=== PATIENT | female | born 1980 | race Caucasian/White ===

== ENCOUNTER 2023-05-16 | Outpatient (REF) | payer BC, SELFPAY ==
[2023-05-22 13:10] LABS: Age Gdln ACOG Testing Note (.); HPV Aptima Negative (Negative); IGP, Aptima HPV, rfx 16/18,45 Note (.)
== END 2023-05-16 00:01 | disposition home or self-care (01) ==
LOC: LAB
PROVIDERS: PCP Radiology Diagnostic Radiology; Visit Provider Physician Assistant
DX: Z01.419 Encounter for gynecological examination (general) (routine) without abnormal findings (principal)
CPT/HCPCS: 87624; G0145

== ENCOUNTER 2023-05-24 07:08 | Outpatient (OUT) | payer BC, SELFPAY ==
[2023-05-24 08:45] LABS: Free T4 0.87 ng/dL (0.76-1.46)
[2023-05-24 09:56] LABS: Free T3 2.29 pg/mL (2.18-3.98); Thyroid Stimulating Hormone 2.155 uIU/mL (0.358-3.740)
== END 2023-05-24 07:09 | disposition home or self-care (01) ==
LOC: LAB 07:09
PROVIDERS: PCP Internal Medicine; Visit Provider Internal Medicine
DX: Z78.0 Asymptomatic menopausal state (principal)
CPT/HCPCS: 36415; 84439; 84443; 84481

== ENCOUNTER 2023-05-24 14:03 | Outpatient (OUT) | payer BC, SELFPAY ==
--- NOTE | 2023-05-24 14:25 | MM_ITS ---
Patient: MARTHA FINNEY Exam Date: 05/24/2023 : 1980 Gender:F Ordering : DIOR Peña . Admission #: [id number] Family : DR Faizan Gay D.O. Order #: [id number] CLICK HERE TO VIEW EXAM RADIOLOGY REPORT PROCEDURE: MM TOMOSYNTHESIS SCREENING BI COMPARISON: MG MAMM SCREEN 3D JORDI CAD, 05/19/2022. MG MAMM SCREEN 3D JORDI CAD, 04/27/2021. MG MAMM SCREEN JORDI W CAD, 08/07/2017. INDICATIONS: Screening mammogram Z12.31 Calculator Name NCI Breast Cancer Risk Assessment Tool 5 Year Breast Cancer Risk 0.80% Lifetime Breast Cancer Risk 11.90% Personal Breast Cancer No Personal Ovarian Cancer No Treatments None Family Cancers Grandmother-maternal with uterine cancer at age ~48. LOCATION: [facility] BREAST COMPOSITION: Heterogeneously dense,which may obscure small masses. FINDINGS: DIAGNOSTIC CATEGORY 1--NEGATIVE. RIGHT BREAST: No significant suspicious finding. No significant change has occurred. LEFT BREAST: No significant suspicious finding. No significant change has occurred. RECOMMENDATIONS: ROUTINE MAMMOGRAM AND CLINICAL EVALUATION IN 12 MONTHS. PLEASE NOTE: A NORMAL MAMMOGRAM DOES NOT EXCLUDE THE POSSIBILITY OF BREAST CANCER. A CLINICALLY SUSPICIOUS PALPABLE LUMP SHOULD BE BIOPSIED. Dictated by: Rahul Quintero M.D. on 05/25/2023 at 09:22 Approved by: Rahul Quintero M.D. on 05/25/2023 at 10:19
== END 2023-05-24 14:04 | disposition home or self-care (01) ==
LOC: MAMMO 14:03
PROVIDERS: PCP Internal Medicine; Visit Provider Physician Assistant
DX: Z78.0 Asymptomatic menopausal state (principal); Z12.31 Encounter for screening mammogram for malignant neoplasm of breast; Z80.8 Family history of malignant neoplasm of other organs or systems
CPT/HCPCS: 36415; 77063; 77067; 84439; 84443; 84481

== ENCOUNTER 2023-08-20 11:38 | Outpatient (OUT) | payer BC, SELFPAY ==
--- NOTE | 2023-08-17 14:17 | NUTR.NU ---
Nahid reports her weight remains stable regardless of what she eats or drinks. She engages in physical activity 30-60 minutes/day and regularly changes the type of activity to include resistance and endurance activities. Recommended a balanced diet containing all food groups, practicing portion control and limiting salty or sweet snacks, most of which contain trans fats. Provided handouts: Building a balanced meal, Fats - the good/bad/ugly, and weight management guidelines/bookmark. Encouraged Nahid to contact dietitian with any questions or concerns.
== END 2023-08-20 11:39 | disposition home or self-care (01) ==
LOC: MN 11:38
PROVIDERS: PCP Internal Medicine
DX: Z76.89 Persons encountering health services in other specified circumstances (principal)
CPT/HCPCS: 97802

== ENCOUNTER 2023-08-22 07:37 | Outpatient (OUT) | payer BC, SELFPAY ==
[2023-08-22 07:56] LABS: Basophils Absolute Auto 0.1 10^3/uL (0.0-0.1); Basophils Percent Auto 0.6 % (0.2-2.0); Eosinophils Absolute Auto 0.1 10^3/uL (0.0-0.7); Eosinophils Percent Auto 1.5 % (0.9-7.0); Hematocrit 37.9 % (36.0-48.0); Hemoglobin 12.2 g/dL (12.0-16.0); Immature Granulocytes Abs Auto 0.01 10^3/uL (0.00-0.03); Immature Granulocytes Pct Auto 0.1 % (0.0-0.5); Lymphocytes Absolute Auto 2.1 10^3/uL (1.2-3.8); Lymphocytes Percent Auto 24.3 % (20.5-60.0); Mean Corpuscular HGB Conc 32.2 g/dL (29.9-35.2); Mean Corpuscular Hemoglobin 27.9 pg (26.7-34.0); Mean Corpuscular Volume 86.5 fL (81.0-99.0); Mean Platelet Volume 10.8 fL (9.5-13.5); Monocytes Absolute Auto 0.5 10^3/uL (0.3-0.8); Monocytes Percent Auto 5.8 % (1.7-12.0); Neutrophils Absolute Auto 5.8 10^3/uL (1.4-6.5); Neutrophils Percent Auto 67.7 % (43.0-75.0); Platelet Count 297 10^3/uL (150-450); Red Blood Count 4.38 10^6/uL (4.20-5.40); Red Cell Distribution Width 13.1 % (11.0-15.0); White Blood Count 8.6 10^3/uL (4.0-11.0)
[2023-08-22 08:07] LABS: Estimated Average Glucose 111 mg/dL; Glycohemoglobin A1C 5.5 % (4.5-6.2)
[2023-08-22 08:35] LABS: Alanine Aminotransferase 20 U/L (14-59); Albumin Globulin Ratio 0.9; Albumin Level 3.5 g/dL (3.4-5.0); Alkaline Phosphatase 72 U/L (46-116); Anion Gap 11.7; Aspartate Amino Transferase 14 U/L (15-37); BUN Creatinine Ratio 15.5; Bilirubin Total 0.7 mg/dL (0.2-1.0); Calcium 8.6 mg/dL (8.5-10.1); Carbon Dioxide 28.3 mmol/L (21.0-32.0); Chloride 100 mmol/L (98-107); Chol HDL Ratio 4.4; Cholesterol 212 mg/dL (<=200); Estimated GFR (African America >60 (>=60); Estimated GFR (Non-African Ame >60 (>=60); Free T3 2.49 pg/mL (2.18-3.98); Globulin 3.8 g/dL; Glucose 95 mg/dL (74-106); HDL Cholesterol 48 mg/dL (40-60); Sodium 136 mmol/L (136-145); Thyroid Stimulating Hormone 2.472 uIU/mL (0.358-3.740); Total Protein 7.3 g/dL (6.4-8.2); Triglycerides 76 mg/dL (<=150); VLDL CHOLESTEROL 15.2 mg/dL
[2023-08-22 09:04] LABS: Free T4 0.79 ng/dL (0.76-1.46)
[2023-08-23 10:12] LABS: Progesterone 10.4 ng/mL (.); Testosterone 30 ng/dL (4-50)
[2023-08-24 16:10] LABS: Estrone, Serum 65 pg/mL (.)
[2023-08-27 19:07] LABS: DHEA, Serum 258 ng/dL (31-701)
== END 2023-08-22 07:38 | disposition home or self-care (01) ==
LOC: LAB 07:37
PROVIDERS: PCP Internal Medicine; Visit Provider Internal Medicine
DX: Z00.00 Encounter for general adult medical examination without abnormal findings (principal); N95.1 Menopausal and female climacteric states
CPT/HCPCS: 36415; 80053; 80061; 82533; 82626; 82670; 82679; 83036; 84144; 84403; 84439; 84443; 84481; 85025

== ENCOUNTER 2023-10-30 13:04 | Outpatient (OUT) | payer BC, SELFPAY ==
--- NOTE | 2023-10-30 | XR_ITS ---
The [address] [address] Patient Name: MARTHA FINNEY MRN: [id number] date: 1980 Sex: F Assigned Patient Location: [facility] Current Patient Location: [facility] Accession/Order Number: [id number] Exam Date: 10/30/2023 13:06 Report Date: 10/30/2023 14:57 At the request of: ISAIAS BELCHER Procedure: XR foot JORDI min 3V EXAM: XR foot JORDI min 3V. HISTORY: BILATERAL FOOT PAIN. COMPARISON: Bilateral foot study dated 09/20/2021, left foot study dated 02/01/2022. TECHNIQUE: 4 views of each foot were obtained. FINDINGS: Views of the right foot demonstrate stabilizing plate and screws at the first metatarsophalangeal joint level, similar to the prior study. Small to moderate plantar calcaneal spur. Mild flatfoot deformity again suggested. Mild dorsal spurring of the talus on lateral view. Soft tissues are grossly within normal limits. No definite acute fracture or dislocation. Views of the left foot demonstrate 2 stabilizing screws in the calcaneus, similar to the prior study. Previously noted osteotomy of the first cuneiform demonstrates interval fusion, correlate clinically. Small opacity along the lateral fourth toe at the PIP joint level which may be degenerative calcification or interval opaque foreign body, correlate clinically. Similar-appearing small opacity between the third and fourth metatarsophalangeal joints on oblique view may represent degenerative calcification or interval opaque foreign body, correlate clinically. Mild degenerative change at the first metatarsotarsal joint. Mild to moderate spurring about the dorsal distal talus and the dorsal navicular. Soft tissues are grossly within normal limits. No definite acute fracture or dislocation. XR/XR foot JORDI min 3V IMPRESSION: Bilateral foot study demonstrates stable and unremarkable postoperative changes. Degenerative changes as noted similar to the prior studies. Small interval opacity overlying the lateral soft tissue of the left fourth toe and between the third and fourth metatarsophalangeal joints on oblique view of the left foot. Considerations as noted. Follow-up as needed. Electronically authenticated by: ELIZABET SIMMS Date: 10/30/2023 14:57
== END 2023-10-30 13:05 | disposition home or self-care (01) ==
LOC: RAD 13:04
PROVIDERS: PCP Internal Medicine; Visit Provider Podiatrist Foot & Ankle Surgery
DX: M79.671 Pain in right foot (principal); M79.672 Pain in left foot
CPT/HCPCS: 73630

== ENCOUNTER 2024-01-14 12:53 | Outpatient (OUT) | payer BC, SELFPAY ==
--- NOTE | 2024-01-14 12:57 | XR_ITS ---
The [address] [address] Patient Name: MARTHA FINNEY MRN: [id number] date: 1980 Sex: F Assigned Patient Location: [facility] Current Patient Location: Accession/Order Number: [id number] Exam Date: 01/14/2024 13:02 Report Date: 01/16/2024 06:54 At the request of: YVON GAMEZ Procedure: XR lumbar spine 6V w bending EXAMINATION: XR lumbar spine 6V w bending HISTORY: low back pain M54.50 , left leg pain, no known injury COMPARISON: No relevant comparison available. FINDINGS: BONES: No significant spondylosis, scoliosis, fracture, or visible bony lesion. No change in alignment during flexion and extension. Mild degenerative facet arthropathy L4-5, L5-S1. DISC SPACES: Mild narrowing L3-4. Moderate narrowing L5-S1. PARASPINOUS: Negative. No paraspinous abnormality is seen. OTHER: Negative. XR/XR lumbar spine 6V w bending IMPRESSION: 1. Degenerative changes of lower lumbar spine, most notable at L5-S1. Electronically authenticated by: ELIEZER ROME Date: 01/16/2024 06:54
--- OUTSIDE RECORDS SUMMARY | 2024-01-14 13:07 | XMS_ITS | CCD ---
Author Organization [facility] Care Team Providers Care Chainstitch Hemmer Name Role Phone PHYSICIAN, DEFAULT Admitting Unavailable PHYSICIAN, DEFAULT Attending Unavailable PHYSICIAN, DEFAULT Admitting Unavailable PHYSICIAN, DEFAULT Attending Unavailable WILD, DR RAHUL Merrill Consulting Unavailable BALL, DR SANZ Primary Care Unavailable MONIKA, NOÉ Admitting Unavailable MONIKA, NOÉ Attending Unavailable MONIKA, NOÉ Consulting Unavailable AMANDA, DR SULLIVAN Admitting Unavailable AMANDA, DR SULLIVAN Attending Unavailable BALL, DR SANZ Consulting Unavailable BALL, DR SANZ Primary Care Unavailable BALL, DR SANZ Primary Care Unavailable BALL, DR SANZ Consulting Unavailable BALL, DR SANZ Attending Unavailable BALL, DR SANZ Admitting Unavailable BALL, DR SANZ Primary Care Unavailable RAMON, JEROD Admitting Unavailable RAMON, JEROD Attending Unavailable BALL, DR SANZ Primary Care Unavailable BALL, DR SANZ Consulting Unavailable BALL, DR SANZ Attending Unavailable BALL, DR SANZ Admitting Unavailable BALL, DR SANZ Primary Care Unavailable BALL, DR SANZ Consulting Unavailable BALL, DR SANZ Attending Unavailable BALL, DR SANZ Admitting Unavailable Ball, Faizan Unavailable Allergies Allergy Classification Reported Allergen(s) Allergy Type Date of Onset Reaction(s) Facility (1 source) Carisoprodol Drug Allergy [facility] (1 source) Metoprolol Drug Allergy [facility] (2 sources) Carisoprodol Drug Allergy palpitations Jibe Other (2 sources) First - Metoprolol *BETA BLOCKERS* Propensity to adverse reactions Comment:tachyca rdia Jibe Other Medications Current Medications Medication Drug Class(es) Dates Sig (Normalized) Sig (Original) ProAir HFA 108 (90 Base) MCG/ACT (2 sources) take 2 puff(s) by inhalation every four hours as needed ProAir HFA 108 (90 Base) MCG/ACT 2 puffs as needed Inhalation every 4 hrs for 30 days Active Completed/Discontinued Medications Medication Drug Class(es) Dates Sig (Normalized) Sig (Original) methylPREDNISolone 4 mg oral tablet (2 sources) Corticosteroid Medrol (Alin) 4 M G as directed Orally for 6 days Not-Taking Problems Active Problems Problem Classification Problem Date Documented Da te Episodic/Chronic Cardiac dysrhythmias (3 sources) Palpitations; Translations: [Palpitations] Episodic Menopausal disorders (3 sources) Menopausal and female climacteric states; Translations: [Menopausal symptom] Onset: 09-30-2022 Chronic Other connective tissue disease (4 sources) Plantar fascial fibromatosis; Translations: [PLANTAR FASCIAL FIBROMATOSIS] Onset: 11-30-2022 Episodic Other connective tissue disease (2 sources) Foot pain; Translations: [Pain in unspecified foot] Episodic Other endocrine disorders (2 sources) Disorder of endocrine system; Translations: [Endocrine disorder, unspecified] Episodic Other nutritional; endocrine; and metabolic disorders (2 sources) Body mass index 40+ - severely obese; Translations: [Body mass index (BMI) 45.0-49.9, adult] Chronic Other nutritional; endocrine; and metabolic disorders (2 sources) Severe obesity; Translations: [Morbid (severe) obesity due to excess calories] Chronic Other nutritional; endocrine; and metabolic disorders (1 source) Morbid (severe) obesity due to excess calories Chronic Other nutritional; endocrine; and metabolic disorders (1 source) Body mass index (BMI) 45.0-49.9, adult Chronic Residual codes; unclassified (4 sources) Asymptomatic menopausal state; Translations: [ASYMPTOMATIC MENOPAUSAL STATE] Onset: 02-03-2023 Episodic Past or Other Problems Problem Classification Problem Date Documented Da te Episodic/Chronic Malaise and fatigue (4 sources) Other fatigue; Translations: [OTHER FATIGUE] Onset: 09-25-2022 Episodic Other endocrine disorders (1 source) Endocrine disorder, unspecified; Translations: [ENDOCRINE DISORDER UNSPECIFIED] Onset: 08-13-2022 Episodic Other screening for suspected conditions (not mental disorders or infectious disease) (4 sources) Encounter for screening mammogram for malignant neoplasm of breast; Translations: [ENC SCR MAMMO MALIG NEOPLASM BREAST] Onset: 05-19-2022 Episodic Residual codes; unclassified (1 source) Family history of malignant neoplasm of other genital organs; Translations: [FAM HX MALIG NEOPLSM OTH GENIT ORGN] Onset: 05-22-2022 Episodic Results Test Name Value Interpretation Reference Range Facility DHEA SERUMon 02-08-2023 Dehydroepiandrosterone (DHEA) 415 ng/dL Normal 31-701 [facility] Comment on above: Performed By: #### D JAMEL. #### [facility] [address] [place] [address] Dr. Katie Funez ESTRONEon 02-06-2023 Estrone, Serum 55 pg/mL Normal [facility] Comment on above: Result Comment: Rang e Adult (Premenopausal) 27 - 231 Menstrual Cycle (1-10 days) 19 - 149 Menstrual Cycle (11-20 days) 32 - 176 Menstrual Cycle (21-30 days) 37 - 200 Adult (Postmenopausal) 0 - 125 Performed By: #### P DAVINA #### [facility] [address] [place] [address] Dr. Katie Funez CORTISOLon 02-04-2023 Cortisol 22.7 ug/dL Critically high 6.2-19.4 [facility] Comment on above: Result Comment: Vibha frost Note: The reference interval and flagging for this test is for an AM collection. If this is a PM collection please use: Cortisol PM: 2.3-11.9 [facility] also offers: 104077: Cortisol- AM 819252: Cortisol- PM Performed By: #### C ORFLACO #### [facility] [address] [place] [address] Dr. Katie Funez ESTRADIOLon 02-04-2023 Estradiol 142.0 pg/mL Normal [facility] Comment on above: Result Comment: Adul t Female: Follicular phase 12.5 - 166.0 Ovulation phase 85.8 - 498.0 Luteal phase 43.8 - 211.0 Postmenopausal <6.0 - 54.7 1st trimester 215.0 - >4300.0 Jeferson ECLIA methodology Performed By: #### E WAYNE #### [facility] [address] [place] [address] Dr. Katie Funez PROGESTERONEon 02-04-2023 Progesterone 7.6 ng/mL Normal [facility] Comment on above: Result Comment: Foll icular phase 0.1 - 0.9 Luteal phase 1.8 - 23.9 Ovulation phase 0.1 - 12.0 First trimester 11.0 - 44.3 Second trimester 25.4 - 83.3 Third trimester 58.7 - 214.0 Postmenopausal 0.0 - 0.1 Performed By: #### P ROGES #### [facility] [address] [place] [address] Dr. Katie Funez TESTOSTERONE, TOTALon 2022 Testosterone [Mass/Vol] 33 ng/dL Normal 4-[address] [facility] Comment on above: Performed By: #### T ESTTOT #### [facility] [address] [place] [address] Dr. Katie Funez FREE T3on 02-03-2023 FREE T3 2.12 pg/mlL Critically low 2.18-3.98 [facility] Comment on above: Performed By: #### P ROGES #### [facility] [address] [place] [address] Dr. Katie Funez FREE T4on 02-03-2023 Free T4 [Mass/Vol] 0.90 ng/dL Normal 0.76-1.46 [facility] Comment on above: Performed By: #### P ROGES #### [facility] [address] [place] [address] Dr. Katie Funez TSHon 02-03-2023 TSH 2.763 uIU/mL Normal 0.358-3.740 [facility] Comment on above: Performed By: #### P ROGES #### [facility] [address] [place] [address] Dr. Katie Funez FREE T3on 09-25-2022 FREE T3 1.80 pg/mlL Critically low 2.18-3.98 [facility] Comment on above: Performed By: #### F T3 #### [facility] [address] [place] [address] Dr. Katie Funez FREE T4on 09-25-2022 Free T4 [Mass/Vol] 1.05 ng/dL Normal 0.76-1.46 [facility] Comment on above: Performed By: #### P ROGES #### [facility] [address] [place] [address] Dr. Katie uFnez TSHon 09-25-2022 TSH 3.688 uIU/mL Normal 0.358-3.740 [facility] Comment on above: Performed By: #### T SH #### [facility] [address] [place] [address] Dr. Katie Funez ESTRONEon 08-17-2022 Estrone, Serum 49 pg/mL Normal [facility] Comment on above: Result Comment: Rang e Adult (Premenopausal) 27 - 231 Menstrual Cycle (1-10 days) 19 - 149 Menstrual Cycle (11-20 days) 32 - 176 Menstrual Cycle (21-30 days) 37 - 200 Adult (Postmenopausal) 0 - 125 Performed By: #### E STRONE #### [facility] [address] [place] [address] Dr. Katie Funez TESTOSTERONE, FREE,DIRECT, T OTALon 08-14-2022 Free Testosterone(Direct) 0.8 pg/mL Normal 0.0-4.2 [facility] Comment on above: Result Comment: Perf ormed at: BN Performed By: #### V ITAD #### [facility] [address] [place] [address] Dr. Katie Funez Testosterone [Mass/Vol] 27 ng/dL Normal 4-[address] [facility] Comment on above: Result Comment: Perf ormed at: CB Performed By: #### V ITAD #### [facility] [address] [place] [address] Dr. Katie Funez CORTISOLon 08-11-2022 Cortisol 11.5 ug/dL Normal [facility] Comment on above: Result Comment: Doimedes isol AM 6.2 - 19.4 Cortisol PM 2.3 - 11.9 Performed By: #### V ITAD #### [facility] [address] [place] [address] Dr. Katie Funez DHEA-SULFATEon 08-11-2022 DHEA-Sulfate 120.0 ug/dL Normal 57.3-279.2 [facility] Comment on above: Performed By: #### V ITAD #### [facility] [address] [place] [address] Dr. Katie Funez ESTRADIOLon 08-11-2022 Estradiol 104.0 pg/mL Normal [facility] Comment on above: Result Comment: Adul t Female: Follicular phase 12.5 - 166.0 Ovulation phase 85.8 - 498.0 Luteal phase 43.8 - 211.0 Postmenopausal <6.0 - 54.7 1st trimester 215.0 - >4300.0 Jeferson ECLIA methodology Performed By: #### E WAYNE #### [facility] [address] [place] [address] Dr. Katie Funez PROGESTERONEon 08-11-2022 Progesterone 9.7 ng/mL Normal [facility] Comment on above: Result Comment: Foll icular phase 0.1 - 0.9 Luteal phase 1.8 - 23.9 Ovulation phase 0.1 - 12.0 First trimester 11.0 - 44.3 Second trimester 25.4 - 83.3 Third trimester 58.7 - 214.0 Postmenopausal 0.0 - 0.1 Performed By: #### V ITAD #### [facility] [address] [place] [address] Dr. Katie Funez SEX HORMONE-BINDING GLOBULIN on 08-11-2022 Sex Horm Binding Glob, Serum 73.1 nmol/L Normal 24.6-122.0 [facility] Comment on above: Performed By: #### V ITAD #### [facility] [address] [place] [address] Dr. Katie Funez CBC AUTO DIFFon 08-10-2022 BASO # 0.0 103/ul Normal 0.0-0.1 [facility] Comment on above: Performed By: #### V ITAD #### [facility] [address] [place] [address] Dr. Katie Funez Basophils/100 WBC (Bld) 0.6 % Normal 0.2-2.0 [facility] Comment on above: Performed By: #### V ITAD #### [facility] [address] [place] [address] Dr. Katie Funez EO # 0.1 103/ul Normal 0.0-0.7 [facility] Comment on above: Performed By: #### V ITAD #### [facility] [address] [place] [address] Dr. Katie Funez Eosinophils/100 WBC (Bld) 1.4 % Normal 0.9-7.0 [facility] Comment on above: Performed By: #### V ITAD #### [facility] [address] [place] [address] Dr. Katie Funez Erythrocyte distribution width (RBC) [Ratio] 13.2 % Normal 11.0-15.0 [facility] Comment on above: Performed By: #### V ITAD #### [facility] [address] [place] [address] Dr. Katie Funez Hematocrit (Bld) [Volume fraction] 41.9 % Normal 36.0-48.0 [facility] Comment on above: Performed By: #### V ITAD #### [facility] [address] [place] [address] Dr. Katie Funez Hemoglobin (Bld) [Mass/Vol] 13.5 g/dL Normal 12.0-16.0 [facility] Comment on above: Performed By: #### V ITAD #### [facility] [address] [place] [address] Dr. Katie Funez IG # 0.01 10e3/ul Normal 0.00-0.03 [facility] Comment on above: Performed By: #### V ITAD #### [facility] [address] [place] [address] Dr. Katie Funez IG % 0.1 % Normal 0.0-0.5 [facility] Comment on above: Performed By: #### V ITAD #### [facility] [address] [place] [address] Dr. Katie Funez LYMPH # 1.8 103/ul Normal 1.2-3.8 [facility] Comment on above: Performed By: #### V ITAD #### [facility] [address] [place] [address] Dr. Katie Funez Lymphocytes/100 WBC (Bld) 24.6 % Normal 20.5-60.0 [facility] Comment on above: Performed By: #### V ITAD #### [facility] [address] [place] [address] Dr. Katie Funez MANUAL DIFF REQ NO Normal [facility] Comment on above: Performed By: #### V ITAD #### [facility] [address] [place] [address] Dr. Katie Funez MCH (RBC) [Entitic mass] 28.2 pg Normal 26.7-34.0 [facility] Comment on above: Performed By: #### V ITAD #### [facility] [address] [place] [address] Dr. Katie Funez MCHC (RBC) [Mass/Vol] 32.2 g/dL Normal 29.9-35.2 [facility] Comment on above: Performed By: #### V ITAD #### [facility] [address] [place] [address] Dr. Kaite Funez MCV (RBC) [Entitic vol] 87.5 fL Normal 81.0-99.0 [facility] Comment on above: Performed By: #### V ITAD #### [facility] [address] [place] [address] Dr. Katie Funez MONO # 0.4 103/ul Normal 0.3-0.8 [facility] Comment on above: Performed By: #### V ITAD #### [facility] [address] [place] [address] Dr. Katie Funez Monocytes/100 WBC (Bld) 6.0 % Normal 1.7-12.0 [facility] Comment on above: Performed By: #### V ITAD #### [facility] [address] [place] [address] Dr. Katie Funez NEUT # 4.8 103/ul Normal 1.4-6.5 [facility] Comment on above: Performed By: #### V ITAD #### [facility] [address] [place] [address] Dr. Katie Funez Neutrophils/100 WBC (Bld) 67.3 % Normal 43.0-75.0 [facility] Comment on above: Performed By: #### V ITAD #### [facility] [address] [place], [place] [id number] Dr. Katie Funez Platelet mean volume (Bld) [Entitic vol] 11.7 fL Normal 9.5-13.5 [facility] Comment on above: Performed By: #### V ITAD #### [facility] [address] [place] [address] Dr. Katie Funez PLT 294 103/ul Normal 150-450 [facility] Comment on above: Performed By: #### V ITAD #### [facility] [address] [place] [address] Dr. Katie Funez RBC 4.79 106/ul Normal 4.20-5.40 [facility] Comment on above: Performed By: #### V ITAD #### [facility] [address] [place] [address] Dr. Katie Funez WBC 7.2 103/ul Normal 4.0-11.0 [facility] Comment on above: Performed By: #### V ITAD #### [facility] [address] [place] [address] Dr. Katie Funez GLYCOHEMOGLOBIN A1Con 2021 ADA RECOMMENDATION SEE BELOW Normal [facility] Comment on above: Result Comment: ADA RECOMMENDED LIMIT 4.0 - 6.0 ADA THERAPEUTIC TARGET < 7.0 ACTION SUGGESTED > 7.0 Performed By: #### P DAVINA #### [facility] [address] [place] [address] Dr. Katie Funez Glucose [Mass/Vol] 103 mg/dL Normal [facility] Comment on above: Performed By: #### P ROGES #### [facility] [address] [place] [address] Dr. Katie Funez HbA1c (Bld) [Mass fraction] 5.2 % Normal 4.5-6.2 [facility] Comment on above: Performed By: #### P ROGMARCUS #### [facility] [address] [place] [address] Dr. Katie Funez LIPID PROFILEon 08-10-2022 CHOL-HDL RATIO NORM SEE BELOW Normal [facility] Comment on above: Result Comment: 3.3 - 4.4 LOW RISK 4.4 - 7.1 AVERAGE RISK 7.1 - 11.0 MODERATE RISK >11.0 HIGH RISK Performed By: #### V ITAD #### [facility] [address] [place] [address] Dr. Katie Funez Cholesterol [Mass/Vol] 204 mg/dL Critically high <=200 [facility] Comment on above: Performed By: #### V ITAD #### [facility] [address] [address] [address] Katie Funez Cholesterol in HDL [Mass/Vol] 52 mg/dL Normal 40-60 [facility] Comment on above: Performed By: #### V ITAD #### [facility] [address] [place] [address] Dr. Katie Funez Cholesterol in LDL [Mass/Vol] 137.2 mg/dL Normal [facility] Comment on above: Performed By: #### V ITAD #### [facility] [address] [place] [address] Dr. Katie Funez Cholesterol.total/Choleste rol in HDL [Mass ratio] 3.9 {ratio} Normal [facility] Comment on above: Performed By: #### V ITAD #### [facility] [address] [place] [address] Dr. Katie Funez HDL NORMAL > or = 60 mg/dl - LOW CARDIOVASCULAR RISK <40 mg/dl - HIGH CARDIOVASCULAR RISK Normal [facility] Comment on above: Performed By: #### V ITAD #### [facility] [address] [place] [address] Dr. Katie Funez LDL CALC NORMAL SEE BELOW Normal [facility] Comment on above: Result Comment: <100 mg/dl OPTIMAL 100 - 129 mg/dl NEAR OR ABOVE OPTIMAL 130 - 159 mg/dl BORDERLINE HIGH 160 - 189 mg/dl HIGH >190 mg/dl VERY HIGH Performed By: #### V ITAD #### [facility] [address] [place] [address] Dr. Katie Funez Triglyceride [Mass/Vol] 74 mg/dL Normal <=150 [facility] Comment on above: Performed By: #### V ITAD #### [facility] [address] [place] [address] Dr. Katie Funez VLDL CALC 14.8 mg/dL Normal [facility] Comment on above: Performed By: #### V ITAD #### [facility] [address] [place] [address] Dr. Katie Funez PROF 14(COMP METB)on 022 Albumin [Mass/Vol] 3.8 g/dL Normal 3.4-5.0 [facility] Comment on above: Performed By: #### V ITAD #### [facility] [address] [place] [address] Dr. Katie Funez Albumin/Globulin [Mass ratio] 0.9 {ratio} Normal [facility] Comment on above: Performed By: #### V ITAD #### [facility] [address] [place] [address] Dr. Katie Funez ALP [Catalytic activity/Vol] 77 U/L Normal 46-116 [facility] Comment on above: Performed By: #### V ITAD #### [facility] [address] [place] [address] Dr. Katie Funez ALT [Catalytic activity/Vol] 20 U/L Normal 14-59 [facility] Comment on above: Performed By: #### V ITAD #### [facility] [address] [place] [address] Dr. Katie Funez Anion gap [Moles/Vol] 10.0 mmol/L Normal [facility] Comment on above: Performed By: #### V ITAD #### [facility] [address] [place] [address] Dr. Katie Funez AST [Catalytic activity/Vol] 14 U/L Critically low 15-37 [facility] Comment on above: Performed By: #### V ITAD #### [facility] [address] [place] [address] Dr. Katie Funez Bilirubin [Mass/Vol] 0.8 mg/dL Normal 0.2-1.0 [facility] Comment on above: Performed By: #### V ITAD #### [facility] [address] [place] [address] Dr. Katie Funez Calcium [Mass/Vol] 8.9 mg/dL Normal 8.5-10.1 [facility] Comment on above: Performed By: #### V ITAD #### [facility] [address] [place] [address] Dr. Katie Funez Chloride [Moles/Vol] 101 mmol/L Normal 98-107 [facility] Comment on above: Performed By: #### V ITAD #### [facility] [address] [place] [address] Dr. Katie Funez CO2 [Moles/Vol] 29.9 mmol/L Normal 21.0-32.0 [facility] Comment on above: Performed By: #### V ITAD #### [facility] [address] [place] [address] Dr. Katie Funez Creatinine [Mass/Vol] 0.83 mg/dL Normal 0.55-1.02 [facility] Comment on above: Performed By: #### V ITAD #### [facility] [address] [place] [address] Dr. Katie Funez EGFR-AF [place] >60 Normal >=60 [facility] Comment on above: Performed By: #### V ITAD #### [facility] [address] [place] [address] Dr. Katie Funez EGFR-NON AF [place] >60 Normal >=60 [facility] Comment on above: Performed By: #### V ITAD #### [facility] [address] [place] [address] Dr. Katie Funez Globulin (S) [Mass/Vol] 4.0 g/dL Normal T [facility] Comment on above: Performed By: #### V ITAD #### [facility] [address] [place] [address] Dr. Katie Funez Glucose [Mass/Vol] 91 mg/dL Normal 74-106 [facility] Comment on above: Performed By: #### V ITAD #### [facility] [address] [place] [address] Dr. Katie Funez Potassium [Moles/Vol] 3.9 mmol/L Normal 3.5-5.1 [facility] Comment on above: Performed By: #### V ITAD #### [facility] [address] [place] [address] Dr. Katie Funez Protein [Mass/Vol] 7.8 g/dL Normal 6.4-8.2 [facility] Comment on above: Performed By: #### V ITAD #### [facility] [address] [place] [address] Dr. Katie Funez Sodium [Moles/Vol] 137 mmol/L Normal 136-145 [facility] Comment on above: Performed By: #### V ITAD #### [facility] [address] [place] [address] Dr. Katie Funez Urea nitrogen [Mass/Vol] 13.0 mg/dL Normal 7.0-18.0 [facility] Comment on above: Performed By: #### V ITAD #### [facility] [address] [place] [address] Dr. Katie Funez Urea nitrogen/Creatinine [Mass ratio] 15.7 mg/mg Normal [facility] Comment on above: Performed By: #### V ITAD #### [facility] [address] [place] [address] Dr. Katie Funez TSHon 08-10-2022 TSH 2.642 uIU/mL Normal 0.358-3.740 [facility] Comment on above: Performed By: #### V ITAD #### [facility] [address] [place] [address] Dr. Katie Funez VITAMIN D 25 OHon 08-10-2022 VIT D 25-OH 23.6 ng/mL Normal [facility] Comment on above: Performed By: #### V ITAD #### [facility] [address] [place] [address] Dr. Katie Funez VIT D RANGES SEE BELOW Normal [facility] Comment on above: Result Comment: <20 ng/mL Vit D deficient 20 - <30 ng/mL Vit D insufficient 30 - 100 ng/mL Vit D sufficient >100 ng/mL Potential Toxicity Performed By: #### V ITAD #### [facility] [address] [id number] Katie Funez MG MAMM SCREEN 3D JORDI CADon 05-19-2022 MG MAMM SCREEN 3D JORDI CAD Patient: MARTHA BARBOSA Exam Date: 05/19/2022 : 1980 Gender:F Ordering : DR. NOÉ FRANK D.O. Admission #: [id number] Family : Order #: [id number] CLICK HERE TO VIEW EXAM RADIOLOGY REPORT PROCEDURE: MAMMOGRAM SCREENING 3D BILATERAL CAD COMPARISON: MG MAMM SCREEN 3D JORDI CAD, 04/27/2021. MG MAMM SCREEN JORDI W CAD, 08/07/2017. INDICATIONS: Screening mammography Calculator Name NCI Breast Cancer Risk Assessment Tool 5 Year Breast Cancer Risk 0.70% Lifetime Breast Cancer Risk 12.00% Personal Breast Cancer No Personal Ovarian Cancer No Treatments None Family Cancers Grandmother-materna l with uterine cancer at age 48. LOCATION: [facility] BREAST COMPOSITION: Heterogeneously dense,which may obscure small masses. FINDINGS: DIAGNOSTIC CATEGORY 1--NEGATIVE. RIGHT BREAST: No significant suspicious finding. No significant change has occurred. LEFT BREAST: No significant suspicious finding. No significant change has occurred. RECOMMENDATIONS: ROUTINE MAMMOGRAM AND CLINICAL EVALUATION IN 12 MONTHS. PLEASE NOTE: A NORMAL MAMMOGRAM DOES NOT EXCLUDE THE POSSIBILITY OF BREAST CANCER. A CLINICALLY SUSPICIOUS PALPABLE LUMP SHOULD BE BIOPSIED. Dictated by: Rahul Quintero M.D. on 05/19/2022 at 12:37 Approved by: Rahul Quintero M.D. on 05/19/2022 at 12:38 Normal [facility] Vital Signs Date Time Vital Sign Value Performing Clinician Facility 08-06-2023 14:00-0400 Body height 170.18 cm Faizan Gamez Other [facility] 08-06-2023 14:00-0400 Body mass index (BMI) [Ratio] 47.04 kg/m2 [facility] Other [facility] 08-06-2023 14:00-0400 Body weight 136.26 kg [facility] Other [facility] 08-06-2023 14:00-0400 Diastolic blood pressure 81 mm[Hg] Faizan Gamez Other [facility] 08-06-2023 14:00-0400 Respiratory rate 12 /min Faizan Gamez Other [facility] 08-06-2023 14:00-0400 Systolic blood pressure 118 mm[Hg] Faizan Gamez Other [facility] Other Encounters Encounter Date Encounter Type Care Provider Facility Start: 08-06-2023 End: 08-06-2023 ambulatory Faizan Gamez Other [facility] Start: 08-06-2023 Encounter for genera l adult medical examination without abnormal findings Faizan Gamez [facility] Start: 08-06-2023 Periodic preventive med est patient 40-64yrs Faizan Gamez [facility] Start: 08-06-2023 Telephone encounter Faizan Gamez [facility] Start: 02-03-2023 End: 02-04-[address] LAURIE PATEL Facility:[facility] Start: 11-30-2022 End: 02-07-[address] FAIZAN GAMEZ Facility:[facility] Start: 09-25-2022 End: 09-26-[address] FAIZAN GAMEZ Facility:[facility] Start: 09-06-[address] FAIZAN GAMEZ Facili ty:[facility] Start: 08-13-2022 Encounter for genera l adult medical examination without abnormal findings DR FAIZAN GAMEZ [facility] Start: 08-10-2022 End: 08-11-[address] FAIZAN GAMEZ Facility:[facility] Start: 08-10-2022 End: 08-11-2022 Encounter for general adult medical examination without abnormal findings DR FAIZAN GAMEZ Facility:[facility] Start: 05-19-2022 End: 05-20-[address] RAHUL QUINTERO Facility:[facility] Start: 01-20-2019 End: 01-21-2019 Patient encounter procedure DEFAULT PHYSICIAN Facility:[facility] Start: 01-01-2019 End: 01-02-2019 Patient encounter procedure DEFAULT PHYSICIAN Facility:[facility] Immunizations Immunization Date Immunization Notes Care Provider Destiny avila 07-25-2017 influenza virus vaccine, split virus (incl. purified surface antigen) Faizan Gamez Other [facility] Other Payers Date Payer Category Payer Unknown [id number] 2019 Unknown [id number] 1980 Unknown [id number] 2.16.8 [id number] 1980 Unknown [id number] 2.16.8 [id number] 1980 Unknown [id number] 2.16.84 [id number] 1980 Unknown [id number] 2.16.84 [id number] 1980 Unknown [id number] 2.16.84 [id number] 1980 Unknown [id number] 2.16.84 [id number] 1980 Unknown [id number] 2.16.84 [id number] 1980 Unknown [id number] 2.16.84 [id number] Unknown Social History Date Type Detail Facility Unknown if ever smoked [facility] Other Sex Assigned At Sex Assigned At Bir th [facility] Other Evaluation note 08-06-2023 Note Date & Type Note Facility 08-06-2023 Evaluation note Encounter Date Diagnosis Assessment Notes Jul, Wellness examination (ICD-10 - Z00.00) Healthy diet and exercise. Reviewed age-appropriat e preventive testing recommended. Labs pending Jul, Morbid (severe) obesity due to excess calories (ICD-10 - E66.01) This patient has been instructed on a low-fat, high-fiber diet. They are instructed to reduce calories, portion sizes and snacks. It is recommended that they exercise for 30 minutes, 3-5 times weekly. Discussed Adipex and GLP-1 Jul, Body mass index [BMI] 45.0-49.9, adult (ICD-10 - Z68.42) Jul, Palpitations (ICD-10 - R00.2) Avoid stimulants and hydrate. No treatment necessary, continue to exercise [facility] Other Evaluation note Note Date & Type Note Facility Evaluation note No Information [facility] Other History general Narrative - Reported Note Date & Type Note Facility History general Narrative - Reported Type Medical History Foot pain Medical History Menopausal symptom Medical History Hormonal disorder Medical History Palpitations Surgical History C section Surgical History wisdom teeth Surgical History vein ligation Hospitalization History child bith [facility] Other Summary Purpose Family History No Family History Records FoundNo Family History Records Found Advance Directives No Advanced Directives Records FoundNo Advanced Directives Records Found Additional Source Comments INFORMATION SOURCE (unrecogn ized section and content) DATE CREATED AUTHOR 01/21/2019 [facility] DATE CREATED AUTHOR AUTHOR'S ORGANIZ ATION 02/14/2023 [facility] REASON FOR VISIT (unrecogniz ed section and content) wellnessDietician FOR RECORDS PERTAINING TO PATIENTS WHO ARE OR HAVE BEEN ENROLLED IN A CHEMICAL DEPENDENCY/SUBSTANCEABUSE PROGRAM, SOME INFORMATION MAY BE OMITTED. This clinical summary was aggregated from multiple sources. Caution should be exercised in using it in the provision of clinical care. This summary normalizes information from multiple sources, and as a consequence, information in this document may materially change the coding, format and clinical context of patient data. In addition, data may be omitted in some cases. CLINICAL DECISIONS SHOULD BE BASED ON THE PRIMARY CLINICAL RECORDS. [employer] provides no warranty or guarantee of the accuracy or completeness of information in this document.
== END 2024-01-14 12:54 | disposition home or self-care (01) ==
LOC: RAD 12:54
PROVIDERS: PCP Internal Medicine; Visit Provider Internal Medicine
DX: M54.50 Low back pain, unspecified (principal); M51.37 Other intervertebral disc degeneration, lumbosacral region
CPT/HCPCS: 72114

== ENCOUNTER 2024-01-18 15:15 | Outpatient (RCR) | payer BC, SELFPAY | END 2024-02-15 16:54 | disposition home or self-care (01) | LOC: PT 15:15 | PROVIDERS: PCP Internal Medicine; Visit Provider Internal Medicine | DX: M54.50 Low back pain, unspecified (principal) | CPT/HCPCS: 20561; 97113; 97140; 97161 ==

== ENCOUNTER 2024-02-15 07:54 | Outpatient (RCR) | payer BC, SELFPAY | END 2024-06-21 15:59 | disposition home or self-care (01) | LOC: OT 07:54 | PROVIDERS: PCP Internal Medicine; Visit Provider Internal Medicine | DX: M54.50 Low back pain, unspecified (principal) | CPT/HCPCS: 97140; 97166 ==

== ENCOUNTER 2024-02-27 07:00 | Outpatient (OUT) | payer BC, SELFPAY ==
--- OUTSIDE RECORDS SUMMARY | 2024-02-27 07:02 | XMS_ITS | CCD ---
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 Role Phone PHYSICIAN, DEFAULT Admitting Unavailable [...] Facility (1 source) Carisoprodol Drug Allergy [facility] Repository (1 source) Metoprolol Drug Allergy [facility] Repository (3 sources) Carisoprodol Drug Allergy 01-14-20 palpitations [facility] (2 sources) First - Metoprolol *BETA BLOCKERS* Propensity to adverse reactions Comment:[facility] Other (1 source) First - Metoprolol *BETA BLOCK Allergy to substance 08-06-20 Comment:1010data [facility] Medications Current Medications Medication Drug Class(es) Dates Sig (Normalized) Sig (Original) docosahexaenoic acid 120 mg / eicosapentaenoic acid 180 mg oral capsule (1 source) Start: 01-14-2024 take 2 capsules by mouth once daily Docosahexaenoic Acid-Epa (Fish Oil) 120-180 mg capsule Active 2 CAP PO Daily January 14, 2024 12:00am mecobalamin 1 mg chewable tablet (1 source) Start: 01-14-2024 take 1000 ug by mouth once daily Mecobalamin (Vitamin B12) Active 1000 MCG PO Daily January 14, 2024 12:00am Multivitamin preparation (1 source) Start: 01-14-2024 take 1 tablet by mouth once daily Multivitamin Active 1 TAB PO Daily January 14, 2024 12:00am ProAir HFA 108 (90 Base) MCG/ACT (2 sources) take 2 puff(s) by inhalation every four hours as needed ProAir HFA 108 (90 Base) MCG/ACT 2 puffs as needed Inhalation every 4 hrs for 30 days Active progesterone 50 mg/ml injectable solution (1 source) Progesterone Start: 01-14-2024 Progesterone Active 50 MG IM .COMPLEX January 14, 2024 12:00am 50 mg intramuscularly daily during day 14-28 of cycle; Triiodo L-thyronine (1 source) Start: 01-14-2024 take 20 ug by mouth once daily Triiodo L-thyronine Active 20 MCG PO Daily January 14, 2024 12:00am Completed/Discontinued Medications Medication Drug Class(es) Dates Sig (Normalized) Sig (Original) [id number] 200 actuat albuterol 0.09 mg/actuat metered dose inhaler (1 source) beta2-Adrenergic Agonist Start: 01-11-2024 End: 01-14-2024 take 1 puff(s) by inhalation every four hours Albuterol Sulfate (Proair Hfa) 90 mcg/actuation HFA aerosol inhaler Discontinued 2 PUFF INHALATION Every 4 hours January 11, 2024 12:00am January 14, 2024 12:14pm methylPREDNISolone 4 mg oral tablet (2 sources) Corticosteroid Medrol (Alin) 4 MG as directed Orally for 6 days Not-Taking Problems Active Problems Problem Classification Problem Date Documented Da te Episodic/Chronic Cardiac dysrhythmias (4 sources) Palpitations; Translations: [Palpitations] Episodic Menopausal disorders (3 sources) Menopausal and female climacteric states; Translations: [Menopausal symptom] Onset: 09-30-2022 Chronic Other connective tissue disease (4 sources) Plantar fascial fibromatosis; Translations: [PLANTAR FASCIAL FIBROMATOSIS] Onset: 11-30-2022 Episodic Other connective tissue disease (3 sources) Foot pain; Translations: [Pain in unspecified foot] 01-11-2024 Episodic Other endocrine disorders (2 sources) Disorder [...] Translations: [ASYMPTOMATIC MENOPAUSAL STATE] Onset: 02-03-2023 Episodic Spondylosis; intervertebral disc disorders; other back problems (1 source) Low back pain; Translations: [Low back pain] 01-14-2024 Episodic Past or Other Problems Problem Classification [...] 02-08-2023 Dehydroepiandrosterone (DHEA) 415 ng/dL Normal 31-701 [facility] Comment on above: Performed By: #### D JAMEL. #### [facility] [address] [place] [address] Dr. Katie Funez ESTRONEon 02-06-2023 Estrone, Serum 55 pg/mL Normal [facility] Comment on above: Result Comment: Rang e Adult (Premenopausal) 27 - 231 Menstrual Cycle (1-10 days) 19 - 149 Menstrual Cycle (11-20 days) 32 - 176 Menstrual Cycle (21-30 days) 37 - 200 Adult (Postmenopausal) 0 - 125 Performed By: #### P DAVINA #### [facility] [address] [place] [address] Dr. Katie Funez CORTISOLon 02-04-2023 Cortisol 22.7 ug/dL Critically high 6.2-19.4 [facility] Comment on above: Result Comment: Vibha frost Note: The reference interval and flagging for this test is for an AM collection. If this is a PM collection please use: Cortisol PM: 2.3-11.9 [facility] also offers: [id number]: Cortisol- AM [id number]: Cortisol- PM Performed By: #### C ORTISO #### [facility] [address] [place] [address] Dr. Katie Funez ESTRADIOLon 02-04-2023 Estradiol 142.0 pg/mL Normal [facility] Comment on above: Result Comment: Adul t Female: Follicular phase 12.5 - 166.0 Ovulation phase 85.8 - 498.0 Luteal phase 43.8 - 211.0 Postmenopausal <6.0 - 54.7 1st trimester 215.0 - >4300.0 [employer] ECLIA methodology Performed By: #### E WAYNE #### [facility] [address] [place] [address] Dr. Katie Funez PROGESTERONEon 02-04-2023 Progesterone 7.6 ng/mL Normal [facility] Comment on above: Result Comment: Foll icular phase 0.1 - 0.9 Luteal phase 1.8 - 23.9 Ovulation phase 0.1 - 12.0 First trimester 11.0 - 44.3 Second trimester 25.4 - 83.3 Third trimester 58.7 - 214.0 Postmenopausal 0.0 - 0.1 Performed By: #### P DAVINA #### [facility] [address] [place] [address] Dr. Katie Funez TESTOSTERONE, TOTALon 2022 Testosterone [Mass/Vol] 33 ng/dL Normal 4-50 [facility] Comment on above: Performed By: #### T ESTTOT #### [facility] [address] [place] [address] Dr. Katie Funez FREE T3on 02-03-2023 FREE T3 2.12 pg/mlL Critically low 2.18-3.98 [facility] Comment on above: Performed By: #### P ROGES #### [facility] [address] [place] [address] Dr. Katie Funez FREE T4on 02-03-2023 Free T4 [Mass/Vol] 0.90 ng/dL Normal 0.76-1.46 [facility] Comment on above: Performed By: #### P ROGES #### [facility] [address] [place] [address] Dr. Katie Funez TSHon 02-03-2023 TSH 2.763 uIU/mL Normal 0.358-3.740 [facility] Comment on above: Performed By: #### P ROGES #### [facility] [address] [place] [address] Dr. Katie Funez FREE T3on 09-25-2022 FREE T3 1.80 pg/mlL Critically low 2.18-3.98 [facility] Comment on above: Performed By: #### F T3 #### [facility] [address] [place] [address] Dr. Katie Funez FREE T4on 09-25-2022 Free T4 [Mass/Vol] 1.05 ng/dL Normal 0.76-1.46 [facility] Comment on above: Performed By: #### P ROGES #### [facility] [address] [place] [address] Dr. Katie Funez TSHon 09-25-2022 TSH 3.688 uIU/mL Normal 0.358-3.740 [facility] Comment on above: Performed By: #### T SH #### [facility] [address] [place] [address] Dr. Katie Funez ESTRONEon 08-17-2022 Estrone, Serum 49 pg/mL Normal [facility] Comment on above: Result Comment: Rosalinda e Adult (Premenopausal) 27 - 231 Menstrual Cycle (1-10 days) 19 - 149 Menstrual Cycle (11-20 days) 32 - 176 Menstrual Cycle (21-30 days) 37 - 200 Adult (Postmenopausal) 0 - 125 Performed By: #### Renato SAUCEDA #### [facility] [address] [place] [address] Dr. Katie Funez TESTOSTERONE, FREE,DIRECT, T OTALon 08-14-2022 Free Testosterone(Direct) 0.8 pg/mL Normal 0.0-4.2 [facility] Comment on above: Result Comment: Perf ormed at: BN Performed By: #### V ITAD #### [facility] [address] [place] [address] Dr. Katie Funez Testosterone [Mass/Vol] 27 ng/dL Normal 4-50 [facility] Comment on above: Result Comment: Perf ormed at: CB Performed By: #### V ITAD #### [facility] [address] [place] [address] Dr. Katie Funez CORTISOLon 08-11-2022 Cortisol 11.5 ug/dL Normal [facility] Comment on above: Result Comment: Diomedes isol AM 6.2 - 19.4 Cortisol PM 2.3 - 11.9 Performed By: #### V ITAD #### [facility] [address] [place] [address] Dr. Katie Funez DHEA-SULFATEon 08-11-2022 DHEA-Sulfate 120.0 ug/dL Normal 57.3-279.2 [facility] Comment on above: Performed By: #### V ITAD #### [facility] [address] [place] [address] Dr. Katie Funez ESTRADIOLon 08-11-2022 Estradiol 104.0 pg/mL Normal [facility] Comment on above: Result Comment: Adul t Female: Follicular phase 12.5 - 166.0 Ovulation phase 85.8 - 498.0 Luteal phase 43.8 - 211.0 Postmenopausal <6.0 - 54.7 1st trimester 215.0 - >4300.0 [employer] ECLIA methodology Performed By: #### Renato BLACK #### [facility] [address] [place] [address] Dr. Katie Funez PROGESTERONEon 08-11-2022 Progesterone 9.7 ng/mL Normal [facility] Comment on above: Result Comment: Foll icular phase 0.1 - 0.9 Luteal phase 1.8 - 23.9 Ovulation phase 0.1 - 12.0 First trimester 11.0 - 44.3 Second trimester 25.4 - 83.3 Third trimester 58.7 - 214.0 Postmenopausal 0.0 - 0.1 Performed By: #### V ITAD #### [facility] [address] [place] [address] Dr. Katie Funez SEX HORMONE-BINDING GLOBULIN on 08-11-2022 Sex Horm Binding Glob, Serum 73.1 nmol/L Normal 24.6-122.0 [facility] Comment on above: Performed By: #### V ITAD #### [facility] [address] [place] [address] Dr. Katie Funez CBC AUTO DIFFon 08-10-2022 BASO # 0.0 103/ul Normal 0.0-0.1 [facility] Comment on above: Performed By: #### V ITAD #### [facility] [address] [place] [address] Dr. Katie Funez Basophils/100 WBC (Bld) 0.6 % Normal 0.2-2.0 [facility] Comment on above: Performed By: #### V ITAD #### [facility] [address] [place] [address] Dr. Katie Funez EO # 0.1 103/ul Normal 0.0-0.7 [facility] Comment on above: Performed By: #### V ITAD #### [facility] [address] [place] [address] Dr. Katie Funez Eosinophils/100 WBC (Bld) 1.4 % Normal 0.9-7.0 [facility] Comment on above: Performed By: #### V ITAD #### [facility] [address] [place] [address] Dr. Katie Funez Erythrocyte distribution width (RBC) [Ratio] 13.2 % Normal 11.0-15.0 [facility] Comment on above: Performed By: #### V ITAD #### [facility] [address] [place] [address] Dr. Katie Funez Hematocrit (Bld) [Volume fraction] 41.9 % Normal 36.0-48.0 [facility] Comment on above: Performed By: #### V ITAD #### [facility] [address] [place] [address] Dr. Katie Funez Hemoglobin (Bld) [Mass/Vol] 13.5 g/dL Normal 12.0-16.0 [facility] Comment on above: Performed By: #### V ITAD #### [facility] [address] [place] [address] Dr. Katie Funez IG # 0.01 10e3/ul Normal 0.00-0.03 [facility] Comment on above: Performed By: #### V ITAD #### [facility] [address] [place] [address] Dr. Katie Funez IG % 0.1 % Normal 0.0-0.5 [facility] Comment on above: Performed By: #### V ITAD #### [facility] [address] [place] [address] Dr. Katie Funez LYMPH # 1.8 103/ul Normal 1.2-3.8 [facility] Comment on above: Performed By: #### V ITAD #### [facility] [address] [place] [address] Dr. Katie Funez Lymphocytes/100 WBC (Bld) 24.6 % Normal 20.5-60.0 [facility] Comment on above: Performed By: #### V ITAD #### [facility] [address] [place] [address] Dr. Katie Funez MANUAL DIFF REQ NO Normal [facility] Comment on above: Performed By: #### V ITAD #### [facility] [address] [place] [address] Dr. Katie Funez MCH (RBC) [Entitic mass] 28.2 pg Normal 26.7-34.0 [facility] Comment on above: Performed By: #### V ITAD #### [facility] [address] [place] [address] Dr. Katie Funez MCHC (RBC) [Mass/Vol] 32.2 g/dL Normal 29.9-35.2 [facility] Comment on above: Performed By: #### V ITAD #### [facility] [address] [place] [address] Dr. Katie uFnez MCV (RBC) [Entitic vol] 87.5 fL Normal 81.0-99.0 [facility] Comment on above: Performed By: #### V ITAD #### [facility] [address] [place] [address] Dr. Katie Funez MONO # 0.4 103/ul Normal 0.3-0.8 [facility] Comment on above: Performed By: #### V ITAD #### [facility] [address] [place] [address] Dr. Katie Funez Monocytes/100 WBC (Bld) 6.0 % Normal 1.7-12.0 [facility] Comment on above: Performed By: #### V ITAD #### [facility] [address] [place] [address] Dr. Katie Funez NEUT # 4.8 103/ul Normal 1.4-6.5 [facility] Comment on above: Performed By: #### V ITAD #### [facility] [address] [place] [address] Dr. Katie Funez Neutrophils/100 WBC (Bld) 67.3 % Normal 43.0-75.0 [facility] Comment on above: Performed By: #### V ITAD #### [facility] [address] [place] [address] Dr. Katie Funez Platelet mean volume (Bld) [Entitic vol] 11.7 fL Normal 9.5-13.5 [facility] Comment on above: Performed By: #### V ITAD #### [facility] [address] [address] [address] Katie Funez PLT 294 103/ul Normal 150-450 [facility] Comment on above: Performed By: #### V ITAD #### [facility] [address] [address] [address] Katie Funez RBC 4.79 106/ul Normal 4.20-5.40 [facility] Comment on above: Performed By: #### V ITAD #### [facility] [address] [place] [address] Dr. Katie Funez WBC 7.2 103/ul Normal 4.0-11.0 [facility] Comment on above: Performed By: #### V ITAD #### [facility] [address] [place] [address] Dr. Katie Funez GLYCOHEMOGLOBIN A1Con 2021 ADA RECOMMENDATION SEE BELOW Normal [facility] Comment on above: Result Comment: ADA RECOMMENDED LIMIT 4.0 - 6.0 ADA THERAPEUTIC TARGET < 7.0 ACTION SUGGESTED > 7.0 Performed By: #### P ROGES #### [facility] [address] [place] [address] Dr. Katie Funez Glucose [Mass/Vol] 103 mg/dL Normal [facility] Comment on above: Performed By: #### P ROGES #### [facility] [address] [place] [address] Dr. Katie Funez HbA1c (Bld) [Mass fraction] 5.2 % Normal 4.5-6.2 [facility] Comment on above: Performed By: #### P ROGES #### [facility] [address] [place] [address] Dr. Katie Funez LIPID PROFILEon 08-10-2022 CHOL-HDL RATIO NORM SEE BELOW Normal [facility] Comment on above: Result Comment: 3.3 - 4.4 LOW RISK 4.4 - 7.1 AVERAGE RISK 7.1 - 11.0 MODERATE RISK >11.0 HIGH RISK Performed By: #### V ITAD #### [facility] [address] [place] [address] Dr. Katie Funez Cholesterol [Mass/Vol] 204 mg/dL Critically high <=200 [facility] Comment on above: Performed By: #### V ITAD #### [facility] [address] [address] [address] Katie uFnez Cholesterol in HDL [Mass/Vol] 52 mg/dL Normal 40-60 [facility] Comment on above: Performed By: #### V ITAD #### [facility] [address] [address] [address] Katie Funez Cholesterol in LDL [Mass/Vol] 137.2 mg/dL Normal [facility] Comment on above: Performed By: #### V ITAD #### [facility] [address] [address] [address] Katie Funez Cholesterol.total/Choleste rol in HDL [Mass ratio] 3.9 {ratio} Normal [facility] Comment on above: Performed By: #### V ITAD #### [facility] [address] [address] [address] Katie Funez HDL NORMAL > or = 60 mg/dl - LOW CARDIOVASCULAR RISK <40 mg/dl - HIGH CARDIOVASCULAR RISK Normal [facility] Comment on above: Performed By: #### V ITAD #### [facility] [address] [place] [address] Dr. Katie Funez LDL CALC NORMAL SEE BELOW Normal [facility] Comment on above: Result Comment: <100 mg/dl OPTIMAL 100 - 129 mg/dl NEAR OR ABOVE OPTIMAL 130 - 159 mg/dl BORDERLINE HIGH 160 - 189 mg/dl HIGH >190 mg/dl VERY HIGH Performed By: #### V ITAD #### [facility] [address] [address] [address] Katie Funez Triglyceride [Mass/Vol] 74 mg/dL Normal <=150 [facility] Comment on above: Performed By: #### V ITAD #### [facility] [address] [address] [address] Katie Funez VLDL CALC 14.8 mg/dL Normal [facility] Comment on above: Performed By: #### V ITAD #### [facility] [address] [place] [address] Dr. Katie Funez PROF 14(COMP METB)on 022 Albumin [Mass/Vol] 3.8 g/dL Normal 3.4-5.0 [facility] Comment on above: Performed By: #### V ITAD #### [facility] [address] [place] [address] Dr. Katie Funez Albumin/Globulin [Mass ratio] 0.9 {ratio} Normal [facility] Comment on above: Performed By: #### V ITAD #### [facility] [address] [place] [address] Dr. Katie Funez ALP [Catalytic activity/Vol] 77 U/L Normal 46-116 [facility] Comment on above: Performed By: #### V ITAD #### [facility] [address] [place] [address] Dr. Katie Funez ALT [Catalytic activity/Vol] 20 U/L Normal 14-59 [facility] Comment on above: Performed By: #### V ITAD #### [facility] [address] [place] [address] Dr. Katie Funez Anion gap [Moles/Vol] 10.0 mmol/L Normal [facility] Comment on above: Performed By: #### V ITAD #### [facility] [address] [place] [address] Dr. Katie Funez AST [Catalytic activity/Vol] 14 U/L Critically low 15-37 [facility] Comment on above: Performed By: #### V ITAD #### [facility] [address] [place] [address] Dr. Katie Funez Bilirubin [Mass/Vol] 0.8 mg/dL Normal 0.2-1.0 [facility] Comment on above: Performed By: #### V ITAD #### [facility] [address] [place] [address] Dr. Katie Funez Calcium [Mass/Vol] 8.9 mg/dL Normal 8.5-10.1 [facility] Comment on above: Performed By: #### V ITAD #### [facility] [address] [place] [address] Dr. Katie Funez Chloride [Moles/Vol] 101 mmol/L Normal 98-107 [facility] Comment on above: Performed By: #### V ITAD #### [facility] [address] [place] [address] Dr. Katie Funez CO2 [Moles/Vol] 29.9 mmol/L Normal 21.0-32.0 [facility] Comment on above: Performed By: #### V ITAD #### [facility] [address] [place] [address] Dr. Katie Funez Creatinine [Mass/Vol] 0.83 mg/dL Normal 0.55-1.02 [facility] Comment on above: Performed By: #### V ITAD #### [facility] [address] [place] [address] Dr. Katie Funez EGFR-AF GREEK >60 Normal >=60 [facility] Comment on above: Performed By: #### V ITAD #### [facility] [address] [place] [address] Dr. Katie Funez EGFR-NON AF GREEK >60 Normal >=60 [facility] Comment on above: Performed By: #### V ITAD #### [facility] [address] [place] [address] Dr. Katie Funez Globulin (S) [Mass/Vol] 4.0 g/dL Normal [facility] Comment on above: Performed By: #### V ITAD #### [facility] [address] [place] [address] Dr. Katie Funez Glucose [Mass/Vol] 91 mg/dL Normal 74-106 [facility] Comment on above: Performed By: #### V ITAD #### [facility] [address] [place] [address] Dr. Katie Funez Potassium [Moles/Vol] 3.9 mmol/L Normal 3.5-5.1 [facility] Comment on above: Performed By: #### V ITAD #### [facility] [address] [place] [address] Dr. Katie Funez Protein [Mass/Vol] 7.8 g/dL Normal 6.4-8.2 [facility] Comment on above: Performed By: #### V ITAD #### [facility] [address] [place] [address] Dr. Katie Funez Sodium [Moles/Vol] 137 mmol/L Normal 136-145 [facility] Comment on above: Performed By: #### V ITAD #### [facility] [address] [place] [address] Dr. Katie Funez Urea nitrogen [Mass/Vol] 13.0 mg/dL Normal 7.0-18.0 [facility] Comment on above: Performed By: #### V ITAD #### [facility] [address] [place] [address] Dr. Katie Funez Urea nitrogen/Creatinine [Mass ratio] 15.7 mg/mg Normal [facility] Comment on above: Performed By: #### V ITAD #### [facility] [address] [place] [address] Dr. Katie Funez TSHon 08-10-2022 TSH 2.642 uIU/mL Normal 0.358-3.740 [facility] Comment on above: Performed By: #### V ITAD #### [facility] [address] [place] [address] Dr. Katie Funez VITAMIN D 25 OHon 08-10-2022 VIT D 25-OH 23.6 ng/mL Normal [facility] Comment on above: Performed By: #### V ITAD #### [facility] [address] [place] [address] Dr. Katie Funez VIT D RANGES SEE BELOW Normal [facility] Comment on above: Result Comment: <20 ng/mL Vit D deficient 20 - <30 ng/mL Vit D insufficient 30 - 100 ng/mL Vit D sufficient >100 ng/mL Potential Toxicity Performed By: #### V ITAD #### [facility] [address] [place] [address] Dr. Katie Funez MG MAMM SCREEN 3D JORDI CADon 05-19-2022 MG MAMM SCREEN 3D JORDI CAD Patient: ROCK CKNAHID Marley Exam Date: 05/19/2022 : 1980 Gender:F Ordering : DR. NOÉ FRANK D.O. Admission #: [id number] Family : Order #: [id number] CLICK HERE TO VIEW EXAM RADIOLOGY REPORT [...] uterine cancer at age 48. LOCATION: [facility] BREAST COMPOSITION: Heterogeneously dense,which may obscure small [...] M.D. on 05/19/2022 at 12:38 Normal [facility] Vital Signs Date Time Vital Sign Value Performing Clinician Facility 01-14-2024 12:15-0400 Body height 170.18 cm [facility] 01-14-2024 12:15-0400 Body mass index (BMI) [Ratio] 47.6 kg/m2 [facility] 01-14-2024 12:15-0400 Body weight 137.89 kg [facility] 01-14-2024 12:15-0400 Diastolic blood pressure 76 mm[Hg] [facility] 01-14-2024 12:15-0400 Heart rate 67 /min [facility] 01-14-2024 12:15-0400 Respiratory rate 12 /min [facility] 01-14-2024 12:15-0400 Systolic blood pressure 117 mm[Hg] [facility] 08-06-2023 14:00-0400 Body height 170.18 cm Faizan Gamez Other [facility] 08-06-2023 14:00-0400 Body mass index (BMI) [Ratio] 47.04 kg/m2 Faizan Gamez Other [facility] 08-06-2023 14:00-0400 Body weight 136.26 kg Faizan Victor Hugo Other [facility] 08-06-2023 14:00-0400 Diastolic blood pressure 81 mm[Hg] Faizan Gamez Other [facility] 08-06-2023 14:00-0400 Respiratory rate 12 /min Faizan Gamez Other [facility] 08-06-2023 14:00-0400 Systolic blood pressure 118 mm[Hg] Faizan Gamez Other [facility] Other Encounters Encounter Date Encounter Type Care Provider Facility Start: 01-14-2024 End: 01-14-2024 ambulatory [facility] Work Phone: Start: 01-14-2024 End: 01-14-2024 Patient encounter procedure [facility] Work Phone: Start: 08-06-2023 End: 08-06-2023 ambulatory Faizan Gamez Other [facility] Start: 08-06-2023 Encounter for genera l adult medical examination without abnormal findings Faizan Gamez [facility] Start: 08-06-2023 Periodic preventive med est patient 40-64yrs Faizan Gamez [facility] Start: 08-06-2023 Telephone encounter Faizan Gamez [facility] Start: 02-03-2023 End: 02-04-[address] LAURIE PATEL Facility: Start: 11-30-2022 End: 02-07-[address] FAIZAN GAMEZ Facility:[facility] Start: 09-25-2022 End: 09-26-[address] FAIZAN GAMEZ Facility:[facility] Start: 09-06-[address] FAIZAN GAMEZ Facili ty:[facility] Start: 08-13-2022 Encounter for genera l adult medical examination without abnormal findings DR FAIZAN GAMEZ [facility] Start: 08-10-2022 End: 08-11-[address] FAIZAN GAMEZ Facility:[facility] Start: 08-10-2022 End: 08-11-2022 Encounter for general adult medical examination without abnormal findings DR FAIZAN GAMEZ Facility:[facility] Start: 05-19-2022 End: 05-20-[address] RAHUL QUINTERO Facility:[facility] Start: 01-20-2019 End: 01-21-2019 Patient encounter procedure DEFAULT PHYSICIAN Facility:[facility] Start: 01-01-2019 End: 01-02-2019 Patient encounter procedure DEFAULT PHYSICIAN Facility:[facility] Plan of Treatment Date Care Activity Detail Author XR Lumbar spine Views [facility] Immunizations Immunization Date Immunization Notes Care Provider Destiny avila 07-25-2017 influenza virus vaccine, split virus (incl. purified surface antigen) Faizan Gamez Other [facility] 07-25-2017 influenza virus vaccine, unspecified formulation [facility] Payers Date Payer Category Payer Unknown [id number] 2019 Unknown [id number] 1980 Unknown [id number] [id number] [id number] 1980 Unknown [id number] 2.16.8 [id number] 1980 Unknown [id number] 2.16.84 [id number] 1980 Unknown [id number] 2.16.84 [id number] 1980 Unknown [id number] 2.16.84 [id number] 1980 Unknown [id number] 2.16.84 [id number] 1980 Unknown [id number] 2.16.84 [id number] 1980 Unknown [id number] 2.16.84 [id number] Unknown Social History Date Type Detail Facility Unknown if ever smoked [facility] Other Sex Assigned At Sex Assigned At Bir th [facility] Start: 08-06-2023 Tobacco smoking status NHIS Never smoked tobacco (finding) [facility] Start: 1980 Sex Assigned At Female [facility] Evaluation note 08-06-2023 Note Date & Type [...] hydrate. No treatment necessary, continue to exercise [facility] Other Evaluation note Note Date & Type Note Facility Evaluation note No Information [employer] Other Evaluation note Note Date & Type Note Facility Evaluation note No assessment information availa ble [facility] Work Phone: History general Narrative - Reported Note Date & Type Note Facility History general Narrative - Reported Type Medical History Foot pain Medical History Menopausal symptom Medical History Hormonal disorder Medical History Palpitations Surgical History C section Surgical History wisdom teeth Surgical History vein ligation Hospitalization History child bit [facility] Other Summary Purpose Family History No Family History Records FoundNo Family History Records Found Advance Directives Advance Directive Response Recorded Date/ Time Advance Directives No January 13 11:21am Chief Complaint and Reason for Visit Chief Complaint pulled muscle in [place] Additional Source Comments INFORMATION SOURCE (unrecogn ized section and content) DATE CREATED AUTHOR 01/21/2019 [facility] DATE CREATED AUTHOR AUTHOR'S ORGANIZ ATION 02/14/2023 [facility] REASON FOR VISIT (unrecogniz ed section and content) [facility] Care Teams (unrecognized sec tion and content) Team Status: Active Member Role Status Dates Faizan Gamez DO Primary Care Provider Active Team Status: Inactive Member Role Status Dates Faizan Gamez DO Primary Care Provide r, Attending Provider Active Start: January 14, 2024 End: January 14, 2024 Goals (unrecognized section and content) Goals may be documented in a n alternate section FOR RECORDS PERTAINING TO PATIENTS WHO ARE [...] BE BASED ON THE PRIMARY CLINICAL RECORDS. [employer] provides no warranty or guarantee of the accuracy or completeness of information in this document.
[2024-02-27 08:33] LABS: Free T3 2.34 pg/mL (2.18-3.98); Thyroid Stimulating Hormone 2.939 uIU/mL (0.358-3.740)
[2024-02-27 12:09] LABS: Free T4 0.64 ng/dL (0.76-1.46)
[2024-02-28 04:10] LABS: Progesterone 8.9 ng/mL (.); Testosterone 35 ng/dL (4-50)
[2024-02-29 16:10] LABS: Estrone, Serum 79 pg/mL (.)
== END 2024-02-27 07:01 | disposition home or self-care (01) ==
LOC: LAB 07:00
PROVIDERS: PCP Internal Medicine; Visit Provider Internal Medicine
DX: N95.1 Menopausal and female climacteric states (principal)
CPT/HCPCS: 36415; 82533; 82670; 82679; 84144; 84403; 84439; 84443; 84481

== ENCOUNTER 2024-03-24 13:07 | Outpatient (OUT) | payer BC, SELFPAY ==
--- NOTE | 2024-03-24 14:16 | P.CN_ITS ---
Consult Note: HPI Data of Consult Patient: new to practice Consult date: 03/24/24 Requesting Physician: Josué Ryan MD Primary Care Provider: Faizan Gay, Consult Narrative Reason for consult: low back, left hip and leg pain Narrative: 43yof who presents for evaluation. longstanding left leg pain, primarily in posterior thigh, occasionally radiates down to left foot. denies acute trauma. has engaged in several different conservative therapies, including physical therapy, dry needling, craniosacral therapy. uses tylenol as needed. lumbar xr shows multilevel degenerative changes. cc:: CC: Josué Ryan MD Review of Systems ROS Status of ROS 10 or more systems reviewed and unremark able except as noted in history and below Exam Narrative Exam Narrative: Psych-alert and oriented x 3. Attentive and appropriate, constitutionally normal, displays normal mood and affect per situation. There are no obvious deficits in memory, reasoning, or intellect.? Skin-no obvious rashes, bruising, erythema noted to the patient's area of pain.? Extremities- extremities are warm with minimal edema and palpable pulses. Lumbar-tenderness to palpation noted in the lumbar spine and paraspinal musculature. Pain is elicited with flexion, extension, and lateral rotation of the lumbar spine. Range of motion is diminished with these motions. Facet loading maneuvers are positive.? Strength-noted to be unremarkable with the exception of decreased strength rated at 4 out of 5 in left quadriceps femoris. Sensory-no notable sensory deficits in the bilateral lower extremities to touch or pinprick in all dermatomal distributions with the exception to decreased sensation to the left L5, S1 dermatomal distribution Coordination remains intact.? Gait remains non-antalgic. Assessment and Plan Assessment and Plan (1) Lumbar stenosis with neurogenic claudication: (2) Sacroiliac joint pain: Plan 43yof who presents for evaluation. failed conservative measures, as noted. imaging reviewed, as noted. given symptoms and imaging, prudent to obtain advanced imaging for further information. will order lumbar mri without contrast. she is in agreement. meds reviewed, no changes. follow up after imaging.
== END 2024-03-24 13:08 | disposition home or self-care (01) ==
LOC: PM 13:08
PROVIDERS: PCP Internal Medicine; Visit Provider Anesthesiology
DX: M48.062 Spinal stenosis, lumbar region with neurogenic claudication (principal); M53.3 Sacrococcygeal disorders, not elsewhere classified
CPT/HCPCS: G0463

== ENCOUNTER 2024-04-02 06:39 | Outpatient (OUT) | payer BC, SELFPAY ==
--- OUTSIDE RECORDS SUMMARY | 2024-04-02 06:42 | XMS_ITS | CCD ---
Author Organization [facility] Care Team Providers Care Rn Operating Room Name Role Phone PHYSICIAN, DEFAULT Admitting Unavailable PHYSICIAN, DEFAULT Attending Unavailable PHYSICIAN, DEFAULT Admitting Unavailable PHYSICIAN, DEFAULT Attending Unavailable WILD, DR RAHUL Merrill Consulting Unavailable BALL, DR SANZ Primary Care Unavailable RINRUTH, NOÉ Admitting Unavailable RINRUTH, NOÉ Attending Unavailable MONIKA, NOÉ Consulting Unavailable [...] DR SANZ Admitting Unavailable Ball, Faizan Unavailable Shelby CROUCH, Josué Mcgrath Attending Unavailable Allergies Allergy Classification Reported Allergen(s) Allergy Type Date of Onset Reaction(s) Facility (1 source) Carisoprodol Drug Allergy [facility] (1 source) Metoprolol Drug Allergy [facility] (3 sources) Carisoprodol Drug Allergy 01-14-20 palpitations [facility] (2 sources) First - Metoprolol *BETA BLOCKERS* Propensity to adverse reactions Comment:[employer] Other (1 source) First - Metoprolol *BETA BLOCK Allergy to substance 08-06-20 Comment:[place] [facility] Medications Current Medications Medication Drug Class(es) Dates [...] Drug Class(es) Dates Sig (Normalized) Sig (Original) [id number] 200 actuat albuterol 0.09 mg/actuat metered dose [...] 02-08-2023 Dehydroepiandrosterone (DHEA) 415 ng/dL Normal 31-701 [facility] Comment on above: Performed By: #### D JAMEL. #### [facility] [address] [address] [address] Katie Funez ESTRONEon 02-06-2023 Estrone, Serum 55 pg/mL Normal [facility] Comment on above: Result Comment: Rang e Adult (Premenopausal) 27 - 231 Menstrual Cycle (1-10 days) 19 - 149 Menstrual Cycle (11-20 days) 32 - 176 Menstrual Cycle (21-30 days) 37 - 200 Adult (Postmenopausal) 0 - 125 Performed By: #### P DAVINA #### [facility] [address] [address] [address] Katie Funez CORTISOLon 02-04-2023 Cortisol 22.7 ug/dL Critically high 6.2-19.4 [facility] Comment on above: Result Comment: Plea se Note: The reference interval and flagging for this test is for an AM collection. If this is a PM collection please use: Cortisol PM: 2.3-11.9 [facility] also offers: [id number]: Cortisol- AM 145945: Cortisol- PM Performed By: #### C ORTISO #### [facility] [address] [address] [address] Katie Funez ESTRADIOLon 02-04-2023 Estradiol 142.0 pg/mL Normal [facility] Comment on above: Result Comment: Adul t Female: Follicular phase 12.5 - 166.0 Ovulation phase 85.8 - 498.0 Luteal phase 43.8 - 211.0 Postmenopausal <6.0 - 54.7 1st trimester 215.0 - >4300.0 [employer] ECLIA methodology Performed By: #### E STRADI #### [facility] [id number] Katie Funez PROGESTERONEon 02-04-2023 Progesterone 7.6 ng/mL Normal [facility] Comment on above: Result Comment: Foll icular phase 0.1 - 0.9 Luteal phase 1.8 - 23.9 Ovulation phase 0.1 - 12.0 First trimester 11.0 - 44.3 Second trimester 25.4 - 83.3 Third trimester 58.7 - 214.0 Postmenopausal 0.0 - 0.1 Performed By: #### P ROGES #### [facility] [address] [place] [address] Dr. Katie Funez TESTOSTERONE, TOTALon 2022 Testosterone [Mass/Vol] 33 ng/dL Normal 4-50 [facility] Comment on above: Performed By: #### T ESTTOT #### [facility] [address] [place] [address] Dr. Katie Funez FREE T3on 02-03-2023 FREE T3 2.12 pg/mlL Critically low 2.18-3.98 [facility] Comment on above: Performed By: #### P ROGES #### [facility] [address] [place] [address] Dr. Katie Funez FREE T4on 02-03-2023 Free T4 [Mass/Vol] 0.90 ng/dL Normal 0.76-1.46 [facility] Comment on above: Performed By: #### P ROGES #### [facility] [address] [place] [address] Dr. Katie Funez TSHon 02-03-2023 TSH 2.763 uIU/mL Normal 0.358-3.740 [facility] Comment on above: Performed By: #### P ROGES #### [facility] [address] [place] [address] Dr. Katie Funez FREE T3on 09-25-2022 FREE T3 1.80 pg/mlL Critically low 2.18-3.98 [facility] Comment on above: Performed By: #### F T3 #### [facility] [address] [place] [address] Dr. Katie Funez FREE T4on 09-25-2022 Free T4 [Mass/Vol] 1.05 ng/dL Normal 0.76-1.46 [facility] Comment on above: Performed By: #### P ROGES #### [facility] [address] [place] [address] Dr. Katie Funez TSHon 09-25-2022 TSH 3.688 uIU/mL Normal 0.358-3.740 [facility] Comment on above: Performed By: #### T SH #### [facility] [address] [place] [address] Dr. Katie Funez ESTRONEon 08-17-2022 Estrone, Serum 49 pg/mL Normal [facility] Comment on above: Result Comment: Rang e Adult (Premenopausal) 27 - 231 Menstrual Cycle (1-10 days) 19 - 149 Menstrual Cycle (11-20 days) 32 - 176 Menstrual Cycle (21-30 days) 37 - 200 Adult (Postmenopausal) 0 - 125 Performed By: #### E STRONE #### [facility] [address] [place] [address] Dr. Katie Funez TESTOSTERONE, FREE,DIRECT, T OTALon 08-14-2022 Free Testosterone(Direct) 0.8 pg/mL Normal 0.0-4.2 [facility] Comment on above: Result Comment: Perf ormed at: BN Performed By: #### V ITAD #### [facility] [address] [address] [address] Katie Funez Testosterone [Mass/Vol] 27 ng/dL Normal 4-50 [facility] Comment on above: Result Comment: Perf ormed at: CB Performed By: #### V ITAD #### [facility] [address] [place] [address] Dr. Katie Funez CORTISOLon 08-11-2022 Cortisol 11.5 ug/dL Normal [facility] Comment on above: Result Comment: Diomedes isol AM 6.2 - 19.4 Cortisol PM 2.3 - 11.9 Performed By: #### V ITAD #### [facility] [address] [place] [address] Dr. Katie Funez DHEA-SULFATEon 08-11-2022 DHEA-Sulfate 120.0 ug/dL Normal 57.3-279.2 [facility] Comment on above: Performed By: #### V ITAD #### [facility] [address] [place] [address] Dr. Katie Funez ESTRADIOLon 08-11-2022 Estradiol 104.0 pg/mL Normal [facility] Comment on above: Result Comment: Adul t Female: Follicular phase 12.5 - 166.0 Ovulation phase 85.8 - 498.0 Luteal phase 43.8 - 211.0 Postmenopausal <6.0 - 54.7 1st trimester 215.0 - >4300.0 [employer] ECLIA methodology Performed By: #### E WAYNE #### [facility] [address] [place] [address] Dr. Katie Funez PROGESTERONEon 08-11-2022 Progesterone 9.7 ng/mL Normal [facility] Comment on above: Result Comment: Foll icular phase 0.1 - 0.9 Luteal phase 1.8 - 23.9 Ovulation phase 0.1 - 12.0 First trimester 11.0 - 44.3 Second trimester 25.4 - 83.3 Third trimester 58.7 - 214.0 Postmenopausal 0.0 - 0.1 Performed By: #### V ITAD #### [facility] [address] [place] [address] Dr. Katie Funez SEX HORMONE-BINDING GLOBULIN on 08-11-2022 Sex Horm Binding Glob, Serum 73.1 nmol/L Normal 24.6-122.0 [facility] Comment on above: Performed By: #### V ITAD #### [facility] [address] [place] [address] Dr. Katie Funez CBC AUTO DIFFon 08-10-2022 BASO # 0.0 103/ul Normal 0.0-0.1 [facility] Comment on above: Performed By: #### V ITAD #### [facility] [address] [place] [address] Dr. Katie Funez Basophils/100 WBC (Bld) 0.6 % Normal 0.2-2.0 [facility] Comment on above: Performed By: #### V ITAD #### [facility] [address] [place] [address] Dr. Katie Funez EO # 0.1 103/ul Normal 0.0-0.7 [facility] Comment on above: Performed By: #### V ITAD #### [facility] [address] [place] [address] Dr. Katie Funez Eosinophils/100 WBC (Bld) 1.4 % Normal 0.9-7.0 [facility] Comment on above: Performed By: #### V ITAD #### [facility] [address] [place] [address] Dr. Katie Funez Erythrocyte distribution width (RBC) [Ratio] 13.2 % Normal 11.0-15.0 [facility] Comment on above: Performed By: #### V ITAD #### [facility] [address] [place] [address] Dr. Katie Funez Hematocrit (Bld) [Volume fraction] 41.9 % Normal 36.0-48.0 [facility] Comment on above: Performed By: #### V ITAD #### [facility] [address] [place] [address] Dr. Katie Funez Hemoglobin (Bld) [Mass/Vol] 13.5 g/dL Normal 12.0-16.0 [facility] Comment on above: Performed By: #### V ITAD #### [facility] [address] [place] [address] Dr. Katie Funez IG # 0.01 10e3/ul Normal 0.00-0.03 [facility] Comment on above: Performed By: #### V ITAD #### [facility] [address] [place] [address] Dr. Katie Funez IG % 0.1 % Normal 0.0-0.5 [facility] Comment on above: Performed By: #### V ITAD #### [facility] [address] [place] [address] Dr. Katie Funez LYMPH # 1.8 103/ul Normal 1.2-3.8 [facility] Comment on above: Performed By: #### V ITAD #### [facility] [address] [place] [address] Dr. Katie Funez Lymphocytes/100 WBC (Bld) 24.6 % Normal 20.5-60.0 [facility] Comment on above: Performed By: #### V ITAD #### [facility] [address] [place] [address] Dr. Katie Funez MANUAL DIFF REQ NO Normal [facility] Comment on above: Performed By: #### V ITAD #### [facility] [address] [place] [address] Dr. Katie Funez MCH (RBC) [Entitic mass] 28.2 pg Normal 26.7-34.0 [facility] Comment on above: Performed By: #### V ITAD #### [facility] [address] [place] [address] Dr. Katie Funez MCHC (RBC) [Mass/Vol] 32.2 g/dL Normal 29.9-35.2 [facility] Comment on above: Performed By: #### V ITAD #### [facility] [address] [place] [address] Dr. Katie Funez MCV (RBC) [Entitic vol] 87.5 fL Normal 81.0-99.0 [facility] Comment on above: Performed By: #### V ITAD #### [facility] [address] [place] [address] Dr. Katie Funez MONO # 0.4 103/ul Normal 0.3-0.8 [facility] Comment on above: Performed By: #### V ITAD #### [facility] [address] [place] [address] Dr. Katie Funez Monocytes/100 WBC (Bld) 6.0 % Normal 1.7-12.0 [facility] Comment on above: Performed By: #### V ITAD #### [facility] [address] [place] [address] Dr. Katie Funez NEUT # 4.8 103/ul Normal 1.4-6.5 [facility] Comment on above: Performed By: #### V ITAD #### [facility] [address] [place] [address] Dr. Katie Funez Neutrophils/100 WBC (Bld) 67.3 % Normal 43.0-75.0 [facility] Comment on above: Performed By: #### V ITAD #### [facility] [address] [place] [address] Dr. Katie Funez Platelet mean volume (Bld) [Entitic vol] 11.7 fL Normal 9.5-13.5 [facility] Comment on above: Performed By: #### V ITAD #### [facility] [address] [place] [address] Dr. Katie Funez PLT 294 103/ul Normal 150-450 [facility] Comment on above: Performed By: #### V ITAD #### [facility] [address] [place] [address] Dr. Katie Funez RBC 4.79 106/ul Normal 4.20-5.40 [facility] Comment on above: Performed By: #### V ITAD #### [facility] [address] [place] [address] Dr. Katie Funez WBC 7.2 103/ul Normal 4.0-11.0 [facility] Comment on above: Performed By: #### V ITAD #### [facility] [address] [place] [address] Dr. Katie Funez GLYCOHEMOGLOBIN A1Con 2021 ADA RECOMMENDATION SEE BELOW Normal [facility] Comment on above: Result Comment: ADA RECOMMENDED LIMIT 4.0 - 6.0 ADA THERAPEUTIC TARGET < 7.0 ACTION SUGGESTED > 7.0 Performed By: #### P DAVINA #### [facility] [address] [place] [address] Dr. Katie Funez Glucose [Mass/Vol] 103 mg/dL Normal [facility] Comment on above: Performed By: #### P DAVINA #### [facility] [address] [place] [address] Dr. Katie Funez HbA1c (Bld) [Mass fraction] 5.2 % Normal 4.5-6.2 [facility] Comment on above: Performed By: #### P DAVINA #### [facility] [address] [place] [address] Dr. Katie Funez LIPID PROFILEon 08-10-2022 CHOL-HDL RATIO NORM SEE BELOW Normal [facility] Comment on above: Result Comment: 3.3 - 4.4 LOW RISK 4.4 - 7.1 AVERAGE RISK 7.1 - 11.0 MODERATE RISK >11.0 HIGH RISK Performed By: #### V ITAD #### [facility] [address] [address] [address] Katie Funez Cholesterol [Mass/Vol] 204 mg/dL Critically high <=200 [facility] Comment on above: Performed By: #### V ITAD #### [facility] [address] [address] [address] Katie Funez Cholesterol in HDL [Mass/Vol] 52 mg/dL Normal 40-60 [facility] Comment on above: Performed By: #### V ITAD #### [facility] [address] [address] [address] Katie Funez Cholesterol in LDL [Mass/Vol] 137.2 mg/dL Normal [facility] Comment on above: Performed By: #### V ITAD #### [facility] [address] [place] [address] Dr. Katie Funez Cholesterol.total/Choleste rol in HDL [Mass ratio] 3.9 {ratio} Normal [facility] Comment on above: Performed By: #### V ITAD #### [facility] [address] [place] [address] Dr. Katie Funez HDL NORMAL > or = 60 mg/dl - LOW CARDIOVASCULAR RISK <40 mg/dl - HIGH CARDIOVASCULAR RISK Normal [facility] Comment on above: Performed By: #### V ITAD #### [facility] [address] [place] [address] Dr. Katie Funez LDL CALC NORMAL SEE BELOW Normal [facility] Comment on above: Result Comment: <100 mg/dl OPTIMAL 100 - 129 mg/dl NEAR OR ABOVE OPTIMAL 130 - 159 mg/dl BORDERLINE HIGH 160 - 189 mg/dl HIGH >190 mg/dl VERY HIGH Performed By: #### V ITAD #### [facility] [address] [place] [address] Dr. Katie Funez Triglyceride [Mass/Vol] 74 mg/dL Normal <=150 [facility] Comment on above: Performed By: #### V ITAD #### [facility] [address] [address] [address] Katie Funez VLDL CALC 14.8 mg/dL Normal [facility] Comment on above: Performed By: #### V ITAD #### [facility] [address] [place] [address] Dr. Katie Funez PROF 14(COMP METB)on 022 Albumin [Mass/Vol] 3.8 g/dL Normal 3.4-5.0 [facility] Comment on above: Performed By: #### V ITAD #### [facility] [address] [place] [address] Dr. Katie Funez Albumin/Globulin [Mass ratio] 0.9 {ratio} Normal [facility] Comment on above: Performed By: #### V ITAD #### [facility] [address] [place] [address] Dr. Katie Funez ALP [Catalytic activity/Vol] 77 U/L Normal 46-116 [facility] Comment on above: Performed By: #### V ITAD #### [facility] [address] [place] [address] Dr. Katie Funez ALT [Catalytic activity/Vol] 20 U/L Normal 14-59 [facility] Comment on above: Performed By: #### V ITAD #### [facility] [address] [place] [address] Dr. Katie Funez Anion gap [Moles/Vol] 10.0 mmol/L Normal [facility] Comment on above: Performed By: #### V ITAD #### [facility] [address] [place] [address] Dr. Katie Funez AST [Catalytic activity/Vol] 14 U/L Critically low 15-37 [facility] Comment on above: Performed By: #### V ITAD #### [facility] [address] [place] [address] Dr. Katie Funez Bilirubin [Mass/Vol] 0.8 mg/dL Normal 0.2-1.0 [facility] Comment on above: Performed By: #### V ITAD #### [facility] [address] [place] [address] Dr. Katie Funez Calcium [Mass/Vol] 8.9 mg/dL Normal 8.5-10.1 [facility] Comment on above: Performed By: #### V ITAD #### [facility] [address] [place] [address] Dr. Katie Funez Chloride [Moles/Vol] 101 mmol/L Normal 98-107 [facility] Comment on above: Performed By: #### V ITAD #### [facility] [address] [place] [address] Dr. Katie Funez CO2 [Moles/Vol] 29.9 mmol/L Normal 21.0-32.0 [facility] Comment on above: Performed By: #### V ITAD #### [facility] [address] [place] [address] Dr. Katie Funez Creatinine [Mass/Vol] 0.83 mg/dL Normal 0.55-1.02 [facility] Comment on above: Performed By: #### V ITAD #### [facility] [address] [place] [address] Dr. Katie Funez EGFR-AF [place] >60 Normal >=60 [facility] Comment on above: Performed By: #### V ITAD #### [facility] [address] [place] [address] Dr. Katie Funez EGFR-NON AF [place] >60 Normal >=60 [facility] Comment on above: Performed By: #### V ITAD #### [facility] [address] [place] [address] Dr. Katie Funez Globulin (S) [Mass/Vol] 4.0 g/dL Normal [facility] Comment on above: Performed By: #### V ITAD #### [facility] [address] [place] [address] Dr. Katie Funez Glucose [Mass/Vol] 91 mg/dL Normal 74-106 [facility] Comment on above: Performed By: #### V ITAD #### [facility] [address] [place] [address] Dr. Katie Funez Potassium [Moles/Vol] 3.9 mmol/L Normal 3.5-5.1 [facility] Comment on above: Performed By: #### V ITAD #### [facility] [address] [address] [address] Katie Funez Protein [Mass/Vol] 7.8 g/dL Normal 6.4-8.2 [facility] Comment on above: Performed By: #### V ITAD #### [facility] [address] [place] [address] Dr. Katie Funez Sodium [Moles/Vol] 137 mmol/L Normal 136-145 [facility] Comment on above: Performed By: #### V ITAD #### [facility] [address] [place] [address] Dr. Katie Funez Urea nitrogen [Mass/Vol] 13.0 mg/dL Normal 7.0-18.0 [facility] Comment on above: Performed By: #### V ITAD #### [facility] [address] [place] [address] Dr. Katie Funez Urea nitrogen/Creatinine [Mass ratio] 15.7 mg/mg Normal [facility] Comment on above: Performed By: #### V ITAD #### [facility] [address] [place] [address] Dr. Katie Funez TSHon 08-10-2022 TSH 2.642 uIU/mL Normal 0.358-3.740 [facility] Comment on above: Performed By: #### V ITAD #### [facility] [address] [place] [address] Dr. Katie Funez VITAMIN D 25 OHon 08-10-2022 VIT D 25-OH 23.6 ng/mL Normal [facility] Comment on above: Performed By: #### V ITAD #### [facility] [address] [place] [address] Dr. Katie Funez VIT D RANGES SEE BELOW Normal [facility] Comment on above: Result Comment: <20 ng/mL Vit D deficient 20 - <30 ng/mL Vit D insufficient 30 - 100 ng/mL Vit D sufficient >100 ng/mL Potential Toxicity Performed By: #### V ITAD #### [facility] [address] [place] [address] Dr. Katie Funez MG MAMM SCREEN 3D JORDI CADon 05-19-2022 MG MAMM SCREEN 3D JORDI CAD Patient: NAHID BARBOSA Exam Date: 05/19/2022 : 1980 Gender:F Ordering : DR. NOÉ FRANK D.O. Admission #: [id number] Family : Order #: [id number] CLICK HERE TO VIEW EXAM RADIOLOGY REPORT [...] uterine cancer at age 48. LOCATION: [facility] BREAST COMPOSITION: Heterogeneously dense,which may obscure [...] M.D. on 05/19/2022 at 12:38 Normal [facility] Vital Signs Date Time Vital Sign Value Performing Clinician Facility 01-14-2024 12:15-040 Body height 170.18 cm [facility] 01-14-2024 12:15-0400 Body mass index (BMI) [Ratio] 47.6 kg/m2 [facility] 01-14-2024 12:15040 Body weight 137.89 kg [facility] 01-14-2024 12:15-040 Diastolic blood pressure 76 mm[Hg] [facility] 01-14-2024 12:15-0400 Heart rate 67 /min [facility] 01-14-2024 12:150400 Respiratory rate 12 /min [facility] 01-14-2024 12:15-0400 Systolic blood pressure 117 mm[Hg] [facility] 08-06-2023 14:00-0400 Body height 170.18 cm Faizan Gamez Other [facility] Other 08-06-2023 14:00-0400 Body mass index (BMI) [Ratio] 47.04 kg/m2 Faizan Gamez Other [facility] Other 08-06-2023 14:00-0400 Body weight 136.26 kg Faizan Gamez Other [facility] Other 08-06-2023 14:00-0400 Diastolic blood pressure 81 mm[Hg] Faizan Gamez Other [facility] Other 08-06-2023 14:00-0400 Respiratory rate 12 /min Faizan Gamez Other [employer] Other 08-06-2023 14:00-0400 Systolic blood pressure 118 mm[Hg] Faizan Gamez Other [employer] Other Encounters Encounter Date Encounter Type Care Provider Facility Start: 03-24-2024 End: 03-24-2024 ambulatory Josué Ryan MD Facility: [facility] Start: 01-14-2024 End: 01-14-2024 ambulatory [facility] Work Phone: Start: 01-14-2024 End: 01-14-2024 Patient encounter procedure [facility] Work Phone: Start: 08-06-2023 End: 08-06-2023 ambulatory Faizan Gamez Other [employer] Other Start: 08-06-2023 Encounter for genera l adult medical examination without abnormal findings Faizan Victor [facility] Start: 10-23-2023 Periodic preventive med est patient 40-64yrs Faizan Gamez [facility] Start: 08-06-2023 Telephone encounter Faizan Gamez [facility] Start: 02-03-2023 End: 02-04-[address] LAURIE PATEL Facility:[facility] Start: 11-30-2022 End: 02-07-[address] FAIZAN GAMEZ Facility:[facility] Start: 09-25-2022 End: 09-26-[address] FAIZAN GAMEZ Facility:[facility] Start: 09-06-[address] FAIZAN GAMEZ Facili ty:[facility] Start: 08-13-2022 Encounter for genera l adult medical examination without abnormal findings DR FAIZAN GAMEZ [facility] Start: 08-10-2022 End: 08-11-[address] FAIZAN GAMEZ Facility:[facility] Start: 08-10-2022 End: 08-11-2022 Encounter for general adult medical examination without abnormal findings DR FAIZAN GAMEZ Facility:[facility] Start: 05-19-2022 End: 05-20-[address] RAHUL QUINTERO Facility:[facility] Start: 01-20-2019 End: 01-21-2019 Patient encounter procedure DEFAULT PHYSICIAN Facility:[facility] Start: 01-01-2019 End: 01-02-2019 Patient encounter procedure DEFAULT PHYSICIAN Facility:[facility] Plan of Treatment Date Care Activity Detail Author XR Lumbar spine Views [facility] Immunizations Immunization Date Immunization Notes Care Provider Destiny avila 07-25-2017 influenza virus vaccine, split virus (incl. purified surface antigen) [employer] Other [employer] Other 07-25-2017 influenza virus vaccine, unspecified formulation [facility] Payers Date Payer Category Payer Unknown 2022 Unknown [id number] 2019 Unknown [id number] 1980 Unknown [id number] 2.16.8 [id number] 1980 Unknown [id number] 2.16.8 [id number] 1980 Unknown [id number] 2.16.84 [id number] 1980 Unknown [id number] 2.16.84 [id number] 1980 Unknown [id number] 2.16.84 [id number] 1980 Unknown [id number] 2.16.84 [id number] 1980 Unknown [id number] 2.16.84 [id number] 1980 Unknown [id number] 2.16.84 [id number] 1980 Unknown [id number] 2.16. [id number] Social History Date Type Detail Facility Unknown if ever smoked [employer] Other Sex Assigned At Sex Assigned At Bir th [employer] Other Start: 08-06-2023 Tobacco smoking status NHIS Never smoked tobacco (finding) [facility] Start: 1980 Sex Assigned At Female F [facility] Evaluation note 08-06-2023 Note Date & [...] hydrate. No treatment necessary, continue to exercise [employer] Other Evaluation note Note Date & Type Note Facility Evaluation note No Information [employer] Other Evaluation note Note Date & Type Note Facility Evaluation note No assessment information availa [facility] Work Phone: History general Narrative - Reported Note Date & Type Note Facility History general Narrative - Reported Type Medical History Foot pain Medical History Menopausal symptom Medical History Hormonal disorder Medical History Palpitations Surgical History C section Surgical History wisdom teeth Surgical History vein ligation Hospitalization History child [facility] [employer] Other Summary Purpose Family History No Family History Records FoundNo Family History Records FoundNo Family History Records Found Advance Directives No Advanced Directives Records Found Advance Directive Response Recorded Date/ Time Advance Directives No January 13 11:21am Chief Complaint and Reason for Visit Chief Complaint pulled muscle in francisca k Additional Source Comments INFORMATION SOURCE (unrecogn ized section and content) DATE CREATED AUTHOR 01/21/2019 [facility] DATE CREATED AUTHOR AUTHOR'S ORGANIZ ATION 02/14/2023 [facility] DATE CREATED AUTHOR AUTHOR'S ORGANIZ ATION 04/02/2024 [facility] REASON FOR VISIT (unrecogniz ed section [...] BE BASED ON THE PRIMARY CLINICAL RECORDS. [employer] provides no warranty or guarantee of the accuracy or completeness of information in this document.
--- NOTE | 2024-04-02 06:43 | MR_ITS ---
The [address] [address] Patient Name: MARTHA FINNEY MRN: [id number] date: 1980 Sex: F Assigned Patient Location: MRI Current Patient Location: Accession/Order Number: [id number] Exam Date: 04/02/2024 06:55 Report Date: 04/04/2024 07:53 At the request of: ROSEMARIE HOPE Procedure: MR lumbar spine wo con EXAMINATION: MR lumbar spine wo con HISTORY: lumbar stenosis with neuro claudication COMPARISON: No relevant comparison available. TECHNIQUE: A variety of imaging planes and parameters were utilized for visualization of suspected pathology. FINDINGS: For the purposes of numbering, sagittal T2 image # 8 extends from the T11 vertebral body superiorly to the S2-S3 level inferiorly. PARASPINAL AREA: Normal with no visible mass. BONES: Normal alignment of the lumbar vertebral bodies with no acute fracture or spondylolisthesis CORD/CAUDA EQUINA: Normal caliber, contour, and signal intensity. DISC LEVELS: 12-L1: No significant disc/facet abnormality, spinal stenosis, or foraminal stenosis. L1-L2: No significant disc/facet abnormality, spinal stenosis, or foraminal stenosis. L2-L3: Early degenerative disc disease is present without focal protrusion or neural impingement. L3-L4: Early degenerative disc disease is present without focal protrusion or neural impingement. L4-L5: Early degenerative disc disease is present without focal protrusion or neural impingement. L5-S1: Moderate disc space narrowing. Large posterior central left paracentral disc herniation measuring 1.9 cm the base, axial image #32 extending posteriorly 10 mm effacing multiple nerves resulting in central canal and left lateral recess stenosis. 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
== END 2024-04-02 06:40 | disposition home or self-care (01) ==
LOC: MRI 06:40
PROVIDERS: PCP Internal Medicine; Visit Provider Anesthesiology
DX: M48.062 Spinal stenosis, lumbar region with neurogenic claudication (principal); M51.27 Other intervertebral disc displacement, lumbosacral region
CPT/HCPCS: 72148

== ENCOUNTER 2024-04-07 12:23 | Outpatient (OUT) | payer BC, SELFPAY ==
--- OUTSIDE RECORDS SUMMARY | 2024-04-07 12:29 | XMS_ITS | CCD ---
Author Organization [facility] Care Team Providers Care Regrader Name Role Phone PHYSICIAN, DEFAULT Admitting Unavailable PHYSICIAN, DEFAULT Attending Unavailable PHYSICIAN, DEFAULT Admitting Unavailable PHYSICIAN, DEFAULT Attending Unavailable WILD, DR RAHUL Merrill Consulting Unavailable VICTOR HUGO, DR SANZ Primary Care Unavailable RINRUTH, NOÉ [...] Admitting Unavailable Ball, Faizan Unavailable Shelby CROUCH, Joséu Mcgrath Attending Unavailable Allergies Allergy Classification Reported Allergen(s) Allergy Type Date of Onset Reaction(s) Facility (1 source) Carisoprodol Drug Allergy [facility] (1 source) Metoprolol Drug Allergy [facility] (3 sources) Carisoprodol Drug Allergy 01-14-20 palpitations [facility] (2 sources) First - Metoprolol *BETA BLOCKERS* Propensity to adverse reactions Comment:[facility] Other (1 source) First - Metoprolol *BETA BLOCK Allergy to substance 08-06-20 Comment:[facility] Medications Current Medications Medication Drug [...] Drug Class(es) Dates Sig (Normalized) Sig (Original) [id number] 200 actuat albuterol 0.09 mg/actuat metered dose [...] 02-08-2023 Dehydroepiandrosterone (DHEA) 415 ng/dL Normal 31-701 [facility] Comment on above: Performed By: #### D JAMEL. #### [facility] [address] [address] [address] Katie Funez ESTRONEon 02-06-2023 Estrone, Serum 55 pg/mL Normal [facility] Comment on above: Result Comment: Rang e Adult (Premenopausal) 27 - 231 Menstrual Cycle (1-10 days) 19 - 149 Menstrual Cycle (11-20 days) 32 - 176 Menstrual Cycle (21-30 days) 37 - 200 Adult (Postmenopausal) 0 - 125 Performed By: #### P DAVINA #### [facility] [address] [address] [address] Katie Funez CORTISOLon 02-04-2023 Cortisol 22.7 ug/dL Critically high 6.2-19.4 [facility] Comment on above: Result Comment: Plea se Note: The reference interval and flagging for this test is for an AM collection. If this is a PM collection please use: Cortisol PM: 2.3-11.9 [facility] also offers: [id number]: Cortisol- AM 704617: Cortisol- PM Performed By: #### C ORTISO #### [facility] [address] [address] [address] Katie Funez ESTRADIOLon 02-04-2023 Estradiol 142.0 pg/mL Normal [facility] Comment on above: Result Comment: Adul t Female: Follicular phase 12.5 - 166.0 Ovulation phase 85.8 - 498.0 Luteal phase 43.8 - 211.0 Postmenopausal <6.0 - 54.7 1st trimester 215.0 - >4300.0 [facility] ECLIA methodology Performed By: #### E STRADI #### [facility] [id number] Katie Funez PROGESTERONEon 02-04-2023 Progesterone 7.6 ng/mL Normal [facility] Comment on above: Result Comment: Foll icular phase 0.1 - 0.9 Luteal phase 1.8 - 23.9 Ovulation phase 0.1 - 12.0 First trimester 11.0 - 44.3 Second trimester 25.4 - 83.3 Third trimester 58.7 - 214.0 Postmenopausal 0.0 - 0.1 Performed By: #### P ROGES #### [facility] [address] [place] [address] Dr. Katie Funez TESTOSTERONE, TOTALon 2022 Testosterone [Mass/Vol] 33 ng/dL Normal 4-50 [facility] Comment on above: Performed By: #### T ESTTOT #### [facility] [address] [place] [address] Dr. Katie Funez FREE T3on 02-03-2023 FREE T3 2.12 pg/mlL Critically low 2.18-3.98 [facility] Comment on above: Performed By: #### P ROGES #### [facility] [address] [place] [address] Dr. Katie Funez FREE T4on 02-03-2023 Free T4 [Mass/Vol] 0.90 ng/dL Normal 0.76-1.46 [facility] Comment on above: Performed By: #### P ROGES #### [facility] [address] [place] [address] Dr. Katie Funez TSHon 02-03-2023 TSH 2.763 uIU/mL Normal 0.358-3.740 [facility] Comment on above: Performed By: #### P ROGES #### [facility] [address] [place] [address] Dr. Katie Funez FREE T3on 09-25-2022 FREE T3 1.80 pg/mlL Critically low 2.18-3.98 [facility] Comment on above: Performed By: #### F T3 #### [facility] [address] [place] [address] Dr. Katie Funez FREE T4on 09-25-2022 Free T4 [Mass/Vol] 1.05 ng/dL Normal 0.76-1.46 [facility] Comment on above: Performed By: #### P ROGES #### [facility] [address] [place] [address] Dr. Katie Funez TSHon 09-25-2022 TSH 3.688 uIU/mL Normal 0.358-3.740 [facility] Comment on above: Performed By: #### T SH #### [facility] [address] [place] [address] Dr. Katie Funez ESTRONEon 08-17-2022 Estrone, Serum 49 pg/mL Normal [facility] Comment on above: Result Comment: Rang e Adult (Premenopausal) 27 - 231 Menstrual Cycle (1-10 days) 19 - 149 Menstrual Cycle (11-20 days) 32 - 176 Menstrual Cycle (21-30 days) 37 - 200 Adult (Postmenopausal) 0 - 125 Performed By: #### E STRONE #### [facility] [address] [place] [address] Dr. Katie Funez TESTOSTERONE, FREE,DIRECT, T OTALon 08-14-2022 Free Testosterone(Direct) 0.8 pg/mL Normal 0.0-4.2 [facility] Comment on above: Result Comment: Perf ormed at: BN Performed By: #### V ITAD #### [facility] [address] [address] [address] Katie Funez Testosterone [Mass/Vol] 27 ng/dL Normal 4-50 [facility] Comment on above: Result Comment: Perf ormed at: CB Performed By: #### V ITAD #### [facility] [address] [place] [address] Dr. Katie Funez CORTISOLon 08-11-2022 Cortisol 11.5 ug/dL Normal [facility] Comment on above: Result Comment: Diomedes isol AM 6.2 - 19.4 Cortisol PM 2.3 - 11.9 Performed By: #### V ITAD #### [facility] [address] [place] [address] Dr. Katie Funez DHEA-SULFATEon 08-11-2022 DHEA-Sulfate 120.0 ug/dL Normal 57.3-279.2 [facility] Comment on above: Performed By: #### V ITAD #### [facility] [address] [place] [address] Dr. Katie Funez ESTRADIOLon 08-11-2022 Estradiol 104.0 pg/mL Normal [facility] Comment on above: Result Comment: Adul t Female: Follicular phase 12.5 - 166.0 Ovulation phase 85.8 - 498.0 Luteal phase 43.8 - 211.0 Postmenopausal <6.0 - 54.7 1st trimester 215.0 - >4300.0 [employer] ECLIA methodology Performed By: #### E WAYNE #### [facility] [address] [place] [address] Dr. Katie Funez PROGESTERONEon 08-11-2022 Progesterone 9.7 ng/mL Normal [facility] Comment on above: Result Comment: Foll icular phase 0.1 - 0.9 Luteal phase 1.8 - 23.9 Ovulation phase 0.1 - 12.0 First trimester 11.0 - 44.3 Second trimester 25.4 - 83.3 Third trimester 58.7 - 214.0 Postmenopausal 0.0 - 0.1 Performed By: #### V ITAD #### [facility] [address] [place] [address] Dr. Katie Funez SEX HORMONE-BINDING GLOBULIN on 08-11-2022 Sex Horm Binding Glob, Serum 73.1 nmol/L Normal 24.6-122.0 [facility] Comment on above: Performed By: #### V ITAD #### [facility] [address] [place] [address] Dr. Katie Funez CBC AUTO DIFFon 08-10-2022 BASO # 0.0 103/ul Normal 0.0-0.1 [facility] Comment on above: Performed By: #### V ITAD #### [facility] [address] [place] [address] Dr. Katie Funez Basophils/100 WBC (Bld) 0.6 % Normal 0.2-2.0 [facility] Comment on above: Performed By: #### V ITAD #### [facility] [address] [place] [address] Dr. Katie Funez EO # 0.1 103/ul Normal 0.0-0.7 [facility] Comment on above: Performed By: #### V ITAD #### [facility] [address] [place] [address] Dr. Katie Funez Eosinophils/100 WBC (Bld) 1.4 % Normal 0.9-7.0 [facility] Comment on above: Performed By: #### V ITAD #### [facility] [address] [place] [address] Dr. Katie Funez Erythrocyte distribution width (RBC) [Ratio] 13.2 % Normal 11.0-15.0 [facility] Comment on above: Performed By: #### V ITAD #### [facility] [address] [place] [address] Dr. Katie Funez Hematocrit (Bld) [Volume fraction] 41.9 % Normal 36.0-48.0 [facility] Comment on above: Performed By: #### V ITAD #### [facility] [address] [place] [address] Dr. Katie Funez Hemoglobin (Bld) [Mass/Vol] 13.5 g/dL Normal 12.0-16.0 [facility] Comment on above: Performed By: #### V ITAD #### [facility] [address] [place] [address] Dr. Katie Funez IG # 0.01 10e3/ul Normal 0.00-0.03 [facility] Comment on above: Performed By: #### V ITAD #### [facility] [address] [place] [address] Dr. Katie Funez IG % 0.1 % Normal 0.0-0.5 [facility] Comment on above: Performed By: #### V ITAD #### [facility] [address] [place] [address] Dr. Katie Funez LYMPH # 1.8 103/ul Normal 1.2-3.8 [facility] Comment on above: Performed By: #### V ITAD #### [facility] [address] [place] [address] Dr. Katie Funez Lymphocytes/100 WBC (Bld) 24.6 % Normal 20.5-60.0 [facility] Comment on above: Performed By: #### V ITAD #### [facility] [address] [place] [address] Dr. Katie Funez MANUAL DIFF REQ NO Normal [facility] Comment on above: Performed By: #### V ITAD #### [facility] [address] [place] [address] Dr. Katie Funez MCH (RBC) [Entitic mass] 28.2 pg Normal 26.7-34.0 [facility] Comment on above: Performed By: #### V ITAD #### [facility] [address] [place] [address] Dr. Katie Funez MCHC (RBC) [Mass/Vol] 32.2 g/dL Normal 29.9-35.2 [facility] Comment on above: Performed By: #### V ITAD #### [facility] [address] [place] [address] Dr. Katie Funez MCV (RBC) [Entitic vol] 87.5 fL Normal 81.0-99.0 [facility] Comment on above: Performed By: #### V ITAD #### [facility] [address] [place] [address] Dr. Katie Funez MONO # 0.4 103/ul Normal 0.3-0.8 [facility] Comment on above: Performed By: #### V ITAD #### [facility] [address] [place] [address] Dr. Katie Fnuez Monocytes/100 WBC (Bld) 6.0 % Normal 1.7-12.0 [facility] Comment on above: Performed By: #### V ITAD #### [facility] [address] [place] [address] Dr. Katie Funez NEUT # 4.8 103/ul Normal 1.4-6.5 [facility] Comment on above: Performed By: #### V ITAD #### [facility] [address] [place] [address] Dr. Katie Funez Neutrophils/100 WBC (Bld) 67.3 % Normal 43.0-75.0 [facility] Comment on above: Performed By: #### V ITAD #### [facility] [address] [place] [address] Dr. Katie Funez Platelet mean volume (Bld) [Entitic vol] 11.7 fL Normal 9.5-13.5 [facility] Comment on above: Performed By: #### V ITAD #### [facility] [address] [place] [address] Dr. Katie Funez PLT 294 103/ul Normal 150-450 [facility] Comment on above: Performed By: #### V ITAD #### [facility] [address] [place] [address] Dr. Katie Funez RBC 4.79 106/ul Normal 4.20-5.40 [facility] Comment on above: Performed By: #### V ITAD #### [facility] [address] [place] [address] Dr. Katie Funez WBC 7.2 103/ul Normal 4.0-11.0 [facility] Comment on above: Performed By: #### V ITAD #### [facility] [address] [place] [address] Dr. Katie Funez GLYCOHEMOGLOBIN A1Con 2021 ADA RECOMMENDATION SEE BELOW Normal [facility] Comment on above: Result Comment: ADA RECOMMENDED LIMIT 4.0 - 6.0 ADA THERAPEUTIC TARGET < 7.0 ACTION SUGGESTED > 7.0 Performed By: #### P DAVINA #### [facility] [address] [place] [address] Dr. Katie Funez Glucose [Mass/Vol] 103 mg/dL Normal [facility] Comment on above: Performed By: #### P DAVINA #### [facility] [address] [place] [address] Dr. Katie Funez HbA1c (Bld) [Mass fraction] 5.2 % Normal 4.5-6.2 [facility] Comment on above: Performed By: #### P DAVINA #### [facility] [address] [place] [address] Dr. Katie Funez LIPID PROFILEon 08-10-2022 CHOL-HDL RATIO NORM SEE BELOW Normal [facility] Comment on above: Result Comment: 3.3 - 4.4 LOW RISK 4.4 - 7.1 AVERAGE RISK 7.1 - 11.0 MODERATE RISK >11.0 HIGH RISK Performed By: #### V ITAD #### [facility] [address] [address] [address] Katie Funez Cholesterol [Mass/Vol] 204 mg/dL Critically high <=200 [facility] Comment on above: Performed By: #### V ITAD #### [facility] [address] [address] [address] Kaite Funez Cholesterol in HDL [Mass/Vol] 52 mg/dL Normal 40-60 [facility] Comment on above: Performed By: #### V ITAD #### [facility] [address] [address] [address] Katie Funez Cholesterol in LDL [Mass/Vol] 137.2 mg/dL Normal [facility] Comment on above: Performed By: #### V ITAD #### [facility] [address] [place] [address] Dr. Katie Funez Cholesterol.total/Choleste rol in HDL [Mass ratio] 3.9 {ratio} Normal [facility] Comment on above: Performed By: #### V ITAD #### [facility] [address] [place] [address] Dr. Katie Funez HDL NORMAL > or = 60 mg/dl - LOW CARDIOVASCULAR RISK <40 mg/dl - HIGH CARDIOVASCULAR RISK Normal [facility] Comment on above: Performed By: #### V ITAD #### [facility] [address] [place] [address] Dr. Katie Funez LDL CALC NORMAL SEE BELOW Normal [facility] Comment on above: Result Comment: <100 mg/dl OPTIMAL 100 - 129 mg/dl NEAR OR ABOVE OPTIMAL 130 - 159 mg/dl BORDERLINE HIGH 160 - 189 mg/dl HIGH >190 mg/dl VERY HIGH Performed By: #### V ITAD #### [facility] [address] [place] [address] Dr. Katie Funez Triglyceride [Mass/Vol] 74 mg/dL Normal <=150 [facility] Comment on above: Performed By: #### V ITAD #### [facility] [address] [address] [address] Katie Funez VLDL CALC 14.8 mg/dL Normal [facility] Comment on above: Performed By: #### V ITAD #### [facility] [address] [place] [address] Dr. Katie Funez PROF 14(COMP METB)on 022 Albumin [Mass/Vol] 3.8 g/dL Normal 3.4-5.0 [facility] Comment on above: Performed By: #### V ITAD #### [facility] [address] [place] [address] Dr. Katie Funez Albumin/Globulin [Mass ratio] 0.9 {ratio} Normal [facility] Comment on above: Performed By: #### V ITAD #### [facility] [address] [place] [address] Dr. Katie Funez ALP [Catalytic activity/Vol] 77 U/L Normal 46-116 [facility] Comment on above: Performed By: #### V ITAD #### [facility] [address] [place] [address] Dr. Katie Funez ALT [Catalytic activity/Vol] 20 U/L Normal 14-59 [facility] Comment on above: Performed By: #### V ITAD #### [facility] [address] [place] [address] Dr. Katie Funez Anion gap [Moles/Vol] 10.0 mmol/L Normal [facility] Comment on above: Performed By: #### V ITAD #### [facility] [address] [place] [address] Dr. Katie Funez AST [Catalytic activity/Vol] 14 U/L Critically low 15-37 [facility] Comment on above: Performed By: #### V ITAD #### [facility] [address] [place] [address] Dr. Katie Funez Bilirubin [Mass/Vol] 0.8 mg/dL Normal 0.2-1.0 [facility] Comment on above: Performed By: #### V ITAD #### [facility] [address] [place] [address] Dr. Katie Funez Calcium [Mass/Vol] 8.9 mg/dL Normal 8.5-10.1 [facility] Comment on above: Performed By: #### V ITAD #### [facility] [address] [place] [address] Dr. Katie Funez Chloride [Moles/Vol] 101 mmol/L Normal 98-107 [facility] Comment on above: Performed By: #### V ITAD #### [facility] [address] [place] [address] Dr. Katie Funez CO2 [Moles/Vol] 29.9 mmol/L Normal 21.0-32.0 [facility] Comment on above: Performed By: #### V ITAD #### [facility] [address] [place] [address] Dr. Katie Funez Creatinine [Mass/Vol] 0.83 mg/dL Normal 0.55-1.02 [facility] Comment on above: Performed By: #### V ITAD #### [facility] [address] [place] [address] Dr. Katie Funez EGFR-AF [facility] >60 Normal >=60 [facility] Comment on above: Performed By: #### V ITAD #### [facility] [address] [place] [address] Dr. Katie Funez EGFR-NON AF [facility] >60 Normal >=60 [facility] Comment on above: Performed By: #### V ITAD #### [facility] [address] [place] [address] Dr. Katie Funez Globulin (S) [Mass/Vol] 4.0 g/dL Normal [facility] Comment on above: Performed By: #### V ITAD #### [facility] [address] [place] [address] Dr. Katie Funez Glucose [Mass/Vol] 91 mg/dL Normal 74-106 [facility] Comment on above: Performed By: #### V ITAD #### [facility] [address] [place] [address] Dr. Katie Funez Potassium [Moles/Vol] 3.9 mmol/L Normal 3.5-5.1 [facility] Comment on above: Performed By: #### V ITAD #### [facility] [address] [address] [address] Katie Funez Protein [Mass/Vol] 7.8 g/dL Normal 6.4-8.2 [facility] Comment on above: Performed By: #### V ITAD #### [facility] [address] [place] [address] Dr. Katie Funez Sodium [Moles/Vol] 137 mmol/L Normal 136-145 [facility] Comment on above: Performed By: #### V ITAD #### [facility] [address] [place] [address] Dr. Katie Funez Urea nitrogen [Mass/Vol] 13.0 mg/dL Normal 7.0-18.0 [facility] Comment on above: Performed By: #### V ITAD #### [facility] [address] [place] [address] Dr. Katie Funez Urea nitrogen/Creatinine [Mass ratio] 15.7 mg/mg Normal [facility] Comment on above: Performed By: #### V ITAD #### [facility] [address] [place] [address] Dr. Katie Funez TSHon 08-10-2022 TSH 2.642 uIU/mL Normal 0.358-3.740 [facility] Comment on above: Performed By: #### V ITAD #### [facility] [address] [place] [address] Dr. Katie Funez VITAMIN D 25 OHon 08-10-2022 VIT D 25-OH 23.6 ng/mL Normal [facility] Comment on above: Performed By: #### V ITAD #### [facility] [address] [place] [address] Dr. Katie Funez VIT D RANGES SEE BELOW Normal [facility] Comment on above: Result Comment: <20 ng/mL Vit D deficient 20 - <30 ng/mL Vit D insufficient 30 - 100 ng/mL Vit D sufficient >100 ng/mL Potential Toxicity Performed By: #### V ITAD #### [facility] [address] [place] [address] Dr. Katie Funez MG MAMM SCREEN 3D JORDI CADon 05-19-2022 MG MAMM SCREEN 3D JORDI CAD Patient: NAHID BARBOSA Exam Date: 05/19/2022 : 1980 Gender:F Ordering : DR. NOÉ FRANK D.O. Admission #: [id number] Family : Order #: [id number] CLICK HERE TO VIEW EXAM RADIOLOGY REPORT [...] uterine cancer at age 48. LOCATION: [facility] BREAST COMPOSITION: Heterogeneously dense,which may obscure [...] M.D. on 05/19/2022 at 12:38 Normal [facility] Vital Signs Date Time Vital Sign Value Performing Clinician Facility 01-14-2024 12:15-040 Body height 170.18 cm [facility] 01-14-2024 12:15-0400 Body mass index (BMI) [Ratio] 47.6 kg/m2 [facility] 01-14-2024 12:15040 Body weight 137.89 kg [facility] 01-14-2024 12:15-040 Diastolic blood pressure 76 mm[Hg] [facility] 01-14-2024 12:15-0400 Heart rate 67 /min [facility] 01-14-2024 12:150400 Respiratory rate 12 /min [facility] 01-14-2024 12:15-0400 Systolic blood pressure 117 mm[Hg] [facility] 08-06-2023 14:00-0400 Body height 170.18 cm Faizan Gamez Other [email or web address] Other 08-06-2023 14:00-0400 Body mass index (BMI) [Ratio] 47.04 kg/m2 Faizan Gamez Other [email or web address] Other 08-06-2023 14:00-0400 Body weight 136.26 kg Faiazn Gamez Other [email or web address] Other 08-06-2023 14:00-0400 Diastolic blood pressure 81 mm[Hg] Faizan Gamez Other [email or web address] Other 08-06-2023 14:00-0400 Respiratory rate 12 /min Faizan Gamez Other [email or web address] Other 08-06-2023 14:00-0400 Systolic blood pressure 118 mm[Hg] Faizan Gamez Other [email or web address] Other Encounters Encounter Date Encounter Type Care Provider Facility Start: 03-24-2024 End: 03-24-2024 ambulatory Josué Ryan MD Facility: [facility] Start: 01-14-2024 End: 01-14-2024 ambulatory [facility] Work Phone: Start: 01-14-2024 End: 01-14-2024 Patient encounter procedure [facility] Work Phone: Start: 08-06-2023 End: 08-06-2023 ambulatory Faizan Gamez Other [email or web address] Other Start: 08-06-2023 Encounter for genera l adult medical examination without abnormal findings Faizan Victor Hugo [facility] Start: 10-23-2023 Periodic preventive med est patient 40-64yrs Faizan Gamez [facility] Start: 08-06-2023 Telephone encounter Faizan Gamez FP [facility] Start: 02-03-2023 End: 02-04-[address] LAURIE PATEL Facility:[facility] Start: 11-30-2022 End: 02-07-[address] FAIZAN GAMEZ Facility:[facility] Start: 09-25-2022 End: 09-26-[address] FAIZAN GAMEZ Facility:[facility] Start: 09-06-[address] FAIZAN GAMEZ Facili ty:[facility] Start: 08-13-2022 Encounter for genera l adult medical examination without abnormal findings DR FAIZAN GAMEZ [facility] Start: 08-10-2022 End: 08-11-[address] FAIZAN GAMEZ Facility:[facility] Start: 08-10-2022 End: 08-11-2022 Encounter for general adult medical examination without abnormal findings DR FAIZAN GAMEZ Facility:[facility] Start: 05-19-2022 End: 05-20-[address] RAHUL QUINTERO Facility:[facility] Start: 01-20-2019 End: 01-21-2019 Patient encounter procedure DEFAULT PHYSICIAN Facility:[facility] Start: 01-01-2019 End: 01-02-2019 Patient encounter procedure DEFAULT PHYSICIAN Facility:[facility] Plan of Treatment Date Care Activity Detail Author XR Lumbar spine Views [facility] Immunizations Immunization Date Immunization Notes Care Provider Destiny avila 07-25-2017 influenza virus vaccine, split virus (incl. purified surface antigen) Faizan Gamez Other [email or web address] Other 07-25-2017 influenza virus vaccine, unspecified formulation [facility] Payers Date Payer Category Payer Unknown 2022 Unknown [id number] 2019 Unknown [id number] 1980 Unknown [id number] 2.16.8 [id number] 1980 Unknown [id number] 2.16.8 [id number] 1980 Unknown [id number] 2.16.84 [id number] 1980 Unknown [id number] 2.16.84 [id number] 1980 Unknown [id number] 2.16.84 [id number] 1980 Unknown [id number] 2.16.84 [id number] 1980 Unknown [id number] 2.16.84 [id number] 1980 Unknown [id number] 2.16.84 [id number] 1980 Unknown [id number] 2.16. [id number] Social History Date Type Detail Facility Unknown if ever smoked [email or web address] Other Sex Assigned At Sex Assigned At Bir th [email or web address] Other Start: 08-06-2023 Tobacco smoking status NHIS Never smoked tobacco (finding) [facility] Start: 1980 Sex Assigned At Female F [facility] Evaluation note 08-06-2023 Note Date & [...] hydrate. No treatment necessary, continue to exercise [email or web address] Other Evaluation note Note Date & Type Note Facility Evaluation note No Information SDL [employer] Other Evaluation note Note Date & Type Note Facility Evaluation note No assessment information availa [facility] Work Phone: History general Narrative - Reported Note Date & Type Note Facility History general Narrative - Reported Type Medical History Foot pain Medical History Menopausal symptom Medical History Hormonal disorder Medical History Palpitations Surgical History C section Surgical History wisdom teeth Surgical History vein ligation Hospitalization History child [facility] [email or web address] Other Summary Purpose Family History No Family [...] and content) DATE CREATED AUTHOR 01/21/2019 [facility] DATE CREATED AUTHOR AUTHOR'S ORGANIZ ATION 02/14/2023 [facility] DATE CREATED AUTHOR AUTHOR'S ORGANIZ ATION 04/02/2024 [facility] REASON FOR VISIT (unrecogniz ed section [...] BE BASED ON THE PRIMARY CLINICAL RECORDS. [employer] provides no warranty or guarantee of the accuracy or completeness of information in this document.
--- NOTE | 2024-04-07 13:29 | PM.CN ---
Consult Note: HPI Data of Consult Patient: known to practice within the last 3 years Requesting Physician: Josué Ryan MD Primary Care Provider: Faizan Gay, Consult Narrative Reason for consult: low back, left leg pain Narrative: 43yof who presents for assessment. continues to have radiating pain down left leg. 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 has continued in her various conservative measures, including cranio-sacral therapy and provider directed home exercises for >6 weeks, without lasting benefit. uses otc meds as needed. denies adverse med side effects. cc:: CC: Josué Ryan MD Review of Systems ROS Status of ROS 10 or more systems reviewed and unremarkable except as noted in history and below [facility] Medical History (Updated 04/07/24 @ 13:31 by Josué Ryan MD) Osteoarthritis ?M19.90 - Unspecified osteoarthritis, unspecified site (ICD-10) Hypothyroid ?E03.9 - Hypothyroidism, unspecified (ICD-10) Palpitations ?R00.2 - Palpitations (ICD-10) Surgical History History of oral surgery ?Z98.890 - Other specified postprocedural states (ICD-10) H/O section ?Z98.891 - History of uterine scar from previous surgery (ICD-10) History of foot surgery ?Z98.890 - Other specified postprocedural states (ICD-10) Meds Home Medications and Allergies Home Medications ?Medication ?Instructions ?Recorded ?Confirmed ?Type acetaminophen 500 mg tablet 1,000 mg PO BID PRN pain 03/24/24 03/24/24 History (Acetaminophen Extra Strength) ibuprofen 600 mg tablet (IBU) 600 mg PO Q12H 03/24/24 03/24/24 History multivitamin (Daily Multi-Vitamin 1 tab PO DAILY 03/24/24 03/24/24 History tablet) progesterone 50 mg/mL 50 mg IM DAILY 03/24/24 03/24/24 History intramuscular oil testosterone 1 mg topical DAILY 03/24/24 03/24/24 History vitamin E 670 mg (1,000 unit) 670 mg PO DAILY 03/24/24 03/24/24 History capsule Allergies Allergy/AdvReac Type Severity Reaction Status Date / Time carisoprodol [From Soma] Allergy Verified 03/24/24 14:49 metoprolol Allergy Verified 03/24/24 14:49 Exam Narrative Exam Narrative: Psych-alert and oriented x 3. Attentive and appropriate, constitutionally normal, displays normal mood and affect per situation. There are no obvious deficits in memory, reasoning, or intellect.? Skin-no obvious rashes, bruising, erythema noted to the patient's area of pain.? Extremities- extremities are warm with minimal edema and palpable pulses. Lumbar-tenderness to palpation noted in the lumbar spine and paraspinal musculature. Pain is elicited with flexion, extension, and lateral rotation of the lumbar spine. Range of motion is diminished with these motions. Facet loading maneuvers are positive.? Strength-noted to be unremarkable with the exception of decreased strength rated at 4 out of 5 in left quadriceps femoris, anterior tibialis. Sensory-no notable sensory deficits in the bilateral lower extremities to touch or pinprick in all dermatomal distributions with the exception to decreased sensation to the left L5, S1 dermatomal distribution Coordination remains intact.? Gait remains non-antalgic. Assessment and Plan Assessment and Plan (1) Lumbar disc displacement without myelopathy: Plan 43yof who presents for assessment. persistence of pain down left leg. imaging reviewed, as noted. given failure to respond to conservative measures, prudent to attempt left l5-s1, s1-2 tfesi x2 under fluoroscopic guidance. she is in agreement. meds reviewed, no changes. follow up after procedure.
== END 2024-04-07 12:24 | disposition home or self-care (01) ==
LOC: PM 12:24
PROVIDERS: PCP Internal Medicine; Visit Provider Anesthesiology
DX: M51.26 Other intervertebral disc displacement, lumbar region (principal)
CPT/HCPCS: G0463

== ENCOUNTER 2024-04-14 06:22 | Day surgery (SDC) | payer BC, SELFPAY ==
--- OUTSIDE RECORDS SUMMARY | 2024-04-14 06:25 | XMS_ITS | CCD ---
Author Organization [facility] Care Team Providers Care Wharf Builder Name Role Phone PHYSICIAN, DEFAULT Admitting Unavailable PHYSICIAN, DEFAULT Attending Unavailable PHYSICIAN, DEFAULT Admitting Unavailable PHYSICIAN, DEFAULT Attending Unavailable WILD, DR RAHUL Merrill Consulting Unavailable BALL, DR SANZ Primary Care Unavailable RINRUTH, NOÉ Admitting Unavailable RINRUTH, NOÉ Attending Unavailable RINRUTH, NOÉ Consulting Unavailable AMANDA, DR SULLIVAN Admitting [...] Unavailable Shelby CROUCH, Josué Mcgrath Attending Unavailable Shelby CROUCH, Josué Mcgrath Attending Unavailable Allergies Allergy Classification Reported Allergen(s) Allergy Type Date of Onset Reaction(s) Facility (1 source) Carisoprodol Drug Allergy [facility] (1 source) Metoprolol Drug Allergy [facility] (3 sources) Carisoprodol Drug Allergy 01-14-20 palpitations [facility] (2 sources) First - Metoprolol *BETA BLOCKERS* Propensity to adverse reactions Comment:gaudencio archer [employer] Other (1 source) First - Metoprolol *BETA BLOCK Allergy to substance 08-06-20 Comment:gaudencio archer [facility] Medications Current Medications Medication Drug Class(es) Dates [...] Drug Class(es) Dates Sig (Normalized) Sig (Original) [id number] 200 actuat albuterol 0.09 mg/actuat metered dose [...] Dehydroepiandrosterone (DHEA) 415 ng/dL Normal 31-701 [facility] Comment on above: Performed By: #### D JAMEL. #### [facility] [address] [place] [address] Dr. Katie Funez ESTRONEon 02-06-2023 Estrone, Serum 55 pg/mL Normal [facility] Comment on above: Result Comment: Rang e Adult (Premenopausal) 27 - 231 Menstrual Cycle (1-10 days) 19 - 149 Menstrual Cycle (11-20 days) 32 - 176 Menstrual Cycle (21-30 days) 37 - 200 Adult (Postmenopausal) 0 - 125 Performed By: #### P DAVINA #### [facility] [address] [place] [address] Dr. Katie Funez CORTISOLon 02-04-2023 Cortisol 22.7 ug/dL Critically high 6.2-19.4 [facility] Comment on above: Result Comment: Vibha frost Note: The reference interval and flagging for this test is for an AM collection. If this is a PM collection please use: Cortisol PM: 2.3-11.9 [facility] also offers: [id number]: Cortisol- AM 979155: Cortisol- PM Performed By: #### C ORFLACO #### [facility] [address] [place] [address] Dr. Katie Funez ESTRADIOLon 02-04-2023 Estradiol 142.0 pg/mL Normal [facility] Comment on above: Result Comment: Adul t Female: Follicular phase 12.5 - 166.0 Ovulation phase 85.8 - 498.0 Luteal phase 43.8 - 211.0 Postmenopausal <6.0 - 54.7 1st trimester 215.0 - >4300.0 [employer] ECLIA methodology Performed By: #### E WAYNE #### [facility] [address] [place] [address] Dr. Katie Funez PROGESTERONEon 02-04-2023 Progesterone 7.6 ng/mL Normal [facility] Comment on above: Result Comment: Foll icular phase 0.1 - 0.9 Luteal phase 1.8 - 23.9 Ovulation phase 0.1 - 12.0 First trimester 11.0 - 44.3 Second trimester 25.4 - 83.3 Third trimester 58.7 - 214.0 Postmenopausal 0.0 - 0.1 Performed By: #### P ROGES #### [facility] [address] [place] [address] Dr. Katie Funez TESTOSTERONE, TOTALon 2022 Testosterone [Mass/Vol] 33 ng/dL Normal 4-50 T [facility] Comment on above: Performed By: #### T ESTTOT #### [facility] [address] [place] [address] Dr. Katie Funez FREE T3on 02-03-2023 FREE T3 2.12 pg/mlL Critically low 2.18-3.98 [facility] Comment on above: Performed By: #### P ROGES #### [facility] [address] [place] [address] Dr. Katie Funez FREE T4on 02-03-2023 Free T4 [Mass/Vol] 0.90 ng/dL Normal 0.76-1.46 [facility] Comment on above: Performed By: #### P ROGES #### [facility] [address] [place] [address] Dr. Katie Funez TSHon 02-03-2023 TSH 2.763 uIU/mL Normal 0.358-3.740 [facility] Comment on above: Performed By: #### P ROGES #### [facility] [address] [place] [address] Dr. Katie Funez FREE T3on 09-25-2022 FREE T3 1.80 pg/mlL Critically low 2.18-3.98 [facility] Comment on above: Performed By: #### F T3 #### [facility] [address] [place] [address] Dr. Katie Funez FREE T4on 09-25-2022 Free T4 [Mass/Vol] 1.05 ng/dL Normal 0.76-1.46 [facility] Comment on above: Performed By: #### P ROGES #### [facility] [address] [place] [address] Dr. Katie Funez TSHon 09-25-2022 TSH 3.688 uIU/mL Normal 0.358-3.740 [facility] Comment on above: Performed By: #### T SH #### [facility] [address] [place] [address] Dr. Katie Funez ESTRONEon 08-17-2022 Estrone, Serum 49 pg/mL Normal [facility] Comment on above: Result Comment: Rang e Adult (Premenopausal) 27 - 231 Menstrual Cycle (1-10 days) 19 - 149 Menstrual Cycle (11-20 days) 32 - 176 Menstrual Cycle (21-30 days) 37 - 200 Adult (Postmenopausal) 0 - 125 Performed By: #### E STRONE #### [facility] [address] [place] [address] Dr. Katie Funez TESTOSTERONE, FREE,DIRECT, T OTALon 08-14-2022 Free Testosterone(Direct) 0.8 pg/mL Normal 0.0-4.2 [facility] Comment on above: Result Comment: Perf ormed at: BN Performed By: #### V ITAD #### [facility] [address] [place] [address] Dr. Katie Funez Testosterone [Mass/Vol] 27 ng/dL Normal 4-50 T [facility] Comment on above: Result Comment: Perf ormed at: CB Performed By: #### V ITAD #### [facility] [address] [place] [address] Dr. Katie Funez CORTISOLon 08-11-2022 Cortisol 11.5 ug/dL Normal [facility] Comment on above: Result Comment: Diomedes isol AM 6.2 - 19.4 Cortisol PM 2.3 - 11.9 Performed By: #### V ITAD #### [facility] [address] [place] [address] Dr. Katie Funez DHEA-SULFATEon 08-11-2022 DHEA-Sulfate 120.0 ug/dL Normal 57.3-279.2 [facility] Comment on above: Performed By: #### V ITAD #### [facility] [address] [place] [address] Dr. Katie Funez ESTRADIOLon 08-11-2022 Estradiol 104.0 pg/mL Normal [facility] Comment on above: Result Comment: Adul t Female: Follicular phase 12.5 - 166.0 Ovulation phase 85.8 - 498.0 Luteal phase 43.8 - 211.0 Postmenopausal <6.0 - 54.7 1st trimester 215.0 - >4300.0 [employer] ECLIA methodology Performed By: #### E WAYNE #### [facility] [address] [place] [address] Dr. Katie Funez PROGESTERONEon 08-11-2022 Progesterone 9.7 ng/mL Normal [facility] Comment on above: Result Comment: Foll icular phase 0.1 - 0.9 Luteal phase 1.8 - 23.9 Ovulation phase 0.1 - 12.0 First trimester 11.0 - 44.3 Second trimester 25.4 - 83.3 Third trimester 58.7 - 214.0 Postmenopausal 0.0 - 0.1 Performed By: #### V ITAD #### [facility] [address] [place] [address] Dr. Katie Funez SEX HORMONE-BINDING GLOBULIN on 08-11-2022 Sex Horm Binding Glob, Serum 73.1 nmol/L Normal 24.6-122.0 [facility] Comment on above: Performed By: #### V ITAD #### [facility] [address] [place] [address] Dr. Katie Funez CBC AUTO DIFFon 08-10-2022 BASO # 0.0 103/ul Normal 0.0-0.1 [facility] Comment on above: Performed By: #### V ITAD #### [facility] [address] [place] [address] Dr. Katie Funez Basophils/100 WBC (Bld) 0.6 % Normal 0.2-2.0 [facility] Comment on above: Performed By: #### V ITAD #### [facility] [address] [place] [address] Dr. Katie Funez EO # 0.1 103/ul Normal 0.0-0.7 [facility] Comment on above: Performed By: #### V ITAD #### [facility] [address] [place] [address] Dr. Katie Funez Eosinophils/100 WBC (Bld) 1.4 % Normal 0.9-7.0 [facility] Comment on above: Performed By: #### V ITAD #### [facility] [address] [place] [address] Dr. Katie Funez Erythrocyte distribution width (RBC) [Ratio] 13.2 % Normal 11.0-15.0 [facility] Comment on above: Performed By: #### V ITAD #### [facility] [address] [place] [address] Dr. Katie Funez Hematocrit (Bld) [Volume fraction] 41.9 % Normal 36.0-48.0 [facility] Comment on above: Performed By: #### V ITAD #### [facility] [address] [place] [address] Dr. Katie Funez Hemoglobin (Bld) [Mass/Vol] 13.5 g/dL Normal 12.0-16.0 [facility] Comment on above: Performed By: #### V ITAD #### [facility] [address] [place] [address] Dr. Katie Funez IG # 0.01 10e3/ul Normal 0.00-0.03 [facility] Comment on above: Performed By: #### V ITAD #### [facility] [address] [place] [address] Dr. Katie Funez IG % 0.1 % Normal 0.0-0.5 [facility] Comment on above: Performed By: #### V ITAD #### [facility] [address] [place] [address] Dr. Katie Funez LYMPH # 1.8 103/ul Normal 1.2-3.8 [facility] Comment on above: Performed By: #### V ITAD #### [facility] [address] [place] [address] Dr. Katie Funez Lymphocytes/100 WBC (Bld) 24.6 % Normal 20.5-60.0 [facility] Comment on above: Performed By: #### V ITAD #### [facility] [address] [place] [address] Dr. Katie Funez MANUAL DIFF REQ NO Normal [facility] Comment on above: Performed By: #### V ITAD #### [facility] [address] [place] [address] Dr. Katie Funez MCH (RBC) [Entitic mass] 28.2 pg Normal 26.7-34.0 [facility] Comment on above: Performed By: #### V ITAD #### [facility] [address] [place] [address] Dr. Katie Funez MCHC (RBC) [Mass/Vol] 32.2 g/dL Normal 29.9-35.2 [facility] Comment on above: Performed By: #### V ITAD #### [facility] [address] [place] [address] Dr. Katie Funez MCV (RBC) [Entitic vol] 87.5 fL Normal 81.0-99.0 [facility] Comment on above: Performed By: #### V ITAD #### [facility] [address] [place] [address] Dr. Katie Funez MONO # 0.4 103/ul Normal 0.3-0.8 [facility] Comment on above: Performed By: #### V ITAD #### [facility] [address] [place] [address] Dr. Katie Funze Monocytes/100 WBC (Bld) 6.0 % Normal 1.7-12.0 [facility] Comment on above: Performed By: #### V ITAD #### [facility] [address] [place] [address] Dr. Katie Funez NEUT # 4.8 103/ul Normal 1.4-6.5 [facility] Comment on above: Performed By: #### V ITAD #### [facility] [address] [place] [address] Dr. Katie Funez Neutrophils/100 WBC (Bld) 67.3 % Normal 43.0-75.0 [facility] Comment on above: Performed By: #### V ITAD #### [facility] [address] [place], [place] [id number] Dr. Katie Funez Platelet mean volume (Bld) [Entitic vol] 11.7 fL Normal 9.5-13.5 [facility] Comment on above: Performed By: #### V ITAD #### [facility] [address] [place] [address] Dr. Katie Funez PLT 294 103/ul Normal 150-450 [facility] Comment on above: Performed By: #### V ITAD #### [facility] [address] [place] [address] Dr. Katie Funez RBC 4.79 106/ul Normal 4.20-5.40 [facility] Comment on above: Performed By: #### V ITAD #### [facility] [address] [place] [address] Dr. Katie Funez WBC 7.2 103/ul Normal 4.0-11.0 [facility] Comment on above: Performed By: #### V ITAD #### [facility] [address] [place] [address] Dr. Katie Funez GLYCOHEMOGLOBIN A1Con 2021 ADA RECOMMENDATION SEE BELOW Normal [facility] Comment on above: Result Comment: ADA RECOMMENDED LIMIT 4.0 - 6.0 ADA THERAPEUTIC TARGET < 7.0 ACTION SUGGESTED > 7.0 Performed By: #### P DAVINA #### [facility] [address] [place] [address] Dr. Katie Funez Glucose [Mass/Vol] 103 mg/dL Normal [facility] Comment on above: Performed By: #### P ROGES #### [facility] [address] [place] [address] Dr. Katie Funez HbA1c (Bld) [Mass fraction] 5.2 % Normal 4.5-6.2 [facility] Comment on above: Performed By: #### P ROGMARCUS #### [facility] [address] [place] [address] Dr. Katie Funez LIPID PROFILEon 08-10-2022 CHOL-HDL RATIO NORM SEE BELOW Normal [facility] Comment on above: Result Comment: 3.3 - 4.4 LOW RISK 4.4 - 7.1 AVERAGE RISK 7.1 - 11.0 MODERATE RISK >11.0 HIGH RISK Performed By: #### V ITAD #### [facility] [address] [place] [address] Dr. Katie Funez Cholesterol [Mass/Vol] 204 mg/dL Critically high <=200 [facility] Comment on above: Performed By: #### V ITAD #### [facility] [address] [address] [address] Katie Funez Cholesterol in HDL [Mass/Vol] 52 mg/dL Normal 40-60 [facility] Comment on above: Performed By: #### V ITAD #### [facility] [address] [place] [address] Dr. Katie Funez Cholesterol in LDL [Mass/Vol] 137.2 mg/dL Normal [facility] Comment on above: Performed By: #### V ITAD #### [facility] [address] [place] [address] Dr. Katie Funez Cholesterol.total/Choleste rol in HDL [Mass ratio] 3.9 {ratio} Normal [facility] Comment on above: Performed By: #### V ITAD #### [facility] [address] [place] [address] Dr. Katie Funez HDL NORMAL > or = 60 mg/dl - LOW CARDIOVASCULAR RISK <40 mg/dl - HIGH CARDIOVASCULAR RISK Normal [facility] Comment on above: Performed By: #### V ITAD #### [facility] [address] [place] [address] Dr. Katie Funez LDL CALC NORMAL SEE BELOW Normal [facility] Comment on above: Result Comment: <100 mg/dl OPTIMAL 100 - 129 mg/dl NEAR OR ABOVE OPTIMAL 130 - 159 mg/dl BORDERLINE HIGH 160 - 189 mg/dl HIGH >190 mg/dl VERY HIGH Performed By: #### V ITAD #### [facility] [address] [place] [address] Dr. Katie Funez Triglyceride [Mass/Vol] 74 mg/dL Normal <=150 [facility] Comment on above: Performed By: #### V ITAD #### [facility] [address] [place] [address] Dr. Katie Funez VLDL CALC 14.8 mg/dL Normal [facility] Comment on above: Performed By: #### V ITAD #### [facility] [address] [place] [address] Dr. Katie Funez PROF 14(COMP METB)on 022 Albumin [Mass/Vol] 3.8 g/dL Normal 3.4-5.0 [facility] Comment on above: Performed By: #### V ITAD #### [facility] [address] [place] [address] Dr. Katie Funez Albumin/Globulin [Mass ratio] 0.9 {ratio} Normal [facility] Comment on above: Performed By: #### V ITAD #### [facility] [address] [place] [address] Dr. Katie Funez ALP [Catalytic activity/Vol] 77 U/L Normal 46-116 [facility] Comment on above: Performed By: #### V ITAD #### [facility] [address] [place] [address] Dr. Katie Funez ALT [Catalytic activity/Vol] 20 U/L Normal 14-59 [facility] Comment on above: Performed By: #### V ITAD #### [facility] [address] [place] [address] Dr. Ktaie Funez Anion gap [Moles/Vol] 10.0 mmol/L Normal [facility] Comment on above: Performed By: #### V ITAD #### [facility] [address] [place] [address] Dr. Katie Funez AST [Catalytic activity/Vol] 14 U/L Critically low 15-37 [facility] Comment on above: Performed By: #### V ITAD #### [facility] [address] [place] [address] Dr. Katie Funez Bilirubin [Mass/Vol] 0.8 mg/dL Normal 0.2-1.0 [facility] Comment on above: Performed By: #### V ITAD #### [facility] [address] [place] [address] Dr. Katie Funez Calcium [Mass/Vol] 8.9 mg/dL Normal 8.5-10.1 [facility] Comment on above: Performed By: #### V ITAD #### [facility] [address] [place] [address] Dr. Katie Fnuez Chloride [Moles/Vol] 101 mmol/L Normal 98-107 [facility] Comment on above: Performed By: #### V ITAD #### [facility] [address] [place] [address] Dr. Katie Funez CO2 [Moles/Vol] 29.9 mmol/L Normal 21.0-32.0 [facility] Comment on above: Performed By: #### V ITAD #### [facility] [address] [place] [address] Dr. Katie Funez Creatinine [Mass/Vol] 0.83 mg/dL Normal 0.55-1.02 [facility] Comment on above: Performed By: #### V ITAD #### [facility] [address] [place] [address] Dr. Katie Funez EGFR-AF KITTITIAN >60 Normal >=60 [facility] Comment on above: Performed By: #### V ITAD #### [facility] [address] [place] [address] Dr. Katie Funez EGFR-NON AF KITTITIAN >60 Normal >=60 [facility] Comment on above: Performed By: #### V ITAD #### [facility] [address] [place] [address] Dr. Katie Funez Globulin (S) [Mass/Vol] 4.0 g/dL Normal T [facility] Comment on above: Performed By: #### V ITAD #### [facility] [address] [place] [address] Dr. Katie Funez Glucose [Mass/Vol] 91 mg/dL Normal 74-106 [facility] Comment on above: Performed By: #### V ITAD #### [facility] [address] [place] [address] Dr. Katie Funez Potassium [Moles/Vol] 3.9 mmol/L Normal 3.5-5.1 [facility] Comment on above: Performed By: #### V ITAD #### [facility] [address] [place] [address] Dr. Katie Funez Protein [Mass/Vol] 7.8 g/dL Normal 6.4-8.2 [facility] Comment on above: Performed By: #### V ITAD #### [facility] [address] [place] [address] Dr. Katie Funez Sodium [Moles/Vol] 137 mmol/L Normal 136-145 [facility] Comment on above: Performed By: #### V ITAD #### [facility] [address] [place] [address] Dr. Katie Funez Urea nitrogen [Mass/Vol] 13.0 mg/dL Normal 7.0-18.0 [facility] Comment on above: Performed By: #### V ITAD #### [facility] [address] [place] [address] Dr. Katie Funez Urea nitrogen/Creatinine [Mass ratio] 15.7 mg/mg Normal [facility] Comment on above: Performed By: #### V ITAD #### [facility] [address] [place] [address] Dr. Katie Funez TSHon 08-10-2022 TSH 2.642 uIU/mL Normal 0.358-3.740 [facility] Comment on above: Performed By: #### V ITAD #### [facility] [address] [place] [address] Dr. Katie Funez VITAMIN D 25 OHon 08-10-2022 VIT D 25-OH 23.6 ng/mL Normal [facility] Comment on above: Performed By: #### V ITAD #### [facility] [address] [place] [address] Dr. Katie Funez VIT D RANGES SEE BELOW Normal [facility] Comment on above: Result Comment: <20 ng/mL Vit D deficient 20 - <30 ng/mL Vit D insufficient 30 - 100 ng/mL Vit D sufficient >100 ng/mL Potential Toxicity Performed By: #### V ITAD #### [facility] [address] [id number] Katie Funez MG MAMM SCREEN 3D JORDI CADon 05-19-2022 MG MAMM SCREEN 3D JORDI CAD Patient: NAHID BARBOSA Exam Date: 05/19/2022 : 1980 Gender:F Ordering : DR. NOÉ FRANK D.O. Admission #: [id number] Family : Order #: [id number] CLICK HERE TO VIEW EXAM RADIOLOGY REPORT [...] uterine cancer at age 48. LOCATION: [facility] BREAST COMPOSITION: Heterogeneously dense,which may obscure small [...] M.D. on 05/19/2022 at 12:38 Normal [facility] Vital Signs Date Time Vital Sign Value Performing Clinician Facility 01-14-2024 12:040 Body height 170.18 cm [facility] 01-14-2024 12:15-0400 Body mass index (BMI) [Ratio] 47.6 kg/m2 [facility] 01-14-2024 12:15040 Body weight 137.89 kg [facility] 01-14-2024 12:15-0400 Diastolic blood pressure 76 mm[Hg] [facility] 01-14-2024 12:15040 Heart rate 67 /min [facility] 01-14-2024 12:15-0400 Respiratory rate 12 /min [facility] 01-14-2024 12:15-0400 Systolic blood pressure 117 mm[Hg] [facility] 08-06-2023 14:00-0400 Body height 170.18 cm Faizan Gay Other [employer] Other 08-06-2023 14:00-0400 Body mass index (BMI) [Ratio] 47.04 kg/m2 Faizan Gay Other [employer] Other 08-06-2023 14:00-0400 Body weight 136.26 kg Faizan Gay Other [employer] Other 08-06-2023 14:00-0400 Diastolic blood pressure 81 mm[Hg] Faizan [facility] Other [employer] Other 08-06-2023 14:00-0400 Respiratory rate 12 /min Faizan Gay Other [employer] Other 08-06-2023 14:00-0400 Systolic blood pressure 118 mm[Hg] Faizan [employer] Other [employer] Other Encounters Encounter Date Encounter Type Care Provider Facility Start: 04-07-2024 End: 04-07-2024 ambulatory Josué Ryan MD Facility:[facility] Start: 03-24-2024 End: 03-24-2024 ambulatory Josué Ryan MD Facility:[facility] Start: 01-14-2024 End: 01-14-2024 ambulatory [facility] Work Phone: Start: 01-14-2024 End: 01-14-2024 Patient encounter procedure [facility] Work Phone: Start: 08-06-2023 End: 08-06-2023 ambulatory Faizan Gay Other [employer] Other Start: 08-06-2023 Encounter for genera l adult medical examination without abnormal findings Faizan Gay [facility] Start: 08-06-2023 Periodic preventive med est patient 40-64yrs Faizan Gay [facility] Start: 08-06-2023 Telephone encounter Faizan Gay [facility] Start: 02-03-2023 End: 02-04-[address] LAURIE PATEL Facility:[facility] Start: 11-30-2022 End: 02-07-[address] FAIZAN GAY Facility:[facility] Start: 09-25-2022 End: 09-26-[address] FAIZAN GAY Facility:[facility] Start: 09-06-[address] FAIZAN GAY Facili ty:[facility] Start: 08-13-2022 Encounter for genera l adult medical examination without abnormal findings DR FAIZAN GAY [facility] Start: 08-10-2022 End: 08-11-[address] FAIZAN GAY Facility:[facility] Start: 08-10-2022 End: 08-11-2022 Encounter for general adult medical examination without abnormal findings DR FAIZAN GAY Facility:[facility] Start: 05-19-2022 End: 05-20-[address] RAHUL QUINTERO Facility:[facility] Start: 01-20-2019 End: 01-21-2019 Patient encounter procedure DEFAULT PHYSICIAN Facility:[facility] Start: 01-01-2019 End: 01-02-2019 Patient encounter procedure DEFAULT PHYSICIAN Facility:[facility] Plan of Treatment Date Care Activity Detail Author XR [facility] Immunizations Immunization Date Immunization Notes Care Provider Destiny avila 07-25-2017 influenza virus vaccine, split virus (incl. purified surface antigen) Faizan Gay Other [employer] Other 07-25-2017 influenza virus vaccine, unspecified formulation [facility] Payers Date Payer Category Payer Unknown 2022 Unknown [id number] 2019 Unknown [id number] 1980 Unknown [id number] 2.16.8 [id number] 1980 Unknown [id number] 2.16.8 [id number] 1980 Unknown [id number] 2.16.84 [id number] 1980 Unknown [id number] 2.16.84 [id number] 1980 Unknown [id number] 2.16.84 [id number] 1980 Unknown [id number] 2.16.84 [id number] 1980 Unknown [id number] 2.16.84 [id number] 1980 Unknown [id number] 2.16.84 [id number] 1980 Unknown [id number] 2.16. [id number] 1980 Unknown [id number] 2.16. [id number] Social History Date Type Detail Facility Unknown if ever smoked [employer] Other Sex Assigned At Sex Assigned At Bir [employer] Other Start: 08-06-2023 Tobacco smoking status NHIS Never smoked tobacco (finding) [facility] Start: 1980 Sex Assigned At Female F [facility] Evaluation note 08-06-2023 Note Date & Type [...] hydrate. No treatment necessary, continue to exercise [employer] Other Evaluation note Note Date & Type Note Facility Evaluation note No Information [employer] [facility] [employer] User [place] Other Evaluation note Note Date & Type Note Facility Evaluation note No assessment information availa [facility] Work Phone: History general Narrative - Reported Note Date & Type Note Facility History general Narrative - Reported Type Medical History Foot pain Medical History Menopausal symptom Medical History Hormonal disorder Medical History Palpitations Surgical History C section Surgical History wisdom teeth Surgical History vein ligation Hospitalization History child bith [employer] Other Summary Purpose Family History No Family [...] and content) DATE CREATED AUTHOR 01/21/2019 [facility] DATE CREATED AUTHOR AUTHOR'S ORGANIZ ATION 02/14/2023 [facility] DATE CREATED AUTHOR AUTHOR'S ORGANIZ ATION 04/09/2024 [facility] REASON FOR VISIT (unrecogniz ed section and content) [employer] Care Teams (unrecognized sec tion and content) Team Status: Active Member Role Status Dates Faizan Gay DO Primary Care Provider Active Team Status: Inactive Member Role Status Dates Faizan Gay DO Primary Care Provide r, Attending Provider [...] BE BASED ON THE PRIMARY CLINICAL RECORDS. [facility] [employer] [facility]. provides no warranty or guarantee of the accuracy or completeness of information in this document.
[2024-04-14 06:47] VITALS: BP 124/84; PULSE 61; TEMP 36.7; O2SAT 99
[2024-04-14 07:36] VITALS: BP 130/83; PULSE 52; O2SAT 99
[2024-04-14 07:39] VITALS: BP 129/78; PULSE 64; O2SAT 100
[2024-04-14] MEDS: 0.9 % SODIUM CHLORIDE 10 ML SYRINGE - SALINE FLUSH INJ (07:41)
--- NOTE | 2024-04-14 07:41 | P.ON_ITS ---
Date of procedure: 04/14/24 Pre-op diagnosis: Lumbar stenosis with neurogenic claudication, lumbar disc displacement Post-op diagnosis: same as pre-op Procedure: Procedure: Left L5-S1, S1-2 transforaminal epidural steroid injection Medications: Bupivacaine 0.25% 2cc, lidocaine 2% 1cc, kenalog 80mg The patient was seen and examined in the preoperative holding area.? Informed consent was obtained and placed on the chart.? Patient was brought to the medical procedure unit and placed in the prone position where a timeout was completed verifying the correct patient, procedure site, position, and planned special equipment using sterile aseptic technique.? Under direct fluoroscopic visualization a 25-gauge Quincke tipped spinal needle was advanced to the designated neural foramen where contrast dye was injected to show adequate spread.? The needle was inserted at level left L5-S1. There was no evidence of vascular or adverse uptake.? Epidural spread was appreciated.? The above- mentioned injectate was then placed in a 1.5 mL aliquot preceded by negative aspiration.? The needle was removed. The needle was inserted and the procedure repeated at level left S1-2.? The surgery site was covered.? Patient was taken to the postprocedural recovery area and monitored for an appropriate length of time before found suitable for discharge in the accompaniment of a responsible adult. Anesthesia: Local Surgeon: Josué Ryan Pathology: none sent Condition: stable Disposition: no change
[2024-04-14] MEDS: BUPIVACAINE HCL 0.25% PF 25 MG/10 ML VIAL INJ (07:42)
[2024-04-14] MEDS: TRIAMCINOLONE ACETONIDE 40 MG/ML VIAL 80 MG INJ (07:42)
[2024-04-14] MEDS: IOHEXOL 240 MG/ML - 10 ML VIAL 24 MG INJ (07:42)
[2024-04-14] MEDS: LIDOCAINE HCL 2% 400 MG/20 ML MDV INJ (07:42)
== END 2024-04-14 07:46 | disposition home or self-care (01) ==
LOC: SURGOUT 06:22
PROVIDERS: PCP Internal Medicine; Visit Provider Anesthesiology
DX: M48.062 Spinal stenosis, lumbar region with neurogenic claudication (principal); M51.26 Other intervertebral disc displacement, lumbar region
CPT/HCPCS: 64483; 64484; 84703; J0665; J3301; Q9966

== ENCOUNTER 2024-04-29 11:11 | Outpatient (OUT) | payer BC, SELFPAY ==
--- NOTE | 2024-04-29 | XR_ITS ---
[address] [address] Patient Name: MARTHA FINNEY MRN: [id number] date: 1980 Sex: F Assigned Patient Location: Current Patient Location: Accession/Order Number: [id number] Exam Date: 04/29/2024 11:15 Report Date: 04/30/2024 08:36 At the request of: ISAIAS BELCHER Procedure: XR ankle LT min 3V PROCEDURE: XR tibia fibula LT 2V, XR ankle LT min 3V HISTORY: LEFT LOWER LEG PAIN COMPARISON: XR ankle left 09/20/2021 FINDINGS: BONES:Nondisplaced spiral fracture of proximal fibula at the diametaphyseal junction. Prior osteotomy and repair of posterior calcaneus with bone healing. Intact ankle joint without acute abnormality or significant degenerative changes. Chronic irregularity of lateral malleolus favoring sequela of remote injury. SOFT TISSUES:No visible soft tissue swelling. EFFUSION:None visible. OTHER: Negative. XR/XR ankle LT min 3V IMPRESSION: 1. Nondisplaced acute to subacute fracture of proximal fibula. 2. Remote surgical changes and minimal degenerative changes of the ankle joint. No acute abnormality of the ankle. Electronically authenticated by: ELIEZER ROME Date: 04/30/2024 08:36
--- NOTE | 2024-04-29 | XR_ITS ---
[address] [address] Patient Name: MARTHA FINNEY MRN: [id number] date: 1980 Sex: F Assigned Patient Location: Current Patient Location: Accession/Order Number: [id number] Exam Date: 04/29/2024 11:15 Report Date: 04/30/2024 08:36 At the request of: ISAIAS BELCHER Procedure: XR tibia fibula LT 2V PROCEDURE: XR tibia fibula LT 2V, XR ankle LT min 3V HISTORY: LEFT LOWER LEG PAIN COMPARISON: XR ankle left 09/20/2021 FINDINGS: BONES:Nondisplaced spiral fracture of proximal fibula at the diametaphyseal junction. Prior osteotomy and repair of posterior calcaneus with bone healing. Intact ankle joint without acute abnormality or significant degenerative changes. Chronic irregularity of lateral malleolus favoring sequela of remote injury. SOFT TISSUES:No visible soft tissue swelling. EFFUSION:None visible. OTHER: Negative. XR/XR tibia fibula LT 2V IMPRESSION: 1. Nondisplaced acute to subacute fracture of proximal fibula. 2. Remote surgical changes and minimal degenerative changes of the ankle joint. No acute abnormality of the ankle. Electronically authenticated by: ELIEZER ROME Date: 04/30/2024 08:36
--- OUTSIDE RECORDS SUMMARY | 2024-04-29 11:17 | XMS_ITS | CCD ---
Author Organization [facility] Care Team Providers Care Customer Resource Specialist Name Role Phone PHYSICIAN, DEFAULT Admitting Unavailable [...] Facility (1 source) Carisoprodol Drug Allergy [facility] (1 source) Metoprolol Drug Allergy [facility] (3 sources) Carisoprodol Drug Allergy 01-14-20 palpitations [facility] (2 sources) First - Metoprolol *BETA BLOCKERS* Propensity to adverse reactions Comment:[facility] Other (1 source) First - Metoprolol *BETA BLOCK Allergy to substance 08-06-20 Comment:gaudencio archer [facility] Medications Current Medications Medication Drug Class(es) [...] Drug Class(es) Dates Sig (Normalized) Sig (Original) [id number] 200 actuat albuterol 0.09 mg/actuat metered dose [...] 02-08-2023 Dehydroepiandrosterone (DHEA) 415 ng/dL Normal 31-701 [facility] Comment on above: Performed By: #### D JAMEL. #### [facility] [address] [place] [address] Dr. Katie Funez ESTRONEon 02-06-2023 Estrone, Serum 55 pg/mL Normal [facility] Comment on above: Result Comment: Rang e Adult (Premenopausal) 27 - 231 Menstrual Cycle (1-10 days) 19 - 149 Menstrual Cycle (11-20 days) 32 - 176 Menstrual Cycle (21-30 days) 37 - 200 Adult (Postmenopausal) 0 - 125 Performed By: #### P DAVINA #### [facility] [address] [place] [address] Dr. Katie Funez CORTISOLon 02-04-2023 Cortisol 22.7 ug/dL Critically high 6.2-19.4 [facility] Comment on above: Result Comment: Vibha frost Note: The reference interval and flagging for this test is for an AM collection. If this is a PM collection please use: Cortisol PM: 2.3-11.9 [facility] also offers: [id number]: Cortisol- AM [id number]: Cortisol- PM Performed By: #### C ORFLACO #### [facility] [address] [place] [address] Dr. Katie Funez ESTRADIOLon 02-04-2023 Estradiol 142.0 pg/mL Normal [facility] Comment on above: Result Comment: Adul t Female: Follicular phase 12.5 - 166.0 Ovulation phase 85.8 - 498.0 Luteal phase 43.8 - 211.0 Postmenopausal <6.0 - 54.7 1st trimester 215.0 - >4300.0 [facility] ECLIA methodology Performed By: #### E WAYNE #### [facility] [address] [place] [address] Dr. Katie Funez PROGESTERONEon 02-04-2023 Progesterone 7.6 ng/mL Normal [facility] Comment on above: Result Comment: Foll icular phase 0.1 - 0.9 Luteal phase 1.8 - 23.9 Ovulation phase 0.1 - 12.0 First trimester 11.0 - 44.3 Second trimester 25.4 - 83.3 Third trimester 58.7 - 214.0 Postmenopausal 0.0 - 0.1 Performed By: #### P ROGES #### [facility] [address] [place] [address] Dr. Katie Funez TESTOSTERONE, TOTALon 2022 Testosterone [Mass/Vol] 33 ng/dL Normal 4-50 [facility] Comment on above: Performed By: #### T ESTTOT #### [facility] [address] [place] [address] Dr. Katie Funez FREE T3on 02-03-2023 FREE T3 2.12 pg/mlL Critically low 2.18-3.98 [facility] Comment on above: Performed By: #### P ROGES #### [facility] [address] [place] [address] Dr. Katie Funez FREE T4on 02-03-2023 Free T4 [Mass/Vol] 0.90 ng/dL Normal 0.76-1.46 [facility] Comment on above: Performed By: #### P ROGES #### [facility] [address] [place] [address] Dr. Katie Funez TSHon 02-03-2023 TSH 2.763 uIU/mL Normal 0.358-3.740 [facility] Comment on above: Performed By: #### P ROGES #### [facility] [address] [place] [address] Dr. Katie Fuenz FREE T3on 09-25-2022 FREE T3 1.80 pg/mlL Critically low 2.18-3.98 [facility] Comment on above: Performed By: #### F T3 #### [facility] [address] [place] [address] Dr. Katie Funez FREE T4on 09-25-2022 Free T4 [Mass/Vol] 1.05 ng/dL Normal 0.76-1.46 [facility] Comment on above: Performed By: #### P ROGES #### [facility] [address] [place] [address] Dr. Katie Funez TSHon 09-25-2022 TSH 3.688 uIU/mL Normal 0.358-3.740 [facility] Comment on above: Performed By: #### T SH #### [facility] [address] [place] [address] Dr. Katie Funez ESTRONEon 08-17-2022 Estrone, Serum 49 pg/mL Normal [facility] Comment on above: Result Comment: Rang e Adult (Premenopausal) 27 - 231 Menstrual Cycle (1-10 days) 19 - 149 Menstrual Cycle (11-20 days) 32 - 176 Menstrual Cycle (21-30 days) 37 - 200 Adult (Postmenopausal) 0 - 125 Performed By: #### E KOMAL #### [facility] [address] [place] [address] Dr. Katie Funez TESTOSTERONE, FREE,DIRECT, T OTALon 08-14-2022 Free Testosterone(Direct) 0.8 pg/mL Normal 0.0-4.2 [facility] Comment on above: Result Comment: Perf ormed at: BN Performed By: #### V ITAD #### [facility] [address] [place] [address] Dr. Katie Funez Testosterone [Mass/Vol] 27 ng/dL Normal 4-50 [facility] Comment on above: Result Comment: Perf ormed at: CB Performed By: #### V ITAD #### [facility] [address] [place] [address] Dr. Katie Funez CORTISOLon 08-11-2022 Cortisol 11.5 ug/dL Normal [facility] Comment on above: Result Comment: Diomedes isol AM 6.2 - 19.4 Cortisol PM 2.3 - 11.9 Performed By: #### V ITAD #### [facility] [address] [place] [address] Dr. Katie Funez DHEA-SULFATEon 08-11-2022 DHEA-Sulfate 120.0 ug/dL Normal 57.3-279.2 [facility] Comment on above: Performed By: #### V ITAD #### [facility] [address] [place] [address] Dr. Katie Funez ESTRADIOLon 08-11-2022 Estradiol 104.0 pg/mL Normal [facility] Comment on above: Result Comment: Adul t Female: Follicular phase 12.5 - 166.0 Ovulation phase 85.8 - 498.0 Luteal phase 43.8 - 211.0 Postmenopausal <6.0 - 54.7 1st trimester 215.0 - >4300.0 [employer] ECLIA methodology Performed By: #### Renato BLACK #### [facility] [address] [place] [address] Dr. Katie Funez PROGESTERONEon 08-11-2022 Progesterone 9.7 ng/mL Normal [facility] Comment on above: Result Comment: Foll icular phase 0.1 - 0.9 Luteal phase 1.8 - 23.9 Ovulation phase 0.1 - 12.0 First trimester 11.0 - 44.3 Second trimester 25.4 - 83.3 Third trimester 58.7 - 214.0 Postmenopausal 0.0 - 0.1 Performed By: #### V ITAD #### [facility] [address] [place] [address] Dr. Katie Funez SEX HORMONE-BINDING GLOBULIN on 08-11-2022 Sex Horm Binding Glob, Serum 73.1 nmol/L Normal 24.6-122.0 [facility] Comment on above: Performed By: #### V ITAD #### [facility] [address] [place] [address] Dr. Katie Funez CBC AUTO DIFFon 08-10-2022 BASO # 0.0 103/ul Normal 0.0-0.1 [facility] Comment on above: Performed By: #### V ITAD #### [facility] [address] [place] [address] Dr. Katie Funez Basophils/100 WBC (Bld) 0.6 % Normal 0.2-2.0 [facility] Comment on above: Performed By: #### V ITAD #### [facility] [address] [place] [address] Dr. Katie Funez EO # 0.1 103/ul Normal 0.0-0.7 [facility] Comment on above: Performed By: #### V ITAD #### [facility] [address] [place] [address] Dr. Katie Funez Eosinophils/100 WBC (Bld) 1.4 % Normal 0.9-7.0 [facility] Comment on above: Performed By: #### V ITAD #### [facility] [address] [place] [address] Dr. Katie Funze Erythrocyte distribution width (RBC) [Ratio] 13.2 % Normal 11.0-15.0 [facility] Comment on above: Performed By: #### V ITAD #### [facility] [address] [place] [address] Dr. Katie Funez Hematocrit (Bld) [Volume fraction] 41.9 % Normal 36.0-48.0 [facility] Comment on above: Performed By: #### V ITAD #### [facility] [address] [place] [address] Dr. Katie Funez Hemoglobin (Bld) [Mass/Vol] 13.5 g/dL Normal 12.0-16.0 [facility] Comment on above: Performed By: #### V ITAD #### [facility] [address] [place] [address] Dr. Katie Funez IG # 0.01 10e3/ul Normal 0.00-0.03 [facility] Comment on above: Performed By: #### V ITAD #### [facility] [address] [place] [address] Dr. Katie Funez IG % 0.1 % Normal 0.0-0.5 [facility] Comment on above: Performed By: #### V ITAD #### [facility] [address] [place] [address] Dr. Katie Funez LYMPH # 1.8 103/ul Normal 1.2-3.8 [facility] Comment on above: Performed By: #### V ITAD #### [facility] [address] [place] [address] Dr. Katie Funez Lymphocytes/100 WBC (Bld) 24.6 % Normal 20.5-60.0 [facility] Comment on above: Performed By: #### V ITAD #### [facility] [address] [place] [address] Dr. Katie Funez MANUAL DIFF REQ NO Normal [facility] Comment on above: Performed By: #### V ITAD #### [facility] [address] [place] [address] Dr. Katie Funez MCH (RBC) [Entitic mass] 28.2 pg Normal 26.7-34.0 [facility] Comment on above: Performed By: #### V ITAD #### [facility] [address] [place] [address] Dr. Katie Funez MCHC (RBC) [Mass/Vol] 32.2 g/dL Normal 29.9-35.2 [facility] Comment on above: Performed By: #### V ITAD #### [facility] [address] [place] [address] Dr. Katie Funez MCV (RBC) [Entitic vol] 87.5 fL Normal 81.0-99.0 [facility] Comment on above: Performed By: #### V ITAD #### [facility] [address] [place] [address] Dr. Katie Funez MONO # 0.4 103/ul Normal 0.3-0.8 [facility] Comment on above: Performed By: #### V ITAD #### [facility] [address] [place] [address] Dr. Katie Funez Monocytes/100 WBC (Bld) 6.0 % Normal 1.7-12.0 [facility] Comment on above: Performed By: #### V ITAD #### [facility] [address] [place] [address] Dr. Katie Funez NEUT # 4.8 103/ul Normal 1.4-6.5 [facility] Comment on above: Performed By: #### V ITAD #### [facility] [address] [place] [address] Dr. Katie Funez Neutrophils/100 WBC (Bld) 67.3 % Normal 43.0-75.0 [facility] Comment on above: Performed By: #### V ITAD #### [facility] [address] [address] [address] Katie Funez Platelet mean volume (Bld) [Entitic vol] 11.7 fL Normal 9.5-13.5 [facility] Comment on above: Performed By: #### V ITAD #### [facility] [address] [place] [address] Dr. Katie Funez PLT 294 103/ul Normal 150-450 [facility] Comment on above: Performed By: #### V ITAD #### [facility] [address] [place] [address] Dr. Katie Funez RBC 4.79 106/ul Normal 4.20-5.40 [facility] Comment on above: Performed By: #### V ITAD #### [facility] [address] [place] [address] Dr. Katie Funez WBC 7.2 103/ul Normal 4.0-11.0 [facility] Comment on above: Performed By: #### V ITAD #### [facility] [address] [place] [address] Dr. Katie Funez GLYCOHEMOGLOBIN A1Con 2021 ADA RECOMMENDATION SEE BELOW Normal [facility] Comment on above: Result Comment: ADA RECOMMENDED LIMIT 4.0 - 6.0 ADA THERAPEUTIC TARGET < 7.0 ACTION SUGGESTED > 7.0 Performed By: #### P ROGES #### [facility] [address] [place] [address] Dr. Katie Funez Glucose [Mass/Vol] 103 mg/dL Normal [facility] Comment on above: Performed By: #### P ROGES #### [facility] [address] [place] [address] Dr. Katie Funez HbA1c (Bld) [Mass fraction] 5.2 % Normal 4.5-6.2 [facility] Comment on above: Performed By: #### P ROGES #### [facility] [address] [place] [address] Dr. Katie Funez LIPID PROFILEon 08-10-2022 CHOL-HDL RATIO NORM SEE BELOW Normal [facility] Comment on above: Result Comment: 3.3 - 4.4 LOW RISK 4.4 - 7.1 AVERAGE RISK 7.1 - 11.0 MODERATE RISK >11.0 HIGH RISK Performed By: #### V ITAD #### [facility] [address] [address] [address] Katie Funez Cholesterol [Mass/Vol] 204 mg/dL Critically high <=200 [facility] Comment on above: Performed By: #### V ITAD #### [facility] [address] [address] [address] Katie Funez Cholesterol in HDL [Mass/Vol] 52 mg/dL Normal 40-60 [facility] Comment on above: Performed By: #### V ITAD #### [facility] [address] [place] [address] Dr. Katie Funez Cholesterol in LDL [Mass/Vol] 137.2 mg/dL Normal [facility] Comment on above: Performed By: #### V ITAD #### [facility] [address] [place] [address] Dr. Katie Funez Cholesterol.total/Choleste rol in HDL [Mass ratio] 3.9 {ratio} Normal [facility] Comment on above: Performed By: #### V ITAD #### [facility] [address] [place] [address] Dr. Katie Funez HDL NORMAL > or = 60 mg/dl - LOW CARDIOVASCULAR RISK <40 mg/dl - HIGH CARDIOVASCULAR RISK Normal [facility] Comment on above: Performed By: #### V ITAD #### [facility] [address] [address] [address] Katie Funez LDL CALC NORMAL SEE BELOW Normal [facility] Comment on above: Result Comment: <100 mg/dl OPTIMAL 100 - 129 mg/dl NEAR OR ABOVE OPTIMAL 130 - 159 mg/dl BORDERLINE HIGH 160 - 189 mg/dl HIGH >190 mg/dl VERY HIGH Performed By: #### V ITAD #### [facility] [address] [place] [address] Dr. Katie Funez Triglyceride [Mass/Vol] 74 mg/dL Normal <=150 [facility] Comment on above: Performed By: #### V ITAD #### [facility] [address] [place] [address] Dr. Katie Funez VLDL CALC 14.8 mg/dL Normal [facility] Comment on above: Performed By: #### V ITAD #### [facility] [address] [place] [address] Dr. Katie Funez PROF 14(COMP METB)on 022 Albumin [Mass/Vol] 3.8 g/dL Normal 3.4-5.0 [facility] Comment on above: Performed By: #### V ITAD #### [facility] [address] [place] [address] Dr. Katie Funez Albumin/Globulin [Mass ratio] 0.9 {ratio} Normal [facility] Comment on above: Performed By: #### V ITAD #### [facility] [address] [place] [address] Dr. Katie Funez ALP [Catalytic activity/Vol] 77 U/L Normal 46-116 [facility] Comment on above: Performed By: #### V ITAD #### [facility] [address] [place] [address] Dr. Katie Funez ALT [Catalytic activity/Vol] 20 U/L Normal 14-59 [facility] Comment on above: Performed By: #### V ITAD #### [facility] [address] [place] [address] Dr. Katie Funez Anion gap [Moles/Vol] 10.0 mmol/L Normal [facility] Comment on above: Performed By: #### V ITAD #### [facility] [address] [place] [address] Dr. Katie Funez AST [Catalytic activity/Vol] 14 U/L Critically low 15-37 [facility] Comment on above: Performed By: #### V ITAD #### [facility] [address] [place] [address] Dr. Katie Funez Bilirubin [Mass/Vol] 0.8 mg/dL Normal 0.2-1.0 [facility] Comment on above: Performed By: #### V ITAD #### [facility] [address] [address] [address] Katie Funez Calcium [Mass/Vol] 8.9 mg/dL Normal 8.5-10.1 [facility] Comment on above: Performed By: #### V ITAD #### [facility] [address] [place] [address] Dr. Katie Funez Chloride [Moles/Vol] 101 mmol/L Normal 98-107 [facility] Comment on above: Performed By: #### V ITAD #### [facility] [address] [place] [address] Dr. Katie Funez CO2 [Moles/Vol] 29.9 mmol/L Normal 21.0-32.0 [facility] Comment on above: Performed By: #### V ITAD #### [facility] [address] [place] [address] Dr. Katie Funez Creatinine [Mass/Vol] 0.83 mg/dL Normal 0.55-1.02 [facility] Comment on above: Performed By: #### V ITAD #### [facility] [address] [place] [address] Dr. Katie Funez EGFR-AF MAURITIAN >60 Normal >=60 [facility] Comment on above: Performed By: #### V ITAD #### [facility] [address] [place] [address] Dr. Katie Funez EGFR-NON AF MAURITIAN >60 Normal >=60 [facility] Comment on above: Performed By: #### V ITAD #### [facility] [address] [place] [address] Dr. Katie Funez Globulin (S) [Mass/Vol] 4.0 g/dL Normal [facility] Comment on above: Performed By: #### V ITAD #### [facility] [address] [place] [address] Dr. Katie Funez Glucose [Mass/Vol] 91 mg/dL Normal 74-106 [facility] Comment on above: Performed By: #### V ITAD #### [facility] [address] [place] [address] Dr. Katie Funez Potassium [Moles/Vol] 3.9 mmol/L Normal 3.5-5.1 [facility] Comment on above: Performed By: #### V ITAD #### [facility] [address] [place] [address] Dr. Katie Funez Protein [Mass/Vol] 7.8 g/dL Normal 6.4-8.2 [facility] Comment on above: Performed By: #### V ITAD #### [facility] [address] [address] [address] Katie Funez Sodium [Moles/Vol] 137 mmol/L Normal 136-145 [facility] Comment on above: Performed By: #### V ITAD #### [facility] [address] [place] [address] Dr. Katie Funez Urea nitrogen [Mass/Vol] 13.0 mg/dL Normal 7.0-18.0 [facility] Comment on above: Performed By: #### V ITAD #### [facility] [address] [place] [address] Dr. Katie Funez Urea nitrogen/Creatinine [Mass ratio] 15.7 mg/mg Normal [facility] Comment on above: Performed By: #### V ITAD #### [facility] [address] [place] [address] Dr. Katie Funez TSHon 08-10-2022 TSH 2.642 uIU/mL Normal 0.358-3.740 [facility] Comment on above: Performed By: #### V ITAD #### [facility] [address] [place] [address] Dr. Katie Funez VITAMIN D 25 OHon 08-10-2022 VIT D 25-OH 23.6 ng/mL Normal [facility] Comment on above: Performed By: #### V ITAD #### [facility] [address] [place] [address] Dr. Katie Funez VIT D RANGES SEE BELOW Normal [facility] Comment on above: Result Comment: <20 ng/mL Vit D deficient 20 - <30 ng/mL Vit D insufficient 30 - 100 ng/mL Vit D sufficient >100 ng/mL Potential Toxicity Performed By: #### V ITAD #### [facility] [address] [address] [address] Katie Funez MG MAMM SCREEN 3D JORDI CADon 05-19-2022 MG MAMM SCREEN 3D JORDI CAD Patient: NAHID BARBOSA Exam Date: 05/19/2022 : 1980 Gender:F Ordering : DR. NOÉ FRANK D.O. Admission #: [id number] Family : Order #: [id number] CLICK HERE TO VIEW EXAM RADIOLOGY REPORT [...] uterine cancer at age 48. LOCATION: [facility] BREAST COMPOSITION: Heterogeneously dense,which may obscure small [...] M.D. on 05/19/2022 at 12:38 Normal [facility] Vital Signs Date Time Vital Sign Value Performing Clinician Facility 01-14-2024 12:[id number] Body height 170.18 cm [facility] 01-14-2024 12:15-0400 Body mass index (BMI) [Ratio] 47.6 kg/m2 [facility] 01-14-2024 12:15040 Body weight 137.89 kg [facility] 01-14-2024 12:15-0400 Diastolic blood pressure 76 mm[Hg] [facility] 01-14-2024 12:15-0400 Heart rate 67 /min [facility] 01-14-2024 12:15-0400 Respiratory rate 12 /min [facility] 01-14-2024 12:15-0400 Systolic blood pressure 117 mm[Hg] [facility] 08-06-2023 14:00-0400 Body height 170.18 cm Faizan Ball Other [facility] Other 08-06-2023 14:00-0400 Body mass index (BMI) [Ratio] 47.04 kg/m2 Faizan Ball Other [facility] Other 08-06-2023 14:00-0400 Body weight 136.26 kg Faizan Ball Other [facility] Other 08-06-2023 14:00-0400 Diastolic blood pressure 81 mm[Hg] Faizan Ball Other [facility] Other 08-06-2023 14:00-0400 Respiratory rate 12 /min Faizan Ball Other [facility] Other 08-06-2023 14:00-0400 Systolic blood pressure 118 mm[Hg] Faizan Ball Other [facility] Other Encounters Encounter Date Encounter Type Care Provider Facility Start: 04-14-2024 End: 04-14-2024 ambulatory Josué Ryan MD [facility]: [facility] Start: 04-07-2024 End: 04-07-2024 ambulatory Josué Ryan MD Facility:[facility] Start: 03-24-2024 End: 03-24-2024 ambulatory Josué Ryan MD Facility: [facility] Start: 01-14-2024 End: 01-14-2024 ambulatory [facility] Work Phone: Start: 01-14-2024 End: 01-14-2024 Patient encounter procedure [facility] Work Phone: Start: 08-06-2023 End: 08-06-2023 ambulatory Faizan Gamez Other [facility] Other Start: 08-06-2023 Encounter for genera l adult medical examination without abnormal findings Faizan Gamez [facility] Start: 08-06-2023 Periodic preventive med est patient 40-64yrs Faizan Gamez [facility] Start: 08-06-2023 Telephone encounter Faizan Gamez [facility] Start: 02-03-2023 End: 02-04-[address] LAURIE PATEL Facility:[facility] Start: 11-30-2022 End: 02-07-[address] FAIZAN GAMEZ Facility:[facility] Start: 09-25-2022 End: 09-26-[address] FAIZAN GAMEZ Facility:[facility] Start: 09-06-[address] FAIZAN GAMEZ Facili ty:[facility] Start: 08-13-2022 Encounter for genera l adult medical examination without abnormal findings DR FAIZAN GAMEZ [facility] Start: 08-10-2022 End: 08-11-[address] FAIZAN GAMEZ Facility:[facility] Start: 08-10-2022 End: 08-11-2022 Encounter for general adult medical examination without abnormal findings DR FAIZAN GAMEZ Facility:[facility] Start: 05-19-2022 End: 05-20-[address] RAHUL QUINTERO Facility:[facility] Start: 01-20-2019 End: 01-21-2019 Patient encounter procedure DEFAULT PHYSICIAN Facility:[facility] Start: 01-01-2019 End: 01-02-2019 Patient encounter procedure DEFAULT PHYSICIAN Facility:[facility] Plan of Treatment Date Care Activity Detail Author XR Lumbar spine Views [facility] Immunizations Immunization Date Immunization Notes Care Provider Fa margarita 07-25-2017 influenza virus vaccine, split virus (incl. purified surface antigen) Faizan Gamez Other [employer] Other 07-25-2017 influenza virus vaccine, unspecified formulation [facility] Payers Date Payer Category Payer Unknown 2022 Unknown [id number] 2019 Unknown [id number] 1980 Unknown [id number] 2.16.8 [id number] 1980 Unknown [id number] 2.16.8 40.1.110515.3.579.2.647 1980 Unknown [id number] 2.16.84 0.1.289419.3.579.2.593 1980 Unknown [id number] 2.16.84 0.1.956817.3.579.2.593 1980 Unknown [id number] 2.16.84 0.1.042584.3.579.2.593 1980 Unknown [id number] 2.16.84 0.1.742038.3.579.2.593 1980 Unknown [id number] 2.16.84 0.1.070165.3.579.2.593 1980 Unknown [id number] 2.16.84 0.1.015390.3.579.2.593 1980 Unknown [id number] 2.16. 840.1.838866.3.579.2.196 1980 Unknown [id number] 2.16. 840.1.852599.3.579.2.196 1980 Unknown [id number] 2.16. 840.1.857835.3.579.2.196 Social History Date Type Detail Facility Unknown if ever smoked [employer] Other Sex Assigned At Sex Assigned At Bir th [employer] Other Start: 08-06-2023 Tobacco smoking status PAIS Never smoked tobacco (finding) [facility] Start: 1980 Sex Assigned At Female F [facility] Evaluation note 08-06-2023 Note Date & Type [...] hydrate. No treatment necessary, continue to exercise [employer] Other Evaluation note Note Date & Type Note Facility Evaluation note No Information [facility] [employer] Other Evaluation note Note Date & Type Note Facility Evaluation note No assessment information availa [facility] Work Phone: History general Narrative - Reported Note Date & Type Note Facility History general Narrative - Reported Type Medical History Foot pain Medical History Menopausal symptom Medical History Hormonal disorder Medical History Palpitations Surgical History C section Surgical History wisdom teeth Surgical History vein ligation Hospitalization History child bit [employer] Other Summary Purpose Family History No Family [...] section and content) DATE CREATED AUTHOR 01/21/2019 [facility] DATE CREATED AUTHOR AUTHOR'S ORGANIZ ATION 02/14/2023 [facility] DATE CREATED AUTHOR AUTHOR'S ORGANIZ ATION 04/17/[address] [facility] REASON FOR VISIT (unrecogniz ed section and [...] BE BASED ON THE PRIMARY CLINICAL RECORDS. [facility] [employer] [facility] provides no warranty or guarantee of the accuracy or completeness of information in this document.
== END 2024-04-29 11:12 | disposition home or self-care (01) ==
LOC: EC 11:11
PROVIDERS: PCP Internal Medicine; Visit Provider Podiatrist Foot & Ankle Surgery
DX: M25.572 Pain in left ankle and joints of left foot (principal); M79.606 Pain in leg, unspecified; S89.292A Other physeal fracture of upper end of left fibula, initial encounter for closed fracture
CPT/HCPCS: 73590; 73610

== ENCOUNTER 2024-05-02 08:14 | Outpatient (OUT) | payer BC, SELFPAY ==
--- NOTE | 2024-05-02 08:20 | CT_ITS ---
[address] [address] Patient Name: MARTHA FINNEY MRN: [id number] date: 1980 Sex: F Assigned Patient Location: CT Current Patient Location: Accession/Order Number: [id number] Exam Date: 05/02/2024 08:34 Report Date: 05/05/2024 09:00 At the request of: JEROD NAVARRO Procedure: CT ankle LT wo con EXAMINATION: CT ankle LT wo con HISTORY: Proximal Fracture With Instability COMPARISON: 04/29/2024 TECHNIQUE: Multi-planar CT images were created without IV contrast. Dose reduction techniques were achieved by using automated exposure control and/or adjustment of mA and/or kV according to patient size and/or use of iterative reconstruction technique. FINDINGS: BONES: No acute fracture or dislocation. Posterior calcaneal osteotomy transfixed with 2 cannulated lag screws. Linear density in the medial cuneiform suggest a transverse osteotomy with bony fusion. No acute fracture or dislocation. Moderate diffuse degenerative changes with joint space narrowing marginal osteophyte formation SOFT TISSUES: Negative. No visible soft tissue swelling. EFFUSION: None visible. OTHER: Negative. CT/CT ankle LT wo con IMPRESSION: Degenerative changes, no acute fracture Electronically authenticated by: LAURIE SENA Date: 05/05/2024 09:00
--- OUTSIDE RECORDS SUMMARY | 2024-05-02 08:21 | XMS_ITS | CCD ---
Author Organization [facility] Care Team Providers Care Radiographer Cardiac Catheterization Name Role Phone PHYSICIAN, DEFAULT Admitting Unavailable [...] Facility (1 source) Carisoprodol Drug Allergy [facility] Rep[facility] (1 source) Metoprolol Drug Allergy [facility] Rep[facility] (3 sources) Carisoprodol Drug Allergy 01-14-20 palpitations [facility] (2 sources) First - Metoprolol *BETA BLOCKERS* Propensity to adverse reactions Comment:[facility] Other (1 source) First - Metoprolol *BETA BLOCK Allergy to substance 08-06-20 Comment:gaudencio archer [facility] Medications Current Medications Medication Drug Class(es) [...] Drug Class(es) Dates Sig (Normalized) Sig (Original) [id number] 200 actuat albuterol 0.09 mg/actuat metered dose [...] 02-08-2023 Dehydroepiandrosterone (DHEA) 415 ng/dL Normal 31-701 [facility] Comment on above: Performed By: #### D JAMEL. #### [facility] Laboratory [address] [place] [address] Dr. Katie Funez ESTRONEon 02-06-2023 Estrone, Serum 55 pg/mL Normal [facility] Comment on above: Result Comment: Rang e Adult (Premenopausal) 27 - 231 Menstrual Cycle (1-10 days) 19 - 149 Menstrual Cycle (11-20 days) 32 - 176 Menstrual Cycle (21-30 days) 37 - 200 Adult (Postmenopausal) 0 - 125 Performed By: #### P DAVINA #### [facility] [address] [place] [address] Dr. Katie Funez CORTISOLon 02-04-2023 Cortisol 22.7 ug/dL Critically high 6.2-19.4 [facility] Comment on above: Result Comment: Vibha frost Note: The reference interval and flagging for this test is for an AM collection. If this is a PM collection please use: Cortisol PM: 2.3-11.9 [facility] also offers: 391928: Cortisol- AM 255023: Cortisol- PM Performed By: #### C ORFLACO #### [facility] [address] [place] [address] Dr. Katie Funez ESTRADIOLon 02-04-2023 Estradiol 142.0 pg/mL Normal [facility] Comment on above: Result Comment: Adul t Female: Follicular phase 12.5 - 166.0 Ovulation phase 85.8 - 498.0 Luteal phase 43.8 - 211.0 Postmenopausal <6.0 - 54.7 1st trimester 215.0 - >4300.0 [facility] ECLIA methodology Performed By: #### E WAYNE #### [facility] [address] [place] [address] Dr. Katie Funez PROGESTERONEon 02-04-2023 Progesterone 7.6 ng/mL Normal [facility] Comment on above: Result Comment: Foll icular phase 0.1 - 0.9 Luteal phase 1.8 - 23.9 Ovulation phase 0.1 - 12.0 First trimester 11.0 - 44.3 Second trimester 25.4 - 83.3 Third trimester 58.7 - 214.0 Postmenopausal 0.0 - 0.1 Performed By: #### P ROGES #### [facility] [address] [place] [address] Dr. Katie Funez TESTOSTERONE, TOTALon 2022 Testosterone [Mass/Vol] 33 ng/dL Normal 4-50 [facility] Comment on above: Performed By: #### T ESTTOT #### [facility] [address] [place] [address] Dr. Katie Funez FREE T3on 02-03-2023 FREE T3 2.12 pg/mlL Critically low 2.18-3.98 [facility] Comment on above: Performed By: #### P ROGES #### [facility] [address] [place] [address] Dr. Katie Funez FREE T4on 02-03-2023 Free T4 [Mass/Vol] 0.90 ng/dL Normal 0.76-1.46 [facility] Comment on above: Performed By: #### P ROGES #### [facility] [address] [place] [address] Dr. Katie Funez TSHon 02-03-2023 TSH 2.763 uIU/mL Normal 0.358-3.740 [facility] Comment on above: Performed By: #### P ROGES #### [facility] [address] [place] [address] Dr. Katie Funez FREE T3on 09-25-2022 FREE T3 1.80 pg/mlL Critically low 2.18-3.98 [facility] Comment on above: Performed By: #### F T3 #### [facility] [address] [place] [address] Dr. Katie Funez FREE T4on 09-25-2022 Free T4 [Mass/Vol] 1.05 ng/dL Normal 0.76-1.46 [facility] Comment on above: Performed By: #### P ROGES #### [facility] [address] [place] [address] Dr. Katie Funez TSHon 09-25-2022 TSH 3.688 uIU/mL Normal 0.358-3.740 [facility] Comment on above: Performed By: #### T SH #### [facility] [address] [place] [address] Dr. Katie Funez ESTRONEon 08-17-2022 Estrone, Serum 49 pg/mL Normal [facility] Comment on above: Result Comment: Rang e Adult (Premenopausal) 27 - 231 Menstrual Cycle (1-10 days) 19 - 149 Menstrual Cycle (11-20 days) 32 - 176 Menstrual Cycle (21-30 days) 37 - 200 Adult (Postmenopausal) 0 - 125 Performed By: #### E KOMAL #### [facility] [address] [place] [address] Dr. Katie Funez TESTOSTERONE, FREE,DIRECT, T OTALon 08-14-2022 Free Testosterone(Direct) 0.8 pg/mL Normal 0.0-4.2 [facility] Comment on above: Result Comment: Perf ormed at: BN Performed By: #### V ITAD #### [facility] [address] [place] [address] Dr. Katie Funez Testosterone [Mass/Vol] 27 ng/dL Normal 4-50 [facility] Comment on above: Result Comment: Perf ormed at: CB Performed By: #### V ITAD #### [facility] [address] [place] [address] Dr. Katie Funez CORTISOLon 08-11-2022 Cortisol 11.5 ug/dL Normal [facility] Comment on above: Result Comment: Diomedes isol AM 6.2 - 19.4 Cortisol PM 2.3 - 11.9 Performed By: #### V ITAD #### [facility] [address] [place] [address] Dr. Katie Funez DHEA-SULFATEon 08-11-2022 DHEA-Sulfate 120.0 ug/dL Normal 57.3-279.2 [facility] Comment on above: Performed By: #### V ITAD #### [facility] [address] [place] [address] Dr. Katie Funez ESTRADIOLon 08-11-2022 Estradiol 104.0 pg/mL Normal [facility] Comment on above: Result Comment: Adul t Female: Follicular phase 12.5 - 166.0 Ovulation phase 85.8 - 498.0 Luteal phase 43.8 - 211.0 Postmenopausal <6.0 - 54.7 1st trimester 215.0 - >4300.0 [employer] ECLIA methodology Performed By: #### Renato BLACK #### [facility] [address] [place] [address] Dr. Katie Funez PROGESTERONEon 08-11-2022 Progesterone 9.7 ng/mL Normal [facility] Comment on above: Result Comment: Foll icular phase 0.1 - 0.9 Luteal phase 1.8 - 23.9 Ovulation phase 0.1 - 12.0 First trimester 11.0 - 44.3 Second trimester 25.4 - 83.3 Third trimester 58.7 - 214.0 Postmenopausal 0.0 - 0.1 Performed By: #### V ITAD #### [facility] [address] [place] [address] Dr. Katie Funez SEX HORMONE-BINDING GLOBULIN on 08-11-2022 Sex Horm Binding Glob, Serum 73.1 nmol/L Normal 24.6-122.0 [facility] Comment on above: Performed By: #### V ITAD #### [facility] [address] [place] [address] Dr. Katie Funez CBC AUTO DIFFon 08-10-2022 BASO # 0.0 103/ul Normal 0.0-0.1 [facility] Comment on above: Performed By: #### V ITAD #### [facility] [address] [place] [address] Dr. Katie Funez Basophils/100 WBC (Bld) 0.6 % Normal 0.2-2.0 [facility] Comment on above: Performed By: #### V ITAD #### [facility] [address] [place] [address] Dr. Katie Funez EO # 0.1 103/ul Normal 0.0-0.7 [facility] Comment on above: Performed By: #### V ITAD #### [facility] [address] [place] [address] Dr. Katie Funez Eosinophils/100 WBC (Bld) 1.4 % Normal 0.9-7.0 [facility] Comment on above: Performed By: #### V ITAD #### [facility] [address] [place] [address] Dr. Katie Funez Erythrocyte distribution width (RBC) [Ratio] 13.2 % Normal 11.0-15.0 [facility] Comment on above: Performed By: #### V ITAD #### [facility] [address] [place] [address] Dr. Katie Fnuez Hematocrit (Bld) [Volume fraction] 41.9 % Normal 36.0-48.0 [facility] Comment on above: Performed By: #### V ITAD #### [facility] [address] [place] [address] Dr. Katie Funez Hemoglobin (Bld) [Mass/Vol] 13.5 g/dL Normal 12.0-16.0 [facility] Comment on above: Performed By: #### V ITAD #### [facility] [address] [place] [address] Dr. Katie Funez IG # 0.01 10e3/ul Normal 0.00-0.03 [facility] Comment on above: Performed By: #### V ITAD #### [facility] [address] [place] [address] Dr. Katie Funez IG % 0.1 % Normal 0.0-0.5 [facility] Comment on above: Performed By: #### V ITAD #### [facility] [address] [place] [address] Dr. Katie Funez LYMPH # 1.8 103/ul Normal 1.2-3.8 [facility] Comment on above: Performed By: #### V ITAD #### [facility] [address] [place] [address] Dr. Katie Funez Lymphocytes/100 WBC (Bld) 24.6 % Normal 20.5-60.0 [facility] Comment on above: Performed By: #### V ITAD #### [facility] [address] [place] [address] Dr. Katie Funez MANUAL DIFF REQ NO Normal [facility] Comment on above: Performed By: #### V ITAD #### [facility] [address] [place] [address] Dr. Katie Funez MCH (RBC) [Entitic mass] 28.2 pg Normal 26.7-34.0 [facility] Comment on above: Performed By: #### V ITAD #### [facility] [address] [place] [address] Dr. Katie Funez MCHC (RBC) [Mass/Vol] 32.2 g/dL Normal 29.9-35.2 [facility] Comment on above: Performed By: #### V ITAD #### [facility] [address] [place] [address] Dr. Katie Funez MCV (RBC) [Entitic vol] 87.5 fL Normal 81.0-99.0 [facility] Comment on above: Performed By: #### V ITAD #### [facility] [address] [place] [address] Dr. Katie Funez MONO # 0.4 103/ul Normal 0.3-0.8 [facility] Comment on above: Performed By: #### V ITAD #### [facility] [address] [place] [address] Dr. Katie Funez Monocytes/100 WBC (Bld) 6.0 % Normal 1.7-12.0 [facility] Comment on above: Performed By: #### V ITAD #### [facility] [address] [place] [address] Dr. Katie Funez NEUT # 4.8 103/ul Normal 1.4-6.5 [facility] Comment on above: Performed By: #### V ITAD #### [facility] [address] [place] [address] Dr. Katie Funez Neutrophils/100 WBC (Bld) 67.3 % Normal 43.0-75.0 [facility] Comment on above: Performed By: #### V ITAD #### [facility] [address] [address] [address] Katie Funez Platelet mean volume (Bld) [Entitic vol] 11.7 fL Normal 9.5-13.5 [facility] Comment on above: Performed By: #### V ITAD #### [facility] [address] [place] [address] Dr. Katie Funez PLT 294 103/ul Normal 150-450 [facility] Comment on above: Performed By: #### V ITAD #### [facility] [address] [place] [address] Dr. Katie Funez RBC 4.79 106/ul Normal 4.20-5.40 [facility] Comment on above: Performed By: #### V ITAD #### [facility] [address] [place] [address] Dr. Katie Funez WBC 7.2 103/ul Normal 4.0-11.0 [facility] Comment on above: Performed By: #### V ITAD #### [facility] [address] [place] [address] Dr. Katie Funez GLYCOHEMOGLOBIN A1Con 2021 ADA RECOMMENDATION SEE BELOW Normal [facility] Comment on above: Result Comment: ADA RECOMMENDED LIMIT 4.0 - 6.0 ADA THERAPEUTIC TARGET < 7.0 ACTION SUGGESTED > 7.0 Performed By: #### P ROGES #### [facility] [address] [place] [address] Dr. Katie Funez Glucose [Mass/Vol] 103 mg/dL Normal [facility] Comment on above: Performed By: #### P ROGES #### [facility] [address] [place] [address] Dr. Katie Funez HbA1c (Bld) [Mass fraction] 5.2 % Normal 4.5-6.2 [facility] Comment on above: Performed By: #### P ROGES #### [facility] [address] [place] [address] Dr. Katie Funez LIPID PROFILEon 08-10-2022 CHOL-HDL RATIO NORM SEE BELOW Normal [facility] Comment on above: Result Comment: 3.3 - 4.4 LOW RISK 4.4 - 7.1 AVERAGE RISK 7.1 - 11.0 MODERATE RISK >11.0 HIGH RISK Performed By: #### V ITAD #### [facility] [address] [address] [address] Katie Funez Cholesterol [Mass/Vol] 204 mg/dL Critically high <=200 [facility] Comment on above: Performed By: #### V ITAD #### [facility] [address] [address] [address] Katie Fuenz Cholesterol in HDL [Mass/Vol] 52 mg/dL Normal 40-60 [facility] Comment on above: Performed By: #### V ITAD #### [facility] [address] [place] [address] Dr. Katie Funez Cholesterol in LDL [Mass/Vol] 137.2 mg/dL Normal [facility] Comment on above: Performed By: #### V ITAD #### [facility] [address] [place] [address] Dr. Katie Funez Cholesterol.total/Choleste rol in HDL [Mass ratio] 3.9 {ratio} Normal [facility] Comment on above: Performed By: #### V ITAD #### [facility] [address] [place] [address] Dr. Katie Funez HDL NORMAL > or = 60 mg/dl - LOW CARDIOVASCULAR RISK <40 mg/dl - HIGH CARDIOVASCULAR RISK Normal [facility] Comment on above: Performed By: #### V ITAD #### [facility] [address] [address] [address] Katie Funez LDL CALC NORMAL SEE BELOW Normal [facility] Comment on above: Result Comment: <100 mg/dl OPTIMAL 100 - 129 mg/dl NEAR OR ABOVE OPTIMAL 130 - 159 mg/dl BORDERLINE HIGH 160 - 189 mg/dl HIGH >190 mg/dl VERY HIGH Performed By: #### V ITAD #### [facility] [address] [place] [address] Dr. Katie Funez Triglyceride [Mass/Vol] 74 mg/dL Normal <=150 [facility] Comment on above: Performed By: #### V ITAD #### [facility] [address] [place] [address] Dr. Katie Funez VLDL CALC 14.8 mg/dL Normal [facility] Comment on above: Performed By: #### V ITAD #### [facility] [address] [place] [address] Dr. Katie Funez PROF 14(COMP METB)on 022 Albumin [Mass/Vol] 3.8 g/dL Normal 3.4-5.0 [facility] Comment on above: Performed By: #### V ITAD #### [facility] [address] [place] [address] Dr. Katie Funez Albumin/Globulin [Mass ratio] 0.9 {ratio} Normal [facility] Comment on above: Performed By: #### V ITAD #### [facility] [address] [place] [address] Dr. Katie Funez ALP [Catalytic activity/Vol] 77 U/L Normal 46-116 [facility] Comment on above: Performed By: #### V ITAD #### [facility] [address] [place] [address] Dr. Katie Funez ALT [Catalytic activity/Vol] 20 U/L Normal 14-59 [facility] Comment on above: Performed By: #### V ITAD #### [facility] [address] [place] [address] Dr. Katie Funez Anion gap [Moles/Vol] 10.0 mmol/L Normal [facility] Comment on above: Performed By: #### V ITAD #### [facility] [address] [place] [address] Dr. Katie Funez AST [Catalytic activity/Vol] 14 U/L Critically low 15-37 [facility] Comment on above: Performed By: #### V ITAD #### [facility] [address] [place] [address] Dr. Katie Funez Bilirubin [Mass/Vol] 0.8 mg/dL Normal 0.2-1.0 [facility] Comment on above: Performed By: #### V ITAD #### [facility] [address] [address] [address] Katie Funez Calcium [Mass/Vol] 8.9 mg/dL Normal 8.5-10.1 [facility] Comment on above: Performed By: #### V ITAD #### [facility] [address] [place] [address] Dr. Katie Funez Chloride [Moles/Vol] 101 mmol/L Normal 98-107 [facility] Comment on above: Performed By: #### V ITAD #### [facility] [address] [place] [address] Dr. Katie Funez CO2 [Moles/Vol] 29.9 mmol/L Normal 21.0-32.0 [facility] Comment on above: Performed By: #### V ITAD #### [facility] [address] [place] [address] Dr. Katie Funez Creatinine [Mass/Vol] 0.83 mg/dL Normal 0.55-1.02 [facility] Comment on above: Performed By: #### V ITAD #### [facility] [address] [place] [address] Dr. Katie Funez EGFR-AF KOSOVAN >60 Normal >=60 [facility] Comment on above: Performed By: #### V ITAD #### [facility] [address] [place] [address] Dr. Katie Funez EGFR-NON AF KOSOVAN >60 Normal >=60 [facility] Comment on above: Performed By: #### V ITAD #### [facility] [address] [place] [address] Dr. Katie Funez Globulin (S) [Mass/Vol] 4.0 g/dL Normal T [facility] Comment on above: Performed By: #### V ITAD #### [facility] [address] [place] [address] Dr. Katie Funez Glucose [Mass/Vol] 91 mg/dL Normal 74-106 [facility] Comment on above: Performed By: #### V ITAD #### [facility] [address] [place] [address] Dr. Katie Funez Potassium [Moles/Vol] 3.9 mmol/L Normal 3.5-5.1 [facility] Comment on above: Performed By: #### V ITAD #### [facility] [address] [place] [address] Dr. Katie Funez Protein [Mass/Vol] 7.8 g/dL Normal 6.4-8.2 [facility] Comment on above: Performed By: #### V ITAD #### [facility] [address] [address] [address] Katie Funez Sodium [Moles/Vol] 137 mmol/L Normal 136-145 [facility] Comment on above: Performed By: #### V ITAD #### [facility] [address] [place] [address] Dr. Katie Funez Urea nitrogen [Mass/Vol] 13.0 mg/dL Normal 7.0-18.0 [facility] Comment on above: Performed By: #### V ITAD #### [facility] [address] [place] [address] Dr. Katie Funez Urea nitrogen/Creatinine [Mass ratio] 15.7 mg/mg Normal [facility] Comment on above: Performed By: #### V ITAD #### [facility] [address] [place] [address] Dr. Katie Funez TSHon 08-10-2022 TSH 2.642 uIU/mL Normal 0.358-3.740 [facility] Comment on above: Performed By: #### V ITAD #### [facility] [address] [place] [address] Dr. Katie Funez VITAMIN D 25 OHon 08-10-2022 VIT D 25-OH 23.6 ng/mL Normal [facility] Comment on above: Performed By: #### V ITAD #### [facility] [address] [place] [address] Dr. Katie Funez VIT D RANGES SEE BELOW Normal [facility] Comment on above: Result Comment: <20 ng/mL Vit D deficient 20 - <30 ng/mL Vit D insufficient 30 - 100 ng/mL Vit D sufficient >100 ng/mL Potential Toxicity Performed By: #### V ITAD #### [facility] [address] [address] [address] Katie Funez MG MAMM SCREEN 3D JORDI CADon 05-19-2022 MG MAMM SCREEN 3D JORDI CAD Patient: NAHID BARBOSA Exam Date: 05/19/2022 : 1980 Gender:F Ordering : DR. NOÉ FRANK D.O. Admission #: [id number] Family : Order #: [id number] CLICK HERE TO VIEW EXAM RADIOLOGY REPORT [...] uterine cancer at age 48. LOCATION: [facility] BREAST COMPOSITION: Heterogeneously dense,which may obscure small [...] M.D. on 05/19/2022 at 12:38 Normal [facility] Vital Signs Date Time Vital Sign Value Performing Clinician Facility 01-14-2024 [id number] Body height 170.18 cm [facility] 01-14-2024 12:15-0400 Body mass index (BMI) [Ratio] 47.6 kg/m2 [facility] 01-14-2024 12:[id number] Body weight 137.89 kg [facility] 01-14-2024 12:15-0400 Diastolic blood pressure 76 mm[Hg] [facility] 01-14-2024 12:15-0400 Heart rate 67 /min [facility] 01-14-2024 12:15-0400 Respiratory rate 12 /min [facility] 01-14-2024 12:15-0400 Systolic blood pressure 117 mm[Hg] [facility] 08-06-2023 14:00-0400 Body height 170.18 cm Faizan [facility] Other [facility] Other 08-06-2023 14:00-0400 Body mass index (BMI) [Ratio] 47.04 kg/m2 Faizan [facility] Other [employer] [facility] Other 08-06-2023 14:00-0400 Body weight 136.26 kg Faizan Ball Other [facility] Other 08-06-2023 14:00-0400 Diastolic blood pressure 81 mm[Hg] Faizan Ball Other [facility] Other 08-06-2023 14:00-0400 Respiratory rate 12 /min Faizan Ball Other [facility] Other 08-06-2023 14:00-0400 Systolic blood pressure 118 mm[Hg] Faizan Ball Other [employer] Other Encounters Encounter Date Encounter Type Care Provider Facility Start: 04-14-2024 End: 04-14-2024 ambulatory Josué Ryan MD [facility]: [facility] Start: 04-07-2024 End: 04-07-2024 ambulatory Josué Ryan MD Facility:[facility] Start: 03-24-2024 End: 03-24-2024 ambulatory oJsué Ryan MD [facility]: [facility] Start: 01-14-2024 End: 01-14-2024 ambulatory [facility] Work Phone: Start: 01-14-2024 End: 01-14-2024 Patient encounter procedure [facility] Work Phone: Start: 08-06-2023 End: 08-06-2023 ambulatory Faizan Gamez Other [employer] Other Start: 08-06-2023 Encounter for genera l adult medical examination without abnormal findings Faizan Gamez [facility] Start: 08-06-2023 Periodic preventive med est patient 40-64yrs Faizan Gamez [facility] Start: 08-06-2023 Telephone encounter Faizan Gamez [facility] Start: 02-03-2023 End: 02-04-[address] LAURIE PATEL Facility:[facility] Start: 11-30-2022 End: 02-07-[address] FAIZAN GAMEZ Facility:[facility] Start: 09-25-2022 End: 09-26-[address] FAIZAN GAMEZ Facility:[facility] Start: 09-06-[address] FAIZAN GAMEZ Facili ty:[facility] Start: 08-13-2022 Encounter for genera l adult medical examination without abnormal findings DR FAIZAN GAMEZ [facility] Start: 08-10-2022 End: 08-11-[address] FAIZAN GAMEZ Facility:[facility] Start: 08-10-2022 End: 08-11-2022 Encounter for general adult medical examination without abnormal findings DR FAIZAN GAMEZ Facility:[facility] Start: 05-19-2022 End: 05-20-[address] RAHUL QUINTERO Facility:[facility] Start: 01-20-2019 End: 01-21-2019 Patient encounter procedure DEFAULT PHYSICIAN Facility:[facility] Start: 01-01-2019 End: 01-02-2019 Patient encounter procedure DEFAULT PHYSICIAN Facility:[facility] Plan of Treatment Date Care Activity Detail Author XR Lumbar spine Views [facility] Immunizations Immunization Date Immunization Notes Care Provider Fa margarita 07-25-2017 influenza virus vaccine, split virus (incl. purified surface antigen) Faizan Gamez Other [employer] Other 07-25-2017 influenza virus vaccine, unspecified formulation [facility] Payers Date Payer Category Payer Unknown 2022 Unknown [id number] 2019 Unknown [id number] 1980 Unknown [id number] 2.16.8 [id number] 1980 Unknown [id number] 2.16.8 [id number] 1980 Unknown [id number] 2.16.84 [id number] 1980 Unknown [id number] 2.16.84 [id number] 1980 Unknown [id number] 2.16.84 [id number] 1980 Unknown [id number] 2.16.84 [id number] 1980 Unknown [id number] 2.16.84 [id number] 1980 Unknown [id number] 2.16.84 [id number] 1980 Unknown [id number] 2.16. [id number] 1980 Unknown [id number] 2.16. [id number] 1980 Unknown [id number] 2.16. [id number] Social History Date Type Detail Facility Unknown if ever smoked [employer] Other Sex Assigned At Sex Assigned At Bir th [employer] Other Start: 08-06-2023 Tobacco smoking status MNIS Never smoked tobacco (finding) [facility] Start: 1980 Sex Assigned At Female [facility] Evaluation note 08-06-2023 Note Date & [...] hydrate. No treatment necessary, continue to exercise [employer] Other Evaluation note Note Date & Type Note Facility Evaluation note No Information [employer] Other Evaluation note Note Date & Type Note Facility Evaluation note No assessment information availa [facility] Work Phone: History general Narrative - Reported Note Date & Type Note Facility History general Narrative - Reported Type Medical History Foot pain Medical History Menopausal symptom Medical History Hormonal disorder Medical History Palpitations Surgical History C section Surgical History wisdom teeth Surgical History vein ligation Hospitalization History child bit [employer] Other Summary Purpose Family History No Family [...] section and content) DATE CREATED AUTHOR 01/21/2019 [facility] DATE CREATED AUTHOR AUTHOR'S ORGANIZ ATION 02/14/2023 [facility] DATE CREATED AUTHOR AUTHOR'S ORGANIZ ATION 04/17/2024 [facility] REASON FOR VISIT (unrecogniz ed section [...] BE BASED ON THE PRIMARY CLINICAL RECORDS. [facility] [employer] [facility]. provides no warranty or guarantee of the accuracy or completeness of information in this document.
== END 2024-05-02 08:15 | disposition home or self-care (01) ==
LOC: CT 08:15
PROVIDERS: PCP Internal Medicine; Visit Provider Physician Assistant
DX: S89.202A Unspecified physeal fracture of upper end of left fibula, initial encounter for closed fracture (principal)
CPT/HCPCS: 73700

== ENCOUNTER 2024-05-05 06:41 | Day surgery (SDC) | payer BC, SELFPAY ==
--- OUTSIDE RECORDS SUMMARY | 2024-05-05 06:44 | XMS_ITS | CCD ---
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 Name Role Phone PHYSICIAN, DEFAULT Admitting Unavailable PHYSICIAN, DEFAULT Attending Unavailable PHYSICIAN, DEFAULT Admitting Unavailable PHYSICIAN, DEFAULT Attending Unavailable WILD, DR RAHUL Merrill Consulting Unavailable BALL, DR SANZ Primary Care Unavailable RINRUTH, NOÉ Admitting Unavailable RINRUTH, NOÉ Attending Unavailable RINRUTH, NOÉ Consulting Unavailable AMANDA, DR SULLIVAN Admitting Unavailable AMANDA, DR SULLIVAN Attending Unavailable BALL, DR SANZ Consulting Unavailable VERA, DR SANZ Primary Care Unavailable BALL, DR [...] Facility (1 source) Carisoprodol Drug Allergy [facility] Repository (1 source) Metoprolol Drug Allergy [facility] Rep[facility] (3 sources) Carisoprodol Drug Allergy 01-14-[address] [facility] (2 sources) First - Metoprolol *BETA BLOCKERS* Propensity to adverse reactions Comment:Action [facility] Other (1 source) First - Metoprolol *BETA BLOCK Allergy to substance 08-06-20 Comment:gaudencio archer [facility] Medications Current Medications Medication Drug [...] Drug Class(es) Dates Sig (Normalized) Sig (Original) [id number] 200 actuat albuterol 0.09 mg/actuat metered dose [...] 02-08-2023 Dehydroepiandrosterone (DHEA) 415 ng/dL Normal 31-701 [facility] Comment on above: Performed By: #### D JAMEL. #### [facility] [address] [place] [address] Dr. Katie Funez ESTRONEon 02-06-2023 Estrone, Serum 55 pg/mL Normal [facility] Comment on above: Result Comment: Rang e Adult (Premenopausal) 27 - 231 Menstrual Cycle (1-10 days) 19 - 149 Menstrual Cycle (11-20 days) 32 - 176 Menstrual Cycle (21-30 days) 37 - 200 Adult (Postmenopausal) 0 - 125 Performed By: #### P DAVINA #### [facility] [address] [place] [address] Dr. Katie Funez CORTISOLon 02-04-2023 Cortisol 22.7 ug/dL Critically high 6.2-19.4 [facility] Comment on above: Result Comment: Vibha frost Note: The reference interval and flagging for this test is for an AM collection. If this is a PM collection please use: Cortisol PM: 2.3-11.9 [facility] also offers: 031111: Cortisol- AM 715703: Cortisol- PM Performed By: #### C ORFLACO #### [facility] [address] [place] [address] Dr. Katie Funez ESTRADIOLon 02-04-2023 Estradiol 142.0 pg/mL Normal [facility] Comment on above: Result Comment: Adul t Female: Follicular phase 12.5 - 166.0 Ovulation phase 85.8 - 498.0 Luteal phase 43.8 - 211.0 Postmenopausal <6.0 - 54.7 1st trimester 215.0 - >4300.0 J[employer]erson ECLIA methodology Performed By: #### E WAYNE #### [facility] [address] [place] [address] Dr. Katie Funez PROGESTERONEon 02-04-2023 Progesterone 7.6 ng/mL Normal [facility] Comment on above: Result Comment: Foll icular phase 0.1 - 0.9 Luteal phase 1.8 - 23.9 Ovulation phase 0.1 - 12.0 First trimester 11.0 - 44.3 Second trimester 25.4 - 83.3 Third trimester 58.7 - 214.0 Postmenopausal 0.0 - 0.1 Performed By: #### P ROGES #### [facility] [address] [place] [address] Dr. Katie Funez TESTOSTERONE, TOTALon 2022 Testosterone [Mass/Vol] 33 ng/dL Normal 4-50 [facility] Comment on above: Performed By: #### T ESTTOT #### [facility] [address] [place] [address] Dr. Katie Funez FREE T3on 02-03-2023 FREE T3 2.12 pg/mlL Critically low 2.18-3.98 [facility] Comment on above: Performed By: #### P ROGES #### [facility] [address] [place] [address] Dr. Katie Funez FREE T4on 02-03-2023 Free T4 [Mass/Vol] 0.90 ng/dL Normal 0.76-1.46 [facility] Comment on above: Performed By: #### P ROGES #### [facility] [address] [place] [address] Dr. Katie Funez TSHon 02-03-2023 TSH 2.763 uIU/mL Normal 0.358-3.740 [facility] Comment on above: Performed By: #### P ROGES #### [facility] [address] [place] [address] Dr. Katie Funez FREE T3on 09-25-2022 FREE T3 1.80 pg/mlL Critically low 2.18-3.98 [facility] Comment on above: Performed By: #### F T3 #### [facility] [address] [place] [address] Dr. Katie Funez FREE T4on 09-25-2022 Free T4 [Mass/Vol] 1.05 ng/dL Normal 0.76-1.46 [facility] Comment on above: Performed By: #### P ROGES #### [facility] [address] [place] [address] Dr. Katie Funez TSHon 09-25-2022 TSH 3.688 uIU/mL Normal 0.358-3.740 [facility] Comment on above: Performed By: #### T SH #### [facility] [address] [place] [address] Dr. Katie Funez ESTRONEon 08-17-2022 Estrone, Serum 49 pg/mL Normal [facility] Comment on above: Result Comment: Rang e Adult (Premenopausal) 27 - 231 Menstrual Cycle (1-10 days) 19 - 149 Menstrual Cycle (11-20 days) 32 - 176 Menstrual Cycle (21-30 days) 37 - 200 Adult (Postmenopausal) 0 - 125 Performed By: #### E KOMAL #### [facility] [address] [place] [address] Dr. Katie Funez TESTOSTERONE, FREE,DIRECT, T OTALon 08-14-2022 Free Testosterone(Direct) 0.8 pg/mL Normal 0.0-4.2 [facility] Comment on above: Result Comment: Perf ormed at: BN Performed By: #### V ITAD #### [facility] [address] [place] [address] Dr. Katie Funez Testosterone [Mass/Vol] 27 ng/dL Normal 4-50 [facility] Comment on above: Result Comment: Perf ormed at: CB Performed By: #### V ITAD #### [facility] [address] [place] [address] Dr. Katie Funez CORTISOLon 08-11-2022 Cortisol 11.5 ug/dL Normal [facility] Comment on above: Result Comment: Diomedes isol AM 6.2 - 19.4 Cortisol PM 2.3 - 11.9 Performed By: #### V ITAD #### [facility] [address] [place] [address] Dr. Katie Funez DHEA-SULFATEon 08-11-2022 DHEA-Sulfate 120.0 ug/dL Normal 57.3-279.2 [facility] Comment on above: Performed By: #### V ITAD #### [facility] [address] [place] [address] Dr. Katie Funez ESTRADIOLon 08-11-2022 Estradiol 104.0 pg/mL Normal [facility] Comment on above: Result Comment: Adul t Female: Follicular phase 12.5 - 166.0 Ovulation phase 85.8 - 498.0 Luteal phase 43.8 - 211.0 Postmenopausal <6.0 - 54.7 1st trimester 215.0 - >4300.0 [employer] ECLIA methodology Performed By: #### Renato BLACK #### [facility] [address] [place] [address] Dr. Katie Funez PROGESTERONEon 08-11-2022 Progesterone 9.7 ng/mL Normal [facility] Comment on above: Result Comment: Foll icular phase 0.1 - 0.9 Luteal phase 1.8 - 23.9 Ovulation phase 0.1 - 12.0 First trimester 11.0 - 44.3 Second trimester 25.4 - 83.3 Third trimester 58.7 - 214.0 Postmenopausal 0.0 - 0.1 Performed By: #### V ITAD #### [facility] [address] [place] [address] Dr. Katie Funez SEX HORMONE-BINDING GLOBULIN on 08-11-2022 Sex Horm Binding Glob, Serum 73.1 nmol/L Normal 24.6-122.0 [facility] Comment on above: Performed By: #### V ITAD #### [facility] [address] [place] [address] Dr. Katie Funez CBC AUTO DIFFon 08-10-2022 BASO # 0.0 103/ul Normal 0.0-0.1 [facility] Comment on above: Performed By: #### V ITAD #### [facility] [address] [place] [address] Dr. Katie Funez Basophils/100 WBC (Bld) 0.6 % Normal 0.2-2.0 [facility] Comment on above: Performed By: #### V ITAD #### [facility] [address] [place] [address] Dr. Katie Funez EO # 0.1 103/ul Normal 0.0-0.7 [facility] Comment on above: Performed By: #### V ITAD #### [facility] [address] [place] [address] Dr. Katie Funez Eosinophils/100 WBC (Bld) 1.4 % Normal 0.9-7.0 [facility] Comment on above: Performed By: #### V ITAD #### [facility] [address] [place] [address] Dr. Katie Funez Erythrocyte distribution width (RBC) [Ratio] 13.2 % Normal 11.0-15.0 [facility] Comment on above: Performed By: #### V ITAD #### [facility] [address] [place] [address] Dr. Katie Funez Hematocrit (Bld) [Volume fraction] 41.9 % Normal 36.0-48.0 [facility] Comment on above: Performed By: #### V ITAD #### [facility] [address] [place] [address] Dr. Katie Funez Hemoglobin (Bld) [Mass/Vol] 13.5 g/dL Normal 12.0-16.0 [facility] Comment on above: Performed By: #### V ITAD #### [facility] [address] [place] [address] Dr. Katie Funez IG # 0.01 10e3/ul Normal 0.00-0.03 [facility] Comment on above: Performed By: #### V ITAD #### [facility] [address] [place] [address] Dr. Katie Funez IG % 0.1 % Normal 0.0-0.5 [facility] Comment on above: Performed By: #### V ITAD #### [facility] [address] [place] [address] Dr. Katie Funez LYMPH # 1.8 103/ul Normal 1.2-3.8 [facility] Comment on above: Performed By: #### V ITAD #### [facility] [address] [place] [address] Dr. Katie Funez Lymphocytes/100 WBC (Bld) 24.6 % Normal 20.5-60.0 [facility] Comment on above: Performed By: #### V ITAD #### [facility] [address] [place] [address] Dr. Katie Funez MANUAL DIFF REQ NO Normal [facility] Comment on above: Performed By: #### V ITAD #### [facility] [address] [place] [address] Dr. Katie Funez MCH (RBC) [Entitic mass] 28.2 pg Normal 26.7-34.0 [facility] Comment on above: Performed By: #### V ITAD #### [facility] [address] [place] [address] Dr. Katie Funez MCHC (RBC) [Mass/Vol] 32.2 g/dL Normal 29.9-35.2 [facility] Comment on above: Performed By: #### V ITAD #### [facility] [address] [place] [address] Dr. Katie Funez MCV (RBC) [Entitic vol] 87.5 fL Normal 81.0-99.0 [facility] Comment on above: Performed By: #### V ITAD #### [facility] [address] [place] [address] Dr. Katie Funez MONO # 0.4 103/ul Normal 0.3-0.8 [facility] Comment on above: Performed By: #### V ITAD #### [facility] [address] [place] [address] Dr. Katie Fuenz Monocytes/100 WBC (Bld) 6.0 % Normal 1.7-12.0 [facility] Comment on above: Performed By: #### V ITAD #### [facility] [address] [place] [address] Dr. Katie Funez NEUT # 4.8 103/ul Normal 1.4-6.5 [facility] Comment on above: Performed By: #### V ITAD #### [facility] [address] [place] [address] Dr. Katie Funez Neutrophils/100 WBC (Bld) 67.3 % Normal 43.0-75.0 [facility] Comment on above: Performed By: #### V ITAD #### [facility] [address] [address] [address] Katie Funez Platelet mean volume (Bld) [Entitic vol] 11.7 fL Normal 9.5-13.5 [facility] Comment on above: Performed By: #### V ITAD #### [facility] [address] [place] [address] Dr. Katie Funez PLT 294 103/ul Normal 150-450 [facility] Comment on above: Performed By: #### V ITAD #### [facility] [address] [place] [address] Dr. Katie Funez RBC 4.79 106/ul Normal 4.20-5.40 [facility] Comment on above: Performed By: #### V ITAD #### [facility] [address] [place] [address] Dr. Katie Funez WBC 7.2 103/ul Normal 4.0-11.0 [facility] Comment on above: Performed By: #### V ITAD #### [facility] [address] [place] [address] Dr. Katie Funez GLYCOHEMOGLOBIN A1Con 2021 ADA RECOMMENDATION SEE BELOW Normal [facility] Comment on above: Result Comment: ADA RECOMMENDED LIMIT 4.0 - 6.0 ADA THERAPEUTIC TARGET < 7.0 ACTION SUGGESTED > 7.0 Performed By: #### P ROGES #### [facility] [address] [place] [address] Dr. Katie Funez Glucose [Mass/Vol] 103 mg/dL Normal [facility] Comment on above: Performed By: #### P ROGES #### [facility] [address] [place] [address] Dr. Katie Funez HbA1c (Bld) [Mass fraction] 5.2 % Normal 4.5-6.2 [facility] Comment on above: Performed By: #### P ROGES #### [facility] [address] [place] [address] Dr. Katie Funez LIPID PROFILEon 08-10-2022 CHOL-HDL RATIO NORM SEE BELOW Normal [facility] Comment on above: Result Comment: 3.3 - 4.4 LOW RISK 4.4 - 7.1 AVERAGE RISK 7.1 - 11.0 MODERATE RISK >11.0 HIGH RISK Performed By: #### V ITAD #### [facility] [address] [address] [address] Katie Funez Cholesterol [Mass/Vol] 204 mg/dL Critically high <=200 [facility] Comment on above: Performed By: #### V ITAD #### [facility] [address] [address] [address] Katie Funez Cholesterol in HDL [Mass/Vol] 52 mg/dL Normal 40-60 [facility] Comment on above: Performed By: #### V ITAD #### [facility] [address] [place] [address] Dr. Katie Funez Cholesterol in LDL [Mass/Vol] 137.2 mg/dL Normal [facility] Comment on above: Performed By: #### V ITAD #### [facility] [address] [place] [address] Dr. Katie Funez Cholesterol.total/Choleste rol in HDL [Mass ratio] 3.9 {ratio} Normal [facility] Comment on above: Performed By: #### V ITAD #### [facility] [address] [place] [address] Dr. Katie Funez HDL NORMAL > or = 60 mg/dl - LOW CARDIOVASCULAR RISK <40 mg/dl - HIGH CARDIOVASCULAR RISK Normal [facility] Comment on above: Performed By: #### V ITAD #### [facility] [address] [address] [address] Katie Funez LDL CALC NORMAL SEE BELOW Normal [facility] Comment on above: Result Comment: <100 mg/dl OPTIMAL 100 - 129 mg/dl NEAR OR ABOVE OPTIMAL 130 - 159 mg/dl BORDERLINE HIGH 160 - 189 mg/dl HIGH >190 mg/dl VERY HIGH Performed By: #### V ITAD #### [facility] [address] [place] [address] Dr. Katie Funez Triglyceride [Mass/Vol] 74 mg/dL Normal <=150 [facility] Comment on above: Performed By: #### V ITAD #### [facility] [address] [place] [address] Dr. Katie Funez VLDL CALC 14.8 mg/dL Normal [facility] Comment on above: Performed By: #### V ITAD #### [facility] [address] [place] [address] Dr. Katie Funez PROF 14(COMP METB)on 022 Albumin [Mass/Vol] 3.8 g/dL Normal 3.4-5.0 [facility] Comment on above: Performed By: #### V ITAD #### [facility] [address] [place] [address] Dr. Katie Funez Albumin/Globulin [Mass ratio] 0.9 {ratio} Normal [facility] Comment on above: Performed By: #### V ITAD #### [facility] [address] [place] [address] Dr. Katie Funez ALP [Catalytic activity/Vol] 77 U/L Normal 46-116 [facility] Comment on above: Performed By: #### V ITAD #### [facility] [address] [place] [address] Dr. Katie Funez ALT [Catalytic activity/Vol] 20 U/L Normal 14-59 [facility] Comment on above: Performed By: #### V ITAD #### [facility] [address] [place] [address] Dr. Katie Funez Anion gap [Moles/Vol] 10.0 mmol/L Normal [facility] Comment on above: Performed By: #### V ITAD #### [facility] [address] [place] [address] Dr. Katie Funez AST [Catalytic activity/Vol] 14 U/L Critically low 15-37 [facility] Comment on above: Performed By: #### V ITAD #### [facility] [address] [place] [address] Dr. Katie Funez Bilirubin [Mass/Vol] 0.8 mg/dL Normal 0.2-1.0 [facility] Comment on above: Performed By: #### V ITAD #### [facility] [address] [address] [address] Katie Funez Calcium [Mass/Vol] 8.9 mg/dL Normal 8.5-10.1 [facility] Comment on above: Performed By: #### V ITAD #### [facility] [address] [place] [address] Dr. Katie Funez Chloride [Moles/Vol] 101 mmol/L Normal 98-107 [facility] Comment on above: Performed By: #### V ITAD #### [facility] [address] [place] [address] Dr. Katie Funez CO2 [Moles/Vol] 29.9 mmol/L Normal 21.0-32.0 [facility] Comment on above: Performed By: #### V ITAD #### [facility] [address] [place] [address] Dr. Katie Funez Creatinine [Mass/Vol] 0.83 mg/dL Normal 0.55-1.02 [facility] Comment on above: Performed By: #### V ITAD #### [facility] [address] [place] [address] Dr. Katie Funez EGFR-AF DUTCH >60 Normal >=60 [facility] Comment on above: Performed By: #### V ITAD #### [facility] [address] [place] [address] Dr. Katie Funez EGFR-NON AF DUTCH >60 Normal >=60 [facility] Comment on above: Performed By: #### V ITAD #### [facility] [address] [place] [address] Dr. Katie Funez Globulin (S) [Mass/Vol] 4.0 g/dL Normal T [facility] Comment on above: Performed By: #### V ITAD #### [facility] [address] [place] [address] Dr. Katie Funez Glucose [Mass/Vol] 91 mg/dL Normal 74-106 [facility] Comment on above: Performed By: #### V ITAD #### [facility] [address] [place] [address] Dr. Katie Funez Potassium [Moles/Vol] 3.9 mmol/L Normal 3.5-5.1 [facility] Comment on above: Performed By: #### V ITAD #### [facility] [address] [place] [address] Dr. Katie Funez Protein [Mass/Vol] 7.8 g/dL Normal 6.4-8.2 [facility] Comment on above: Performed By: #### V ITAD #### [facility] [address] [address] [address] Katie Funez Sodium [Moles/Vol] 137 mmol/L Normal 136-145 [facility] Comment on above: Performed By: #### V ITAD #### [facility] [address] [place] [address] Dr. Katie Funez Urea nitrogen [Mass/Vol] 13.0 mg/dL Normal 7.0-18.0 [facility] Comment on above: Performed By: #### V ITAD #### [facility] [address] [place] [address] Dr. Katie Funez Urea nitrogen/Creatinine [Mass ratio] 15.7 mg/mg Normal [facility] Comment on above: Performed By: #### V ITAD #### [facility] [address] [place] [address] Dr. Katie Funez TSHon 08-10-2022 TSH 2.642 uIU/mL Normal 0.358-3.740 [facility] Comment on above: Performed By: #### V ITAD #### [facility] [address] [place] [address] Dr. Katie Funez VITAMIN D 25 OHon 08-10-2022 VIT D 25-OH 23.6 ng/mL Normal [facility] Comment on above: Performed By: #### V ITAD #### [facility] [address] [place] [address] Dr. Katie Funez VIT D RANGES SEE BELOW Normal [facility] Comment on above: Result Comment: <20 ng/mL Vit D deficient 20 - <30 ng/mL Vit D insufficient 30 - 100 ng/mL Vit D sufficient >100 ng/mL Potential Toxicity Performed By: #### V ITAD #### [facility] [address] [address] [address] Katie Funez MG MAMM SCREEN 3D JORDI CADon 05-19-2022 MG MAMM SCREEN 3D JORDI CAD Patient: NAHID BARBOSA Exam Date: 05/19/2022 : 1980 Gender:F Ordering : DR. NOÉ FRANK D.O. Admission #: [id number] Family : Order #: [id number] CLICK HERE TO VIEW EXAM RADIOLOGY REPORT [...] uterine cancer at age 48. LOCATION: [facility] BREAST COMPOSITION: Heterogeneously dense,which may [...] M.D. on 05/19/2022 at 12:38 Normal [facility] Vital Signs Date Time Vital Sign Value Performing Clinician Facility 01-14-2024 12:15040 Body height 170.18 cm [facility] 01-14-2024 12:15-0400 Body mass index (BMI) [Ratio] 47.6 kg/m2 [facility] 01-14-2024 12:15040 Body weight 137.89 kg [facility] 01-14-2024 12:15-0400 Diastolic blood pressure 76 mm[Hg] [facility] 01-14-2024 12:15-0400 Heart rate 67 /min [facility] 01-14-2024 12:15-0400 Respiratory rate 12 /min [facility] 01-14-2024 12:15-0400 Systolic blood pressure 117 mm[Hg] [facility] 08-06-2023 14:00-0400 Body height 170.18 cm Faizan Ball Other [facility] Other 08-06-2023 14:00-0400 Body mass index (BMI) [Ratio] 47.04 kg/m2 Faizan Ball Other [facility] Other 08-06-2023 14:00-0400 Body weight 136.26 kg Faizan Ball Other [facility] Other 08-06-2023 14:00-0400 Diastolic blood pressure 81 mm[Hg] Faizan Ball Other [facility] Other 08-06-2023 14:00-0400 Respiratory rate 12 /min Faizan Ball Other [facility] Other 08-06-2023 14:00-0400 Systolic blood pressure 118 mm[Hg] Faizan Ball Other [facility] Other Encounters Encounter Date Encounter Type Care Provider Facility Start: 04-14-2024 End: 04-14-2024 ambulatory Josué Ryan MD [facility]: [facility] Start: 04-07-2024 End: 04-07-2024 ambulatory Josué Ryan MD Facility:[facility] Start: 03-24-2024 End: 03-24-2024 ambulatory Josué Ryan MD Facility: [facility] Start: 01-14-2024 End: 01-14-2024 ambulatory [facility] Work Phone: Start: 01-14-2024 End: 01-14-2024 Patient encounter procedure [facility] Work Phone: Start: 08-06-2023 End: 08-06-2023 ambulatory Faizan Gamez Other [facility] Other Start: 08-06-2023 Encounter for genera l adult medical examination without abnormal findings Faizan Gamez [facility] Start: 08-06-2023 Periodic preventive med est patient 40-64yrs Faizan Gamez [facility] Start: 08-06-2023 Telephone encounter Faizan Gamez [facility] Start: 02-03-2023 End: 02-04-[address] LAURIE PATEL Facility:[facility] Start: 11-30-2022 End: 02-07-[address] FAIZAN GAMEZ Facility:[facility] Start: 09-25-2022 End: 09-26-[address] FAIZAN GAMEZ Facility:[facility] Start: 09-06-[address] FAIZAN GAMEZ Facili ty:[facility] Start: 08-13-2022 Encounter for genera l adult medical examination without abnormal findings DR FAIZAN GAMEZ [facility] Start: 08-10-2022 End: 08-11-[address] FAIZAN GAMEZ Facility:[facility] Start: 08-10-2022 End: 08-11-2022 Encounter for general adult medical examination without abnormal findings DR FAIZAN GAMEZ Facility:[facility] Start: 05-19-2022 End: 05-20-[address] RAHUL QUINTERO Facility:[facility] Start: 01-20-2019 End: 01-21-2019 Patient encounter procedure DEFAULT PHYSICIAN Facility:[facility] Start: 01-01-2019 End: 01-02-2019 Patient encounter procedure DEFAULT PHYSICIAN Facility:[facility] Plan of Treatment Date Care Activity Detail Author XR Lumbar spine Views [facility] Immunizations Immunization Date Immunization Notes Care Provider Fa margarita 07-25-2017 influenza virus vaccine, split virus (incl. purified surface antigen) Faizan Gamez Other [employer] Other 07-25-2017 influenza virus vaccine, unspecified formulation [facility] Payers Date Payer Category Payer Unknown 2022 Unknown [id number] 2019 Unknown [id number] 1980 Unknown [id number] 2.16.8 [id number] 1980 Unknown [id number] 2.16.8 [id number] 1980 Unknown [id number] 2.16.84 [id number] 1980 Unknown [id number] 2.16.84 [id number] 1980 Unknown [id number] 2.16.84 [id number] 1980 Unknown [id number] 2.16.84 [id number] 1980 Unknown [id number] 2.16.84 [id number] 1980 Unknown [id number] 2.16.84 [id number] 1980 Unknown [id number] 2.16. [id number] 1980 Unknown [id number] 2.16. [id number] 1980 Unknown [id number] 2.16. [id number] Social History Date Type Detail Facility Unknown if ever smoked [employer] Other Sex Assigned At Sex Assigned At Bir th [facility] Other Start: 08-06-2023 Tobacco smoking status DCIS Never smoked tobacco (finding) [facility] Start: 1980 Sex Assigned At Female F [facility] Evaluation note 08-06-2023 Note Date & [...] hydrate. No treatment necessary, continue to exercise [employer] Other Evaluation note Note Date & Type Note Facility Evaluation note No Information [employer] Other Evaluation note Note Date & Type Note Facility Evaluation note No assessment information availa [facility] Work Phone: History general Narrative - Reported Note Date & Type Note Facility History general Narrative - Reported Type Medical History Foot pain Medical History Menopausal symptom Medical History Hormonal disorder Medical History Palpitations Surgical History C section Surgical History wisdom teeth Surgical History vein ligation Hospitalization History child bit [employer] Other Summary Purpose Family History No Family [...] section and content) DATE CREATED AUTHOR 01/21/2019 [facility] DATE CREATED AUTHOR AUTHOR'S ORGANIZ ATION 02/14/2023 [facility] DATE CREATED AUTHOR AUTHOR'S ORGANIZ ATION 04/17/2024 [facility] REASON FOR VISIT (unrecogniz ed [...] BE BASED ON THE PRIMARY CLINICAL RECORDS. [facility] [employer] [facility]. provides no warranty or guarantee of the accuracy or completeness of information in this document.
[2024-05-05 07:12] VITALS: BP 139/89; PULSE 72; TEMP 36.3; O2SAT 99
[2024-05-05] MEDS: 0.9 % SODIUM CHLORIDE 10 ML SYRINGE - SALINE FLUSH INJ (08:01)
[2024-05-05] MEDS: BUPIVACAINE HCL 0.25% PF 25 MG/10 ML VIAL INJ (08:02)
[2024-05-05] MEDS: LIDOCAINE HCL 2% 400 MG/20 ML MDV 5 ML INJ (08:02)
[2024-05-05] MEDS: TRIAMCINOLONE ACETONIDE 40 MG/ML VIAL 80 MG INJ (08:02)
[2024-05-05] MEDS: IOHEXOL 240 MG/ML - 10 ML VIAL INJ (08:05)
[2024-05-05 08:06] VITALS: PULSE 98; O2SAT 94; O2SAT 96
[2024-05-05 08:07] VITALS: BP 105/68; BP 112/72
--- NOTE | 2024-05-05 08:07 | P.ON_ITS ---
Date of procedure: 05/05/24 Pre-op diagnosis: Pain due to lumbar disc displacement Post-op diagnosis: same as pre-op Procedure: Procedure: Left L5-S1, S1-2 transforaminal epidural steroid injection Medications: Bupivacaine 0.25% 2cc, lidocaine 2% 1cc, kenalog 80mg The patient was seen and examined in the preoperative holding area.? Informed consent was obtained and placed on the chart.? Patient was brought to the medical procedure unit and placed in the prone position where a timeout was completed verifying the correct patient, procedure site, position, and planned special equipment using sterile aseptic technique.? Under direct fluoroscopic visualization a 25-gauge Quincke tipped spinal needle was advanced to the designated neural foramen where contrast dye was injected to show adequate spread.? The needle was inserted at level left L5-S1. There was no evidence of vascular or adverse uptake.? Epidural spread was appreciated.? The above- mentioned injectate was then placed in a 1.5 mL aliquot preceded by negative aspiration.? The needle was removed. The needle was inserted and the procedure repeated at level left S1-2.? The surgery site was covered.? Patient was taken to the postprocedural recovery area and monitored for an appropriate length of time before found suitable for discharge in the accompaniment of a responsible adult. Anesthesia: Local Surgeon: Josué Ryan Pathology: none sent Condition: stable Disposition: no change
== END 2024-05-05 08:14 | disposition home or self-care (01) ==
LOC: SURGOUT 06:42
PROVIDERS: PCP Internal Medicine; Visit Provider Anesthesiology
DX: M51.26 Other intervertebral disc displacement, lumbar region (principal); R52 Pain, unspecified
CPT/HCPCS: 64483; 64484; J0665; J3301; Q9966

== ENCOUNTER 2024-05-15 08:06 | Outpatient (OUT) | payer BC, SELFPAY ==
--- OUTSIDE RECORDS SUMMARY | 2024-05-15 08:09 | XMS_ITS | CCD ---
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 Name Role Phone PHYSICIAN, DEFAULT Admitting Unavailable [...] CROUCH, Josué Mcgrath Attending Unavailable Shelby CROUCH, Sukhjinderus Alcides Attending Unavailable Shelby CROUCH, Josué Mcgrath Attending Unavailable Allergies Allergy Classification Reported Allergen(s) Allergy Type Date of Onset Reaction(s) Facility (1 source) Carisoprodol Drug Allergy [facility] (1 source) Metoprolol Drug Allergy [facility] (3 sources) Carisoprodol Drug Allergy 01-14-20 palpitations [facility] (2 sources) First - Metoprolol *BETA BLOCKERS* Propensity to adverse reactions Comment:[employer] Other (1 source) First - Metoprolol *BETA BLOCK Allergy to substance 08-06-20 Comment:gaudencio archer [facility] Medications Current Medications Medication Drug [...] Drug Class(es) Dates Sig (Normalized) Sig (Original) [id number] actuat albuterol 0.09 mg/actuat metered dose [...] genital organs; Translations: [FAM HX MALIG NEOPLSM OT GENIT ORGN] Onset: 05-22-2022 Episodic Results Test Name Value Interpretation Reference Range Facility DHEA SERUMon 02-08-2023 Dehydroepiandrosterone (DHEA) 415 ng/dL Normal 31-701 [facility] Comment on above: Performed By: #### D JAMEL. #### [facility] [address] [address] [address] Katie Funez ESTRONEon 02-06-2023 Estrone, Serum 55 pg/mL Normal [facility] Comment on above: Result Comment: Rang e Adult (Premenopausal) 27 - 231 Menstrual Cycle (1-10 days) 19 - 149 Menstrual Cycle (11-20 days) 32 - 176 Menstrual Cycle (21-30 days) 37 - 200 Adult (Postmenopausal) 0 - 125 Performed By: #### P DAVINA #### [facility] [address] [address] [address] Katie Funez CORTISOLon 02-04-2023 Cortisol 22.7 ug/dL Critically high 6.2-19.4 [facility] Comment on above: Result Comment: Plefariha frost Note: The reference interval and flagging for this test is for an AM collection. If this is a PM collection please use: Cortisol PM: 2.3-11.9 [facility] also offers: [id number]: Cortisol- AM 981938: Cortisol- PM Performed By: #### C ORTISLes #### [facility] [address] [address] [address] Katie Funez ESTRADIOLon 02-04-2023 Estradiol 142.0 pg/mL Normal [facility] Comment on above: Result Comment: Adul t Female: Follicular phase 12.5 - 166.0 Ovulation phase 85.8 - 498.0 Luteal phase 43.8 - 211.0 Postmenopausal <6.0 - 54.7 1st trimester 215.0 - >4300.0 [employer] ECLIA methodology Performed By: #### E WAYNE #### [facility] [address] [place], [place] [address] Dr. Katie Funez PROGESTERONEon 02-04-2023 Progesterone 7.6 ng/mL Normal [facility] Comment on above: Result Comment: Foll icular phase 0.1 - 0.9 Luteal phase 1.8 - 23.9 Ovulation phase 0.1 - 12.0 First trimester 11.0 - 44.3 Second trimester 25.4 - 83.3 Third trimester 58.7 - 214.0 Postmenopausal 0.0 - 0.1 Performed By: #### P JAYSONES #### [facility] [address] [place] [address] Dr. Katie Funez TESTOSTERONE, TOTALon 2022 Testosterone [Mass/Vol] 33 ng/dL Normal 4-50 [facility] Comment on above: Performed By: #### T ESTTOT #### [facility] [address] [place] [address] Dr. Katie Funez FREE T3on 02-03-2023 FREE T3 2.12 pg/mlL Critically low 2.18-3.98 [facility] Comment on above: Performed By: #### P ROGES #### [facility] [address] [place] [address] Dr. Katie Funez FREE T4on 02-03-2023 Free T4 [Mass/Vol] 0.90 ng/dL Normal 0.76-1.46 [facility] Comment on above: Performed By: #### P ROGES #### [facility] [address] [place] [address] Dr. Katie Funez TSHon 02-03-2023 TSH 2.763 uIU/mL Normal 0.358-3.740 [facility] Comment on above: Performed By: #### P ROGES #### [facility] [address] [place] [address] Dr. Katie Funez FREE T3on 09-25-2022 FREE T3 1.80 pg/mlL Critically low 2.18-3.98 [facility] Comment on above: Performed By: #### F T3 #### [facility] [address] [place] [address] Dr. Katie Funez FREE T4on 09-25-2022 Free T4 [Mass/Vol] 1.05 ng/dL Normal 0.76-1.46 [facility] Comment on above: Performed By: #### P ROGES #### [facility] [address] [place] [address] Dr. Katie Funez TSHon 09-25-2022 TSH 3.688 uIU/mL Normal 0.358-3.740 [facility] Comment on above: Performed By: #### T SH #### [facility] [address] [place] [address] Dr. Katie Funez ESTRONEon 08-17-2022 Estrone, Serum 49 pg/mL Normal [facility] Comment on above: Result Comment: Rang e Adult (Premenopausal) 27 - 231 Menstrual Cycle (1-10 days) 19 - 149 Menstrual Cycle (11-20 days) 32 - 176 Menstrual Cycle (21-30 days) 37 - 200 Adult (Postmenopausal) 0 - 125 Performed By: #### E KOMAL #### [facility] [address] [place] [address] Dr. Katie Funez TESTOSTERONE, FREE,DIRECT, T OTALon 08-14-2022 Free Testosterone(Direct) 0.8 pg/mL Normal 0.0-4.2 [facility] Comment on above: Result Comment: Perf ormed at: BN Performed By: #### V ITAD #### [facility] [address] [place] [address] Dr. Katie Funez Testosterone [Mass/Vol] 27 ng/dL Normal 4-50 [facility] Comment on above: Result Comment: Perf ormed at: CB Performed By: #### V ITAD #### [facility] [address] [place] [address] Dr. Katie Funez CORTISOLon 08-11-2022 Cortisol 11.5 ug/dL Normal [facility] Comment on above: Result Comment: Diomedes isol AM 6.2 - 19.4 Cortisol PM 2.3 - 11.9 Performed By: #### V ITAD #### [facility] [address] [place] [address] Dr. Katie Funez DHEA-SULFATEon 08-11-2022 DHEA-Sulfate 120.0 ug/dL Normal 57.3-279.2 [facility] Comment on above: Performed By: #### V ITAD #### [facility] [address] [place] [address] Dr. Katie Funez ESTRADIOLon 08-11-2022 Estradiol 104.0 pg/mL Normal [facility] Comment on above: Result Comment: Adul t Female: Follicular phase 12.5 - 166.0 Ovulation phase 85.8 - 498.0 Luteal phase 43.8 - 211.0 Postmenopausal <6.0 - 54.7 1st trimester 215.0 - >4300.0 [employer] ECLIA methodology Performed By: #### E WAYNE #### [facility] [address] [place] [address] Dr. Katie Funez PROGESTERONEon 08-11-2022 Progesterone 9.7 ng/mL Normal [facility] Comment on above: Result Comment: Foll icular phase 0.1 - 0.9 Luteal phase 1.8 - 23.9 Ovulation phase 0.1 - 12.0 First trimester 11.0 - 44.3 Second trimester 25.4 - 83.3 Third trimester 58.7 - 214.0 Postmenopausal 0.0 - 0.1 Performed By: #### V ITAD #### [facility] [address] [place] [address] Dr. Katie Funez SEX HORMONE-BINDING GLOBULIN on 08-11-2022 Sex Horm Binding Glob, Serum 73.1 nmol/L Normal 24.6-122.0 [facility] Comment on above: Performed By: #### V ITAD #### [facility] [address] [place] [address] Dr. aKtie Funez CBC AUTO DIFFon 08-10-2022 BASO # 0.0 103/ul Normal 0.0-0.1 [facility] Comment on above: Performed By: #### V ITAD #### [facility] [address] [place] [address] Dr. Katie Funez Basophils/100 WBC (Bld) 0.6 % Normal 0.2-2.0 [facility] Comment on above: Performed By: #### V ITAD #### [facility] [address] [place] [address] Dr. Katie Funez EO # 0.1 103/ul Normal 0.0-0.7 [facility] Comment on above: Performed By: #### V ITAD #### [facility] [address] [place] [address] Dr. Katie Funez Eosinophils/100 WBC (Bld) 1.4 % Normal 0.9-7.0 [facility] Comment on above: Performed By: #### V ITAD #### [facility] [address] [place] [address] Dr. Katie Funez Erythrocyte distribution width (RBC) [Ratio] 13.2 % Normal 11.0-15.0 [facility] Comment on above: Performed By: #### V ITAD #### [facility] [address] [place] [address] Dr. Katie Funez Hematocrit (Bld) [Volume fraction] 41.9 % Normal 36.0-48.0 [facility] Comment on above: Performed By: #### V ITAD #### [facility] [address] [place] [address] Dr. Katie Funez Hemoglobin (Bld) [Mass/Vol] 13.5 g/dL Normal 12.0-16.0 [facility] Comment on above: Performed By: #### V ITAD #### [facility] [address] [place] [address] Dr. Katie Funez IG # 0.01 10e3/ul Normal 0.00-0.03 [facility] Comment on above: Performed By: #### V ITAD #### [facility] [address] [place] [address] Dr. Katie Funez IG % 0.1 % Normal 0.0-0.5 [facility] Comment on above: Performed By: #### V ITAD #### [facility] [address] [place] [address] Dr. Katie Funez LYMPH # 1.8 103/ul Normal 1.2-3.8 [facility] Comment on above: Performed By: #### V ITAD #### [facility] [address] [place] [address] Dr. Katie Funez Lymphocytes/100 WBC (Bld) 24.6 % Normal 20.5-60.0 [facility] Comment on above: Performed By: #### V ITAD #### [facility] [address] [place] [address] Dr. Katie Funez MANUAL DIFF REQ NO Normal [facility] Comment on above: Performed By: #### V ITAD #### [facility] [address] [place] [address] Dr. Katie Funez MCH (RBC) [Entitic mass] 28.2 pg Normal 26.7-34.0 [facility] Comment on above: Performed By: #### V ITAD #### [facility] [address] [place] [address] Dr. Katie Funez MCHC (RBC) [Mass/Vol] 32.2 g/dL Normal 29.9-35.2 [facility] Comment on above: Performed By: #### V ITAD #### [facility] [address] [place] [address] Dr. Katie Funez MCV (RBC) [Entitic vol] 87.5 fL Normal 81.0-99.0 [facility] Comment on above: Performed By: #### V ITAD #### [facility] [address] [place] [address] Dr. Katie Funez MONO # 0.4 103/ul Normal 0.3-0.8 [facility] Comment on above: Performed By: #### V ITAD #### [facility] [address] [place] [address] Dr. Katie Funez Monocytes/100 WBC (Bld) 6.0 % Normal 1.7-12.0 [facility] Comment on above: Performed By: #### V ITAD #### [facility] [address] [place] [address] Dr. Katie Funez NEUT # 4.8 103/ul Normal 1.4-6.5 [facility] Comment on above: Performed By: #### V ITAD #### [facility] [address] [place] [address] Dr. Katie Funez Neutrophils/100 WBC (Bld) 67.3 % Normal 43.0-75.0 [facility] Comment on above: Performed By: #### V ITAD #### [facility] [address] [address] [address] Katie Funez Platelet mean volume (Bld) [Entitic vol] 11.7 fL Normal 9.5-13.5 [facility] Comment on above: Performed By: #### V ITAD #### [facility] [address] [address] [address] Katie Funez PLT 294 103/ul Normal 150-450 [facility] Comment on above: Performed By: #### V ITAD #### [facility] [address] [address] [address] Katie Funez RBC 4.79 106/ul Normal 4.20-5.40 [facility] Comment on above: Performed By: #### V ITAD #### [facility] [address] [place] [address] Dr. Katie Funez WBC 7.2 103/ul Normal 4.0-11.0 [facility] Comment on above: Performed By: #### V ITAD #### [facility] [address] [place] [address] Dr. Katie Funez GLYCOHEMOGLOBIN A1Con 2021 ADA RECOMMENDATION SEE BELOW Normal [facility] Comment on above: Result Comment: ADA RECOMMENDED LIMIT 4.0 - 6.0 ADA THERAPEUTIC TARGET < 7.0 ACTION SUGGESTED > 7.0 Performed By: #### P DAVINA #### [facility] [address] [place] [address] Dr. Katie Funez Glucose [Mass/Vol] 103 mg/dL Normal [facility] Comment on above: Performed By: #### P ROGES #### [facility] [address] [address] [address] Katie Funez HbA1c (Bld) [Mass fraction] 5.2 % Normal 4.5-6.2 [facility] Comment on above: Performed By: #### P ROGES #### [facility] [address] [place] [address] Dr. Katie Funez LIPID PROFILEon 10-27-2022 CHOL-HDL RATIO NORM SEE BELOW Normal [facility] Comment on above: Result Comment: 3.3 - 4.4 LOW RISK 4.4 - 7.1 AVERAGE RISK 7.1 - 11.0 MODERATE RISK >11.0 HIGH RISK Performed By: #### V ITAD #### [facility] [address] [address] [address] Katie Funez Cholesterol [Mass/Vol] 204 mg/dL Critically high <=200 [facility] Comment on above: Performed By: #### V ITAD #### [facility] [address] [address] [address] Katie Funez Cholesterol in HDL [Mass/Vol] 52 mg/dL Normal 40-60 [facility] Comment on above: Performed By: #### V ITAD #### [facility] [address] [address] [address] Katie Funez Cholesterol in LDL [Mass/Vol] 137.2 mg/dL Normal [facility] Comment on above: Performed By: #### V ITAD #### [facility] [address] [address] [address] Katie Funez Cholesterol.total/Choleste rol in HDL [Mass ratio] 3.9 {ratio} Normal [facility] Comment on above: Performed By: #### V ITAD #### [facility] [address] [address] [address] Katie Funez HDL NORMAL > or = 60 mg/dl - LOW CARDIOVASCULAR RISK <40 mg/dl - HIGH CARDIOVASCULAR RISK Normal [facility] Comment on above: Performed By: #### V ITAD #### [facility] [address] [address] [address] Katie Funez LDL CALC NORMAL SEE BELOW Normal [facility] Comment on above: Result Comment: <100 mg/dl OPTIMAL 100 - 129 mg/dl NEAR OR ABOVE OPTIMAL 130 - 159 mg/dl BORDERLINE HIGH 160 - 189 mg/dl HIGH >190 mg/dl VERY HIGH Performed By: #### V ITAD #### [facility] [address] [address] [address] Katie Funez Triglyceride [Mass/Vol] 74 mg/dL Normal <=150 [facility] Comment on above: Performed By: #### V ITAD #### [facility] [address] [address] [address] Katie Funez VLDL CALC 14.8 mg/dL Normal [facility] Comment on above: Performed By: #### V ITAD #### [facility] [address] [address] [address] Katie Funez PROF 14(COMP METB)on 022 Albumin [Mass/Vol] 3.8 g/dL Normal 3.4-5.0 [facility] Comment on above: Performed By: #### V ITAD #### [facility] [address] [place] [address] Dr. Katie Funez Albumin/Globulin [Mass ratio] 0.9 {ratio} Normal [facility] Comment on above: Performed By: #### V ITAD #### [facility] [address] [place] [address] Dr. Katie Funez ALP [Catalytic activity/Vol] 77 U/L Normal 46-116 [facility] Comment on above: Performed By: #### V ITAD #### [facility] [address] [place] [address] Dr. Katie Funez ALT [Catalytic activity/Vol] 20 U/L Normal 14-59 [facility] Comment on above: Performed By: #### V ITAD #### [facility] [address] [place] [address] Dr. Katie Funez Anion gap [Moles/Vol] 10.0 mmol/L Normal [facility] Comment on above: Performed By: #### V ITAD #### [facility] [address] [place] [address] Dr. Katie Funez AST [Catalytic activity/Vol] 14 U/L Critically low 15-37 [facility] Comment on above: Performed By: #### V ITAD #### [facility] [address] [place] [address] Dr. Katie Funez Bilirubin [Mass/Vol] 0.8 mg/dL Normal 0.2-1.0 [facility] Comment on above: Performed By: #### V ITAD #### [facility] [address] [place] [address] Dr. Katie Funez Calcium [Mass/Vol] 8.9 mg/dL Normal 8.5-10.1 [facility] Comment on above: Performed By: #### V ITAD #### [facility] [address] [place] [address] Dr. Katie Funez Chloride [Moles/Vol] 101 mmol/L Normal 98-107 [facility] Comment on above: Performed By: #### V ITAD #### [facility] [address] [place] [address] Dr. Katie Funez CO2 [Moles/Vol] 29.9 mmol/L Normal 21.0-32.0 [facility] Comment on above: Performed By: #### V ITAD #### [facility] [address] [place] [address] Dr. Katie Funez Creatinine [Mass/Vol] 0.83 mg/dL Normal 0.55-1.02 [facility] Comment on above: Performed By: #### V ITAD #### [facility] [address] [place] [address] Dr. Katie Funez EGFR-AF BAHRAINI >60 Normal >=60 [facility] Comment on above: Performed By: #### V ITAD #### [facility] [address] [place] [address] Dr. Katie Funez EGFR-NON AF BAHRAINI >60 Normal >=60 [facility] Comment on above: Performed By: #### V ITAD #### [facility] [address] [place] [address] Dr. Katie Funez Globulin (S) [Mass/Vol] 4.0 g/dL Normal [facility] Comment on above: Performed By: #### V ITAD #### [facility] [address] [place] [address] Dr. Katie Funez Glucose [Mass/Vol] 91 mg/dL Normal 74-106 [facility] Comment on above: Performed By: #### V ITAD #### [facility] [address] [address] [address] Katie Funez Potassium [Moles/Vol] 3.9 mmol/L Normal 3.5-5.1 [facility] Comment on above: Performed By: #### V ITAD #### [facility] [address] [place] [address] Dr. Katie Funez Protein [Mass/Vol] 7.8 g/dL Normal 6.4-8.2 [facility] Comment on above: Performed By: #### V ITAD #### [facility] [address] [address] [address] Katie Funez Sodium [Moles/Vol] 137 mmol/L Normal 136-145 [facility] Comment on above: Performed By: #### V ITAD #### [facility] [address] [place] [address] Dr. Katie Funez Urea nitrogen [Mass/Vol] 13.0 mg/dL Normal 7.0-18.0 [facility] Comment on above: Performed By: #### V ITAD #### [facility] [address] [place] [address] Dr. Katie Funez Urea nitrogen/Creatinine [Mass ratio] 15.7 mg/mg Normal [facility] Comment on above: Performed By: #### V ITAD #### [facility] [address] [place] [address] Dr. Katie Funez TSHon 08-10-2022 TSH 2.642 uIU/mL Normal 0.358-3.740 [facility] Comment on above: Performed By: #### V ITAD #### [facility] [address] [place] [address] Dr. Katie Funez VITAMIN D 25 OHon 08-10-2022 VIT D 25-OH 23.6 ng/mL Normal [facility] Comment on above: Performed By: #### V ITAD #### [facility] [address] [place] [address] Dr. Katie Funez VIT D RANGES SEE BELOW Normal [facility] Comment on above: Result Comment: <20 ng/mL Vit D deficient 20 - <30 ng/mL Vit D insufficient 30 - 100 ng/mL Vit D sufficient >100 ng/mL Potential Toxicity Performed By: #### V ITAD #### [facility] [address] [address] [address] Katie Funez MG MAMM SCREEN 3D JORDI CADon 05-19-2022 MG MAMM SCREEN 3D JORDI CAD Patient: NAHID BARBOSA Exam Date: 05/19/2022 : 1980 Gender:F Ordering : DR. NOÉ FRANK D.O. Admission #: [id number] Family : Order #: [id number] CLICK HERE TO VIEW EXAM RADIOLOGY REPORT [...] uterine cancer at age 48. LOCATION: [facility] BREAST COMPOSITION: Heterogeneously dense,which may obscure [...] Quintero M.D. on 05/19/2022 at 12:38 Normal [facility] Vital Signs Date Time Vital Sign Value Performing Clinician Facility 01-14-2024 12:15-040 Body height 170.18 cm [facility] 01-14-2024 12:15-040 Body mass index (BMI) [Ratio] 47.6 kg/m2 [facility] 01-14-2024 12:15040 Body weight 137.89 kg [facility] 01-14-2024 12:15-040 Diastolic blood pressure 76 mm[Hg] [facility] 01-14-2024 12:15-0400 Heart rate 67 /min [facility] 01-14-2024 12:15-0400 Respiratory rate 12 /min [facility] 01-14-2024 12:15-0400 Systolic blood pressure 117 mm[Hg] [facility] 08-06-2023 14:00-0400 Body height 170.18 cm Faizan Ball Other [facility] Other 08-06-2023 14:00-0400 Body mass index (BMI) [Ratio] 47.04 kg/m2 [facility] Other [facility] Other 08-06-2023 14:00-0400 Body weight 136.26 kg Faizan Ball Other [facility] Other 08-06-2023 14:00-0400 Diastolic blood pressure 81 mm[Hg] Fiazan Ball Other [facility] Other 08-06-2023 14:00-0400 Respiratory rate 12 /min Faizan Ball Other [facility] Other 08-06-2023 14:00-0400 Systolic blood pressure 118 mm[Hg] Faizan Ball Other [facility] [employer] Other Encounters Encounter Date Encounter Type Care Provider Facility Start: 05-05-2024 End: 05-05-2024 ambulatory Josué Ryan MD Facility:[facility] Start: 04-14-2024 End: 04-14-2024 ambulatory Josué Ryan MD Facility:[facility] Start: 04-07-2024 End: 04-07-2024 ambulatory Josué Ryan MD Facility:[facility] Start: 03-24-2024 End: 03-24-2024 ambulatory Josué Ryan MD Facility:[facility] Start: 01-14-2024 End: 01-14-2024 ambulatory [facility] Work Phone: Start: 01-14-2024 End: 01-14-2024 Patient encounter procedure [facility] Work Phone: Start: 08-06-2023 End: 08-06-2023 ambulatory Faizan Gamez Other [facility] [employer] Other Start: 08-06-2023 Encounter for genera l adult medical examination without abnormal findings Faizan Gamez [facility] Start: 08-06-2023 Periodic preventive med est patient 40-64yrs Faizan Gamez [facility] Start: 08-06-2023 Telephone encounter Faizan Gamez [facility] Start: 02-03-2023 End: 02-04-[address] LAURIE PATEL Facility:[facility] Start: 11-30-2022 End: 02-07-[address] FAIZAN GAMEZ Facility:[facility] Start: 09-25-2022 End: 09-26-[address] FAIZAN GAMEZ Facility:[facility] Start: 09-06-[address] FAIZAN GAMEZ Facili ty:[facility] Start: 08-13-2022 Encounter for genera l adult medical examination without abnormal findings DR FAIZAN GAMEZ [facility] Start: 08-10-2022 End: 08-11-[address] FAIZAN GAMEZ Facility:[facility] Start: 08-10-2022 End: 08-11-2022 Encounter for general adult medical examination without abnormal findings DR FAIZAN GAMEZ Facility:[facility] Start: 05-19-2022 End: 05-20-[address] RAHUL QUINTERO Facility:[facility] Start: 01-20-2019 End: 01-21-2019 Patient encounter procedure DEFAULT PHYSICIAN Facility:[facility] Start: 01-01-2019 End: 01-02-2019 Patient encounter procedure DEFAULT PHYSICIAN Facility:[facility] Plan of Treatment Date Care Activity Detail Author XR Lumbar spine Views [facility] Immunizations Immunization Date Immunization Notes Care Provider Fa margarita 07-25-2017 influenza virus vaccine, split virus (incl. purified surface antigen) Faizan Gamez Other [facility] Other 07-25-2017 influenza virus vaccine, unspecified formulation [facility] Payers Date Payer Category Payer Unknown 2022 Unknown [id number] 2019 Unknown [id number] 1980 Unknown [id number] 2.16.8 [id number] 1980 Unknown [id number] 2.16.8 40.1.701170.3.579.2.647 1980 Unknown [id number] 2.16.84 0.1.085830.3.579.2.593 1980 Unknown [id number] 2.16.84 0.1.074298.3.579.2.593 1980 Unknown [id number] 2.16.84 0.1.939734.3.579.2.593 1980 Unknown [id number] 2.16.84 0.1.455066.3.579.2.593 1980 Unknown [id number] 2.16.84 0.1.853719.3.579.2.593 1980 Unknown [id number] 2.16.84 0.1.004008.3.579.2.593 1980 Unknown [id number] 2.16. 840.1.701338.3.579.2.196 1980 Unknown [id number] 2.16. 840.1.446691.3.579.2.196 1980 Unknown [id number] 2.16. 840.1.667750.3.579.2.196 1980 Unknown [id number] 2.16. 840.1.478449.3.579.2.196 Social History Date Type Detail Facility Unknown if ever smoked [facility] Other Sex Assigned At Sex Assigned At Bir th [facility] Other Start: 08-06-2023 Tobacco smoking status NHIS Never smoked tobacco (finding) [facility] Start: 1980 Sex Assigned At Female F [facility] Evaluation note 08-06-2023 Note Date & [...] hydrate. No treatment necessary, continue to exercise [facility] Other Evaluation note Note Date & Type Note Facility Evaluation note No Information [facility] Other Evaluation note Note Date & Type Note Facility Evaluation note No assessment information availa [facility] Work Phone: History general Narrative - Reported Note Date & Type Note Facility History general Narrative - Reported Type Medical History Foot pain Medical History Menopausal symptom Medical History Hormonal disorder Medical History Palpitations Surgical History C section Surgical History wisdom teeth Surgical History vein ligation Hospitalization History child bit [facility] Other Summary Purpose Family History No Family [...] and content) DATE CREATED AUTHOR 01/21/2019 [facility] DATE CREATED AUTHOR AUTHOR'S ORGANIZ ATION 02/14/2023 [facility] DATE CREATED AUTHOR AUTHOR'S ORGANIZ ATION 05/10/2024 [facility] REASON FOR VISIT (unrecogniz ed section and content) [facility] Care Teams (unrecognized sec tion and content) Team Status: Active Member Role Status Dates Faizan Gamez , Primary Care Provider Active Team Status: Inactive [...] BE BASED ON THE PRIMARY CLINICAL RECORDS. [facility] [employer] [facility]. provides no warranty or guarantee of the accuracy or completeness of information in this document.
--- NOTE | 2024-05-15 08:20 | P.CN_ITS ---
Consult Note: HPI Data of Consult Patient: known to practice within the last 3 years Requesting Physician: Hilary Fernandez NP Primary Care Provider: Faizan Gay, DO Consult Narrative Reason for consult: low back, left leg pain Narrative: 43yof who presents for assessment. continues to have radiating pain down left leg. 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 has continued in her various conservative measures, including cranio-sacral therapy and provider directed home exercises for >6 weeks, without lasting benefit. uses otc meds as needed. denies adverse med side effects. Recently underwent left L5-S1 S1-S1 TFESI x2 with >50% improvement ongoing in radicular pain. continues to have moderate to severe left low back and lateral thigh pain. cc:: CC: Hilary Fernandez NP Review of Systems ROS Status of ROS 10 or more systems reviewed and unremark able except as noted in history and below Musculoskeletal Reports: back pain and extremity pain PFSH PFSH Medical History (Updated 05/15/24 @ 08:37 by Hilary Fernandez NP) Osteoarthritis ?M19.90 - Unspecified osteoarthritis, unspecified site (ICD-10) Hypothyroid ?E03.9 - Hypothyroidism, unspecified (ICD-10) Palpitations ?R00.2 - Palpitations (ICD-10) Surgical History History of oral surgery ?Z98.890 - Other specified postprocedural states (ICD-10) H/O section ?Z98.891 - History of uterine scar from previous surgery (ICD-10) History of foot surgery ?Z98.890 - Other specified postprocedural states (ICD-10) Meds Home Medications and Allergies Home Medications ?Medication ?Instructions ?Recorded ?Confirmed ?Type acetaminophen 500 mg tablet 1,000 mg PO BID PRN pain 03/24/24 05/05/24 History (Acetaminophen Extra Strength) ibuprofen 600 mg tablet (IBU) 600 mg PO Q12H 03/24/24 05/05/24 History multivitamin (Daily Multi-Vitamin 1 tab PO DAILY 03/24/24 05/05/24 History tablet) testosterone 1 mg topical DAILY 03/24/24 05/05/24 History vitamin E 670 mg (1,000 unit) 670 mg PO DAILY 03/24/24 05/05/24 History capsule progest compound QDAY 04/14/24 History triidothyrone 05/05/24 History Allergies Allergy/AdvReac Type Severity Reaction Status Date / Time carisoprodol [From Soma] Allergy tachycardia Verified 05/05/24 07:14 metoprolol Allergy bradycardia Verified 05/05/24 07:14 Exam Narrative Exam Narrative: Psych-alert and oriented x 3. Attentive and appropriate, constitutionally normal, displays normal mood and affect per situation. There are no obvious deficits in memory, reasoning, or intellect.? Skin-no obvious rashes, bruising, erythema noted to the patient's area of pain.? Extremities- extremities are warm with minimal edema and palpable pulses. Lumbar-tenderness to palpation noted in the lumbar spine and paraspinal musculature. Pain is elicited with flexion, extension, and lateral rotation of the lumbar spine. Range of motion is diminished with these motions. Facet loading maneuvers are positive.? sacroiliac joint left PSIS tenderness, positive louie/fadir thigh thrust and gaenslens Strength-noted to be unremarkable Sensory-no notable sensory deficits in the bilateral lower extremities to touch or pinprick in all dermatomal distributions Coordination remains intact.? Gait remains non-antalgic. Constitutional Documenting provider has reviewed patient's vital signs: yes Results Additional Findings Additional findings: If on a controlled substance or opioids, I have checked an [place] report on this patient and there are no aberrancies noted in the prescribing history.??If on a controlled substance or opioid a drug screen was completed and reviewed within the last year, and if there has not been a drug screen completed we ordered one today to monitor higher risk, state monitored pain medication use. As part of providing excellent, safe, comprehensive care, the following was completed at our patient's visit: 1. A medication reconciliation and review to ensure accurate knowledge of current/active medications, including asking our patients to inform us about any [id number] medications or herbal remedies/nutritional supplements/alternative remedies. 2. A review to specifically ensure our patients have had annual screening for screening for depression, screening for tobacco use, and screening for unhealthy alcohol use. For concerning screenings had a discussion with the patient, provided patient education, and recommended follow-up with primary care provider when appropriate. If patient noted with a risk of falling, they received education on strength, gait, and balance training to prevent future risk of falling. Assessment and Plan Assessment and Plan (1) Lumbar disc displacement without myelopathy: (2) Sacroiliac joint pain: (3) Sacroiliitis: Plan left SIJ injection for left SIJ pain/sacroiliitis under fluoroscopy for moderate to severe pain unresponsive to above listed treatments continue heat/ice PRN continue current medications, tolerating well without side effects f/u 2 weeks after injection
== END 2024-05-15 08:07 | disposition home or self-care (01) ==
LOC: PM 08:07
PROVIDERS: PCP Internal Medicine; Visit Provider Nurse Practitioner
DX: M51.26 Other intervertebral disc displacement, lumbar region (principal); M53.3 Sacrococcygeal disorders, not elsewhere classified; M46.1 Sacroiliitis, not elsewhere classified
CPT/HCPCS: G0463

== ENCOUNTER 2024-05-22 09:16 | Outpatient (OUT) | payer BC, SELFPAY ==
--- NOTE | 2024-05-22 | XR_ITS ---
[address] [address] Patient Name: MARTHA FINNEY MRN: [id number] date: 1980 Sex: F Assigned Patient Location: Current Patient Location: Accession/Order Number: [id number] Exam Date: 05/22/2024 09:20 Report Date: 05/26/2024 14:05 At the request of: JEROD NAVARRO Procedure: XR tibia fibula LT 2V PROCEDURE: XR tibia fibula LT 2V COMPARISON: 04/29/2024 HISTORY: LEFT LOWER LEG PAIN FINDINGS: BONES:Stable healing spiral fracture of the proximal fibula metadiaphysis with interval bone formation. No new fracture or dislocation. Moderate degenerative changes of the midfoot and hindfoot. Posterior calcaneal osteotomy transfixed with 2 cannulated screws. SOFT TISSUES:Negative. No visible soft tissue swelling. EFFUSION:None visible. OTHER: Negative. XR/XR tibia fibula LT 2V IMPRESSION: Stable healing spiral fracture proximal fibula Electronically authenticated by: LAURIE SENA Date: 05/26/2024 14:05
== END 2024-05-22 09:17 | disposition home or self-care (01) ==
LOC: EC 09:16
PROVIDERS: PCP Internal Medicine; Visit Provider Physician Assistant
DX: S82.832D Other fracture of upper and lower end of left fibula, subsequent encounter for closed fracture with routine healing (principal)
CPT/HCPCS: 73590

== ENCOUNTER 2024-05-26 06:56 | Day surgery (SDC) | payer BC, SELFPAY ==
--- OUTSIDE RECORDS SUMMARY | 2024-05-26 06:59 | XMS_ITS | CCD ---
Author Organization [facility] Care Team Providers Care Strategic Alliances Manager Name Role Phone PHYSICIAN, DEFAULT Admitting Unavailable [...] (3 sources) Carisoprodol Drug Allergy 01-14-20 palpitations [facility] (2 sources) First - Metoprolol *BETA BLOCKERS* Propensity to adverse reactions Comment:[email or web address] Other (1 source) First - Metoprolol *BETA BLOCK Allergy to substance 08-06-20 Comment:gaudencio archer [facility] Medications Current Medications Medication Drug Class(es) [...] Drug Class(es) Dates Sig (Normalized) Sig (Original) [id number] 200 actuat albuterol 0.09 mg/actuat metered dose [...] 02-08-2023 Dehydroepiandrosterone (DHEA) 415 ng/dL Normal 31-701 [facility] Comment on above: Performed By: #### D JAMEL. #### [facility] [address] [address] [address] Katie Funez ESTRONEon 02-06-2023 Estrone, Serum 55 pg/mL Normal [facility] Comment on above: Result Comment: Rang e Adult (Premenopausal) 27 - 231 Menstrual Cycle (1-10 days) 19 - 149 Menstrual Cycle (11-20 days) 32 - 176 Menstrual Cycle (21-30 days) 37 - 200 Adult (Postmenopausal) 0 - 125 Performed By: #### P DAVINA #### [facility] [address] [address] [address] Katie Funez CORTISOLon 02-04-2023 Cortisol 22.7 ug/dL Critically high 6.2-19.4 [facility] Comment on above: Result Comment: Plefariha frost Note: The reference interval and flagging for this test is for an AM collection. If this is a PM collection please use: Cortisol PM: 2.3-11.9 [facility] also offers: [id number]: Cortisol- AM 857829: Cortisol- PM Performed By: #### C ORTISLes #### [facility] [address] [address] [address] Katie Funez ESTRADIOLon 02-04-2023 Estradiol 142.0 pg/mL Normal [facility] Comment on above: Result Comment: Adul t Female: Follicular phase 12.5 - 166.0 Ovulation phase 85.8 - 498.0 Luteal phase 43.8 - 211.0 Postmenopausal <6.0 - 54.7 1st trimester 215.0 - >4300.0 [employer] ECLIA methodology Performed By: #### E WAYNE #### [facility] [address], [place] [address] Dr. Katie Funez PROGESTERONEon 02-04-2023 Progesterone 7.6 ng/mL Normal [facility] Comment on above: Result Comment: Foll icular phase 0.1 - 0.9 Luteal phase 1.8 - 23.9 Ovulation phase 0.1 - 12.0 First trimester 11.0 - 44.3 Second trimester 25.4 - 83.3 Third trimester 58.7 - 214.0 Postmenopausal 0.0 - 0.1 Performed By: #### P JAYSONES #### [facility] [address] [place] [address] Dr. Katie Funez TESTOSTERONE, TOTALon 2022 Testosterone [Mass/Vol] 33 ng/dL Normal 4-50 [facility] Comment on above: Performed By: #### T ESTTOT #### [facility] [address] [place] [address] Dr. Katie Funez FREE T3on 02-03-2023 FREE T3 2.12 pg/mlL Critically low 2.18-3.98 [facility] Comment on above: Performed By: #### P ROGES #### [facility] [address] [place] [address] Dr. Katie Funez FREE T4on 02-03-2023 Free T4 [Mass/Vol] 0.90 ng/dL Normal 0.76-1.46 [facility] Comment on above: Performed By: #### P ROGES #### [facility] [address] [place] [address] Dr. Katie Funez TSHon 02-03-2023 TSH 2.763 uIU/mL Normal 0.358-3.740 [facility] Comment on above: Performed By: #### P ROGES #### [facility] [address] [place] [address] Dr. Katie Funez FREE T3on 09-25-2022 FREE T3 1.80 pg/mlL Critically low 2.18-3.98 [facility] Comment on above: Performed By: #### F T3 #### [facility] [address] [place] [address] Dr. Katie Funez FREE T4on 09-25-2022 Free T4 [Mass/Vol] 1.05 ng/dL Normal 0.76-1.46 [facility] Comment on above: Performed By: #### P ROGES #### [facility] [address] [place] [address] Dr. Katie Funez TSHon 09-25-2022 TSH 3.688 uIU/mL Normal 0.358-3.740 [facility] Comment on above: Performed By: #### T SH #### [facility] [address] [place] [address] Dr. Katie Funez ESTRONEon 08-17-2022 Estrone, Serum 49 pg/mL Normal [facility] Comment on above: Result Comment: Rang e Adult (Premenopausal) 27 - 231 Menstrual Cycle (1-10 days) 19 - 149 Menstrual Cycle (11-20 days) 32 - 176 Menstrual Cycle (21-30 days) 37 - 200 Adult (Postmenopausal) 0 - 125 Performed By: #### E KOMAL #### [facility] [address] [place] [address] Dr. Katie Funez TESTOSTERONE, FREE,DIRECT, T OTALon 08-14-2022 Free Testosterone(Direct) 0.8 pg/mL Normal 0.0-4.2 [facility] Comment on above: Result Comment: Perf ormed at: BN Performed By: #### V ITAD #### [facility] [address] [place] [address] Dr. Katie Funez Testosterone [Mass/Vol] 27 ng/dL Normal 4-50 [facility] Comment on above: Result Comment: Perf ormed at: CB Performed By: #### V ITAD #### [facility] [address] [place] [address] Dr. Katie Funez CORTISOLon 08-11-2022 Cortisol 11.5 ug/dL Normal [facility] Comment on above: Result Comment: Diomedes isol AM 6.2 - 19.4 Cortisol PM 2.3 - 11.9 Performed By: #### V ITAD #### [facility] [address] [place] [address] Dr. Katie Funez DHEA-SULFATEon 08-11-2022 DHEA-Sulfate 120.0 ug/dL Normal 57.3-279.2 [facility] Comment on above: Performed By: #### V ITAD #### [facility] [address] [place] [address] Dr. Katie Funez ESTRADIOLon 08-11-2022 Estradiol 104.0 pg/mL Normal [facility] Comment on above: Result Comment: Adul t Female: Follicular phase 12.5 - 166.0 Ovulation phase 85.8 - 498.0 Luteal phase 43.8 - 211.0 Postmenopausal <6.0 - 54.7 1st trimester 215.0 - >4300.0 [employer] ECLIA methodology Performed By: #### E WAYNE #### [facility] [address] [place] [address] Dr. Katie Funez PROGESTERONEon 08-11-2022 Progesterone 9.7 ng/mL Normal [facility] Comment on above: Result Comment: Foll icular phase 0.1 - 0.9 Luteal phase 1.8 - 23.9 Ovulation phase 0.1 - 12.0 First trimester 11.0 - 44.3 Second trimester 25.4 - 83.3 Third trimester 58.7 - 214.0 Postmenopausal 0.0 - 0.1 Performed By: #### V ITAD #### [facility] [address] [place] [address] Dr. Katie Funez SEX HORMONE-BINDING GLOBULIN on 08-11-2022 Sex Horm Binding Glob, Serum 73.1 nmol/L Normal 24.6-122.0 [facility] Comment on above: Performed By: #### V ITAD #### [facility] [address] [place] [address] Dr. Katie Funez CBC AUTO DIFFon 08-10-2022 BASO # 0.0 103/ul Normal 0.0-0.1 [facility] Comment on above: Performed By: #### V ITAD #### [facility] [address] [place] [address] Dr. Katie Funez Basophils/100 WBC (Bld) 0.6 % Normal 0.2-2.0 [facility] Comment on above: Performed By: #### V ITAD #### [facility] [address] [place] [address] Dr. Katie Funez EO # 0.1 103/ul Normal 0.0-0.7 [facility] Comment on above: Performed By: #### V ITAD #### [facility] [address] [place] [address] Dr. Katie Funez Eosinophils/100 WBC (Bld) 1.4 % Normal 0.9-7.0 [facility] Comment on above: Performed By: #### V ITAD #### [facility] [address] [place] [address] Dr. Katie Funez Erythrocyte distribution width (RBC) [Ratio] 13.2 % Normal 11.0-15.0 [facility] Comment on above: Performed By: #### V ITAD #### [facility] [address] [place] [address] Dr. Katie Funez Hematocrit (Bld) [Volume fraction] 41.9 % Normal 36.0-48.0 [facility] Comment on above: Performed By: #### V ITAD #### [facility] [address] [place] [address] Dr. Katie Funez Hemoglobin (Bld) [Mass/Vol] 13.5 g/dL Normal 12.0-16.0 [facility] Comment on above: Performed By: #### V ITAD #### [facility] [address] [place] [address] Dr. Katie Funez IG # 0.01 10e3/ul Normal 0.00-0.03 [facility] Comment on above: Performed By: #### V ITAD #### [facility] [address] [place] [address] Dr. Katie Funez IG % 0.1 % Normal 0.0-0.5 [facility] Comment on above: Performed By: #### V ITAD #### [facility] [address] [place] [address] Dr. Katie Funez LYMPH # 1.8 103/ul Normal 1.2-3.8 [facility] Comment on above: Performed By: #### V ITAD #### [facility] [address] [place] [address] Dr. Katie Funez Lymphocytes/100 WBC (Bld) 24.6 % Normal 20.5-60.0 [facility] Comment on above: Performed By: #### V ITAD #### [facility] [address] [place] [address] Dr. Katie Funez MANUAL DIFF REQ NO Normal [facility] Comment on above: Performed By: #### V ITAD #### [facility] [address] [place] [address] Dr. Katie Funez MCH (RBC) [Entitic mass] 28.2 pg Normal 26.7-34.0 [facility] Comment on above: Performed By: #### V ITAD #### [facility] [address] [place] [address] Dr. Katie Funez MCHC (RBC) [Mass/Vol] 32.2 g/dL Normal 29.9-35.2 [facility] Comment on above: Performed By: #### V ITAD #### [facility] [address] [place] [address] Dr. Katie Funez MCV (RBC) [Entitic vol] 87.5 fL Normal 81.0-99.0 [facility] Comment on above: Performed By: #### V ITAD #### [facility] [address] [place] [address] Dr. Katie Funez MONO # 0.4 103/ul Normal 0.3-0.8 [facility] Comment on above: Performed By: #### V ITAD #### [facility] [address] [place] [address] Dr. Katie Funez Monocytes/100 WBC (Bld) 6.0 % Normal 1.7-12.0 [facility] Comment on above: Performed By: #### V ITAD #### [facility] [address] [place] [address] Dr. Katie Funez NEUT # 4.8 103/ul Normal 1.4-6.5 [facility] Comment on above: Performed By: #### V ITAD #### [facility] [address] [place] [address] Dr. Katie Funez Neutrophils/100 WBC (Bld) 67.3 % Normal 43.0-75.0 [facility] Comment on above: Performed By: #### V ITAD #### [facility] [address] [address] [address] Katie Funez Platelet mean volume (Bld) [Entitic vol] 11.7 fL Normal 9.5-13.5 [facility] Comment on above: Performed By: #### V ITAD #### [facility] [address] [address] [address] Katie Funez PLT 294 103/ul Normal 150-450 [facility] Comment on above: Performed By: #### V ITAD #### [facility] [address] [address] [address] Katie Funez RBC 4.79 106/ul Normal 4.20-5.40 [facility] Comment on above: Performed By: #### V ITAD #### [facility] [address] [place] [address] Dr. Katie Funez WBC 7.2 103/ul Normal 4.0-11.0 [facility] Comment on above: Performed By: #### V ITAD #### [facility] [address] [place] [address] Dr. Katie Funez GLYCOHEMOGLOBIN A1Con 2021 ADA RECOMMENDATION SEE BELOW Normal [facility] Comment on above: Result Comment: ADA RECOMMENDED LIMIT 4.0 - 6.0 ADA THERAPEUTIC TARGET < 7.0 ACTION SUGGESTED > 7.0 Performed By: #### P DAVINA #### [facility] [address] [place] [address] Dr. Katie Funez Glucose [Mass/Vol] 103 mg/dL Normal [facility] Comment on above: Performed By: #### P ROGES #### [facility] [address] [address] [address] Katie Funez HbA1c (Bld) [Mass fraction] 5.2 % Normal 4.5-6.2 [facility] Comment on above: Performed By: #### P ROGES #### [facility] [address] [place] [address] Dr. Katie Funez LIPID PROFILEon 10-27-2022 CHOL-HDL RATIO NORM SEE BELOW Normal [facility] Comment on above: Result Comment: 3.3 - 4.4 LOW RISK 4.4 - 7.1 AVERAGE RISK 7.1 - 11.0 MODERATE RISK >11.0 HIGH RISK Performed By: #### V ITAD #### [facility] [address] [address] [address] Katie Funez Cholesterol [Mass/Vol] 204 mg/dL Critically high <=200 [facility] Comment on above: Performed By: #### V ITAD #### [facility] [address] [address] [address] Katie uFnez Cholesterol in HDL [Mass/Vol] 52 mg/dL Normal 40-60 [facility] Comment on above: Performed By: #### V ITAD #### [facility] [address] [address] [address] Katie Funez Cholesterol in LDL [Mass/Vol] 137.2 mg/dL Normal [facility] Comment on above: Performed By: #### V ITAD #### [facility] [address] [address] [address] Katie Funez Cholesterol.total/Choleste rol in HDL [Mass ratio] 3.9 {ratio} Normal [facility] Comment on above: Performed By: #### V ITAD #### [facility] [address] [address] [address] Katie Funez HDL NORMAL > or = 60 mg/dl - LOW CARDIOVASCULAR RISK <40 mg/dl - HIGH CARDIOVASCULAR RISK Normal [facility] Comment on above: Performed By: #### V ITAD #### [facility] [address] [address] [address] Katie Funez LDL CALC NORMAL SEE BELOW Normal [facility] Comment on above: Result Comment: <100 mg/dl OPTIMAL 100 - 129 mg/dl NEAR OR ABOVE OPTIMAL 130 - 159 mg/dl BORDERLINE HIGH 160 - 189 mg/dl HIGH >190 mg/dl VERY HIGH Performed By: #### V ITAD #### [facility] [address] [address] [address] Katie Funez Triglyceride [Mass/Vol] 74 mg/dL Normal <=150 [facility] Comment on above: Performed By: #### V ITAD #### [facility] [address] [address] [address] Katie Funez VLDL CALC 14.8 mg/dL Normal [facility] Comment on above: Performed By: #### V ITAD #### [facility] [address] [address] [address] Katie Funez PROF 14(COMP METB)on 022 Albumin [Mass/Vol] 3.8 g/dL Normal 3.4-5.0 [facility] Comment on above: Performed By: #### V ITAD #### [facility] [address] [place] [address] Dr. Katie Funez Albumin/Globulin [Mass ratio] 0.9 {ratio} Normal [facility] Comment on above: Performed By: #### V ITAD #### [facility] [address] [place] [address] Dr. Katie Funez ALP [Catalytic activity/Vol] 77 U/L Normal 46-116 [facility] Comment on above: Performed By: #### V ITAD #### [facility] [address] [place] [address] Dr. Katie Funez ALT [Catalytic activity/Vol] 20 U/L Normal 14-59 [facility] Comment on above: Performed By: #### V ITAD #### [facility] [address] [place] [address] Dr. Katie Funez Anion gap [Moles/Vol] 10.0 mmol/L Normal [facility] Comment on above: Performed By: #### V ITAD #### [facility] [address] [place] [address] Dr. Katie Funez AST [Catalytic activity/Vol] 14 U/L Critically low 15-37 [facility] Comment on above: Performed By: #### V ITAD #### [facility] [address] [place] [address] Dr. Katie Funez Bilirubin [Mass/Vol] 0.8 mg/dL Normal 0.2-1.0 [facility] Comment on above: Performed By: #### V ITAD #### [facility] [address] [place] [address] Dr. Katie Funez Calcium [Mass/Vol] 8.9 mg/dL Normal 8.5-10.1 [facility] Comment on above: Performed By: #### V ITAD #### [facility] [address] [place] [address] Dr. Katie Funez Chloride [Moles/Vol] 101 mmol/L Normal 98-107 [facility] Comment on above: Performed By: #### V ITAD #### [facility] [address] [place] [address] Dr. Katie Funez CO2 [Moles/Vol] 29.9 mmol/L Normal 21.0-32.0 [facility] Comment on above: Performed By: #### V ITAD #### [facility] [address] [place] [address] Dr. Katie Funez Creatinine [Mass/Vol] 0.83 mg/dL Normal 0.55-1.02 [facility] Comment on above: Performed By: #### V ITAD #### [facility] [address] [place] [address] Dr. Katie Funez EGFR-AF ROMANIAN >60 Normal >=60 [facility] Comment on above: Performed By: #### V ITAD #### [facility] [address] [place] [address] Dr. Katie Funez EGFR-NON AF ROMANIAN >60 Normal >=60 [facility] Comment on above: Performed By: #### V ITAD #### [facility] [address] [place] [address] Dr. Katie Funez Globulin (S) [Mass/Vol] 4.0 g/dL Normal T [facility] Comment on above: Performed By: #### V ITAD #### [facility] [address] [place] [address] Dr. Katie Funez Glucose [Mass/Vol] 91 mg/dL Normal 74-106 [facility] Comment on above: Performed By: #### V ITAD #### [facility] [address] [address] [address] Katie Funez Potassium [Moles/Vol] 3.9 mmol/L Normal 3.5-5.1 [facility] Comment on above: Performed By: #### V ITAD #### [facility] [address] [place] [address] Dr. Katie Funez Protein [Mass/Vol] 7.8 g/dL Normal 6.4-8.2 [facility] Comment on above: Performed By: #### V ITAD #### [facility] [address] [address] [address] Katie Funez Sodium [Moles/Vol] 137 mmol/L Normal 136-145 [facility] Comment on above: Performed By: #### V ITAD #### [facility] [address] [place] [address] Dr. Katie Funez Urea nitrogen [Mass/Vol] 13.0 mg/dL Normal 7.0-18.0 [facility] Comment on above: Performed By: #### V ITAD #### [facility] [address] [place] [address] Dr. Katie Funez Urea nitrogen/Creatinine [Mass ratio] 15.7 mg/mg Normal [facility] Comment on above: Performed By: #### V ITAD #### [facility] [address] [place] [address] Dr. Katie Funez TSHon 08-10-2022 TSH 2.642 uIU/mL Normal 0.358-3.740 [facility] Comment on above: Performed By: #### V ITAD #### [facility] [address] [place] [address] Dr. Katie Funez VITAMIN D 25 OHon 08-10-2022 VIT D 25-OH 23.6 ng/mL Normal [facility] Comment on above: Performed By: #### V ITAD #### [facility] [address] [place] [address] Dr. Katie Funez VIT D RANGES SEE BELOW Normal [facility] Comment on above: Result Comment: <20 ng/mL Vit D deficient 20 - <30 ng/mL Vit D insufficient 30 - 100 ng/mL Vit D sufficient >100 ng/mL Potential Toxicity Performed By: #### V ITAD #### [facility] [address] [address] [address] Katie Funez MG MAMM SCREEN 3D JORDI CADon 05-19-2022 MG MAMM SCREEN 3D JORDI CAD Patient: NAHID BARBOSA Exam Date: 05/19/2022 : 1980 Gender:F Ordering : DR. NOÉ FRANK D.O. Admission #: [id number] Family : Order #: [id number] CLICK HERE TO VIEW EXAM RADIOLOGY REPORT [...] Quintero M.D. on 05/19/2022 at 12:38 Normal [facility] Vital Signs Date Time Vital Sign Value Performing Clinician Facility 01-14-2024 12:15-040 Body height 170.18 cm [facility] 01-14-2024 12:15-040 Body mass index (BMI) [Ratio] 47.6 kg/m2 [facility] 01-14-2024 12:15040 Body weight 137.89 kg [facility] 01-14-2024 12:15-040 Diastolic blood pressure 76 mm[Hg] [facility] 01-14-2024 12:15-0400 Heart rate 67 /min [facility] 01-14-2024 12:15-0400 Respiratory rate 12 /min [facility] 01-14-2024 12:15-0400 Systolic blood pressure 117 mm[Hg] [facility] 08-06-2023 14:00-0400 Body height 170.18 cm Faizan Ball Other [facility] Other 08-06-2023 14:00-0400 Body mass index (BMI) [Ratio] 47.04 kg/m2 Faizan Novogenie Other [facility] Other 08-06-2023 14:00-0400 Body weight 136.26 kg Faizan Ball Other [facility] Other 08-06-2023 14:00-0400 Diastolic blood pressure 81 mm[Hg] Faizan Ball Other [facility] Other 08-06-2023 14:00-0400 Respiratory rate 12 /min Faizan Ball Other [facility] Other 08-06-2023 14:00-0400 Systolic blood pressure 118 mm[Hg] Faizan Ball Other [facility] Other Encounters Encounter Date Encounter Type Care Provider Facility Start: 05-05-2024 End: 05-05-2024 ambulatory Josué Ryan MD Facility:[facility] Start: 04-14-2024 End: 04-14-2024 ambulatory Josué Ryan MD Facility:[facility] Start: 04-07-2024 End: 04-07-2024 ambulatory Josué Ryan MD Facility:[facility] Start: 03-24-2024 End: 03-24-2024 ambulatory Josué Ryan MD Facility:[facility] Start: 01-14-2024 End: 01-14-2024 ambulatory [facility] Work Phone: Start: 01-14-2024 End: 01-14-2024 Patient encounter procedure [facility] Work Phone: Start: 08-06-2023 End: 08-06-2023 ambulatory Faizan Gamez Other [facility] Other Start: 08-06-2023 Encounter for genera l adult medical examination without abnormal findings Faizan Gamez [facility] Start: 08-06-2023 Periodic preventive med est patient 40-64yrs Faizan Gamez [facility] Start: 08-06-2023 Telephone encounter Faizan Gamez [facility] Start: 02-03-2023 End: 02-04-[address] LAURIE PATEL Facility:[facility] Start: 11-30-2022 End: 02-07-[address] FAIZAN GAMEZ Facility:[facility] Start: 09-25-2022 End: 09-26-[address] FAIZAN GAMEZ Facility:[facility] Start: 09-06-[address] FAIZAN GAMEZ Facili ty:[facility] Start: 08-13-2022 Encounter for genera l adult medical examination without abnormal findings DR FAIZAN GAMEZ [facility] Start: 08-10-2022 End: 08-11-[address] FAIZAN [...] PHYSICIAN Facility:[facility] Plan of Treatment Date Care Activity Detail Author XR Lumbar spine Views [facility] Immunizations Immunization Date Immunization Notes Care Provider Fa margarita 07-25-2017 influenza virus vaccine, split virus (incl. purified surface antigen) Faizan Gamez Other [facility] Other 07-25-2017 influenza virus vaccine, unspecified formulation [facility] Payers Date Payer Category Payer Unknown 2022 Unknown [id number] 2019 Unknown [id number] 1980 Unknown [id number] 2.16.8 [id number] 1980 Unknown [id number] 2.16.8 40.1.228120.3.579.2.647 1980 Unknown [id number] 2.16.84 0.1.273082.3.579.2.593 1980 Unknown [id number] 2.16.84 0.1.293893.3.579.2.593 1980 Unknown [id number] 2.16.84 0.1.352376.3.579.2.593 1980 Unknown [id number] 2.16.84 0.1.757072.3.579.2.593 1980 Unknown [id number] 2.16.84 0.1.563140.3.579.2.593 1980 Unknown [id number] 2.16.84 0.1.927030.3.579.2.593 1980 Unknown [id number] 2.16. 840.1.464384.3.579.2.196 1980 Unknown [id number] 2.16. 840.1.078691.3.579.2.196 1980 Unknown [id number] 2.16. 840.1.617248.3.579.2.196 1980 Unknown [id number] 2.16. 840.1.454500.3.579.2.196 Social History Date Type Detail Facility Unknown if ever smoked [facility] Other Sex Assigned At Sex Assigned At Bir th [facility] Other Start: 08-06-2023 Tobacco smoking status NHIS Never smoked tobacco (finding) [facility] Start: 1980 Sex Assigned At Female F [facility] Evaluation note 08-06-2023 Note [...] hydrate. No treatment necessary, continue to exercise [facility] Other Evaluation note Note Date & Type Note Facility Evaluation note No Information [facility] Other Evaluation note Note Date & Type Note Facility Evaluation note No assessment information availa [facility] Work Phone: History general Narrative - Reported Note Date & Type Note Facility History general Narrative - Reported Type Medical History Foot pain Medical History Menopausal symptom Medical History Hormonal disorder Medical History Palpitations Surgical History C section Surgical History wisdom teeth Surgical History vein ligation Hospitalization History child bit [facility] Other Summary Purpose Family History No Family [...] and content) DATE CREATED AUTHOR 01/21/2019 [facility] DATE CREATED AUTHOR AUTHOR'S ORGANIZ ATION 02/14/2023 [facility] DATE CREATED AUTHOR AUTHOR'S ORGANIZ ATION 05/10/2024 [facility] REASON FOR VISIT (unrecogniz ed [...] BE BASED ON THE PRIMARY CLINICAL RECORDS. [facility] [id number] [facility]. provides no warranty or guarantee of the accuracy or completeness of information in this document.
[2024-05-26 07:03] VITALS: BP 138/92; PULSE 61; TEMP 36.3; O2SAT 100
[2024-05-26] MEDS: LIDOCAINE HCL 2% 400 MG/20 ML MDV 15 ML INJ (07:42)
--- NOTE | 2024-05-26 07:42 | P.ON_ITS ---
Date of procedure: 05/26/24 Pre-op diagnosis: Left sacroiliitis Post-op diagnosis: same as pre-op Procedure: Procedure: Left sacroiliac joint injection Medications: Bupivacaine 0.25% 3cc, kenalog 40mg After informed consent was obtained, the patient was brought to the medical pro cedure unit and placed in the prone position, when a timeout was completed verifying correct patient, procedure, site, positioning, implant, and/or special equipment.? The skin overlying the area was prepped and draped in standard sterile fashion using alcohol.? A 25-gauge needle was inserted towards the left sacroiliac joint under direct fluoroscopic imaging.? Needle tip was advanced until the joint was encountered.? We instilled a total of 2 mL of solution.? Postoperatively needles were removed.? The patient tolerated the procedure well without complication.? The patient reported reduction in pain symptoms postoperatively. Anesthesia: Local Surgeon: Josué Ryan Pathology: none sent Condition: stable Disposition: no change
[2024-05-26] MEDS: BUPIVACAINE HCL 0.25% PF 25 MG/10 ML VIAL 5 ML INJ (07:43)
[2024-05-26] MEDS: IOHEXOL 240 MG/ML - 10 ML VIAL INJ (07:43)
[2024-05-26] MEDS: TRIAMCINOLONE ACETONIDE 40 MG/ML VIAL INJ (07:44)
[2024-05-26 07:57] VITALS: BP 125/72; BP 149/64; PULSE 55; PULSE 59; O2SAT 96
== END 2024-05-26 07:46 | disposition home or self-care (01) ==
PROVIDERS: PCP Internal Medicine; Visit Provider Anesthesiology
DX: M46.1 Sacroiliitis, not elsewhere classified (principal)
CPT/HCPCS: 27096; J0665; J3301; Q9966

== ENCOUNTER 2024-05-28 07:00 | Outpatient (OUT) | payer BC, SELFPAY ==
--- OUTSIDE RECORDS SUMMARY | 2024-05-28 07:03 | XMS_ITS | CCD ---
Author Organization [facility] Care Team Providers Care Supervisor Blood Name Role Phone PHYSICIAN, DEFAULT Admitting Unavailable [...] Facility (1 source) Carisoprodol Drug Allergy [facility] Repository (1 source) Metoprolol Drug Allergy [facility] (3 sources) Carisoprodol Drug Allergy 01-14-20 palpitations [facility] (2 sources) First - Metoprolol *BETA BLOCKERS* Propensity to adverse reactions Comment:[employer] Other (1 source) First - Metoprolol *BETA BLOCK Allergy to substance 08-06-20 Comment:gaudencio archer [facility] Medications Current Medications Medication Drug Class(es) [...] Drug Class(es) Dates Sig (Normalized) Sig (Original) [id number] 200 actuat albuterol 0.09 mg/actuat metered dose [...] 02-08-2023 Dehydroepiandrosterone (DHEA) 415 ng/dL Normal 31-701 [facility] Comment on above: Performed By: #### D JAMEL. #### [facility] [address] [address] [address] Katie Funez ESTRONEon 02-06-2023 Estrone, Serum 55 pg/mL Normal [facility] Comment on above: Result Comment: Rang e Adult (Premenopausal) 27 - 231 Menstrual Cycle (1-10 days) 19 - 149 Menstrual Cycle (11-20 days) 32 - 176 Menstrual Cycle (21-30 days) 37 - 200 Adult (Postmenopausal) 0 - 125 Performed By: #### P DAVINA #### [facility] [address] [address] [address] Katie Funez CORTISOLon 02-04-2023 Cortisol 22.7 ug/dL Critically high 6.2-19.4 [facility] Comment on above: Result Comment: Plefariha frost Note: The reference interval and flagging for this test is for an AM collection. If this is a PM collection please use: Cortisol PM: 2.3-11.9 [facility] also offers: [id number]: Cortisol- AM 007427: Cortisol- PM Performed By: #### C ORTISLes #### [facility] [address] [address] [address] Katie Funez ESTRADIOLon 02-04-2023 Estradiol 142.0 pg/mL Normal [facility] Comment on above: Result Comment: Adul t Female: Follicular phase 12.5 - 166.0 Ovulation phase 85.8 - 498.0 Luteal phase 43.8 - 211.0 Postmenopausal <6.0 - 54.7 1st trimester 215.0 - >4300.0 [employer] ECLIA methodology Performed By: #### E WAYNE #### [facility] [address] [place], [place] [address] Dr. Katie Funez PROGESTERONEon 02-04-2023 Progesterone 7.6 ng/mL Normal [facility] Comment on above: Result Comment: Foll icular phase 0.1 - 0.9 Luteal phase 1.8 - 23.9 Ovulation phase 0.1 - 12.0 First trimester 11.0 - 44.3 Second trimester 25.4 - 83.3 Third trimester 58.7 - 214.0 Postmenopausal 0.0 - 0.1 Performed By: #### P JAYSONES #### [facility] [address] [place] [address] Dr. Katie Funez TESTOSTERONE, TOTALon 2022 Testosterone [Mass/Vol] 33 ng/dL Normal 4-50 [facility] Comment on above: Performed By: #### T ESTTOT #### [facility] [address] [place] [address] Dr. Katie Funez FREE T3on 02-03-2023 FREE T3 2.12 pg/mlL Critically low 2.18-3.98 [facility] Comment on above: Performed By: #### P ROGES #### [facility] [address] [place] [address] Dr. Katie Funez FREE T4on 02-03-2023 Free T4 [Mass/Vol] 0.90 ng/dL Normal 0.76-1.46 [facility] Comment on above: Performed By: #### P ROGES #### [facility] [address] [place] [address] Dr. Katie Funez TSHon 02-03-2023 TSH 2.763 uIU/mL Normal 0.358-3.740 [facility] Comment on above: Performed By: #### P ROGES #### [facility] [address] [place] [address] Dr. Katie Funez FREE T3on 09-25-2022 FREE T3 1.80 pg/mlL Critically low 2.18-3.98 [facility] Comment on above: Performed By: #### F T3 #### [facility] [address] [place] [address] Dr. Katie Funez FREE T4on 09-25-2022 Free T4 [Mass/Vol] 1.05 ng/dL Normal 0.76-1.46 [facility] Comment on above: Performed By: #### P ROGES #### [facility] [address] [place] [address] Dr. Katie Funez TSHon 09-25-2022 TSH 3.688 uIU/mL Normal 0.358-3.740 [facility] Comment on above: Performed By: #### T SH #### [facility] [address] [place] [address] Dr. Katie Funez ESTRONEon 08-17-2022 Estrone, Serum 49 pg/mL Normal [facility] Comment on above: Result Comment: Rang e Adult (Premenopausal) 27 - 231 Menstrual Cycle (1-10 days) 19 - 149 Menstrual Cycle (11-20 days) 32 - 176 Menstrual Cycle (21-30 days) 37 - 200 Adult (Postmenopausal) 0 - 125 Performed By: #### E KOMAL #### [facility] [address] [place] [address] Dr. Katie Funez TESTOSTERONE, FREE,DIRECT, T OTALon 08-14-2022 Free Testosterone(Direct) 0.8 pg/mL Normal 0.0-4.2 [facility] Comment on above: Result Comment: Perf ormed at: BN Performed By: #### V ITAD #### [facility] [address] [place] [address] Dr. Katie Funez Testosterone [Mass/Vol] 27 ng/dL Normal 4-50 [facility] Comment on above: Result Comment: Perf ormed at: CB Performed By: #### V ITAD #### [facility] [address] [place] [address] Dr. Katie uFnez CORTISOLon 08-11-2022 Cortisol 11.5 ug/dL Normal [facility] Comment on above: Result Comment: Diomedes isol AM 6.2 - 19.4 Cortisol PM 2.3 - 11.9 Performed By: #### V ITAD #### [facility] [address] [place] [address] Dr. Katie Funez DHEA-SULFATEon 08-11-2022 DHEA-Sulfate 120.0 ug/dL Normal 57.3-279.2 [facility] Comment on above: Performed By: #### V ITAD #### [facility] [address] [place] [address] Dr. Katie Funez ESTRADIOLon 08-11-2022 Estradiol 104.0 pg/mL Normal [facility] Comment on above: Result Comment: Adul t Female: Follicular phase 12.5 - 166.0 Ovulation phase 85.8 - 498.0 Luteal phase 43.8 - 211.0 Postmenopausal <6.0 - 54.7 1st trimester 215.0 - >4300.0 [employer] ECLIA methodology Performed By: #### E WAYNE #### [facility] [address] [place] [address] Dr. Katie Funez PROGESTERONEon 08-11-2022 Progesterone 9.7 ng/mL Normal [facility] Comment on above: Result Comment: Foll icular phase 0.1 - 0.9 Luteal phase 1.8 - 23.9 Ovulation phase 0.1 - 12.0 First trimester 11.0 - 44.3 Second trimester 25.4 - 83.3 Third trimester 58.7 - 214.0 Postmenopausal 0.0 - 0.1 Performed By: #### V ITAD #### [facility] [address] [place] [address] Dr. Katie Funez SEX HORMONE-BINDING GLOBULIN on 08-11-2022 Sex Horm Binding Glob, Serum 73.1 nmol/L Normal 24.6-122.0 [facility] Comment on above: Performed By: #### V ITAD #### [facility] [address] [place] [address] Dr. Katie Funez CBC AUTO DIFFon 08-10-2022 BASO # 0.0 103/ul Normal 0.0-0.1 [facility] Comment on above: Performed By: #### V ITAD #### [facility] [address] [place] [address] Dr. Katie Funez Basophils/100 WBC (Bld) 0.6 % Normal 0.2-2.0 [facility] Comment on above: Performed By: #### V ITAD #### [facility] [address] [place] [address] Dr. Katie Funez EO # 0.1 103/ul Normal 0.0-0.7 [facility] Comment on above: Performed By: #### V ITAD #### [facility] [address] [place] [address] Dr. Katie Funez Eosinophils/100 WBC (Bld) 1.4 % Normal 0.9-7.0 [facility] Comment on above: Performed By: #### V ITAD #### [facility] [address] [place] [address] Dr. Katie Funez Erythrocyte distribution width (RBC) [Ratio] 13.2 % Normal 11.0-15.0 [facility] Comment on above: Performed By: #### V ITAD #### [facility] [address] [place] [address] Dr. Katie Funez Hematocrit (Bld) [Volume fraction] 41.9 % Normal 36.0-48.0 [facility] Comment on above: Performed By: #### V ITAD #### [facility] [address] [place] [address] Dr. Katie Funez Hemoglobin (Bld) [Mass/Vol] 13.5 g/dL Normal 12.0-16.0 [facility] Comment on above: Performed By: #### V ITAD #### [facility] [address] [place] [address] Dr. Katie Funez IG # 0.01 10e3/ul Normal 0.00-0.03 [facility] Comment on above: Performed By: #### V ITAD #### [facility] [address] [place] [address] Dr. Katie Funez IG % 0.1 % Normal 0.0-0.5 [facility] Comment on above: Performed By: #### V ITAD #### [facility] [address] [place] [address] Dr. Katie Funez LYMPH # 1.8 103/ul Normal 1.2-3.8 [facility] Comment on above: Performed By: #### V ITAD #### [facility] [address] [place] [address] Dr. Katie Funez Lymphocytes/100 WBC (Bld) 24.6 % Normal 20.5-60.0 [facility] Comment on above: Performed By: #### V ITAD #### [facility] [address] [place] [address] Dr. Katie Funez MANUAL DIFF REQ NO Normal [facility] Comment on above: Performed By: #### V ITAD #### [facility] [address] [place] [address] Dr. Katie Funez MCH (RBC) [Entitic mass] 28.2 pg Normal 26.7-34.0 [facility] Comment on above: Performed By: #### V ITAD #### [facility] [address] [place] [address] Dr. Katie Funez MCHC (RBC) [Mass/Vol] 32.2 g/dL Normal 29.9-35.2 [facility] Comment on above: Performed By: #### V ITAD #### [facility] [address] [place] [address] Dr. Katie Funez MCV (RBC) [Entitic vol] 87.5 fL Normal 81.0-99.0 [facility] Comment on above: Performed By: #### V ITAD #### [facility] [address] [place] [address] Dr. Katie Funez MONO # 0.4 103/ul Normal 0.3-0.8 [facility] Comment on above: Performed By: #### V ITAD #### [facility] [address] [place] [address] Dr. Katie Funez Monocytes/100 WBC (Bld) 6.0 % Normal 1.7-12.0 [facility] Comment on above: Performed By: #### V ITAD #### [facility] [address] [place] [address] Dr. Katie Funez NEUT # 4.8 103/ul Normal 1.4-6.5 [facility] Comment on above: Performed By: #### V ITAD #### [facility] [address] [place] [address] Dr. Katie Funez Neutrophils/100 WBC (Bld) 67.3 % Normal 43.0-75.0 [facility] Comment on above: Performed By: #### V ITAD #### [facility] [address] [address] [address] Katie Funez Platelet mean volume (Bld) [Entitic vol] 11.7 fL Normal 9.5-13.5 [facility] Comment on above: Performed By: #### V ITAD #### [facility] [address] [address] [address] Katie Funez PLT 294 103/ul Normal 150-450 [facility] Comment on above: Performed By: #### V ITAD #### [facility] [address] [address] [address] Katie Funez RBC 4.79 106/ul Normal 4.20-5.40 [facility] Comment on above: Performed By: #### V ITAD #### [facility] [address] [place] [address] Dr. Katie Funez WBC 7.2 103/ul Normal 4.0-11.0 [facility] Comment on above: Performed By: #### V ITAD #### [facility] [address] [place] [address] Dr. Katie Funez GLYCOHEMOGLOBIN A1Con 2021 ADA RECOMMENDATION SEE BELOW Normal [facility] Comment on above: Result Comment: ADA RECOMMENDED LIMIT 4.0 - 6.0 ADA THERAPEUTIC TARGET < 7.0 ACTION SUGGESTED > 7.0 Performed By: #### P DAVINA #### [facility] [address] [place] [address] Dr. Katie Funez Glucose [Mass/Vol] 103 mg/dL Normal [facility] Comment on above: Performed By: #### P ROGES #### [facility] [address] [address] [address] Katie Funez HbA1c (Bld) [Mass fraction] 5.2 % Normal 4.5-6.2 [facility] Comment on above: Performed By: #### P ROGES #### [facility] [address] [place] [address] Dr. Katie Funez LIPID PROFILEon 10-27-2022 CHOL-HDL RATIO NORM SEE BELOW Normal [facility] Comment on above: Result Comment: 3.3 - 4.4 LOW RISK 4.4 - 7.1 AVERAGE RISK 7.1 - 11.0 MODERATE RISK >11.0 HIGH RISK Performed By: #### V ITAD #### [facility] [address] [address] [address] Katie Funez Cholesterol [Mass/Vol] 204 mg/dL Critically high <=200 [facility] Comment on above: Performed By: #### V ITAD #### [facility] [address] [address] [address] Katie Funez Cholesterol in HDL [Mass/Vol] 52 mg/dL Normal 40-60 [facility] Comment on above: Performed By: #### V ITAD #### [facility] [address] [address] [address] Katie Funez Cholesterol in LDL [Mass/Vol] 137.2 mg/dL Normal [facility] Comment on above: Performed By: #### V ITAD #### [facility] [address] [address] [address] Katie Funez Cholesterol.total/Choleste rol in HDL [Mass ratio] 3.9 {ratio} Normal [facility] Comment on above: Performed By: #### V ITAD #### [facility] [address] [address] [address] Katie Funez HDL NORMAL > or = 60 mg/dl - LOW CARDIOVASCULAR RISK <40 mg/dl - HIGH CARDIOVASCULAR RISK Normal [facility] Comment on above: Performed By: #### V ITAD #### [facility] [address] [address] [address] Katie Funez LDL CALC NORMAL SEE BELOW Normal [facility] Comment on above: Result Comment: <100 mg/dl OPTIMAL 100 - 129 mg/dl NEAR OR ABOVE OPTIMAL 130 - 159 mg/dl BORDERLINE HIGH 160 - 189 mg/dl HIGH >190 mg/dl VERY HIGH Performed By: #### V ITAD #### [facility] [address] [address] [address] Ktaie Funez Triglyceride [Mass/Vol] 74 mg/dL Normal <=150 [facility] Comment on above: Performed By: #### V ITAD #### [facility] [address] [address] [address] Katie Funez VLDL CALC 14.8 mg/dL Normal [facility] Comment on above: Performed By: #### V ITAD #### [facility] [address] [address] [address] Katie Funez PROF 14(COMP METB)on 022 Albumin [Mass/Vol] 3.8 g/dL Normal 3.4-5.0 [facility] Comment on above: Performed By: #### V ITAD #### [facility] [address] [place] [address] Dr. Katie Funez Albumin/Globulin [Mass ratio] 0.9 {ratio} Normal [facility] Comment on above: Performed By: #### V ITAD #### [facility] [address] [place] [address] Dr. Katie Funez ALP [Catalytic activity/Vol] 77 U/L Normal 46-116 [facility] Comment on above: Performed By: #### V ITAD #### [facility] [address] [place] [address] Dr. Katie Funez ALT [Catalytic activity/Vol] 20 U/L Normal 14-59 [facility] Comment on above: Performed By: #### V ITAD #### [facility] [address] [place] [address] Dr. Katie Funez Anion gap [Moles/Vol] 10.0 mmol/L Normal [facility] Comment on above: Performed By: #### V ITAD #### [facility] [address] [place] [address] Dr. Katie Funez AST [Catalytic activity/Vol] 14 U/L Critically low 15-37 [facility] Comment on above: Performed By: #### V ITAD #### [facility] [address] [place] [address] Dr. Katie Funez Bilirubin [Mass/Vol] 0.8 mg/dL Normal 0.2-1.0 [facility] Comment on above: Performed By: #### V ITAD #### [facility] [address] [place] [address] Dr. Katie Funez Calcium [Mass/Vol] 8.9 mg/dL Normal 8.5-10.1 [facility] Comment on above: Performed By: #### V ITAD #### [facility] [address] [place] [address] Dr. Katie Funez Chloride [Moles/Vol] 101 mmol/L Normal 98-107 [facility] Comment on above: Performed By: #### V ITAD #### [facility] [address] [place] [address] Dr. Katie Funez CO2 [Moles/Vol] 29.9 mmol/L Normal 21.0-32.0 [facility] Comment on above: Performed By: #### V ITAD #### [facility] [address] [place] [address] Dr. Katie Funez Creatinine [Mass/Vol] 0.83 mg/dL Normal 0.55-1.02 [facility] Comment on above: Performed By: #### V ITAD #### [facility] [address] [place] [address] Dr. Katie Funez EGFR-AF HONDURAN >60 Normal >=60 [facility] Comment on above: Performed By: #### V ITAD #### [facility] [address] [place] [address] Dr. Katie Funez EGFR-NON AF HONDURAN >60 Normal >=60 [facility] Comment on above: Performed By: #### V ITAD #### [facility] [address] [place] [address] Dr. Katie Funez Globulin (S) [Mass/Vol] 4.0 g/dL Normal T [facility] Comment on above: Performed By: #### V ITAD #### [facility] [address] [place] [address] Dr. Katie Funez Glucose [Mass/Vol] 91 mg/dL Normal 74-106 [facility] Comment on above: Performed By: #### V ITAD #### [facility] [address] [address] [address] Katie Funez Potassium [Moles/Vol] 3.9 mmol/L Normal 3.5-5.1 [facility] Comment on above: Performed By: #### V ITAD #### [facility] [address] [place] [address] Dr. Katie Funez Protein [Mass/Vol] 7.8 g/dL Normal 6.4-8.2 [facility] Comment on above: Performed By: #### V ITAD #### [facility] [address] [address] [address] Katie Funez Sodium [Moles/Vol] 137 mmol/L Normal 136-145 [facility] Comment on above: Performed By: #### V ITAD #### [facility] [address] [place] [address] Dr. Katie Funez Urea nitrogen [Mass/Vol] 13.0 mg/dL Normal 7.0-18.0 [facility] Comment on above: Performed By: #### V ITAD #### [facility] [address] [place] [address] Dr. Katie Funez Urea nitrogen/Creatinine [Mass ratio] 15.7 mg/mg Normal [facility] Comment on above: Performed By: #### V ITAD #### [facility] [address] [place] [address] Dr. Katie Funez TSHon 08-10-2022 TSH 2.642 uIU/mL Normal 0.358-3.740 [facility] Comment on above: Performed By: #### V ITAD #### [facility] [address] [place] [address] Dr. Katie Funez VITAMIN D 25 OHon 08-10-2022 VIT D 25-OH 23.6 ng/mL Normal [facility] Comment on above: Performed By: #### V ITAD #### [facility] [address] [place] [address] Dr. Katie Funez VIT D RANGES SEE BELOW Normal [facility] Comment on above: Result Comment: <20 ng/mL Vit D deficient 20 - <30 ng/mL Vit D insufficient 30 - 100 ng/mL Vit D sufficient >100 ng/mL Potential Toxicity Performed By: #### V ITAD #### [facility] [address] [address] [address] Katie Funez MG MAMM SCREEN 3D JORDI CADon 05-19-2022 MG MAMM SCREEN 3D JORDI CAD Patient: NAHID BARBOSA Exam Date: 05/19/2022 : 1980 Gender:F Ordering : DR. NOÉ FRANK D.O. Admission #: [id number] Family : Order #: [id number] CLICK HERE TO VIEW EXAM RADIOLOGY REPORT [...] uterine cancer at age 48. LOCATION: [facility] BREAST COMPOSITION: Heterogeneously dense,which may obscure small [...] Quintero M.D. on 05/19/2022 at 12:38 Normal [facility] Vital Signs Date Time Vital Sign Value Performing Clinician Facility 01-14-2024 12:15-040 Body height 170.18 cm [facility] 01-14-2024 12:15-040 Body mass index (BMI) [Ratio] 47.6 kg/m2 [facility] 01-14-2024 12:15040 Body weight 137.89 kg [facility] 01-14-2024 12:15-040 Diastolic blood pressure 76 mm[Hg] [facility] 01-14-2024 12:15-0400 Heart rate 67 /min [facility] 01-14-2024 12:15-0400 Respiratory rate 12 /min [facility] 01-14-2024 12:15-0400 Systolic blood pressure 117 mm[Hg] [facility] 08-06-2023 14:00-0400 Body height 170.18 cm Faizan Ball Other [facility] Other 08-06-2023 14:00-0400 Body mass index (BMI) [Ratio] 47.04 kg/m2 [facility] [employer] Other [facility] Other 08-06-2023 14:00-0400 Body weight 136.26 kg Faizan Ball Other [facility] Other 08-06-2023 14:00-0400 Diastolic blood pressure 81 mm[Hg] Faizan Ball Other [facility] Other 08-06-2023 14:00-0400 Respiratory rate 12 /min Faizan Ball Other [facility] Other 08-06-2023 14:00-0400 Systolic blood pressure 118 mm[Hg] Faizan Ball Other [facility] Other Encounters Encounter Date Encounter Type Care Provider Facility Start: 05-05-2024 End: 05-05-2024 ambulatory Josué Ryan MD Facility:[facility] Start: 04-14-2024 End: 04-14-2024 ambulatory Josué Ryan MD Facility:[facility] Start: 04-07-2024 End: 04-07-2024 ambulatory Josué Ryan MD Facility:[facility] Start: 03-24-2024 End: 03-24-2024 ambulatory Josué Ryan MD Facility:[facility] Start: 01-14-2024 End: 01-14-2024 ambulatory [facility] Work Phone: Start: 01-14-2024 End: 01-14-2024 Patient encounter procedure [facility] Work Phone: Start: 08-06-2023 End: 08-06-2023 ambulatory Faizan Gamez Other [facility] Other Start: 08-06-2023 Encounter for genera l adult medical examination without abnormal findings Faizan Gamez [facility] Start: 08-06-2023 Periodic preventive med est patient 40-64yrs Faizan Gamez [facility] Start: 08-06-2023 Telephone encounter Faizan Gamez [facility] Start: 02-03-2023 End: 02-04-[address] LAURIE PATEL Facility:[facility] Start: 11-30-2022 End: 02-07-[address] FAIZAN GAMEZ Facility:[facility] Start: 09-25-2022 End: 09-26-[address] FAIZAN GAMEZ Facility:[facility] Start: 09-06-[address] FAIZAN GAMEZ Facili ty:[facility] Start: 08-13-2022 Encounter for genera l adult medical examination without abnormal findings DR FAIZAN GAMEZ [facility] Start: 08-10-2022 End: 08-11-[address] FAIZAN GAMEZ Facility:[facility] Start: 08-10-2022 End: 08-11-2022 Encounter for general adult medical examination without abnormal findings DR FAIZAN GAMEZ Facility:[facility] Start: 05-19-2022 End: 05-20-[address] RAHUL QUINTERO Facility:[facility] Start: 01-20-2019 End: 01-21-2019 Patient encounter procedure DEFAULT PHYSICIAN Facility:[facility] Start: 01-01-2019 End: 01-02-2019 Patient encounter procedure DEFAULT PHYSICIAN Facility:[facility] Plan of Treatment Date Care Activity Detail Author XR Lumbar spine Views [facility] Immunizations Immunization Date Immunization Notes Care Provider Fa margarita 07-25-2017 influenza virus vaccine, split virus (incl. purified surface antigen) Faizan Gamez Other [facility] Other 07-25-2017 influenza virus vaccine, unspecified formulation [facility] Payers Date Payer Category Payer Unknown 2022 Unknown [id number] 2019 Unknown [id number] 1980 Unknown [id number] 2.16.8 [id number] 1980 Unknown [id number] 2.16.8 [id number] 1980 Unknown [id number] 2.16.84 [id number] 1980 Unknown [id number] 2.16.84 [id number] 1980 Unknown [id number] 2.16.84 [id number] 1980 Unknown [id number] 2.16.84 [id number] 1980 Unknown [id number] 2.16.84 [id number] 1980 Unknown [id number] 2.16.84 [id number] 1980 Unknown [id number] 2.16. [id number] 1980 Unknown [id number] 2.16. [id number] 1980 Unknown [id number] 2.16. [id number] 1980 Unknown [id number] 2.16. [id number] Social History Date Type Detail Facility Unknown if ever smoked [employer] Other Sex Assigned At Sex Assigned At Bir th [facility] Other Start: 08-06-2023 Tobacco smoking status NHIS Never smoked tobacco (finding) [facility] Start: 1980 Sex Assigned At Female F [facility] Evaluation note 08-06-2023 Note Date & [...] hydrate. No treatment necessary, continue to exercise [employer] Other Evaluation note Note Date & Type Note Facility Evaluation note No Information [facility] Other Evaluation note Note Date & Type Note Facility Evaluation note No assessment information availa [facility] Work Phone: History general Narrative - Reported Note Date & Type Note Facility History general Narrative - Reported Type Medical History Foot pain Medical History Menopausal symptom Medical History Hormonal disorder Medical History Palpitations Surgical History C section Surgical History wisdom teeth Surgical History vein ligation Hospitalization History child bit [employer] Other Summary Purpose Family History No Family [...] and content) DATE CREATED AUTHOR 01/21/2019 [facility] DATE CREATED AUTHOR AUTHOR'S ORGANIZ ATION 02/14/2023 [facility] DATE CREATED AUTHOR AUTHOR'S ORGANIZ ATION 05/10/2024 [facility] REASON FOR VISIT (unrecogniz ed section [...] BE BASED ON THE PRIMARY CLINICAL RECORDS. [facility] [employer] [facility]. provides no warranty or guarantee of the accuracy or completeness of information in this document.
--- NOTE | 2024-05-28 07:05 | MM_ITS ---
Patient Name: MARTHA FINNEY MR#: [id number] : 1980 Exam Date: 05/28/2024 Ordering Doctor: DIOR Peña . RADIOLOGY REPORT PROCEDURE: MM TOMOSYNTHESIS SCREENING BI COMPARISON: MG MAMM SCREEN 3D JORDI CAD, 05/19/2022. MM TOMOSYNTHESIS SCREENING BI, 05/24/2023. INDICATIONS: screening for malignant neoplasm Calculator Name NCI Breast Cancer Risk Assessment Tool 5 Year Breast Cancer Risk 0.90% Lifetime Breast Cancer Risk 11.80% Personal Breast Cancer No Personal Ovarian Cancer No Treatments None Family Cancers Grandmother-maternal with uterine cancer at age ~48. LOCATION: [facility] BREAST COMPOSITION: The breasts are heterogeneously dense,which may obscure small masses. FINDINGS: DIAGNOSTIC CATEGORY 1--NEGATIVE. NO CHANGE FROM COMPARISON ASSESSMENT. Scattered benign-appearing calcifications are present. Scattered benign-appearing lymph nodes are present. RIGHT BREAST: No significant suspicious finding. LEFT BREAST: No significant suspicious finding. RECOMMENDATIONS: ROUTINE MAMMOGRAM AND CLINICAL EVALUATION IN 12 MONTHS. PLEASE NOTE: A NORMAL MAMMOGRAM DOES NOT EXCLUDE THE POSSIBILITY OF BREAST CANCER. A CLINICALLY SUSPICIOUS PALPABLE LUMP SHOULD BE BIOPSIED. Dictated by: Dale Rapp MD on 05/28/2024 at 07:51 Approved by: Dale Rapp MD on 05/28/2024 at 08:01
== END 2024-05-28 07:01 | disposition home or self-care (01) ==
LOC: MAMMO 07:01
PROVIDERS: PCP Internal Medicine; Visit Provider Physician Assistant
DX: Z12.31 Encounter for screening mammogram for malignant neoplasm of breast (principal); Z80.8 Family history of malignant neoplasm of other organs or systems
CPT/HCPCS: 77063; 77067

== ENCOUNTER 2024-06-04 07:50 | Outpatient (OUT) | payer BC, SELFPAY ==
--- OUTSIDE RECORDS SUMMARY | 2024-06-04 07:52 | XMS_ITS | CCD ---
Author Organization [facility] Care Team Providers Care Programming Intern Name Role Phone PHYSICIAN, DEFAULT Admitting Unavailable PHYSICIAN, DEFAULT Attending Unavailable PHYSICIAN, DEFAULT Admitting Unavailable PHYSICIAN, DEFAULT Attending Unavailable WILD, DR RAHUL Merrill Consulting Unavailable BALL, DR SANZ Primary Care Unavailable RINRUTH, NOÉ Admitting Unavailable RINRUHT, NOÉ Attending Unavailable RINRUTH, NOÉ Consulting Unavailable [...] source) Carisoprodol Drug Allergy [facility] (1 source) Metoprolol Drug Allergy [facility] (3 sources) Carisoprodol Drug Allergy 01-14-20 palpitations [facility] (2 sources) First - Metoprolol *BETA BLOCKERS* Propensity to adverse reactions Comment:[employer] Other (1 source) First - Metoprolol *BETA BLOCK Allergy to substance 08-06-20 Comment:gaudencio archer [facility] Medications Current Medications Medication Drug Class(es) [...] Drug Class(es) Dates Sig (Normalized) Sig (Original) [id number] 200 actuat albuterol 0.09 mg/actuat metered dose [...] 02-08-2023 Dehydroepiandrosterone (DHEA) 415 ng/dL Normal 31-701 [facility] Comment on above: Performed By: #### D JAMEL. #### [facility] [address] [address] [address] Katie Funez ESTRONEon 02-06-2023 Estrone, Serum 55 pg/mL Normal [facility] Comment on above: Result Comment: Rang e Adult (Premenopausal) 27 - 231 Menstrual Cycle (1-10 days) 19 - 149 Menstrual Cycle (11-20 days) 32 - 176 Menstrual Cycle (21-30 days) 37 - 200 Adult (Postmenopausal) 0 - 125 Performed By: #### P DAVINA #### [facility] [address] [address] [address] Katie Funez CORTISOLon 02-04-2023 Cortisol 22.7 ug/dL Critically high 6.2-19.4 [facility] Comment on above: Result Comment: Plefariha frost Note: The reference interval and flagging for this test is for an AM collection. If this is a PM collection please use: Cortisol PM: 2.3-11.9 [facility] also offers: [id number]: Cortisol- AM 367764: Cortisol- PM Performed By: #### C ORTISLes #### [facility] [address] [address] [address] Katie Funez ESTRADIOLon 02-04-2023 Estradiol 142.0 pg/mL Normal [facility] Comment on above: Result Comment: Adul t Female: Follicular phase 12.5 - 166.0 Ovulation phase 85.8 - 498.0 Luteal phase 43.8 - 211.0 Postmenopausal <6.0 - 54.7 1st trimester 215.0 - >4300.0 [employer] ECLIA methodology Performed By: #### E WAYNE #### [facility] [address] [place], [place] [address] Dr. Katie Funez PROGESTERONEon 02-04-2023 Progesterone 7.6 ng/mL Normal [facility] Comment on above: Result Comment: Foll icular phase 0.1 - 0.9 Luteal phase 1.8 - 23.9 Ovulation phase 0.1 - 12.0 First trimester 11.0 - 44.3 Second trimester 25.4 - 83.3 Third trimester 58.7 - 214.0 Postmenopausal 0.0 - 0.1 Performed By: #### P JAYSONES #### [facility] [address] [place] [address] Dr. Katie Funez TESTOSTERONE, TOTALon 2022 Testosterone [Mass/Vol] 33 ng/dL Normal 4-50 [facility] Comment on above: Performed By: #### T ESTTOT #### [facility] [address] [place] [address] Dr. Katie Funez FREE T3on 02-03-2023 FREE T3 2.12 pg/mlL Critically low 2.18-3.98 [facility] Comment on above: Performed By: #### P ROGES #### [facility] [address] [place] [address] Dr. Katie Funez FREE T4on 02-03-2023 Free T4 [Mass/Vol] 0.90 ng/dL Normal 0.76-1.46 [facility] Comment on above: Performed By: #### P ROGES #### [facility] [address] [place] [address] Dr. Katie Funez TSHon 02-03-2023 TSH 2.763 uIU/mL Normal 0.358-3.740 [facility] Comment on above: Performed By: #### P ROGES #### [facility] [address] [place] [address] Dr. Katie Funez FREE T3on 09-25-2022 FREE T3 1.80 pg/mlL Critically low 2.18-3.98 [facility] Comment on above: Performed By: #### F T3 #### [facility] [address] [place] [address] Dr. Katie Funez FREE T4on 09-25-2022 Free T4 [Mass/Vol] 1.05 ng/dL Normal 0.76-1.46 [facility] Comment on above: Performed By: #### P ROGES #### [facility] [address] [place] [address] Dr. Katie Funez TSHon 09-25-2022 TSH 3.688 uIU/mL Normal 0.358-3.740 [facility] Comment on above: Performed By: #### T SH #### [facility] [address] [place] [address] Dr. Katie Funez ESTRONEon 08-17-2022 Estrone, Serum 49 pg/mL Normal [facility] Comment on above: Result Comment: Rang e Adult (Premenopausal) 27 - 231 Menstrual Cycle (1-10 days) 19 - 149 Menstrual Cycle (11-20 days) 32 - 176 Menstrual Cycle (21-30 days) 37 - 200 Adult (Postmenopausal) 0 - 125 Performed By: #### E KOMAL #### [facility] [address] [place] [address] Dr. Katie Funez TESTOSTERONE, FREE,DIRECT, T OTALon 08-14-2022 Free Testosterone(Direct) 0.8 pg/mL Normal 0.0-4.2 [facility] Comment on above: Result Comment: Perf ormed at: BN Performed By: #### V ITAD #### [facility] [address] [place] [address] Dr. Katie Funez Testosterone [Mass/Vol] 27 ng/dL Normal 4-50 [facility] [place] [facility] Comment on above: Result Comment: Perf ormed at: CB Performed By: #### V ITAD #### [facility] [address] [place] [address] Dr. Katie Funez CORTISOLon 08-11-2022 Cortisol 11.5 ug/dL Normal [facility] Comment on above: Result Comment: Diomedes isol AM 6.2 - 19.4 Cortisol PM 2.3 - 11.9 Performed By: #### V ITAD #### [facility] [address] [place] [address] Dr. Katie Funez DHEA-SULFATEon 08-11-2022 DHEA-Sulfate 120.0 ug/dL Normal 57.3-279.2 [facility] Comment on above: Performed By: #### V ITAD #### [facility] [address] [place] [address] Dr. Katie Funez ESTRADIOLon 08-11-2022 Estradiol 104.0 pg/mL Normal [facility] Comment on above: Result Comment: Adul t Female: Follicular phase 12.5 - 166.0 Ovulation phase 85.8 - 498.0 Luteal phase 43.8 - 211.0 Postmenopausal <6.0 - 54.7 1st trimester 215.0 - >4300.0 [employer] ECLIA methodology Performed By: #### E WAYNE #### [facility] [address] [place] [address] Dr. Katie Funez PROGESTERONEon 08-11-2022 Progesterone 9.7 ng/mL Normal [facility] Comment on above: Result Comment: Foll icular phase 0.1 - 0.9 Luteal phase 1.8 - 23.9 Ovulation phase 0.1 - 12.0 First trimester 11.0 - 44.3 Second trimester 25.4 - 83.3 Third trimester 58.7 - 214.0 Postmenopausal 0.0 - 0.1 Performed By: #### V ITAD #### [facility] [address] [place] [address] Dr. Katie Funez SEX HORMONE-BINDING GLOBULIN on 08-11-2022 Sex Horm Binding Glob, Serum 73.1 nmol/L Normal 24.6-122.0 [facility] Comment on above: Performed By: #### V ITAD #### [facility] [address] [place] [address] Dr. Katie Funez CBC AUTO DIFFon 08-10-2022 BASO # 0.0 103/ul Normal 0.0-0.1 [facility] Comment on above: Performed By: #### V ITAD #### [facility] [address] [place] [address] Dr. Katie Funez Basophils/100 WBC (Bld) 0.6 % Normal 0.2-2.0 [facility] Comment on above: Performed By: #### V ITAD #### [facility] [address] [place] [address] Dr. Katie Funez EO # 0.1 103/ul Normal 0.0-0.7 [facility] Comment on above: Performed By: #### V ITAD #### [facility] [address] [place] [address] Dr. Katie Funez Eosinophils/100 WBC (Bld) 1.4 % Normal 0.9-7.0 [facility] Comment on above: Performed By: #### V ITAD #### [facility] [address] [place] [address] Dr. Katie Funez Erythrocyte distribution width (RBC) [Ratio] 13.2 % Normal 11.0-15.0 [facility] Comment on above: Performed By: #### V ITAD #### [facility] [address] [place] [address] Dr. Katie Funez Hematocrit (Bld) [Volume fraction] 41.9 % Normal 36.0-48.0 [facility] Comment on above: Performed By: #### V ITAD #### [facility] [address] [place] [address] Dr. Katie Funez Hemoglobin (Bld) [Mass/Vol] 13.5 g/dL Normal 12.0-16.0 [facility] Comment on above: Performed By: #### V ITAD #### [facility] [address] [place] [address] Dr. Katie Funez IG # 0.01 10e3/ul Normal 0.00-0.03 [facility] Comment on above: Performed By: #### V ITAD #### [facility] [address] [place] [address] Dr. Katie Funez IG % 0.1 % Normal 0.0-0.5 [facility] Comment on above: Performed By: #### V ITAD #### [facility] [address] [place] [address] Dr. Katie Funez LYMPH # 1.8 103/ul Normal 1.2-3.8 [facility] Comment on above: Performed By: #### V ITAD #### [facility] [address] [place] [address] Dr. Katie Funez Lymphocytes/100 WBC (Bld) 24.6 % Normal 20.5-60.0 [facility] Comment on above: Performed By: #### V ITAD #### [facility] [address] [place] [address] Dr. Katie Funez MANUAL DIFF REQ NO Normal [facility] Comment on above: Performed By: #### V ITAD #### [facility] [address] [place] [address] Dr. Katie Funez MCH (RBC) [Entitic mass] 28.2 pg Normal 26.7-34.0 [facility] Comment on above: Performed By: #### V ITAD #### [facility] [address] [place] [address] Dr. Katie Funez MCHC (RBC) [Mass/Vol] 32.2 g/dL Normal 29.9-35.2 [facility] Comment on above: Performed By: #### V ITAD #### [facility] [address] [place] [address] Dr. Katie Funez MCV (RBC) [Entitic vol] 87.5 fL Normal 81.0-99.0 [facility] Comment on above: Performed By: #### V ITAD #### [facility] [address] [place] [address] Dr. Katie Funez MONO # 0.4 103/ul Normal 0.3-0.8 [facility] Comment on above: Performed By: #### V ITAD #### [facility] [address] [place] [address] Dr. Katie Funez Monocytes/100 WBC (Bld) 6.0 % Normal 1.7-12.0 [facility] Comment on above: Performed By: #### V ITAD #### [facility] [address] [place] [address] Dr. Katie Funez NEUT # 4.8 103/ul Normal 1.4-6.5 [facility] Comment on above: Performed By: #### V ITAD #### [facility] [address] [place] [address] Dr. Katie Funez Neutrophils/100 WBC (Bld) 67.3 % Normal 43.0-75.0 [facility] Comment on above: Performed By: #### V ITAD #### [facility] [address] [address] [address] Katie Funez Platelet mean volume (Bld) [Entitic vol] 11.7 fL Normal 9.5-13.5 [facility] Comment on above: Performed By: #### V ITAD #### [facility] [address] [address] [address] Katie Funez PLT 294 103/ul Normal 150-450 [facility] Comment on above: Performed By: #### V ITAD #### [facility] [address] [address] [address] Katie Funez RBC 4.79 106/ul Normal 4.20-5.40 [facility] Comment on above: Performed By: #### V ITAD #### [facility] [address] [place] [address] Dr. Katie Funez WBC 7.2 103/ul Normal 4.0-11.0 [facility] Comment on above: Performed By: #### V ITAD #### [facility] [address] [place] [address] Dr. Katie Funez GLYCOHEMOGLOBIN A1Con 2021 ADA RECOMMENDATION SEE BELOW Normal [facility] Comment on above: Result Comment: ADA RECOMMENDED LIMIT 4.0 - 6.0 ADA THERAPEUTIC TARGET < 7.0 ACTION SUGGESTED > 7.0 Performed By: #### P DAVINA #### [facility] [address] [place] [address] Dr. Katie Funez Glucose [Mass/Vol] 103 mg/dL Normal [facility] Comment on above: Performed By: #### P ROGES #### [facility] [address] [address] [address] Katie Funez HbA1c (Bld) [Mass fraction] 5.2 % Normal 4.5-6.2 [facility] Comment on above: Performed By: #### P ROGES #### [facility] [address] [place] [address] Dr. Katie Funez LIPID PROFILEon 10-27-2022 CHOL-HDL RATIO NORM SEE BELOW Normal [facility] Comment on above: Result Comment: 3.3 - 4.4 LOW RISK 4.4 - 7.1 AVERAGE RISK 7.1 - 11.0 MODERATE RISK >11.0 HIGH RISK Performed By: #### V ITAD #### [facility] [address] [address] [address] Katie Funez Cholesterol [Mass/Vol] 204 mg/dL Critically high <=200 [facility] Comment on above: Performed By: #### V ITAD #### [facility] [address] [address] [address] Katie Funez Cholesterol in HDL [Mass/Vol] 52 mg/dL Normal 40-60 [facility] Comment on above: Performed By: #### V ITAD #### [facility] [address] [address] [address] Katie Funez Cholesterol in LDL [Mass/Vol] 137.2 mg/dL Normal [facility] Comment on above: Performed By: #### V ITAD #### [facility] [address] [address] [address] Katie Funez Cholesterol.total/Choleste rol in HDL [Mass ratio] 3.9 {ratio} Normal [facility] Comment on above: Performed By: #### V ITAD #### [facility] [address] [address] [address] Katie Funez HDL NORMAL > or = 60 mg/dl - LOW CARDIOVASCULAR RISK <40 mg/dl - HIGH CARDIOVASCULAR RISK Normal [facility] Comment on above: Performed By: #### V ITAD #### [facility] [address] [address] [address] Katie Funez LDL CALC NORMAL SEE BELOW Normal [facility] Comment on above: Result Comment: <100 mg/dl OPTIMAL 100 - 129 mg/dl NEAR OR ABOVE OPTIMAL 130 - 159 mg/dl BORDERLINE HIGH 160 - 189 mg/dl HIGH >190 mg/dl VERY HIGH Performed By: #### V ITAD #### [facility] [address] [address] [address] Katie Funez Triglyceride [Mass/Vol] 74 mg/dL Normal <=150 [facility] Comment on above: Performed By: #### V ITAD #### [facility] [address] [address] [address] Katie Funez VLDL CALC 14.8 mg/dL Normal [facility] Comment on above: Performed By: #### V ITAD #### [facility] [address] [address] [address] Katie Funez PROF 14(COMP METB)on 022 Albumin [Mass/Vol] 3.8 g/dL Normal 3.4-5.0 [facility] Comment on above: Performed By: #### V ITAD #### [facility] [address] [place] [address] Dr. Katie Funez Albumin/Globulin [Mass ratio] 0.9 {ratio} Normal [facility] Comment on above: Performed By: #### V ITAD #### [facility] [address] [place] [address] Dr. Katie Funez ALP [Catalytic activity/Vol] 77 U/L Normal 46-116 [facility] Comment on above: Performed By: #### V ITAD #### [facility] [address] [place] [address] Dr. Katie Funez ALT [Catalytic activity/Vol] 20 U/L Normal 14-59 [facility] Comment on above: Performed By: #### V ITAD #### [facility] [address] [place] [address] Dr. Katie Funez Anion gap [Moles/Vol] 10.0 mmol/L Normal [facility] Comment on above: Performed By: #### V ITAD #### [facility] [address] [place] [address] Dr. Katie Funez AST [Catalytic activity/Vol] 14 U/L Critically low 15-37 [facility] Comment on above: Performed By: #### V ITAD #### [facility] [address] [place] [address] Dr. Katie Funez Bilirubin [Mass/Vol] 0.8 mg/dL Normal 0.2-1.0 [facility] Comment on above: Performed By: #### V ITAD #### [facility] [address] [place] [address] Dr. Katie Funez Calcium [Mass/Vol] 8.9 mg/dL Normal 8.5-10.1 [facility] Comment on above: Performed By: #### V ITAD #### [facility] [address] [place] [address] Dr. Katie Funez Chloride [Moles/Vol] 101 mmol/L Normal 98-107 [facility] Comment on above: Performed By: #### V ITAD #### [facility] [address] [place] [address] Dr. Katie Funez CO2 [Moles/Vol] 29.9 mmol/L Normal 21.0-32.0 [facility] Comment on above: Performed By: #### V ITAD #### [facility] [address] [place] [address] Dr. Katie Funez Creatinine [Mass/Vol] 0.83 mg/dL Normal 0.55-1.02 [facility] Comment on above: Performed By: #### V ITAD #### [facility] [address] [place] [address] Dr. Katie Funez EGFR-AF [place]ER >60 Normal >=60 [facility] Comment on above: Performed By: #### V ITAD #### [facility] [address] [place] [address] Dr. Katie Funez EGFR-NON AF [place] >60 Normal >=60 [facility] Comment on above: Performed By: #### V ITAD #### [facility] [address] [place] [address] Dr. Katie Funez Globulin (S) [Mass/Vol] 4.0 g/dL Normal T [facility] [place] [facility] Comment on above: Performed By: #### V ITAD #### [facility] [address] [place] [address] Dr. Katie Funez Glucose [Mass/Vol] 91 mg/dL Normal 74-106 [facility] Comment on above: Performed By: #### V ITAD #### [facility] [address] [address] [address] Katie Funez Potassium [Moles/Vol] 3.9 mmol/L Normal 3.5-5.1 [facility] Comment on above: Performed By: #### V ITAD #### [facility] [address] [place] [address] Dr. Katie Funez Protein [Mass/Vol] 7.8 g/dL Normal 6.4-8.2 [facility] Comment on above: Performed By: #### V ITAD #### [facility] [address] [address] [address] Katie Funez Sodium [Moles/Vol] 137 mmol/L Normal 136-145 [facility] Comment on above: Performed By: #### V ITAD #### [facility] [address] [place] [address] Dr. Katie Funez Urea nitrogen [Mass/Vol] 13.0 mg/dL Normal 7.0-18.0 [facility] Comment on above: Performed By: #### V ITAD #### [facility] [address] [place] [address] Dr. Katie Funez Urea nitrogen/Creatinine [Mass ratio] 15.7 mg/mg Normal [facility] Comment on above: Performed By: #### V ITAD #### [facility] [address] [place] [address] Dr. Katie Funez TSHon 08-10-2022 TSH 2.642 uIU/mL Normal 0.358-3.740 [facility] Comment on above: Performed By: #### V ITAD #### [facility] [address] [place] [address] Dr. Katie Funez VITAMIN D 25 OHon 08-10-2022 VIT D 25-OH 23.6 ng/mL Normal [facility] Comment on above: Performed By: #### V ITAD #### [facility] [address] [place] [address] Dr. Katie Funez VIT D RANGES SEE BELOW Normal [facility] Comment on above: Result Comment: <20 ng/mL Vit D deficient 20 - <30 ng/mL Vit D insufficient 30 - 100 ng/mL Vit D sufficient >100 ng/mL Potential Toxicity Performed By: #### V ITAD #### [facility] [address] [address] [address] Katie Funez MG MAMM SCREEN 3D JORDI CADon 05-19-2022 MG MAMM SCREEN 3D JORDI CAD Patient: NAHID BARBOSA Exam Date: 05/19/2022 : 1980 Gender:F Ordering : DR. NOÉ FRANK D.O. Admission #: [id number] Family : Order #: [id number] CLICK HERE TO VIEW EXAM RADIOLOGY REPORT [...] at age 48. LOCATION: [facility] BREAST COMPOSITION: Heterogeneously dense,which may obscure small [...] Quintero M.D. on 05/19/2022 at 12:38 Normal [facility] Vital Signs Date Time Vital Sign Value Performing Clinician Facility 01-14-2024 12:15-040 Body height 170.18 cm [facility] 01-14-2024 12:15-040 Body mass index (BMI) [Ratio] 47.6 kg/m2 [facility] 01-14-2024 12:15040 Body weight 137.89 kg [facility] 01-14-2024 12:15-040 Diastolic blood pressure 76 mm[Hg] [facility] 01-14-2024 12:15-0400 Heart rate 67 /min [facility] 01-14-2024 12:15-0400 Respiratory rate 12 /min [facility] 01-14-2024 12:15-0400 Systolic blood pressure 117 mm[Hg] [facility] 08-06-2023 14:00-0400 Body height 170.18 cm Faizan Ball Other [facility] Other 08-06-2023 14:00-0400 Body mass index (BMI) [Ratio] 47.04 kg/m2 Faizan Bell Boardz Other [facility] Other 08-06-2023 14:00-0400 Body weight 136.26 kg Faizan Ball Other [facility] Other 08-06-2023 14:00-0400 Diastolic blood pressure 81 mm[Hg] Faizan Ball Other [facility] Other 08-06-2023 14:00-0400 Respiratory rate 12 /min Faizan Ball Other [facility] Other 08-06-2023 14:00-0400 Systolic blood pressure 118 mm[Hg] Faizan Ball Other [facility] Other Encounters Encounter Date Encounter Type Care Provider Facility Start: 05-05-2024 End: 05-05-2024 ambulatory Josué Ryan MD [facility] Start: 04-14-2024 End: 04-14-2024 ambulatory Josué Ryan MD Facility:[facility] Start: 04-07-2024 End: 04-07-2024 ambulatory Josué Ryan MD Facility:[facility] Start: 03-24-2024 End: 03-24-2024 ambulatory Josué Ryan MD Facility:[facility] Start: 01-14-2024 End: 01-14-2024 ambulatory [facility] Work Phone: Start: 01-14-2024 End: 01-14-2024 Patient encounter procedure [facility] Work Phone: Start: 08-06-2023 End: 08-06-2023 ambulatory Faizan Gamez Other [facility] Other Start: 08-06-2023 Encounter for genera l adult medical examination without abnormal findings Faizan Gamez [facility] Start: 08-06-2023 Periodic preventive med est patient 40-64yrs Faizan Gamez [facility] Start: 08-06-2023 Telephone encounter Faizan Gamez [facility] Start: 02-03-2023 End: 02-04-[address] LAURIE PATEL Facility:[facility] Start: 11-30-2022 End: 02-07-[address] FAIZAN GAMEZ Facility:[facility] Start: 09-25-2022 End: 09-26-[address] FAIZAN GAMEZ Facility:[facility] Start: 09-06-[address] FAIZAN GAMEZ Facili ty:[facility] Start: 08-13-2022 Encounter for genera l adult medical examination without abnormal findings DR FAIZAN GAMEZ [facility] Start: 08-10-2022 End: 08-11-[address] FAIZAN GAMEZ Facility:[facility] Start: 08-10-2022 End: 08-11-2022 Encounter for general adult medical examination without abnormal findings DR FAIZAN GAMEZ Facility:[facility] Start: 05-19-2022 End: 05-20-[address] RAHUL QUINTERO Facility:[facility] Start: 01-20-2019 End: 01-21-2019 Patient encounter procedure DEFAULT PHYSICIAN Facility:[facility] Start: 01-01-2019 End: 01-02-2019 Patient encounter procedure DEFAULT PHYSICIAN Facility:[facility] Plan of Treatment Date Care Activity Detail Author XR Lumbar spine Views [facility] Immunizations Immunization Date Immunization Notes Care Provider Fa margarita 07-25-2017 influenza virus vaccine, split virus (incl. purified surface antigen) Faizan Gamez Other [facility] Other 07-25-2017 influenza virus vaccine, unspecified formulation [facility] Payers Date Payer Category Payer Unknown 2022 Unknown [id number] 2019 Unknown [id number] 1980 Unknown [id number] 2.16.8 [id number] 1980 Unknown [id number] 2.16.8 40.1.961643.3.579.2.647 1980 Unknown [id number] 2.16.84 0.1.415869.3.579.2.593 1980 Unknown [id number] 2.16.84 0.1.504285.3.579.2.593 1980 Unknown [id number] 2.16.84 0.1.708118.3.579.2.593 1980 Unknown [id number] 2.16.84 0.1.653844.3.579.2.593 1980 Unknown [id number] 2.16.84 0.1.154544.3.579.2.593 1980 Unknown [id number] 2.16.84 0.1.857440.3.579.2.593 1980 Unknown [id number] 2.16. 840.1.662119.3.579.2.196 1980 Unknown [id number] 2.16. 840.1.911091.3.579.2.196 1980 Unknown [id number] 2.16. 840.1.355796.3.579.2.196 1980 Unknown [id number] 2.16. 840.1.017983.3.579.2.196 Social History Date Type Detail Facility Unknown if ever smoked [facility] Other Sex Assigned At Sex Assigned At Bir th [facility] Other Start: 08-06-2023 Tobacco smoking status NHIS Never smoked tobacco (finding) [facility] Start: 1980 Sex Assigned At Female F [facility] Evaluation note 08-06-2023 Note Date & Type [...] hydrate. No treatment necessary, continue to exercise [facility] Other Evaluation note Note Date & Type Note Facility Evaluation note No Information [employer] Other Evaluation note Note Date & Type Note Facility Evaluation note No assessment information availa [facility] Work Phone: History general Narrative - Reported Note Date & Type Note Facility History general Narrative - Reported Type Medical History Foot pain Medical History Menopausal symptom Medical History Hormonal disorder Medical History Palpitations Surgical History C section Surgical History wisdom teeth Surgical History vein ligation Hospitalization History child bit [facility] Other Summary Purpose Family History No Family [...] and content) DATE CREATED AUTHOR 01/21/2019 [facility] DATE CREATED AUTHOR AUTHOR'S ORGANIZ ATION 02/14/2023 [facility] DATE CREATED AUTHOR AUTHOR'S ORGANIZ ATION 05/10/2024 [facility] REASON FOR VISIT (unrecogniz ed [...] BE BASED ON THE PRIMARY CLINICAL RECORDS. [facility] [employer] [facility]. provides no warranty or guarantee of the accuracy or completeness of information in this document.
--- NOTE | 2024-06-04 08:07 | P.CN_ITS ---
Consult Note: HPI Data of Consult Patient: known to practice within the last 3 years Requesting Physician: Hilary Fernandez NP Primary Care Provider: Faizan Gay, DO Consult Narrative Reason for consult: low back, left leg pain Narrative: 43yof who presents for assessment. continues to have radiating pain down left leg. 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 has continued in her various conservative measures, including cranio-sacral therapy and provider directed home exercises for >6 weeks, without lasting benefit. uses otc meds as needed. denies adverse med side effects. Recently underwent left L5-S1 S1-S1 TFESI x2 with >50% improvement ongoing in radicular pain and left SIJ injection providing >50% improvement relief ongoing. Continues to utilize prn tylenol and aleve with benefit, noting improvement in ability to sleep, stand longer, sit for longer periods of time. cc:: CC: Hilary Fernandez NP Review of Systems ROS Status of ROS 10 or more systems reviewed and unremark able except as noted in history and below Musculoskeletal Reports: back pain and joint pain PFSH PFS Medical History (Updated 06/04/24 @ 08:18 by Hilary Fernandez NP) Osteoarthritis ?M19.90 - Unspecified osteoarthritis, unspecified site (ICD-10) Hypothyroid ?E03.9 - Hypothyroidism, unspecified (ICD-10) Palpitations ?R00.2 - Palpitations (ICD-10) Surgical History History of oral surgery ?Z98.890 - Other specified postprocedural states (ICD-10) H/O section ?Z98.891 - History of uterine scar from previous surgery (ICD-10) History of foot surgery ?Z98.890 - Other specified postprocedural states (ICD-10) Meds Home Medications and Allergies Home Medications ?Medication ?Instructions ?Recorded ?Confirmed ?Type acetaminophen 500 mg tablet 1,000 mg PO BID PRN pain 03/24/24 05/26/24 History (Acetaminophen Extra Strength) ibuprofen 600 mg tablet (IBU) 600 mg PO Q12H 03/24/24 05/26/24 History multivitamin (Daily Multi-Vitamin 1 tab PO DAILY 03/24/24 05/26/24 History tablet) testosterone 1 mg topical DAILY 03/24/24 05/26/24 History vitamin E 670 mg (1,000 unit) 670 mg PO DAILY 03/24/24 05/26/24 History capsule progest compound QDAY 04/14/24 History triidothyrone 05/05/24 History Allergies Allergy/AdvReac Type Severity Reaction Status Date / Time carisoprodol [From [facility]] Allergy tachycardia Verified 05/26/24 07:06 metoprolol Allergy bradycardia Verified 05/26/24 07:06 Exam Constitutional Documenting provider has reviewed patient's vital signs: yes Common normals: no apparent distress, oriented x3, healthy appearing, alert and well nourished General appearance: cooperative HENMT Common normals: normocephalic, hearing grossly normal bilaterally and moist oral mucous membranes Head and scalp: normocephalic Eye Common normals: PERRL Pupil: PERRL Neck & C-Spine Common normals: full ROM General: normal visual inspection Chest Common normals: inspection of chest normal Respiratory Common normals: normal respiratory effort, no retractions and no use of accessory muscles Back & Pelvis Lumbar spine/lower back: ROM limited, pain with ROM, paraspinal muscle tenderness and straight leg raise negative bilaterally Sacroiliac joints: SI joints normal Other: pain over L4-S1 facets, bilateral facet loading positive left >right sensation intact BLE strength 5/5 in BLE Neuro Common normals: oriented x3, CN's II-XII intact bilaterally, moves all extremities, no focal motor deficits, no sensory deficits noted and deep tendon reflexes 2+ bilaterally Sensorium/orientation: alert Motor exam: strength 5/5 throughout and no movement abnormalities noted Psych Common normals: mental status grossly normal, thought process normal, cooperative, affect normal, speech normal and activity/motor behavior normal Speech: normal speech Thought process: normal thought process Results Additional Findings Additional findings: If on a controlled substance or opioids, I have checked an [place]AR[place] report on this patient and there are no aberrancies noted in the prescribing history.??If on a controlled substance or opioid a drug screen was completed and reviewed within the last year, and if there has not been a drug screen completed we ordered one today to monitor higher risk, state monitored pain medication use. As part of providing excellent, safe, comprehensive care, the following was completed at our patient's visit: 1. A medication reconciliation and review to ensure accurate knowledge of current/active medications, including asking our patients to inform us about any [id number] medications or herbal remedies/nutritional supplements/alternative remedies. 2. A review to specifically ensure our patients have had annual screening for screening for depression, screening for tobacco use, and screening for unhealthy alcohol use. For concerning screenings had a discussion with the patient, provided patient education, and recommended follow-up with primary care provider when appropriate. If patient noted with a risk of falling, they received education on strength, gait, and balance training to prevent future risk of falling. Assessment and Plan Assessment and Plan (1) Lumbar spondylosis: Assessment and Plan: The patient has had over 3 months of moderate to severe low back pain with functional impairment and inadequate response to conservative care including NSAIDS (unless there are contraindication such as concurrent blood thinners), multiple oral or topical pain medications, and home exercise program/physical therapy.? Patient has completed >6 weeks of guided home exercise program and/or formal physical therapy program without relief of their symptoms.? I have reviewed the imaging of the lumbar spine and no red flags were identified.? The Oswestry Disability Index was completed, and the patient scored a 29%.? The patient noted the following:?? moderate to severe pain, pain with sitting for more than 1 hour, pain with standing, interrupted sleep, pain with social life and travel We discussed the risks and benefits of the procedure with the patient, and we are NOT planning on using sedation as outlined in the guidelines from Medicare unless there is a documented reason that sedation would be strongly recommended.?? The procedure will be completed with fluoroscopic guidance.? (2) Sacroiliitis: Assessment and Plan: physical exam improved significantly, greater than 50% improvement from left SIJ injection ongoing (3) Lumbar disc displacement without myelopathy: Assessment and Plan: lumbar radiculopathy resolved (4) Lumbar stenosis with neurogenic claudication: (5) Osteoarthritis: Plan stop OTC nsaids, start mobic 7.5mg BID PRN pain. risks vs benefits and potential side effects reviewed bilateral L4-5 L5-S1 MBB x2 working towards RFA continue PRN tylenol f/u after each injection
== END 2024-06-04 07:51 | disposition home or self-care (01) ==
LOC: PM 07:50
PROVIDERS: PCP Internal Medicine; Visit Provider Nurse Practitioner
DX: M47.816 Spondylosis without myelopathy or radiculopathy, lumbar region (principal); M46.1 Sacroiliitis, not elsewhere classified; M51.26 Other intervertebral disc displacement, lumbar region; M48.062 Spinal stenosis, lumbar region with neurogenic claudication; M19.90 Unspecified osteoarthritis, unspecified site
CPT/HCPCS: G0463

== ENCOUNTER 2024-06-09 06:45 | Day surgery (SDC) | payer BC, SELFPAY ==
--- OUTSIDE RECORDS SUMMARY | 2024-06-09 06:47 | XMS_ITS | CCD ---
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 Name Role Phone PHYSICIAN, DEFAULT Admitting Unavailable [...] Facility (1 source) Carisoprodol Drug Allergy [facility] (1 source) Metoprolol Drug Allergy [facility] (3 sources) Carisoprodol Drug Allergy 01-14-20 palpitations [facility] (2 sources) First - Metoprolol *BETA BLOCKERS* Propensity to adverse reactions Comment:eblizz Other (1 source) First - Metoprolol *BETA BLOCK Allergy to substance 08-06-20 Comment:gaudencio archer [facility] Medications Current Medications Medication Drug Class(es) Dates [...] Drug Class(es) Dates Sig (Normalized) Sig (Original) [id number] actuat albuterol 0.09 mg/actuat metered dose [...] (DHEA) 415 ng/dL Normal 31-701 [facility] Comment on above: Performed By: #### D JAMEL. #### [facility] [address] [address] [address] Katie Funez ESTRONEon 02-06-2023 Estrone, Serum 55 pg/mL Normal [facility] Comment on above: Result Comment: Rang e Adult (Premenopausal) 27 - 231 Menstrual Cycle (1-10 days) 19 - 149 Menstrual Cycle (11-20 days) 32 - 176 Menstrual Cycle (21-30 days) 37 - 200 Adult (Postmenopausal) 0 - 125 Performed By: #### P DAVINA #### [facility] [address] [address] [address] Katie Funez CORTISOLon 02-04-2023 Cortisol 22.7 ug/dL Critically high 6.2-19.4 [facility] Comment on above: Result Comment: Plefariha frost Note: The reference interval and flagging for this test is for an AM collection. If this is a PM collection please use: Cortisol PM: 2.3-11.9 [facility] also offers: [id number]: Cortisol- AM 621353: Cortisol- PM Performed By: #### C ORTISLes #### [facility] [address] [address] [address] Katie Funez ESTRADIOLon 02-04-2023 Estradiol 142.0 pg/mL Normal [facility] Comment on above: Result Comment: Adul t Female: Follicular phase 12.5 - 166.0 Ovulation phase 85.8 - 498.0 Luteal phase 43.8 - 211.0 Postmenopausal <6.0 - 54.7 1st trimester 215.0 - >4300.0 Jeferson ECLIA methodology Performed By: #### E WAYNE #### [facility] [address], [place] [address] Dr. Katie Funez PROGESTERONEon 02-04-2023 Progesterone 7.6 ng/mL Normal [facility] Comment on above: Result Comment: Foll icular phase 0.1 - 0.9 Luteal phase 1.8 - 23.9 Ovulation phase 0.1 - 12.0 First trimester 11.0 - 44.3 Second trimester 25.4 - 83.3 Third trimester 58.7 - 214.0 Postmenopausal 0.0 - 0.1 Performed By: #### P JAYSONES #### [facility] [address] [place] [address] Dr. Katie Funez TESTOSTERONE, TOTALon 2022 Testosterone [Mass/Vol] 33 ng/dL Normal 4-50 [facility] Comment on above: Performed By: #### T ESTTOT #### [facility] [address] [place] [address] Dr. Katie Funez FREE T3on 02-03-2023 FREE T3 2.12 pg/mlL Critically low 2.18-3.98 [facility] Comment on above: Performed By: #### P ROGES #### [facility] [address] [place] [address] Dr. Katie Funez FREE T4on 02-03-2023 Free T4 [Mass/Vol] 0.90 ng/dL Normal 0.76-1.46 [facility] Comment on above: Performed By: #### P ROGES #### [facility] [address] [place] [address] Dr. Katie Funez TSHon 02-03-2023 TSH 2.763 uIU/mL Normal 0.358-3.740 [facility] Comment on above: Performed By: #### P ROGES #### [facility] [address] [place] [address] Dr. Katie Funez FREE T3on 09-25-2022 FREE T3 1.80 pg/mlL Critically low 2.18-3.98 [facility] Comment on above: Performed By: #### F T3 #### [facility] [address] [place] [address] Dr. Katie Funez FREE T4on 09-25-2022 Free T4 [Mass/Vol] 1.05 ng/dL Normal 0.76-1.46 [facility] Comment on above: Performed By: #### P ROGES #### [facility] [address] [place] [address] Dr. Katie Funez TSHon 09-25-2022 TSH 3.688 uIU/mL Normal 0.358-3.740 [facility] Comment on above: Performed By: #### T SH #### [facility] [address] [place] [address] Dr. Katie Funez ESTRONEon 08-17-2022 Estrone, Serum 49 pg/mL Normal [facility] Comment on above: Result Comment: Rang e Adult (Premenopausal) 27 - 231 Menstrual Cycle (1-10 days) 19 - 149 Menstrual Cycle (11-20 days) 32 - 176 Menstrual Cycle (21-30 days) 37 - 200 Adult (Postmenopausal) 0 - 125 Performed By: #### E KOMAL #### [facility] [address] [place] [address] Dr. Katie Funez TESTOSTERONE, FREE,DIRECT, T OTALon 08-14-2022 Free Testosterone(Direct) 0.8 pg/mL Normal 0.0-4.2 [facility] Comment on above: Result Comment: Perf ormed at: BN Performed By: #### V ITAD #### [facility] [address] [place] [address] Dr. Katie Funez Testosterone [Mass/Vol] 27 ng/dL Normal 4-50 [facility] Comment on above: Result Comment: Perf ormed at: CB Performed By: #### V ITAD #### [facility] [address] [place] [address] Dr. Katie Funez CORTISOLon 08-11-2022 Cortisol 11.5 ug/dL Normal [facility] Comment on above: Result Comment: Diomedes isol AM 6.2 - 19.4 Cortisol PM 2.3 - 11.9 Performed By: #### V ITAD #### [facility] [address] [place] [address] Dr. Katie Funez DHEA-SULFATEon 08-11-2022 DHEA-Sulfate 120.0 ug/dL Normal 57.3-279.2 [facility] Comment on above: Performed By: #### V ITAD #### [facility] [address] [place] [address] Dr. Katie Funez ESTRADIOLon 08-11-2022 Estradiol 104.0 pg/mL Normal [facility] Comment on above: Result Comment: Adul t Female: Follicular phase 12.5 - 166.0 Ovulation phase 85.8 - 498.0 Luteal phase 43.8 - 211.0 Postmenopausal <6.0 - 54.7 1st trimester 215.0 - >4300.0 Jeferson ECLIA methodology Performed By: #### E WAYNE #### [facility] [address] [place] [address] Dr. Katie Funez PROGESTERONEon 08-11-2022 Progesterone 9.7 ng/mL Normal [facility] Comment on above: Result Comment: Foll icular phase 0.1 - 0.9 Luteal phase 1.8 - 23.9 Ovulation phase 0.1 - 12.0 First trimester 11.0 - 44.3 Second trimester 25.4 - 83.3 Third trimester 58.7 - 214.0 Postmenopausal 0.0 - 0.1 Performed By: #### V ITAD #### [facility] [address] [place] [address] Dr. Katie Funez SEX HORMONE-BINDING GLOBULIN on 08-11-2022 Sex Horm Binding Glob, Serum 73.1 nmol/L Normal 24.6-122.0 [facility] Comment on above: Performed By: #### V ITAD #### [facility] [address] [place] [address] Dr. Katie Funez CBC AUTO DIFFon 08-10-2022 BASO # 0.0 103/ul Normal 0.0-0.1 [facility] Comment on above: Performed By: #### V ITAD #### [facility] [address] [place] [address] Dr. Katie Funez Basophils/100 WBC (Bld) 0.6 % Normal 0.2-2.0 [facility] Comment on above: Performed By: #### V ITAD #### [facility] [address] [place] [address] Dr. Katie Funez EO # 0.1 103/ul Normal 0.0-0.7 [facility] Comment on above: Performed By: #### V ITAD #### [facility] [address] [place] [address] Dr. Katie Funez Eosinophils/100 WBC (Bld) 1.4 % Normal 0.9-7.0 [facility] Comment on above: Performed By: #### V ITAD #### [facility] [address] [place] [address] Dr. Katie Funez Erythrocyte distribution width (RBC) [Ratio] 13.2 % Normal 11.0-15.0 [facility] Comment on above: Performed By: #### V ITAD #### [facility] [address] [place] [address] Dr. Katie Funez Hematocrit (Bld) [Volume fraction] 41.9 % Normal 36.0-48.0 [facility] Comment on above: Performed By: #### V ITAD #### [facility] [address] [place] [address] Dr. Katie Funez Hemoglobin (Bld) [Mass/Vol] 13.5 g/dL Normal 12.0-16.0 [facility] Comment on above: Performed By: #### V ITAD #### [facility] [address] [place] [address] Dr. Katie Funez IG # 0.01 10e3/ul Normal 0.00-0.03 [facility] Comment on above: Performed By: #### V ITAD #### [facility] [address] [place] [address] Dr. Katie Funez IG % 0.1 % Normal 0.0-0.5 [facility] Comment on above: Performed By: #### V ITAD #### [facility] [address] [place] [address] Dr. Katie Funez LYMPH # 1.8 103/ul Normal 1.2-3.8 [facility] Comment on above: Performed By: #### V ITAD #### [facility] [address] [place] [address] Dr. Katie Funez Lymphocytes/100 WBC (Bld) 24.6 % Normal 20.5-60.0 [facility] Comment on above: Performed By: #### V ITAD #### [facility] [address] [place] [address] Dr. Katie Funez MANUAL DIFF REQ NO Normal [facility] Comment on above: Performed By: #### V ITAD #### [facility] [address] [place] [address] Dr. Katie Funez MCH (RBC) [Entitic mass] 28.2 pg Normal 26.7-34.0 [facility] Comment on above: Performed By: #### V ITAD #### [facility] [address] [place] [address] Dr. Katie Funez MCHC (RBC) [Mass/Vol] 32.2 g/dL Normal 29.9-35.2 [facility] Comment on above: Performed By: #### V ITAD #### [facility] [address] [place] [address] Dr. Katie Funez MCV (RBC) [Entitic vol] 87.5 fL Normal 81.0-99.0 [facility] Comment on above: Performed By: #### V ITAD #### [facility] [address] [place] [address] Dr. Katie Funez MONO # 0.4 103/ul Normal 0.3-0.8 [facility] Comment on above: Performed By: #### V ITAD #### [facility] [address] [place] [address] Dr. Katie Funez Monocytes/100 WBC (Bld) 6.0 % Normal 1.7-12.0 [facility] Comment on above: Performed By: #### V ITAD #### [facility] [address] [place] [address] Dr. Katie Funez NEUT # 4.8 103/ul Normal 1.4-6.5 [facility] Comment on above: Performed By: #### V ITAD #### [facility] [address] [place] [address] Dr. Katie Funez Neutrophils/100 WBC (Bld) 67.3 % Normal 43.0-75.0 [facility] Comment on above: Performed By: #### V ITAD #### [facility] [address] [address] [address] Katie Funez Platelet mean volume (Bld) [Entitic vol] 11.7 fL Normal 9.5-13.5 [facility] Comment on above: Performed By: #### V ITAD #### [facility] [address] [address] [address] Katie Funez PLT 294 103/ul Normal 150-450 [facility] Comment on above: Performed By: #### V ITAD #### [facility] [address] [address] [address] Katie Funez RBC 4.79 106/ul Normal 4.20-5.40 [facility] Comment on above: Performed By: #### V ITAD #### [facility] [address] [place] [address] Dr. Katie Funez WBC 7.2 103/ul Normal 4.0-11.0 [facility] Comment on above: Performed By: #### V ITAD #### [facility] [address] [place] [address] Dr. Katie Funez GLYCOHEMOGLOBIN A1Con 2021 ADA RECOMMENDATION SEE BELOW Normal [facility] Comment on above: Result Comment: ADA RECOMMENDED LIMIT 4.0 - 6.0 ADA THERAPEUTIC TARGET < 7.0 ACTION SUGGESTED > 7.0 Performed By: #### P DAVINA #### [facility] [address] [place] [address] Dr. Katie Funez Glucose [Mass/Vol] 103 mg/dL Normal [facility] Comment on above: Performed By: #### P ROGES #### [facility] [address] [address] [address] Katie Funez HbA1c (Bld) [Mass fraction] 5.2 % Normal 4.5-6.2 [facility] Comment on above: Performed By: #### P ROGES #### [facility] [address] [place] [address] Dr. Katie Funez LIPID PROFILEon 10-27-2022 CHOL-HDL RATIO NORM SEE BELOW Normal [facility] Comment on above: Result Comment: 3.3 - 4.4 LOW RISK 4.4 - 7.1 AVERAGE RISK 7.1 - 11.0 MODERATE RISK >11.0 HIGH RISK Performed By: #### V ITAD #### [facility] [address] [address] [address] Katie Funez Cholesterol [Mass/Vol] 204 mg/dL Critically high <=200 [facility] Comment on above: Performed By: #### V ITAD #### [facility] [address] [address] [address] Katie Funez Cholesterol in HDL [Mass/Vol] 52 mg/dL Normal 40-60 [facility] Comment on above: Performed By: #### V ITAD #### [facility] [address] [address] [address] Katie Funez Cholesterol in LDL [Mass/Vol] 137.2 mg/dL Normal [facility] Comment on above: Performed By: #### V ITAD #### [facility] [address] [address] [address] Katie Funez Cholesterol.total/Choleste rol in HDL [Mass ratio] 3.9 {ratio} Normal [facility] Comment on above: Performed By: #### V ITAD #### [facility] [address] [address] [address] Katie Funez HDL NORMAL > or = 60 mg/dl - LOW CARDIOVASCULAR RISK <40 mg/dl - HIGH CARDIOVASCULAR RISK Normal [facility] Comment on above: Performed By: #### V ITAD #### [facility] [address] [address] [address] Katie Funez LDL CALC NORMAL SEE BELOW Normal [facility] Comment on above: Result Comment: <100 mg/dl OPTIMAL 100 - 129 mg/dl NEAR OR ABOVE OPTIMAL 130 - 159 mg/dl BORDERLINE HIGH 160 - 189 mg/dl HIGH >190 mg/dl VERY HIGH Performed By: #### V ITAD #### [facility] [address] [address] [address] Katie Funez Triglyceride [Mass/Vol] 74 mg/dL Normal <=150 [facility] Comment on above: Performed By: #### V ITAD #### [facility] [address] [address] [address] Katie Funez VLDL CALC 14.8 mg/dL Normal [facility] Comment on above: Performed By: #### V ITAD #### [facility] [address] [address] [address] Katie Funez PROF 14(COMP METB)on 022 Albumin [Mass/Vol] 3.8 g/dL Normal 3.4-5.0 [facility] Comment on above: Performed By: #### V ITAD #### [facility] [address] [place] [address] Dr. Katie Funez Albumin/Globulin [Mass ratio] 0.9 {ratio} Normal [facility] Comment on above: Performed By: #### V ITAD #### [facility] [address] [place] [address] Dr. Katie Funez ALP [Catalytic activity/Vol] 77 U/L Normal 46-116 [facility] Comment on above: Performed By: #### V ITAD #### [facility] [address] [place] [address] Dr. Katie Funez ALT [Catalytic activity/Vol] 20 U/L Normal 14-59 [facility] Comment on above: Performed By: #### V ITAD #### [facility] [address] [place] [address] Dr. Katie Funez Anion gap [Moles/Vol] 10.0 mmol/L Normal [facility] Comment on above: Performed By: #### V ITAD #### [facility] [address] [place] [address] Dr. Katie Funez AST [Catalytic activity/Vol] 14 U/L Critically low 15-37 [facility] Comment on above: Performed By: #### V ITAD #### [facility] [address] [place] [address] Dr. Katie Funez Bilirubin [Mass/Vol] 0.8 mg/dL Normal 0.2-1.0 [facility] Comment on above: Performed By: #### V ITAD #### [facility] [address] [place] [address] Dr. Katie Funez Calcium [Mass/Vol] 8.9 mg/dL Normal 8.5-10.1 [facility] Comment on above: Performed By: #### V ITAD #### [facility] [address] [place] [address] Dr. Katie Funez Chloride [Moles/Vol] 101 mmol/L Normal 98-107 [facility] Comment on above: Performed By: #### V ITAD #### [facility] [address] [place] [address] Dr. Katie Funez CO2 [Moles/Vol] 29.9 mmol/L Normal 21.0-32.0 [facility] Comment on above: Performed By: #### V ITAD #### [facility] [address] [place] [address] Dr. Katie Funez Creatinine [Mass/Vol] 0.83 mg/dL Normal 0.55-1.02 [facility] Comment on above: Performed By: #### V ITAD #### [facility] [address] [place] [address] Dr. Katie Funez EGFR-AF MAURITANIAN >60 Normal >=60 [facility] Comment on above: Performed By: #### V ITAD #### [facility] [address] [place] [address] Dr. Katie Funez EGFR-NON AF MAURITANIAN >60 Normal >=60 [facility] Comment on above: Performed By: #### V ITAD #### [facility] [address] [place] [address] Dr. Katie Funez Globulin (S) [Mass/Vol] 4.0 g/dL Normal [facility] Comment on above: Performed By: #### V ITAD #### [facility] [address] [place] [address] Dr. Katie Funez Glucose [Mass/Vol] 91 mg/dL Normal 74-106 [facility] Comment on above: Performed By: #### V ITAD #### [facility] [address] [address] [address] Katie Funez Potassium [Moles/Vol] 3.9 mmol/L Normal 3.5-5.1 [facility] Comment on above: Performed By: #### V ITAD #### [facility] [address] [place] [address] Dr. Katie Funez Protein [Mass/Vol] 7.8 g/dL Normal 6.4-8.2 [facility] Comment on above: Performed By: #### V ITAD #### [facility] [address] [address] [address] Katie Funez Sodium [Moles/Vol] 137 mmol/L Normal 136-145 [facility] Comment on above: Performed By: #### V ITAD #### [facility] [address] [place] [address] Dr. Katie Funez Urea nitrogen [Mass/Vol] 13.0 mg/dL Normal 7.0-18.0 [facility] Comment on above: Performed By: #### V ITAD #### [facility] [address] [place] [address] Dr. Katie Funez Urea nitrogen/Creatinine [Mass ratio] 15.7 mg/mg Normal [facility] Comment on above: Performed By: #### V ITAD #### [facility] [address] [place] [address] Dr. Katie Funez TSHon 08-10-2022 TSH 2.642 uIU/mL Normal 0.358-3.740 [facility] Comment on above: Performed By: #### V ITAD #### [facility] [address] [place] [address] Dr. Katie Funez VITAMIN D 25 OHon 08-10-2022 VIT D 25-OH 23.6 ng/mL Normal [facility] Comment on above: Performed By: #### V ITAD #### [facility] [address] [place] [address] Dr. Katie Funez VIT D RANGES SEE BELOW Normal [facility] Comment on above: Result Comment: <20 ng/mL Vit D deficient 20 - <30 ng/mL Vit D insufficient 30 - 100 ng/mL Vit D sufficient >100 ng/mL Potential Toxicity Performed By: #### V ITAD #### [facility] [address] [address] [address] Katie Funez MG MAMM SCREEN 3D JORDI CADon 05-19-2022 MG MAMM SCREEN 3D JORDI CAD Patient: NAHID BARBOSA Exam Date: 05/19/2022 : 1980 Gender:F Ordering : DR. NOÉ FRANK D.O. Admission #: [id number] Family : Order #: [id number] CLICK HERE TO VIEW EXAM RADIOLOGY REPORT [...] uterine cancer at age 48. LOCATION: [facility] BREAST COMPOSITION: Heterogeneously dense,which may [...] Quintero M.D. on 05/19/2022 at 12:38 Normal [facility] Vital Signs Date Time Vital Sign Value Performing Clinician Facility 01-14-2024 12:15-040 Body height 170.18 cm [facility] 01-14-2024 12:15-040 Body mass index (BMI) [Ratio] 47.6 kg/m2 [facility] 01-14-2024 12:15040 Body weight 137.89 kg [facility] 01-14-2024 12:15-040 Diastolic blood pressure 76 mm[Hg] [facility] 01-14-2024 12:15-0400 Heart rate 67 /min [facility] 01-14-2024 12:15-0400 Respiratory rate 12 /min [facility] 01-14-2024 12:15-0400 Systolic blood pressure 117 mm[Hg] [facility] 08-06-2023 14:00-0400 Body height 170.18 cm Faizan Ball Other [facility] Other 08-06-2023 14:00-0400 Body mass index (BMI) [Ratio] 47.04 kg/m2 Faizan [employer] Other [facility] Other 08-06-2023 14:00-0400 Body weight 136.26 kg Faizan Ball Other [facility] Other 08-06-2023 14:00-0400 Diastolic blood pressure 81 mm[Hg] Faizan Ball Other [facility] Other 08-06-2023 14:00-0400 Respiratory rate 12 /min Faizan Ball Other [facility] Other 08-06-2023 14:00-0400 Systolic blood pressure 118 mm[Hg] Faizan Ball Other [facility] Other Encounters Encounter Date Encounter Type Care Provider Facility Start: 05-05-2024 End: 05-05-2024 ambulatory Josué Ryan MD Facility:[facility] Start: 04-14-2024 End: 04-14-2024 ambulatory Josué Ryan MD Facility:[facility] Start: 04-07-2024 End: 04-07-2024 ambulatory Josué Ryan MD Facility:[facility] Start: 03-24-2024 End: 03-24-2024 ambulatory Josué Ryan MD Facility:[facility] Start: 01-14-2024 End: 01-14-2024 ambulatory [facility] Work Phone: Start: 01-14-2024 End: 01-14-2024 Patient encounter procedure [facility] Work Phone: Start: 08-06-2023 End: 08-06-2023 ambulatory Faizan Gamez Other [facility] Other Start: 08-06-2023 Encounter for genera l adult medical examination without abnormal findings Faizan Gamez [facility] Start: 08-06-2023 Periodic preventive med est patient 40-64yrs Faizan Gamez [facility] Start: 08-06-2023 Telephone encounter Faizan Gamez [facility] Start: 02-03-2023 End: 02-04-[address] LAURIE PATEL Facility:[facility] Start: 11-30-2022 End: 02-07-[address] FAIZAN GAMEZ Facility:[facility] Start: 09-25-2022 End: 09-26-[address] FAIZAN GAMEZ Facility:[facility] Start: 09-06-[address] FAIZAN GAMEZ Facili ty:[facility] Start: 08-13-2022 Encounter for genera l adult medical examination without abnormal findings DR FAIZAN GAMEZ [facility] Start: 08-10-2022 End: 08-11-[address] FAIZAN GAMEZ Facility:[facility] Start: 08-10-2022 End: 08-11-2022 Encounter for general adult medical examination without abnormal findings DR FAIZAN GAMEZ Facility:[facility] Start: 05-19-2022 End: 05-20-[address] RAHUL QUINTERO Facility:[facility] Start: 01-20-2019 End: 01-21-2019 Patient encounter procedure DEFAULT PHYSICIAN Facility:[facility] Start: 01-01-2019 End: 01-02-2019 Patient encounter procedure DEFAULT PHYSICIAN Facility:[facility] Plan of Treatment Date Care Activity Detail Author XR Lumbar spine Views [facility] Immunizations Immunization Date Immunization Notes Care Provider Fa margarita 07-25-2017 influenza virus vaccine, split virus (incl. purified surface antigen) Faizan Gamez Other Lola Pirindola Other 07-25-2017 influenza virus vaccine, unspecified formulation [facility] Payers Date Payer Category Payer Unknown 2022 Unknown [id number] 2019 Unknown [id number] 1980 Unknown [id number] 2.16.8 [id number] 1980 Unknown [id number] 2.16.8 [id number] 1980 Unknown [id number] 2.16.84 0.1.750987.3.579.2.593 1980 Unknown [id number] 2.16.84 0.1.452336.3.579.2.593 1980 Unknown [id number] 2.16.84 0.1.842990.3.579.2.593 1980 Unknown [id number] 2.16.84 0.1.122047.3.579.2.593 1980 Unknown [id number] 2.16.84 0.1.609894.3.579.2.593 1980 Unknown [id number] 2.16.84 0.1.693916.3.579.2.593 1980 Unknown [id number] 2.16. [id number] 1980 Unknown [id number] 2.16. 840.1.122329.3.579.2.196 1980 Unknown [id number] 2.16. [id number] 1980 Unknown [id number] 2.16. [id number] Social History Date Type Detail Facility Unknown if ever smoked Lola Pirindola Other Sex Assigned At Sex Assigned At Bir th Lola Pirindola Other Start: 08-06-2023 Tobacco smoking status NHIS Never smoked tobacco (finding) [facility] Start: 1980 Sex Assigned At Female F [facility] Evaluation note 08-06-2023 Note Date & [...] hydrate. No treatment necessary, continue to exercise Lola Pirindola Other Evaluation note Note Date & Type Note Facility Evaluation note No Information rumr: turn off the lights Other Evaluation note Note Date & Type Note Facility Evaluation note No assessment information availa [facility] Work Phone: History general Narrative - Reported Note Date & Type Note Facility History general Narrative - Reported Type Medical History Foot pain Medical History Menopausal symptom Medical History Hormonal disorder Medical History Palpitations Surgical History C section Surgical History wisdom teeth Surgical History vein ligation Hospitalization History child bit Lola Pirindola Other Summary Purpose Family History No Family [...] and content) DATE CREATED AUTHOR 01/21/2019 [facility] DATE CREATED AUTHOR AUTHOR'S ORGANIZ ATION 02/14/2023 [facility] DATE CREATED AUTHOR AUTHOR'S ORGANIZ ATION 05/10/2024 [facility] REASON FOR VISIT (unrecogniz ed section [...] BE BASED ON THE PRIMARY CLINICAL RECORDS. [facility] [email or web address] [facility]. provides no warranty or guarantee of the accuracy or completeness of information in this document.
[2024-06-09 07:03] VITALS: BP 135/91; PULSE 65; TEMP 36.4; O2SAT 100
[2024-06-09 07:44] VITALS: BP 114/67; PULSE 60; O2SAT 97
[2024-06-09] MEDS: LIDOCAINE HCL 2% 400 MG/20 ML MDV 15 ML INJ (07:46)
[2024-06-09] MEDS: BUPIVACAINE HCL 0.25% PF 25 MG/10 ML VIAL INJ (07:46)
[2024-06-09 07:47] VITALS: BP 115/69; PULSE 59; O2SAT 98
--- NOTE | 2024-06-09 07:49 | W.PM.PROCNOT ---
Date of procedure: 06/09/24 Pre-op diagnosis: Pain due to lumbar spondylosis without myelopathy Post-op diagnosis: same as pre-op Procedure: Procedure: Bilateral L4-5, L5-S1 medial branch block Medications: Bupivacaine 0.25% 6cc The patient was seen and examined in the preoperative holding area.? An informed consent was obtained and placed on the chart.? The patient was brought to the medical procedure unit and placed in the prone position.? A timeout was completed verifying correct patient, procedure site, positioning, plan, and special equipment.? Using aseptic technique, the needle was placed at left L4. Under direct fluoroscopic visualization a Quincke-tipped spinal needle was advanced to the junction of the superior articulating process with the transverse process at the designated medial branch segment.? Preceded by negative aspiration, the above-mentioned injectate was placed in 1 mL aliquots.? The procedure was repeated at left L5, S1.? The needle was removed and insertion site was covered. The same procedure, at the same levels, was completed on the right side. The patient was taken to the postprocedural recovery area and monitored for an appropriate length of time before found suitable for discharge in the company of a responsible adult. Anesthesia: Local Surgeon: Josué Ryan Pathology: none sent Condition: stable Disposition: no change
== END 2024-06-09 07:53 | disposition home or self-care (01) ==
LOC: SURGOUT 06:45
PROVIDERS: PCP Internal Medicine; Visit Provider Anesthesiology
DX: M47.816 Spondylosis without myelopathy or radiculopathy, lumbar region (principal)
CPT/HCPCS: 64493; 64494; J0665

== ENCOUNTER 2024-06-11 07:30 | Outpatient (OUT) | payer BC, SELFPAY ==
--- OUTSIDE RECORDS SUMMARY | 2024-06-11 07:35 | XMS_ITS | CCD ---
Author Organization [facility] Care Team Providers Care Customer Sales Consultant Name Role Phone PHYSICIAN, DEFAULT Admitting Unavailable [...] Unavailable Shelby CROUCH, Josué Mcgrath Attending Unavailable Giaugustoitis , Tyreerius Valfonzo Attending Unavailable Giaugustoitis , Andrius Vyttonie Attending Unavailable Gihossein CROUCH, Andrius Vytautjanis Attending Unavailable Gieditis , Andfraciscous Alcides Attending Unavailable Allergies Allergy Classification Reported Allergen(s) Allergy Type Date of Onset Reaction(s) Facility (1 source) Carisoprodol Drug Allergy [facility] (1 source) Metoprolol Drug Allergy [facility] (3 sources) Carisoprodol Drug Allergy 01-14-20 palpitations [facility] (2 sources) First - Metoprolol *BETA BLOCKERS* Propensity to adverse reactions Comment:gaudencio archer [facility] [employer] Other (1 source) First - Metoprolol *BETA [...] Drug Class(es) Dates Sig (Normalized) Sig (Original) [id number] 200 actuat albuterol 0.09 mg/actuat metered dose [...] malignant neoplasm of other genital organs; Translations: [BRII LAUREN NEOPLSM OT GENIT ORGN] Onset: 05-22-2022 Episodic Results Test Name Value Interpretation Reference Range Facility DHEA SERUMon 02-08-2023 Dehydroepiandrosterone (DHEA) 415 ng/dL Normal 31-701 [facility] Comment on above: Performed By: #### D JAMEL. #### [facility] [address] [address] [address] Katie Funez ESTRONEon 02-06-2023 Estrone, Serum 55 pg/mL Normal [facility] Comment on above: Result Comment: Rang e Adult (Premenopausal) 27 - 231 Menstrual Cycle (1-10 days) 19 - 149 Menstrual Cycle (11-20 days) 32 - 176 Menstrual Cycle (21-30 days) 37 - 200 Adult (Postmenopausal) 0 - 125 Performed By: #### P DAVINA #### [facility] [address] [address] [address] Katie Funez CORTISOLon 02-04-2023 Cortisol 22.7 ug/dL Critically high 6.2-19.4 [facility] Comment on above: Result Comment: Plea se Note: The reference interval and flagging for this test is for an AM collection. If this is a PM collection please use: Cortisol PM: 2.3-11.9 [facility] also offers: [id number]: Cortisol- AM 978678: Cortisol- PM Performed By: #### C ORTISO #### [facility] [address] [address] [address] Katie Funez ESTRADIOLon 02-04-2023 Estradiol 142.0 pg/mL Normal [facility] Comment on above: Result Comment: Adul t Female: Follicular phase 12.5 - 166.0 Ovulation phase 85.8 - 498.0 Luteal phase 43.8 - 211.0 Postmenopausal <6.0 - 54.7 1st trimester 215.0 - >4300.0 [employer] ECLIA methodology Performed By: #### E WAYNE #### [facility] [address], [place] [address] Dr. Katie Funez PROGESTERONEon 02-04-2023 Progesterone 7.6 ng/mL Normal [facility] Comment on above: Result Comment: Foll icular phase 0.1 - 0.9 Luteal phase 1.8 - 23.9 Ovulation phase 0.1 - 12.0 First trimester 11.0 - 44.3 Second trimester 25.4 - 83.3 Third trimester 58.7 - 214.0 Postmenopausal 0.0 - 0.1 Performed By: #### P ROGES #### [facility] [address] [place] [address] Dr. Katie Funez TESTOSTERONE, TOTALon 2022 Testosterone [Mass/Vol] 33 ng/dL Normal 4-50 [facility] Comment on above: Performed By: #### T ESTTOT #### [facility] [address] [place] [address] Dr. Katie Funez FREE T3on 02-03-2023 FREE T3 2.12 pg/mlL Critically low 2.18-3.98 [facility] Comment on above: Performed By: #### P ROGES #### [facility] [address] [place] [address] Dr. Katie Funez FREE T4on 02-03-2023 Free T4 [Mass/Vol] 0.90 ng/dL Normal 0.76-1.46 [facility] Comment on above: Performed By: #### P ROGES #### [facility] [address] [place] [address] Dr. Katie Funez TSHon 02-03-2023 TSH 2.763 uIU/mL Normal 0.358-3.740 [facility] Comment on above: Performed By: #### P ROGES #### [facility] [address] [place] [address] Dr. Katie Funez FREE T3on 09-25-2022 FREE T3 1.80 pg/mlL Critically low 2.18-3.98 [facility] Comment on above: Performed By: #### F T3 #### [facility] [address] [place] [address] Dr. Katie Funez FREE T4on 09-25-2022 Free T4 [Mass/Vol] 1.05 ng/dL Normal 0.76-1.46 [facility] Comment on above: Performed By: #### P DAVINA #### [facility] [address] [place] [address] Dr. Katie Funez TSHon 09-25-2022 TSH 3.688 uIU/mL Normal 0.358-3.740 [facility] Comment on above: Performed By: #### T SH #### [facility] [address] [place] [address] Dr. Katie Funez ESTRONEon 08-17-2022 Estrone, Serum 49 pg/mL Normal [facility] Comment on above: Result Comment: Rang e Adult (Premenopausal) 27 - 231 Menstrual Cycle (1-10 days) 19 - 149 Menstrual Cycle (11-20 days) 32 - 176 Menstrual Cycle (21-30 days) 37 - 200 Adult (Postmenopausal) 0 - 125 Performed By: #### E STRONE #### [facility] [address] [place] [address] Dr. Katie Funez TESTOSTERONE, FREE,DIRECT, T OTALon 08-14-2022 Free Testosterone(Direct) 0.8 pg/mL Normal 0.0-4.2 [facility] Comment on above: Result Comment: Perf ormed at: BN Performed By: #### V ITAD #### [facility] [address] [place] [address] Dr. Katie Funez Testosterone [Mass/Vol] 27 ng/dL Normal 4-50 [facility] Comment on above: Result Comment: Perf ormed at: CB Performed By: #### V ITAD #### [facility] [address] [place] [address] Dr. Katie Funez CORTISOLon 08-11-2022 Cortisol 11.5 ug/dL Normal [facility] Comment on above: Result Comment: Diomedes isol AM 6.2 - 19.4 Cortisol PM 2.3 - 11.9 Performed By: #### V ITAD #### [facility] [address] [place] [address] Dr. Katie Funez DHEA-SULFATEon 08-11-2022 DHEA-Sulfate 120.0 ug/dL Normal 57.3-279.2 [facility] Comment on above: Performed By: #### V ITAD #### [facility] [address] [place] [address] Dr. Katie Funez ESTRADIOLon 08-11-2022 Estradiol 104.0 pg/mL Normal [facility] Comment on above: Result Comment: Adul t Female: Follicular phase 12.5 - 166.0 Ovulation phase 85.8 - 498.0 Luteal phase 43.8 - 211.0 Postmenopausal <6.0 - 54.7 1st trimester 215.0 - >4300.0 [employer] ECLIA methodology Performed By: #### E STRADI #### [facility] [address] [place] [address] Dr. Katie Funez PROGESTERONEon 08-11-2022 Progesterone 9.7 ng/mL Normal [facility] Comment on above: Result Comment: Foll icular phase 0.1 - 0.9 Luteal phase 1.8 - 23.9 Ovulation phase 0.1 - 12.0 First trimester 11.0 - 44.3 Second trimester 25.4 - 83.3 Third trimester 58.7 - 214.0 Postmenopausal 0.0 - 0.1 Performed By: #### V ITAD #### [facility] [address] [place] [address] Dr. Katie Funez SEX HORMONE-BINDING GLOBULIN on 08-11-2022 Sex Horm Binding Glob, Serum 73.1 nmol/L Normal 24.6-122.0 [facility] Comment on above: Performed By: #### V ITAD #### [facility] [address] [place] [address] Dr. Katie Funez CBC AUTO DIFFon 08-10-2022 BASO # 0.0 103/ul Normal 0.0-0.1 [facility] Comment on above: Performed By: #### V ITAD #### [facility] [address] [place] [address] Dr. Katie Funez Basophils/100 WBC (Bld) 0.6 % Normal 0.2-2.0 [facility] Comment on above: Performed By: #### V ITAD #### [facility] [address] [place] [address] Dr. Katie Funez EO # 0.1 103/ul Normal 0.0-0.7 [facility] Comment on above: Performed By: #### V ITAD #### [facility] [address] [place] [address] Dr. Katie Funez Eosinophils/100 WBC (Bld) 1.4 % Normal 0.9-7.0 [facility] Comment on above: Performed By: #### V ITAD #### [facility] [address] [place] [address] Dr. Katie Funez Erythrocyte distribution width (RBC) [Ratio] 13.2 % Normal 11.0-15.0 [facility] Comment on above: Performed By: #### V ITAD #### [facility] [address] [place] [address] Dr. Katie Funez Hematocrit (Bld) [Volume fraction] 41.9 % Normal 36.0-48.0 [facility] Comment on above: Performed By: #### V ITAD #### [facility] [address] [place] [address] Dr. Katie Funez Hemoglobin (Bld) [Mass/Vol] 13.5 g/dL Normal 12.0-16.0 [facility] Comment on above: Performed By: #### V ITAD #### [facility] [address] [place] [address] Dr. Katie Funez IG # 0.01 10e3/ul Normal 0.00-0.03 [facility] Comment on above: Performed By: #### V ITAD #### [facility] [address] [place] [address] Dr. Katie Funez IG % 0.1 % Normal 0.0-0.[address] [facility] Comment on above: Performed By: #### V ITAD #### [facility] [address] [place] [address] Dr. Katie Funez LYMPH # 1.8 103/ul Normal 1.2-3.8 [facility] Comment on above: Performed By: #### V ITAD #### [facility] [address] [place] [address] Dr. Katie Funez Lymphocytes/100 WBC (Bld) 24.6 % Normal 20.5-60.0 [facility] Comment on above: Performed By: #### V ITAD #### [facility] [address] [place] [address] Dr. Katie Funez MANUAL DIFF REQ NO Normal [facility] Comment on above: Performed By: #### V ITAD #### [facility] [address] [place] [address] Dr. Katie Funez MCH (RBC) [Entitic mass] 28.2 pg Normal 26.7-34.0 [facility] Comment on above: Performed By: #### V ITAD #### [facility] [address] [place] [address] Dr. Katie Funez MCHC (RBC) [Mass/Vol] 32.2 g/dL Normal 29.9-35.2 [facility] Comment on above: Performed By: #### V ITAD #### [facility] [address] [place] [address] Dr. Katie Funez MCV (RBC) [Entitic vol] 87.5 fL Normal 81.0-99.0 [facility] Comment on above: Performed By: #### V ITAD #### [facility] [address] [place] [address] Dr. Katie Funez MONO # 0.4 103/ul Normal 0.3-0.8 [facility] Comment on above: Performed By: #### V ITAD #### [facility] [address] [place] [address] Dr. Katie Funez Monocytes/100 WBC (Bld) 6.0 % Normal 1.7-12.0 [facility] Comment on above: Performed By: #### V ITAD #### [facility] [address] [place] [address] Dr. Katie Funez NEUT # 4.8 103/ul Normal 1.4-6.5 [facility] Comment on above: Performed By: #### V ITAD #### [facility] [address] [place] [address] Dr. Katie Funez Neutrophils/100 WBC (Bld) 67.3 % Normal 43.0-75.0 [facility] Comment on above: Performed By: #### V ITAD #### [facility] [address] [place] [address] Dr. Katie Fnuez Platelet mean volume (Bld) [Entitic vol] 11.7 fL Normal 9.5-13.5 [facility] Comment on above: Performed By: #### V ITAD #### [facility] [address] [place] [address] Dr. Katie Funez PLT 294 103/ul Normal 150-[address] [facility] Comment on above: Performed By: #### V ITAD #### [facility] [address] [place] [address] Dr. Katie Funez RBC 4.79 106/ul Normal 4.20-5.40 [facility] Comment on above: Performed By: #### V ITAD #### [facility] [address] [place] [address] Dr. Katie Funez WBC 7.2 103/ul Normal 4.0-11.0 [facility] Comment on above: Performed By: #### V ITAD #### [facility] [address] [place] [address] Dr. Katie Funez GLYCOHEMOGLOBIN A1Con 2021 ADA RECOMMENDATION SEE BELOW Normal [facility] Comment on above: Result Comment: ADA RECOMMENDED LIMIT 4.0 - 6.0 ADA THERAPEUTIC TARGET < 7.0 ACTION SUGGESTED > 7.0 Performed By: #### P DAVINA #### [facility] [address] [place] [address] Dr. Katie Funez Glucose [Mass/Vol] 103 mg/dL Normal [facility] Comment on above: Performed By: #### P DAVINA #### [facility] [address] [place] [address] Dr. Katie Funez HbA1c (Bld) [Mass fraction] 5.2 % Normal 4.5-6.2 [facility] Comment on above: Performed By: #### P DAVINA #### [facility] [address] [place] [address] Dr. Katie Funez LIPID PROFILEon 08-10-2022 CHOL-HDL RATIO NORM SEE BELOW Normal [facility] Comment on above: Result Comment: 3.3 - 4.4 LOW RISK 4.4 - 7.1 AVERAGE RISK 7.1 - 11.0 MODERATE RISK >11.0 HIGH RISK Performed By: #### V ITAD #### [facility] [address], [place] [address] Dr. Katie Funez Cholesterol [Mass/Vol] 204 mg/dL Critically high <=200 [facility] Comment on above: Performed By: #### V ITAD #### [facility] [address] [address] [address] Katie Funez Cholesterol in HDL [Mass/Vol] 52 mg/dL Normal 40-60 [facility] Comment on above: Performed By: #### V ITAD #### [facility] [address] [place] [address] Dr. Katie Funez Cholesterol in LDL [Mass/Vol] 137.2 mg/dL Normal [facility] Comment on above: Performed By: #### V ITAD #### [facility] [address] [address] [address] Katie Funez Cholesterol.total/Choleste rol in HDL [Mass ratio] 3.9 {ratio} Normal [facility] Comment on above: Performed By: #### V ITAD #### [facility] [address] [place] [address] Dr. Katie Funez HDL NORMAL > or = 60 mg/dl - LOW CARDIOVASCULAR RISK <40 mg/dl - HIGH CARDIOVASCULAR RISK Normal [facility] Comment on above: Performed By: #### V ITAD #### [facility] [address] [place] [address] Dr. Katie Funez LDL CALC NORMAL SEE BELOW Normal [facility] Comment on above: Result Comment: <100 mg/dl OPTIMAL 100 - 129 mg/dl NEAR OR ABOVE OPTIMAL 130 - 159 mg/dl BORDERLINE HIGH 160 - 189 mg/dl HIGH >190 mg/dl VERY HIGH Performed By: #### V ITAD #### [facility] [address] [place] [address] Dr. Katie Funez Triglyceride [Mass/Vol] 74 mg/dL Normal <=150 [facility] Comment on above: Performed By: #### V ITAD #### [facility] [address] [place] [address] Dr. Katie Funez VLDL CALC 14.8 mg/dL Normal [facility] Comment on above: Performed By: #### V ITAD #### [facility] [address] [place] [address] Dr. Katie Funez PROF 14(COMP METB)on 022 Albumin [Mass/Vol] 3.8 g/dL Normal 3.4-5.0 [facility] Comment on above: Performed By: #### V ITAD #### [facility] [address] [place] [address] Dr. Katie Funez Albumin/Globulin [Mass ratio] 0.9 {ratio} Normal [facility] Comment on above: Performed By: #### V ITAD #### [facility] [address] [place] [address] Dr. Katie Funez ALP [Catalytic activity/Vol] 77 U/L Normal 46-116 [facility] Comment on above: Performed By: #### V ITAD #### [facility] [address] [place] [address] Dr. Katie Funez ALT [Catalytic activity/Vol] 20 U/L Normal 14-59 [facility] Comment on above: Performed By: #### V ITAD #### [facility] [address] [place] [address] Dr. Katie Funez Anion gap [Moles/Vol] 10.0 mmol/L Normal [facility] Comment on above: Performed By: #### V ITAD #### [facility] [address] [place] [address] Dr. Katie Funez AST [Catalytic activity/Vol] 14 U/L Critically low 15-37 [facility] Comment on above: Performed By: #### V ITAD #### [facility] [address] [place] [address] Dr. Katie Funez Bilirubin [Mass/Vol] 0.8 mg/dL Normal 0.2-1.0 [facility] Comment on above: Performed By: #### V ITAD #### [facility] [address] [place] [address] Dr. Katie Funez Calcium [Mass/Vol] 8.9 mg/dL Normal 8.5-10.1 [facility] Comment on above: Performed By: #### V ITAD #### [facility] [address] [place] [address] Dr. Katie Funez Chloride [Moles/Vol] 101 mmol/L Normal 98-107 [facility] Comment on above: Performed By: #### V ITAD #### [facility] [address] [place] [address] Dr. Katie Funez CO2 [Moles/Vol] 29.9 mmol/L Normal 21.0-32.0 [facility] Comment on above: Performed By: #### V ITAD #### [facility] [address] [place] [address] Dr. Katie Funez Creatinine [Mass/Vol] 0.83 mg/dL Normal 0.55-1.02 [facility] Comment on above: Performed By: #### V ITAD #### [facility] [address] [place] [address] Dr. Katie Funez EGFR-AF BAHAMIAN >60 Normal >=60 [facility] Comment on above: Performed By: #### V ITAD #### [facility] [address] [place] [address] Dr. Katie Funez EGFR-NON AF BAHAMIAN >60 Normal >=60 [facility] Comment on above: Performed By: #### V ITAD #### [facility] [address] [place] [address] Dr. Katie Funez Globulin (S) [Mass/Vol] 4.0 g/dL Normal [facility] Comment on above: Performed By: #### V ITAD #### [facility] [address] [place] [address] Dr. Katie Funez Glucose [Mass/Vol] 91 mg/dL Normal 74-106 [facility] Comment on above: Performed By: #### V ITAD #### [facility] [address] [address] [address] Katie Funez Potassium [Moles/Vol] 3.9 mmol/L Normal 3.5-5.1 [facility] Comment on above: Performed By: #### V ITAD #### [facility] [address] [place] [address] Dr. Katie Funez Protein [Mass/Vol] 7.8 g/dL Normal 6.4-8.[address] [facility] Comment on above: Performed By: #### V ITAD #### [facility] [address] [place] [address] Dr. Katie Funez Sodium [Moles/Vol] 137 mmol/L Normal 136-145 [facility] Comment on above: Performed By: #### V ITAD #### [facility] [address] [place] [address] Dr. Katie Funez Urea nitrogen [Mass/Vol] 13.0 mg/dL Normal 7.0-18.0 [facility] Comment on above: Performed By: #### V ITAD #### [facility] [address] [place] [address] Dr. Katie Funez Urea nitrogen/Creatinine [Mass ratio] 15.7 mg/mg Normal [facility] Comment on above: Performed By: #### V ITAD #### [facility] [address] [place] [address] Dr. Katie Funez TSHon 08-10-2022 TSH 2.642 uIU/mL Normal 0.358-3.740 [facility] Comment on above: Performed By: #### V ITAD #### [facility] [address] [place] [address] Dr. Katie Funez VITAMIN D 25 OHon 08-10-2022 VIT D 25-OH 23.6 ng/mL Normal [facility] Comment on above: Performed By: #### V ITAD #### [facility] [address] [place] [address] Dr. Katie Funez VIT D RANGES SEE BELOW Normal [facility] Comment on above: Result Comment: <20 ng/mL Vit D deficient 20 - <30 ng/mL Vit D insufficient 30 - 100 ng/mL Vit D sufficient >100 ng/mL Potential Toxicity Performed By: #### V ITAD #### [facility] [address] [address] [address] Katie Funez MG MAMM SCREEN 3D JORDI CADon 05-19-2022 MG MAMM SCREEN 3D JORDI CAD Patient: NAHID BARBOSA Exam Date: 05/19/2022 : 1980 Gender:F Ordering : DR. NOÉ FRANK D.O. Admission #: [id number] Family : Order #: [id number] CLICK HERE TO VIEW EXAM RADIOLOGY REPORT [...] uterine cancer at age 48. LOCATION: [facility] BREAST COMPOSITION: Heterogeneously dense,which may obscure [...] M.D. on 05/19/2022 at 12:[address] [facility] Vital Signs Date Time Vital Sign Value Performing Clinician Facility 01-14-2024 12:15-0400 Body height 170.18 cm [facility] 01-14-2024 12:15-0400 Body mass index (BMI) [Ratio] 47.6 kg/m2 [facility] 01-14-2024 12:15-0400 Body weight 137.89 kg [facility] 01-14-2024 12:15-0400 Diastolic blood pressure 76 mm[Hg] [facility] 01-14-2024 12:15-0400 Heart rate 67 /min [facility] 01-14-2024 12:15-0400 Respiratory rate 12 /min [facility] 01-14-2024 12:15-0400 Systolic blood pressure 117 mm[Hg] [facility] 08-06-2023 14:00-0400 Body height 170.18 cm Faizan Ball Other [facility] [employer] Other 08-06-2023 14:00-0400 Body mass index (BMI) [Ratio] 47.04 kg/m2 Faizan Ball Other [facility] Other 08-06-2023 14:00-0400 Body weight 136.26 kg Faizan Ball Other [facility] Other 08-06-2023 14:00-0400 Diastolic blood pressure 81 mm[Hg] Faizan Ball Other [employer] Other 08-06-2023 14:00-0400 Respiratory rate 12 /min Faizan Ball Other [employer] Other 08-06-2023 14:00-0400 Systolic blood pressure 118 mm[Hg] Faizan Ball Other [employer] Other Encounters Encounter Date Encounter Type Care Provider Facility Start: 05-26-2024 End: 05-26-2024 ambulatory Josué Ryan MD [facility]: [facility] Start: 05-05-2024 End: 05-05-2024 ambulatory Josué Ryan MD [facility]: [facility] Start: 04-14-2024 End: 04-14-2024 ambulatory Josué Ryan MD [facility]: [facility] Start: 04-07-2024 End: 04-07-2024 ambulatory Andbill Ryan MD Facility:[facility] Start: 03-24-2024 End: 03-24-2024 ambulatory Josué Ryan MD Facility:[facility] Start: 01-14-2024 End: 01-14-2024 ambulatory [facility] Work Phone: Start: 01-14-2024 End: 01-14-2024 Patient encounter procedure [facility] Work Phone: Start: 08-06-2023 End: 08-06-2023 ambulatory Faizan Gay Other [employer] Other Start: 08-06-2023 Encounter for genera l adult medical examination without abnormal findings Faizan Gay [facility] Start: 08-06-2023 Periodic preventive med est patient 40-64yrs [facility]izan Gay [facility] Start: 08-06-2023 Telephone encounter Faizan Gay [facility] Start: 02-03-2023 End: 02-04-[address] LAURIE PATEL Facility:[facility] Start: 11-30-2022 End: 02-07-[address] FAIZAN GAY Facility:[facility] Start: 09-25-2022 End: 09-26-[address] FAIZAN GAY Facility:[facility] Start: 09-06-[address] FAIZAN GAY Facili ty:[facility] Start: 08-13-2022 Encounter for genera l adult medical examination without abnormal findings DR FAIZAN GAY [facility] Start: 08-10-2022 End: 08-11-[address] FAIZAN GAY Facility:[facility] Start: 08-10-2022 End: 08-11-2022 Encounter for general adult medical examination without abnormal findings DR FAIZAN GAY Facility:[facility] Start: 05-19-2022 End: 05-20-[address] RAHUL QUINTERO Facility:[facility] Start: 01-20-2019 End: 01-21-2019 Patient encounter procedure DEFAULT PHYSICIAN Facility:[facility] Start: 01-01-2019 End: 01-02-2019 Patient encounter procedure DEFAULT PHYSICIAN Facility:[facility] Plan of Treatment Date Care Activity Detail Author XR Lumbar spine Views [facility] Immunizations Immunization Date Immunization Notes Care Provider Destiny avila 07-25-2017 influenza virus vaccine, split virus (incl. purified surface antigen) Faizan Gay Other [employer] Other 07-25-2017 influenza virus vaccine, unspecified formulation [facility] Payers Date Payer Category Payer Unknown 2022 Unknown [id number] 2019 Unknown [id number] 1980 Unknown [id number] 2.16.8 [id number] 1980 Unknown [id number] 2.16.8 40.1.611783.3.579.2.647 1980 Unknown [id number] 2.16.84 0.1.928550.3.579.2.593 1980 Unknown [id number] 2.16.84 0.1.389178.3.579.2.593 1980 Unknown [id number] 2.16.84 0.1.705441.3.579.2.593 1980 Unknown [id number] 2.16.84 0.1.600732.3.579.2.593 1980 Unknown [id number] 2.16.84 0.1.402869.3.579.2.593 1980 Unknown [id number] 2.16.84 0.1.559245.3.579.2.593 1980 Unknown [id number] 2.16. 840.1.307835.3.579.2.196 1980 Unknown [id number] 2.16. 840.1.123510.3.579.2.196 1980 Unknown [id number] 2.16. 840.1.710621.3.579.2.196 1980 Unknown [id number] 2.16. 840.1.621658.3.579.2.196 1980 Unknown [id number] 2.16. 840.1.877525.3.579.2.196 Social History Date Type Detail Facility Unknown if ever smoked [facility] Other Sex Assigned At Sex Assigned At Bir th [facility] Other Start: 08-06-2023 Tobacco smoking status NHIS [...] hydrate. No treatment necessary, continue to exercise [employer] Other Evaluation note Note Date & Type Note Facility Evaluation note No Information Contacts+ Other Evaluation note Note Date & Type Note Facility Evaluation note No assessment information availa [facility] Work Phone: History general Narrative - Reported Note Date & Type Note Facility History general Narrative - Reported Type Medical History Foot pain Medical History Menopausal symptom Medical History Hormonal disorder Medical History Palpitations Surgical History C section Surgical History wisdom teeth Surgical History vein ligation Hospitalization History child bit [employer] Other Summary Purpose Family History No Family [...] and content) DATE CREATED AUTHOR 01/21/2019 [facility] DATE CREATED AUTHOR AUTHOR'S ORGANIZ ATION 02/14/2023 [facility] DATE CREATED AUTHOR AUTHOR'S ORGANIZ ATION 06/11/2024 [facility] REASON FOR VISIT (unrecogniz ed [...] BE BASED ON THE PRIMARY CLINICAL RECORDS. [facility]. provides no warranty or guarantee of the accuracy or completeness of information in this document.
--- NOTE | 2024-06-11 07:49 | P.CN_ITS ---
Consult Note: HPI Data of Consult Patient: known to practice within the last 3 years Requesting Physician: Hilary Fernandez NP Primary Care Provider: Faizan Gay, DO Consult Narrative Reason for consult: low back, left leg pain Narrative: 43yof who presents for assessment. continues to have radiating pain down left leg. 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 has continued in her various conservative measures, including cranio-sacral therapy and provider directed home exercises for >6 weeks, without lasting benefit. uses otc meds as needed. denies adverse med side effects. Recently underwent left L5-S1 S1-S1 TFESI x2 with >50% improvement ongoing in radicular pain and left SIJ injection providing >50% improvement relief ongoing. Continues to utilize prn tylenol and aleve with benefit, noting improvement in ability to sleep, stand longer, sit for longer periods of time. Patients moder ate to severe axial low back pain secondary to lumbar spondylosis/lumbar facet arthropathy 02/21 today increasing with standing, walking, and activity. Recently underwent bilateral L4-5 L5-S1 MBB #1 with >80% improvement in pain and functional ability two hours following the injection, patient would like to proceed with #2 working towards RFA. cc:: CC: Hilary Fernandez NP Review of Systems ROS Status of ROS 10 or more systems reviewed and unremark able except as noted in history and below Musculoskeletal Reports: back pain PFSH PFSH Medical History (Updated 06/04/24 @ 08:18 by Hilary Fernandez NP) Osteoarthritis ?M19.90 - Unspecified osteoarthritis, unspecified site (ICD-10) Hypothyroid ?E03.9 - Hypothyroidism, unspecified (ICD-10) Palpitations ?R00.2 - Palpitations (ICD-10) Surgical History History of oral surgery ?Z98.890 - Other specified postprocedural states (ICD-10) H/O section ?Z98.891 - History of uterine scar from previous surgery (ICD-10) History of foot surgery ?Z98.890 - Other specified postprocedural states (ICD-10) Meds Home Medications and Allergies Home Medications ?Medication ?Instructions ?Recorded ?Confirmed ?Type acetaminophen 500 mg tablet 1,000 mg PO BID PRN pain 03/24/24 06/09/24 History (Acetaminophen Extra Strength) ibuprofen 600 mg tablet (IBU) 600 mg PO Q12H 03/24/24 06/09/24 History multivitamin (Daily Multi-Vitamin 1 tab PO DAILY 03/24/24 06/09/24 History tablet) testosterone 1 mg topical DAILY 03/24/24 05/26/24 History vitamin E 670 mg (1,000 unit) 670 mg PO DAILY 03/24/24 06/09/24 History capsule progest compound QDAY 04/14/24 History triidothyrone 05/05/24 History Allergies Allergy/AdvReac Type Severity Reaction Status Date / Time carisoprodol [From [facility]] Allergy tachycardia Verified 06/09/24 07:06 metoprolol Allergy bradycardia Verified 06/09/24 07:06 Exam Constitutional Documenting provider has reviewed patient's vital signs: yes Common normals: no apparent distress, oriented x3, healthy appearing, alert and well nourished General appearance: cooperative HENMT Common normals: normocephalic, hearing grossly normal bilaterally and moist oral mucous membranes Head and scalp: normocephalic Eye Common normals: PERRL Pupil: PERRL Neck & C-Spine Common normals: full ROM General: normal visual inspection Chest Common normals: inspection of chest normal Respiratory Common normals: normal respiratory effort, no retractions and no use of accessory muscles Back & Pelvis Lumbar spine/lower back: ROM limited, pain with ROM, paraspinal muscle tenderness and straight leg raise negative bilaterally Sacroiliac joints: SI joints normal Other: pain over L4-S1 facets, bilateral facet loading positive left >right sensation intact BLE strength 5/5 in BLE Extremity Common normals: normal to inspection and full ROM Neuro Common normals: oriented x3, CN's II-XII intact bilaterally, moves all extremities, no focal motor deficits, no sensory deficits noted and deep tendon reflexes 2+ bilaterally Sensorium/orientation: alert Motor exam: strength 5/5 throughout and no movement abnormalities noted Psych Common normals: mental status grossly normal, thought process normal, cooperative, affect normal, speech normal and activity/motor behavior normal Speech: normal speech Thought process: normal thought process Results Additional Findings Additional findings: If on a controlled substance or opioids, I have checked an [place]AR[place] report on this patient and there are no aberrancies noted in the prescribing history.??If on a controlled substance or opioid a drug screen was completed and reviewed within the last year, and if there has not been a drug screen completed we ordered one today to monitor higher risk, state monitored pain medication use. As part of providing excellent, safe, comprehensive care, the following was completed at our patient's visit: 1. A medication reconciliation and review to ensure accurate knowledge of current/active medications, including asking our patients to inform us about any [id number] medications or herbal remedies/nutritional supplements/alternative remedies. 2. A review to specifically ensure our patients have had annual screening for screening for depression, screening for tobacco use, and screening for unhealthy alcohol use. For concerning screenings had a discussion with the patient, provided patient education, and recommended follow-up with primary care provider when appropriate. If patient noted with a risk of falling, they received education on strength, gait, and balance training to prevent future risk of falling. Assessment and Plan Assessment and Plan (1) Lumbar spondylosis: Assessment and Plan: The patient has had over 3 months of moderate to severe low back pain with functional impairment and inadequate response to conservative care including NSAIDS (unless there are contraindication such as concurrent blood thinners), multiple oral or topical pain medications, and home exercise program/physical therapy.? Patient has completed >6 weeks of guided home exercise program and/or formal physical therapy program without relief of their symptoms.? I have reviewed the imaging of the lumbar spine and no red flags were identified.? The Oswestry Disability Index was completed, and the patient scored a 29%.? The patient noted the following:?? moderate to severe pain, pain with sitting for more than 1 hour, pain with standing, interrupted sleep, pain with social life and travel We discussed the risks and benefits of the procedure with the patient, and we are NOT planning on using sedation as outlined in the guidelines from Medicare unless there is a documented reason that sedation would be strongly recommended.?? The procedure will be completed with fluoroscopic guidance.? (2) Sacroiliitis: Assessment and Plan: physical exam improved significantly, greater than 50% improvement from left SIJ injection ongoing (3) Lumbar disc displacement without myelopathy: Assessment and Plan: lumbar radiculopathy >50% improvement (4) Lumbar stenosis with neurogenic claudication: (5) Osteoarthritis: Plan stop OTC nsaids, start mobic 7.5mg BID PRN pain. risks vs benefits and potential side effects reviewed bilateral L4-5 L5-S1 MBB x2 working towards RFA continue PRN tylenol f/u after each injection
== END 2024-06-11 07:31 | disposition home or self-care (01) ==
LOC: PM 07:32
PROVIDERS: PCP Internal Medicine; Visit Provider Nurse Practitioner
DX: M46.1 Sacroiliitis, not elsewhere classified (principal); M51.26 Other intervertebral disc displacement, lumbar region; M48.062 Spinal stenosis, lumbar region with neurogenic claudication; M19.90 Unspecified osteoarthritis, unspecified site
CPT/HCPCS: G0463

== ENCOUNTER 2024-06-26 08:55 | Outpatient (OUT) | payer BC, SELFPAY ==
--- NOTE | 2024-06-26 | XR_ITS ---
The [address] [address] Patient Name: MARTHA FINNEY MRN: [id number] date: 1980 Sex: F Assigned Patient Location: Current Patient Location: Accession/Order Number: [id number] Exam Date: 06/26/2024 09:00 Report Date: 06/27/2024 05:38 At the request of: JEROD NAVARRO Procedure: XR tibia fibula LT 2V PROCEDURE: XR tibia fibula LT 2V HISTORY: LEFT LOWER LEG PAIN COMPARISON: XR tib-fib left 05/22/2024 FINDINGS: BONES:Prior spiral fracture of proximal fibula with callus formation along the margins and increasing density at fracture line. SOFT TISSUES:No visible soft tissue swelling. EFFUSION:None visible. OTHER: Negative. XR/XR tibia fibula LT 2V IMPRESSION: 1. Stable alignment and ongoing bone healing of proximal fibular fracture. Electronically authenticated by: ELIEZER ROME Date: 06/27/2024 05:38
--- OUTSIDE RECORDS SUMMARY | 2024-06-26 09:15 | XMS_ITS | CCD ---
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 [employer] Name Role Phone PHYSICIAN, DEFAULT Admitting Unavailable PHYSICIAN, DEFAULT Attending Unavailable PHYSICIAN, DEFAULT Admitting Unavailable PHYSICIAN, DEFAULT Attending Unavailable WILD, DR RAHUL Merrill Consulting Unavailable VERA, DR SANZ Primary Care Unavailable RINRUTH, NOÉ [...] (1 source) Carisoprodol Drug Allergy [facility] (1 source) Metoprolol Drug Allergy [facility] (3 sources) Carisoprodol Drug Allergy 01-14-20 palpitations [facility] (2 sources) First - Metoprolol *BETA BLOCKERS* Propensity to adverse reactions Comment:gaudencio archer [facility] [employer] Other (1 source) First - Metoprolol *BETA BLOCK Allergy to substance 08-06-20 Comment:gaudencio archer [facility] Medications Current Medications Medication Drug [...] Drug Class(es) Dates Sig (Normalized) Sig (Original) [id number] 200 actuat albuterol 0.09 mg/actuat metered dose [...] (DHEA) 415 ng/dL Normal 31-701 [facility] [place] Comment on above: Performed By: #### D JAMEL. #### [facility] [address] [address] [address] Katie Funez ESTRONEon 02-06-2023 Estrone, Serum 55 pg/mL Normal [facility] [place] Comment on above: Result Comment: Rang e Adult (Premenopausal) 27 - 231 Menstrual Cycle (1-10 days) 19 - 149 Menstrual Cycle (11-20 days) 32 - 176 Menstrual Cycle (21-30 days) 37 - 200 Adult (Postmenopausal) 0 - 125 Performed By: #### P DAVINA #### [facility] [address] [address] [address] Katie Funez CORTISOLon 02-04-2023 Cortisol 22.7 ug/dL Critically high 6.2-19.4 [facility] [place] Comment on above: Result Comment: Plea se Note: The reference interval and flagging for this test is for an AM collection. If this is a PM collection please use: Cortisol PM: 2.3-11.9 [facility] also offers: [id number]: Cortisol- AM 316871: Cortisol- PM Performed By: #### C ORTISO #### [facility] [address] [address] [address] Katie Funez ESTRADIOLon 02-04-2023 Estradiol 142.0 pg/mL Normal [facility] [place] Comment on above: Result Comment: Adul t Female: Follicular phase 12.5 - 166.0 Ovulation phase 85.8 - 498.0 Luteal phase 43.8 - 211.0 Postmenopausal <6.0 - 54.7 1st trimester 215.0 - >4300.0 Jeferson ECLIA methodology Performed By: #### E WAYNE #### [facility] [address] [place], [place] [address] Dr. Katie Funez PROGESTERONEon 02-04-2023 Progesterone 7.6 ng/mL Normal [facility] Comment on above: Result Comment: Foll icular phase 0.1 - 0.9 Luteal phase 1.8 - 23.9 Ovulation phase 0.1 - 12.0 First trimester 11.0 - 44.3 Second trimester 25.4 - 83.3 Third trimester 58.7 - 214.0 Postmenopausal 0.0 - 0.1 Performed By: #### P ROGES #### [facility] [address] [place] [address] Dr. Katie Funez TESTOSTERONE, TOTALon 2022 Testosterone [Mass/Vol] 33 ng/dL Normal 4-50 [facility] Comment on above: Performed By: #### T ESTTOT #### [facility] [address] [place] [address] Dr. Katie Funez FREE T3on 02-03-2023 FREE T3 2.12 pg/mlL Critically low 2.18-3.98 [facility] [place] Comment on above: Performed By: #### P ROGES #### [facility] [address] [place] [address] Dr. Katie Funez FREE T4on 02-03-2023 Free T4 [Mass/Vol] 0.90 ng/dL Normal 0.76-1.46 [facility] [place] Comment on above: Performed By: #### P ROGES #### [facility] [address] [place] [address] Dr. Katie Funez TSHon 02-03-2023 TSH 2.763 uIU/mL Normal 0.358-3.740 [facility] [place] Comment on above: Performed By: #### P ROGES #### [facility] [address] [place] [address] Dr. Katie Funez FREE T3on 09-25-2022 FREE T3 1.80 pg/mlL Critically low 2.18-3.98 [facility] [place] Comment on above: Performed By: #### F T3 #### [facility] [address] [place] [address] Dr. Katie Funez FREE T4on 09-25-2022 Free T4 [Mass/Vol] 1.05 ng/dL Normal 0.76-1.46 [facility] [place] Comment on above: Performed By: #### P DAVINA #### [facility] [address] [place] [address] Dr. Katie Funez TSHon 09-25-2022 TSH 3.688 uIU/mL Normal 0.358-3.740 [facility] [place] Comment on above: Performed By: #### T SH #### [facility] [address] [place] [address] Dr. Katie Funez ESTRONEon 08-17-2022 Estrone, Serum 49 pg/mL Normal [facility] [place] Comment on above: Result Comment: Rang e Adult (Premenopausal) 27 - 231 Menstrual Cycle (1-10 days) 19 - 149 Menstrual Cycle (11-20 days) 32 - 176 Menstrual Cycle (21-30 days) 37 - 200 Adult (Postmenopausal) 0 - 125 Performed By: #### E STRONE #### [facility] [address] [place] [address] Dr. Katie Funez TESTOSTERONE, FREE,DIRECT, T OTALon 08-14-2022 Free Testosterone(Direct) 0.8 pg/mL Normal 0.0-4.2 [facility] [place] Comment on above: Result Comment: Perf ormed at: BN Performed By: #### V ITAD #### [facility] [address] [place] [address] Dr. Katie Funez Testosterone [Mass/Vol] 27 ng/dL Normal 4-50 [facility] Comment on above: Result Comment: Perf ormed at: CB Performed By: #### V ITAD #### [facility] [address] [place] [address] Dr. Katie Funez CORTISOLon 08-11-2022 Cortisol 11.5 ug/dL Normal [facility] [place] Comment on above: Result Comment: Diomedes isol AM 6.2 - 19.4 Cortisol PM 2.3 - 11.9 Performed By: #### V ITAD #### [facility] [address] [place] [address] Dr. aKtie Funez DHEA-SULFATEon 08-11-2022 DHEA-Sulfate 120.0 ug/dL Normal 57.3-279.2 [facility] [place] Comment on above: Performed By: #### V ITAD #### [facility] [address] [place] [address] Dr. Katie Funez ESTRADIOLon 08-11-2022 Estradiol 104.0 pg/mL Normal [facility] [place] Comment on above: Result Comment: Adul t Female: Follicular phase 12.5 - 166.0 Ovulation phase 85.8 - 498.0 Luteal phase 43.8 - 211.0 Postmenopausal <6.0 - 54.7 1st trimester 215.0 - >4300.0 Jeferson ECLIA methodology Performed By: #### E STRADI #### [facility] [address] [place] [address] Dr. Katie Funez PROGESTERONEon 08-11-2022 Progesterone 9.7 ng/mL Normal [facility] [place] Comment on above: Result Comment: Foll icular phase 0.1 - 0.9 Luteal phase 1.8 - 23.9 Ovulation phase 0.1 - 12.0 First trimester 11.0 - 44.3 Second trimester 25.4 - 83.3 Third trimester 58.7 - 214.0 Postmenopausal 0.0 - 0.1 Performed By: #### V ITAD #### [facility] [address] [place] [address] Dr. Katie Funez SEX HORMONE-BINDING GLOBULIN on 08-11-2022 Sex Horm Binding Glob, Serum 73.1 nmol/L Normal 24.6-122.0 [facility] [place] Comment on above: Performed By: #### V ITAD #### [facility] [address] [place] [address] Dr. Katie Funez CBC AUTO DIFFon 08-10-2022 BASO # 0.0 103/ul Normal 0.0-0.1 [facility] [place] Comment on above: Performed By: #### V ITAD #### [facility] [address] [place] [address] Dr. Katie Funez Basophils/100 WBC (Bld) 0.6 % Normal 0.2-2.0 [facility] Comment on above: Performed By: #### V ITAD #### [facility] [address] [place] [address] Dr. Katie Funez EO # 0.1 103/ul Normal 0.0-0.7 [facility] [place] Comment on above: Performed By: #### V ITAD #### [facility] [address] [place] [address] Dr. Katie Funez Eosinophils/100 WBC (Bld) 1.4 % Normal 0.9-7.0 [facility] [place] Comment on above: Performed By: #### V ITAD #### [facility] [address] [place] [address] Dr. Katie Funez Erythrocyte distribution width (RBC) [Ratio] 13.2 % Normal 11.0-15.0 [facility] [place] Comment on above: Performed By: #### V ITAD #### [facility] [address] [place] [address] Dr. Katie Funez Hematocrit (Bld) [Volume fraction] 41.9 % Normal 36.0-48.0 [facility] [place] Comment on above: Performed By: #### V ITAD #### [facility] [address] [place] [address] Dr. Katie Funez Hemoglobin (Bld) [Mass/Vol] 13.5 g/dL Normal 12.0-16.0 [facility] [place] Comment on above: Performed By: #### V ITAD #### [facility] [address] [place] [address] Dr. Katie Funez IG # 0.01 10e3/ul Normal 0.00-0.03 [facility] [place] Comment on above: Performed By: #### V ITAD #### [facility] [address] [place] [address] Dr. Katie Funez IG % 0.1 % Normal 0.0-0.5 [facility] Comment on above: Performed By: #### V ITAD #### [facility] [address] [place] [address] Dr. Katie Funez LYMPH # 1.8 103/ul Normal 1.2-3.8 [facility] [place] Comment on above: Performed By: #### V ITAD #### [facility] [address] [place] [address] Dr. Katie Funez Lymphocytes/100 WBC (Bld) 24.6 % Normal 20.5-60.0 [facility] [place] Comment on above: Performed By: #### V ITAD #### [facility] [address] [place] [address] Dr. aKtie Funez MANUAL DIFF REQ NO Normal [facility] [place] Comment on above: Performed By: #### V ITAD #### [facility] [address] [place] [address] Dr. Katie Funez MCH (RBC) [Entitic mass] 28.2 pg Normal 26.7-34.0 [facility] [place] Comment on above: Performed By: #### V ITAD #### [facility] [address] [place] [address] Dr. Katie Funez MCHC (RBC) [Mass/Vol] 32.2 g/dL Normal 29.9-35.2 [facility] [place] Comment on above: Performed By: #### V ITAD #### [facility] [address] [place] [address] Dr. Katie Funez MCV (RBC) [Entitic vol] 87.5 fL Normal 81.0-99.0 [facility] Comment on above: Performed By: #### V ITAD #### [facility] [address] [place] [address] Dr. Katie Funez MONO # 0.4 103/ul Normal 0.3-0.8 [facility] [place] Comment on above: Performed By: #### V ITAD #### [facility] [address] [place] [address] Dr. Katie Funez Monocytes/100 WBC (Bld) 6.0 % Normal 1.7-12.0 [facility] Comment on above: Performed By: #### V ITAD #### [facility] [address] [place] [address] Dr. Katie Funez NEUT # 4.8 103/ul Normal 1.4-6.5 [facility] [place] Comment on above: Performed By: #### V ITAD #### [facility] [address] [place] [address] Dr. Katie Funez Neutrophils/100 WBC (Bld) 67.3 % Normal 43.0-75.0 [facility] [place] Comment on above: Performed By: #### V ITAD #### [facility] [address] [place] [address] Dr. Katie Funez Platelet mean volume (Bld) [Entitic vol] 11.7 fL Normal 9.5-13.5 [facility] [place] Comment on above: Performed By: #### V ITAD #### [facility] [address] [place] [address] Dr. Katie Funez PLT 294 103/ul Normal 150-450 [facility] Comment on above: Performed By: #### V ITAD #### [facility] [address] [place] [address] Dr. Katie Funez RBC 4.79 106/ul Normal 4.20-5.40 [facility] [place] Comment on above: Performed By: #### V ITAD #### [facility] [address] [place] [address] Dr. Katie Funez WBC 7.2 103/ul Normal 4.0-11.0 [facility] [place] Comment on above: Performed By: #### V ITAD #### [facility] [address] [place] [address] Dr. Katie Funez GLYCOHEMOGLOBIN A1Con 2021 ADA RECOMMENDATION SEE BELOW Normal [facility] [place] Comment on above: Result Comment: ADA RECOMMENDED LIMIT 4.0 - 6.0 ADA THERAPEUTIC TARGET < 7.0 ACTION SUGGESTED > 7.0 Performed By: #### P DAVINA #### [facility] [address] [place] [address] Dr. Katie Funez Glucose [Mass/Vol] 103 mg/dL Normal [facility] Comment on above: Performed By: #### P DAVINA #### [facility] [address] [place] [address] Dr. Katie Funez HbA1c (Bld) [Mass fraction] 5.2 % Normal 4.5-6.2 [facility] [place] Comment on above: Performed By: #### P DAVINA #### [facility] [address] [place] [address] Dr. Katie Funez LIPID PROFILEon 08-10-2022 CHOL-HDL RATIO NORM SEE BELOW Normal [facility] [place] Comment on above: Result Comment: 3.3 - 4.4 LOW RISK 4.4 - 7.1 AVERAGE RISK 7.1 - 11.0 MODERATE RISK >11.0 HIGH RISK Performed By: #### V ITAD #### [facility] [address] [place], [place] [address] Dr. Katie Funez Cholesterol [Mass/Vol] 204 mg/dL Critically high <=200 [facility] [place] Comment on above: Performed By: #### V ITAD #### [facility] [address] [address] [address] Katie Funez Cholesterol in HDL [Mass/Vol] 52 mg/dL Normal 40-60 [facility] [place] Comment on above: Performed By: #### V ITAD #### [facility] [address] [place] [address] Dr. Katie Funez Cholesterol in LDL [Mass/Vol] 137.2 mg/dL Normal [facility] [place] Comment on above: Performed By: #### V ITAD #### [facility] [address] [address] [address] Katie Funez Cholesterol.total/Choleste rol in HDL [Mass ratio] 3.9 {ratio} Normal [facility] [place] Comment on above: Performed By: #### V ITAD #### [facility] [address] [place] [address] Dr. Katie Funez HDL NORMAL > or = 60 mg/dl - LOW CARDIOVASCULAR RISK <40 mg/dl - HIGH CARDIOVASCULAR RISK Normal [facility] Comment on above: Performed By: #### V ITAD #### [facility] [address] [place] [address] Dr. Katie Funez LDL CALC NORMAL SEE BELOW Normal [facility] [place] Comment on above: Result Comment: <100 mg/dl OPTIMAL 100 - 129 mg/dl NEAR OR ABOVE OPTIMAL 130 - 159 mg/dl BORDERLINE HIGH 160 - 189 mg/dl HIGH >190 mg/dl VERY HIGH Performed By: #### V ITAD #### [facility] [address] [place] [address] Dr. Katie Funez Triglyceride [Mass/Vol] 74 mg/dL Normal <=150 [facility] Comment on above: Performed By: #### V ITAD #### [facility] [address] [place] [address] Dr. Katie Funez VLDL CALC 14.8 mg/dL Normal [facility] [place] Comment on above: Performed By: #### V ITAD #### [facility] [address] [place] [address] Dr. Katie Funez PROF 14(COMP METB)on 022 Albumin [Mass/Vol] 3.8 g/dL Normal 3.4-5.0 [facility] [place] Comment on above: Performed By: #### V ITAD #### [facility] [address] [place] [address] Dr. Katie Funez Albumin/Globulin [Mass ratio] 0.9 {ratio} Normal [facility] [place] Comment on above: Performed By: #### V ITAD #### [facility] [address] [place] [address] Dr. Katie Funez ALP [Catalytic activity/Vol] 77 U/L Normal 46-116 [facility] [place] Comment on above: Performed By: #### V ITAD #### [facility] [address] [place] [address] Dr. Katie Funez ALT [Catalytic activity/Vol] 20 U/L Normal 14-59 [facility] [place] Comment on above: Performed By: #### V ITAD #### [facility] [address] [place] [address] Dr. Katie Funez Anion gap [Moles/Vol] 10.0 mmol/L Normal [facility] [place] [facility] Comment on above: Performed By: #### V ITAD #### [facility] [address] [place] [address] Dr. Katie Funez AST [Catalytic activity/Vol] 14 U/L Critically low 15-37 [facility] [place] Comment on above: Performed By: #### V ITAD #### [facility] [address] [place] [address] Dr. Katie Funez Bilirubin [Mass/Vol] 0.8 mg/dL Normal 0.2-1.0 [facility] [place] Comment on above: Performed By: #### V ITAD #### [facility] [address] [place] [address] Dr. Katie Funez Calcium [Mass/Vol] 8.9 mg/dL Normal 8.5-10.1 [facility] [place] Comment on above: Performed By: #### V ITAD #### [facility] [address] [place] [address] Dr. Katie Funez Chloride [Moles/Vol] 101 mmol/L Normal 98-107 [facility] [place] Comment on above: Performed By: #### V ITAD #### [facility] [address] [place] [address] Dr. Katie Funez CO2 [Moles/Vol] 29.9 mmol/L Normal 21.0-32.0 [facility] [place] Comment on above: Performed By: #### V ITAD #### [facility] [address] [place] [address] Dr. Katie Funez Creatinine [Mass/Vol] 0.83 mg/dL Normal 0.55-1.02 [facility] [place] Comment on above: Performed By: #### V ITAD #### [facility] [address] [place] [address] Dr. Katie Funez EGFR-AF [place] ISLANDER >60 Normal >=60 [facility] Comment on above: Performed By: #### V ITAD #### [facility] [address] [place] [address] Dr. Katie Funez EGFR-NON AF [place] ISLANDER >60 Normal >=60 [facility] [place] Comment on above: Performed By: #### V ITAD #### [facility] [address] [place] [address] Dr. Katie Funez Globulin (S) [Mass/Vol] 4.0 g/dL Normal [facility] Comment on above: Performed By: #### V ITAD #### [facility] [address] [place] [address] Dr. Katie Funez Glucose [Mass/Vol] 91 mg/dL Normal 74-106 [facility] [place] Comment on above: Performed By: #### V ITAD #### [facility] [address] [address] [address] Katie Funez Potassium [Moles/Vol] 3.9 mmol/L Normal 3.5-5.1 [facility] [place] Comment on above: Performed By: #### V ITAD #### [facility] [address] [place] [address] Dr. Katie Funez Protein [Mass/Vol] 7.8 g/dL Normal 6.4-8.2 [facility] Comment on above: Performed By: #### V ITAD #### [facility] [address] [place] [address] Dr. Katie Funez Sodium [Moles/Vol] 137 mmol/L Normal 136-145 [facility] [place] Comment on above: Performed By: #### V ITAD #### [facility] [address] [place] [address] Dr. Katie Funez Urea nitrogen [Mass/Vol] 13.0 mg/dL Normal 7.0-18.0 [facility] [place] Comment on above: Performed By: #### V ITAD #### [facility] [address] [place] [address] Dr. Katie Funez Urea nitrogen/Creatinine [Mass ratio] 15.7 mg/mg Normal [facility] Comment on above: Performed By: #### V ITAD #### [facility] [address] [place] [address] Dr. Katie Funez TSHon 08-10-2022 TSH 2.642 uIU/mL Normal 0.358-3.740 [facility] [place] Comment on above: Performed By: #### V ITAD #### [facility] [address] [place] [address] Dr. Katie Funez VITAMIN D 25 [place]on 08-10-2022 VIT D 25-OH 23.6 ng/mL Normal [facility] Comment on above: Performed By: #### V ITAD #### [facility] [address] [place] [address] Dr. Katie Funez VIT D RANGES SEE BELOW Normal [facility] Comment on above: Result Comment: <20 ng/mL Vit D deficient 20 - <30 ng/mL Vit D insufficient 30 - 100 ng/mL Vit D sufficient >100 ng/mL Potential Toxicity Performed By: #### V ITAD #### [facility] [address] [address] [address] Katie Funez MG MAMM SCREEN 3D JORDI CADon 05-19-2022 MG MAMM SCREEN 3D JORDI CAD Patient: NAHID BARBOSA Exam Date: 05/19/2022 : 1980 Gender:F Ordering : DR. NOÉ FRANK D.O. Admission #: [id number] Family : Order #: [id number] CLICK HERE TO VIEW EXAM RADIOLOGY REPORT [...] cancer at age 48. LOCATION: [facility] BREAST COMPOSITION: Heterogeneously dense,which may [...] on 05/19/2022 at 12:38 Normal [facility] Vital Signs Date Time Vital Sign Value Performing Clinician Facility 01-14-2024 12:15-0400 Body height 170.18 cm [facility] 01-14-2024 12:15-0400 Body mass index (BMI) [Ratio] 47.6 kg/m2 [facility] 01-14-2024 12:15-0400 Body weight 137.89 kg [facility] 01-14-2024 12:15-0400 Diastolic blood pressure 76 mm[Hg] [facility] 01-14-2024 12:15-0400 Heart rate 67 /min [facility] 01-14-2024 12:15-0400 Respiratory rate 12 /min [facility] 01-14-2024 12:15-0400 Systolic blood pressure 117 mm[Hg] [facility] 08-06-2023 14:00-0400 Body height 170.18 cm Faizan Ball Other [facility] 08-06-2023 14:00-0400 Body mass index (BMI) [Ratio] 47.04 kg/m2 Faizan Ball Other [facility] 08-06-2023 14:00-0400 Body weight 136.26 kg Faizan Ball Other [facility] 08-06-2023 14:00-0400 Diastolic blood pressure 81 mm[Hg] Faizan Ball Other [facility] 08-06-2023 14:00-0400 Respiratory rate 12 /min Faizan Ball Other [facility] 08-06-2023 14:00-0400 Systolic blood pressure 118 mm[Hg] Faizan Ball Other [facility] Other Encounters Encounter Date Encounter Type Care Provider Facility Start: 05-26-2024 End: 05-26-2024 ambulatory Josué Ryan MD [facility]: [facility] Start: 05-05-2024 End: 05-05-2024 ambulatory Josué Ryan MD [facility]: [facility] Start: 04-14-2024 End: 04-14-2024 ambulatory Josué Ryan MD [facility]: [facility] Start: 04-07-2024 End: 04-07-2024 ambulatory Andbill Ryan MD Facility:[facility] Start: 03-24-2024 End: 03-24-2024 ambulatory Josué Ryan MD Facility:[facility] Start: 01-14-2024 End: 01-14-2024 ambulatory [facility] Work Phone: Start: 01-14-2024 End: 01-14-2024 Patient encounter procedure [facility] Work Phone: Start: 08-06-2023 End: 08-06-2023 ambulatory Faizan Gay Other [facility] Start: 08-06-2023 Encounter for genera l adult medical examination without abnormal findings Faizan Gay [facility] Start: 08-06-2023 Periodic preventive med est patient 40-64yrs Faizan Gay [facility] Start: 08-06-2023 Telephone encounter Faizan Gay [facility] Start: 02-03-2023 End: 02-04-[address] LAURIE PATEL Facility:[facility] Start: 11-30-2022 End: 02-07-[address] FAIZAN GAY Facility:[facility] Start: 09-25-2022 End: 09-26-[address] FAIZAN GAY Facility:[facility] Start: 09-06-[address] FAIZAN GAY Facili ty:[facility] Start: 08-13-2022 Encounter for genera l adult medical examination without abnormal findings DR FAIZAN GAY [facility] Start: 08-10-2022 End: 08-11-[address] FAIZAN GAY Facility:[facility] Start: 08-10-2022 End: 08-11-2022 Encounter for general adult medical examination without abnormal findings DR FAIZAN GAY Facility:[facility] Start: 05-19-2022 End: 05-20-[address] RAHUL QUINTERO Facility:[facility] Start: 01-20-2019 End: 01-21-2019 Patient encounter procedure DEFAULT PHYSICIAN Facility:[facility] Start: 01-01-2019 End: 01-02-2019 Patient encounter procedure DEFAULT PHYSICIAN Facility:[facility] Plan of Treatment Date Care Activity Detail Author XR Lumbar spine Views [facility] Immunizations Immunization Date Immunization Notes Care Provider Destiny avila 07-25-2017 influenza virus vaccine, split virus (incl. purified surface antigen) Faizan Gay Other [facility] 07-25-2017 influenza virus vaccine, unspecified formulation [facility] Payers Date Payer Category Payer Unknown 2022 Unknown [id number] 2019 Unknown [id number] 1980 Unknown [id number] 2.16.8 [id number] 1980 Unknown [id number] 2.16.8 [id number] 1980 Unknown [id number] 2.16.84 0.1.081295.3.579.2.593 1980 Unknown [id number] 2.16.84 0.1.393615.3.579.2.593 1980 Unknown [id number] 2.16.84 0.1.980468.3.579.2.593 1980 Unknown [id number] 2.16.84 0.1.864191.3.579.2.593 1980 Unknown [id number] 2.16.84 0.1.366519.3.579.2.593 1980 Unknown [id number] 2.16.84 0.1.238581.3.579.2.593 1980 Unknown [id number] 2.16. [id number] 1980 Unknown [id number] 2.16. 840.1.042128.3.579.2.196 1980 Unknown [id number] 2.16. 840.1.761357.3.579.2.196 1980 Unknown [id number] 2.16. 840.1.366141.3.579.2.196 1980 Unknown [id number] 2.16. [id number] Social History Date Type Detail Facility Unknown if ever smoked [facility] Other Sex Assigned At Sex Assigned At Bir th [facility] Start: 08-06-2023 Tobacco smoking status NHIS Never smoked tobacco (finding) [facility] Start: 1980 Sex Assigned At Female F [facility] Evaluation note 08-06-2023 Note Date & Type [...] hydrate. No treatment necessary, continue to exercise [facility] Other Evaluation note Note Date & Type Note Facility Evaluation note No Information [facility] Other Evaluation note Note Date & Type Note Facility Evaluation note No assessment information availa [facility] Work Phone: History general Narrative - Reported Note Date & Type Note Facility History general Narrative - Reported Type Medical History Foot pain Medical History Menopausal symptom Medical History Hormonal disorder Medical History Palpitations Surgical History C section Surgical History wisdom teeth Surgical History vein ligation Hospitalization History child bit [facility] Other Summary Purpose Family History No Family [...] and content) DATE CREATED AUTHOR 01/21/2019 [facility] DATE CREATED AUTHOR AUTHOR'S ORGANIZ ATION 02/14/2023 [facility] DATE CREATED AUTHOR AUTHOR'S ORGANIZ ATION 06/11/2024 [facility] REASON FOR VISIT (unrecogniz ed section [...] BE BASED ON THE PRIMARY CLINICAL RECORDS. [facility]. provides no warranty or guarantee of the accuracy or completeness of information in this document.
== END 2024-06-26 08:56 | disposition home or self-care (01) ==
LOC: EC 08:55
PROVIDERS: PCP Internal Medicine; Visit Provider Physician Assistant
DX: S93.432D Sprain of tibiofibular ligament of left ankle, subsequent encounter (principal)
CPT/HCPCS: 73590

== ENCOUNTER 2024-06-27 07:24 | Outpatient (OUT) | payer BC, SELFPAY ==
--- NOTE | 2024-06-27 | XR_ITS ---
The [address] [address] Patient Name: MARTHA FINNEY MRN: [id number] date: 1980 Sex: F Assigned Patient Location: [facility] Current Patient Location: Accession/Order Number: [id number] Exam Date: 06/27/2024 07:40 Report Date: 06/28/2024 09:11 At the request of: STERLING PRESTON Procedure: XR hip LT min 2V PROCEDURE: XR sacroiliac joint JORDI, XR hip LT min 2V HISTORY: Left hip pain COMPARISON: None. FINDINGS: BONES:No fracture, acute abnormality, or significant arthropathy. SOFT TISSUES:No visible soft tissue swelling. EFFUSION:None visible. SACRUM: No fracture, disruption of the sacral ala line, or cortical irregularity. COCCYX: No fracture or suspicious alignment. SOFT TISSUES: No widening of the sacroiliac joints. No radiopaque foreign body. OTHER: XR/XR hip LT min 2V IMPRESSION: 1. No acute bone abnormality or significant degenerative changes of the left hip and bilateral sacroiliac joints. Electronically authenticated by: ELIEZER ROME Date: 06/28/2024 09:11
--- NOTE | 2024-06-27 | XR_ITS ---
The [address] [address] Patient Name: MARTHA FINNEY MRN: [id number] date: 1980 Sex: F Assigned Patient Location: [facility] Current Patient Location: Accession/Order Number: [id number] Exam Date: 06/27/2024 07:40 Report Date: 06/28/2024 09:11 At the request of: STERLING PRESTON Procedure: XR sacroiliac joint JORDI PROCEDURE: XR sacroiliac joint JORDI, XR hip LT min 2V HISTORY: Left hip pain COMPARISON: None. FINDINGS: BONES:No fracture, acute abnormality, or significant arthropathy. SOFT TISSUES:No visible soft tissue swelling. EFFUSION:None visible. SACRUM: No fracture, disruption of the sacral ala line, or cortical irregularity. COCCYX: No fracture or suspicious alignment. SOFT TISSUES: No widening of the sacroiliac joints. No radiopaque foreign body. OTHER: XR/XR sacroiliac joint JORDI IMPRESSION: 1. No acute bone abnormality or significant degenerative changes of the left hip and bilateral sacroiliac joints. Electronically authenticated by: ELIEZER ROME Date: 06/28/2024 09:11
--- OUTSIDE RECORDS SUMMARY | 2024-06-27 07:28 | XMS_ITS | CCD ---
Author Organization [facility] [place] [facility] Care Team Providers Care Research Chef Name Role Phone PHYSICIAN, DEFAULT Admitting Unavailable [...] Facility (1 source) Carisoprodol Drug Allergy [facility] (1 source) Metoprolol Drug Allergy [facility] (3 sources) Carisoprodol Drug Allergy 01-14-20 palpitations [facility] (2 sources) First - Metoprolol *BETA BLOCKERS* Propensity to adverse reactions Comment:gaudencio archer [facility] [address] [employer] Other (1 source) First - Metoprolol *BETA BLOCK Allergy to substance 08-06-20 Comment:gaudencio archer [facility] Medications Current Medications Medication Drug Class(es) Dates [...] Drug Class(es) Dates Sig (Normalized) Sig (Original) [id number] 200 actuat albuterol 0.09 mg/actuat metered dose [...] 02-08-2023 Dehydroepiandrosterone (DHEA) 415 ng/dL Normal 31-701 [facility] [place] [facility] Comment on above: Performed By: #### D JAMEL. #### [facility] [address] [address] [address] Katie Funez ESTRONEon 02-06-2023 Estrone, Serum 55 pg/mL Normal [facility] [place] [facility] Comment on above: Result Comment: Rang e Adult (Premenopausal) 27 - 231 Menstrual Cycle (1-10 days) 19 - 149 Menstrual Cycle (11-20 days) 32 - 176 Menstrual Cycle (21-30 days) 37 - 200 Adult (Postmenopausal) 0 - 125 Performed By: #### P DAVINA #### [facility] [address] [address] [address] Katie Funez CORTISOLon 02-04-2023 Cortisol 22.7 ug/dL Critically high 6.2-19.4 [facility] [place] [facility] Comment on above: Result Comment: Plea se Note: The reference interval and flagging for this test is for an AM collection. If this is a PM collection please use: Cortisol PM: 2.3-11.9 [facility] also offers: 206420: Cortisol- AM 011954: Cortisol- PM Performed By: #### C ORTISO #### [facility] [address] [address] [address] Katie Funez ESTRADIOLon 02-04-2023 Estradiol 142.0 pg/mL Normal [facility] [place] [facility] Comment on above: Result Comment: Adul t Female: Follicular phase 12.5 - 166.0 Ovulation phase 85.8 - 498.0 Luteal phase 43.8 - 211.0 Postmenopausal <6.0 - 54.7 1st trimester 215.0 - >4300.0 [facility] ECLIA methodology Performed By: #### E WAYNE #### [facility] [address] [place], [place] [address] Dr. Katie Funez PROGESTERONEon 02-04-2023 Progesterone 7.6 ng/mL Normal [facility] Comment on above: Result Comment: Foll icular phase 0.1 - 0.9 Luteal phase 1.8 - 23.9 Ovulation phase 0.1 - 12.0 First trimester 11.0 - 44.3 Second trimester 25.4 - 83.3 Third trimester 58.7 - 214.0 Postmenopausal 0.0 - 0.1 Performed By: #### P ROGES #### [facility] [address] [place] [address] Dr. Katie Funez TESTOSTERONE, TOTALon 2022 Testosterone [Mass/Vol] 33 ng/dL Normal 4-50 [facility] Comment on above: Performed By: #### T ESTTOT #### [facility] [address] [place] [address] Dr. Katie Funez FREE T3on 02-03-2023 FREE T3 2.12 pg/mlL Critically low 2.18-3.98 [facility] [place] [facility] Comment on above: Performed By: #### P ROGES #### [facility] [address] [place] [address] Dr. Katie Funez FREE T4on 02-03-2023 Free T4 [Mass/Vol] 0.90 ng/dL Normal 0.76-1.46 [facility] [place] [facility] Comment on above: Performed By: #### P ROGES #### [facility] [address] [place] [address] Dr. Katie Funez TSHon 02-03-2023 TSH 2.763 uIU/mL Normal 0.358-3.740 [facility] [place] [facility] Comment on above: Performed By: #### P ROGES #### [facility] [address] [place] [address] Dr. Katie Funez FREE T3on 09-25-2022 FREE T3 1.80 pg/mlL Critically low 2.18-3.98 [facility] [place] [facility] Comment on above: Performed By: #### F T3 #### [facility] [address] [place] [address] Dr. Katie Funez FREE T4on 09-25-2022 Free T4 [Mass/Vol] 1.05 ng/dL Normal 0.76-1.46 [facility] [place] [facility] Comment on above: Performed By: #### P DAVINA #### [facility] [address] [place] [address] Dr. Katie Funez TSHon 09-25-2022 TSH 3.688 uIU/mL Normal 0.358-3.740 [facility] [place] [facility] Comment on above: Performed By: #### T SH #### [facility] [address] [place] [address] Dr. Katie Funez ESTRONEon 08-17-2022 Estrone, Serum 49 pg/mL Normal [facility] [place] [facility] Comment on above: Result Comment: Rang e Adult (Premenopausal) 27 - 231 Menstrual Cycle (1-10 days) 19 - 149 Menstrual Cycle (11-20 days) 32 - 176 Menstrual Cycle (21-30 days) 37 - 200 Adult (Postmenopausal) 0 - 125 Performed By: #### E STRONE #### [facility] [address] [place] [address] Dr. Katie Funez TESTOSTERONE, FREE,DIRECT, T OTALon 08-14-2022 Free Testosterone(Direct) 0.8 pg/mL Normal 0.0-4.2 [facility] [place] [facility] Comment on above: Result Comment: Perf ormed at: BN Performed By: #### V ITAD #### [facility] [address] [place] [address] Dr. Katie Funez Testosterone [Mass/Vol] 27 ng/dL Normal 4-50 [facility] Comment on above: Result Comment: Perf ormed at: CB Performed By: #### V ITAD #### [facility] [address] [place] [address] Dr. Kaite Funez CORTISOLon 08-11-2022 Cortisol 11.5 ug/dL Normal [facility] [place] [facility] Comment on above: Result Comment: Diomedes isol AM 6.2 - 19.4 Cortisol PM 2.3 - 11.9 Performed By: #### V ITAD #### [facility] [address] [place] [address] Dr. Katie Funez DHEA-SULFATEon 08-11-2022 DHEA-Sulfate 120.0 ug/dL Normal 57.3-279.2 [facility] [place] [facility] Comment on above: Performed By: #### V ITAD #### [facility] [address] [place] [address] Dr. Katie Funez ESTRADIOLon 08-11-2022 Estradiol 104.0 pg/mL Normal [facility] [place] [facility] Comment on above: Result Comment: Adul t Female: Follicular phase 12.5 - 166.0 Ovulation phase 85.8 - 498.0 Luteal phase 43.8 - 211.0 Postmenopausal <6.0 - 54.7 1st trimester 215.0 - >4300.0 [employer] ECLIA methodology Performed By: #### E STRADI #### [facility] [address] [place] [address] Dr. Katie Funez PROGESTERONEon 08-11-2022 Progesterone 9.7 ng/mL Normal [facility] [place] [facility] Comment on above: Result Comment: Foll icular phase 0.1 - 0.9 Luteal phase 1.8 - 23.9 Ovulation phase 0.1 - 12.0 First trimester 11.0 - 44.3 Second trimester 25.4 - 83.3 Third trimester 58.7 - 214.0 Postmenopausal 0.0 - 0.1 Performed By: #### V ITAD #### [facility] [address] [place] [address] Dr. Katie Funez SEX HORMONE-BINDING GLOBULIN on 08-11-2022 Sex Horm Binding Glob, Serum 73.1 nmol/L Normal 24.6-122.0 [facility] [place] [facility] Comment on above: Performed By: #### V ITAD #### [facility] [address] [place] [address] Dr. Katie Funez CBC AUTO DIFFon 08-10-2022 BASO # 0.0 103/ul Normal 0.0-0.1 [facility] [place] [facility] Comment on above: Performed By: #### V ITAD #### [facility] [address] [place] [address] Dr. Katie Funez Basophils/100 WBC (Bld) 0.6 % Normal 0.2-2.0 [facility] Comment on above: Performed By: #### V ITAD #### [facility] [address] [place] [address] Dr. Katie Funez EO # 0.1 103/ul Normal 0.0-0.7 [facility] [place] [facility] Comment on above: Performed By: #### V ITAD #### [facility] [address] [place] [address] Dr. Katie Funez Eosinophils/100 WBC (Bld) 1.4 % Normal 0.9-7.0 [facility] [place] [facility] Comment on above: Performed By: #### V ITAD #### [facility] [address] [place] [address] Dr. Katie Funez Erythrocyte distribution width (RBC) [Ratio] 13.2 % Normal 11.0-15.0 [facility] [place] [facility] Comment on above: Performed By: #### V ITAD #### [facility] [address] [place] [address] Dr. Katie Funez Hematocrit (Bld) [Volume fraction] 41.9 % Normal 36.0-48.0 [facility] [place] [facility] Comment on above: Performed By: #### V ITAD #### [facility] [address] [place] [address] Dr. Katie Funez Hemoglobin (Bld) [Mass/Vol] 13.5 g/dL Normal 12.0-16.0 [facility] [place] [facility] Comment on above: Performed By: #### V ITAD #### [facility] [address] [place] [address] Dr. Katie Funez IG # 0.01 10e3/ul Normal 0.00-0.03 [facility] [place] [facility] Comment on above: Performed By: #### V ITAD #### [facility] [address] [place] [address] Dr. Katie Funez IG % 0.1 % Normal 0.0-0.5 [facility] Comment on above: Performed By: #### V ITAD #### [facility] [address] [place] [address] Dr. Katie Funez LYMPH # 1.8 103/ul Normal 1.2-3.8 [facility] [place] [facility] Comment on above: Performed By: #### V ITAD #### [facility] [address] [place] [address] Dr. Katie Funez Lymphocytes/100 WBC (Bld) 24.6 % Normal 20.5-60.0 [facility] [place] [facility] Comment on above: Performed By: #### V ITAD #### [facility] [address] [place] [address] Dr. Katie Funez MANUAL DIFF REQ NO Normal [facility] [place] [facility] Comment on above: Performed By: #### V ITAD #### [facility] [address] [place] [address] Dr. Katie Funez MCH (RBC) [Entitic mass] 28.2 pg Normal 26.7-34.0 [facility] [place] [facility] Comment on above: Performed By: #### V ITAD #### [facility] [address] [place] [address] Dr. Katie Funez MCHC (RBC) [Mass/Vol] 32.2 g/dL Normal 29.9-35.2 [facility] [place] [facility] Comment on above: Performed By: #### V ITAD #### [facility] [address] [place] [address] Dr. Katie Funez MCV (RBC) [Entitic vol] 87.5 fL Normal 81.0-99.0 [facility] Comment on above: Performed By: #### V ITAD #### [facility] [address] [place] [address] Dr. Katie Funez MONO # 0.4 103/ul Normal 0.3-0.8 [facility] [place] [facility] Comment on above: Performed By: #### V ITAD #### [facility] [address] [place] [address] Dr. Katie Funez Monocytes/100 WBC (Bld) 6.0 % Normal 1.7-12.0 [facility] Comment on above: Performed By: #### V ITAD #### [facility] [address] [place] [address] Dr. Katie Funez NEUT # 4.8 103/ul Normal 1.4-6.5 [facility] [place] [facility] Comment on above: Performed By: #### V ITAD #### [facility] [address] [place] [address] Dr. Katie Funez Neutrophils/100 WBC (Bld) 67.3 % Normal 43.0-75.0 [facility] [place] [facility] Comment on above: Performed By: #### V ITAD #### [facility] [address] [place] [address] Dr. Katie Funez Platelet mean volume (Bld) [Entitic vol] 11.7 fL Normal 9.5-13.5 [facility] [place] [facility] Comment on above: Performed By: #### V ITAD #### [facility] [address] [place] [address] Dr. Katie Funez PLT 294 103/ul Normal 150-450 [facility] Comment on above: Performed By: #### V ITAD #### [facility] [address] [place] [address] Dr. Katie Funez RBC 4.79 106/ul Normal 4.20-5.40 [facility] [place] [facility] Comment on above: Performed By: #### V ITAD #### [facility] [address] [place] [address] Dr. Katie Funez WBC 7.2 103/ul Normal 4.0-11.0 [facility] [place] [facility] Comment on above: Performed By: #### V ITAD #### [facility] [address] [place] [address] Dr. Katie Funez GLYCOHEMOGLOBIN A1Con 2021 ADA RECOMMENDATION SEE BELOW Normal [facility] [place] [facility] Comment on above: Result Comment: ADA RECOMMENDED LIMIT 4.0 - 6.0 ADA THERAPEUTIC TARGET < 7.0 ACTION SUGGESTED > 7.0 Performed By: #### P DAVINA #### [facility] [address] [place] [address] Dr. Katie Funez Glucose [Mass/Vol] 103 mg/dL Normal [facility] [place] [facility] Comment on above: Performed By: #### P DAVINA #### [facility] [address] [place] [address] Dr. Katie Funez HbA1c (Bld) [Mass fraction] 5.2 % Normal 4.5-6.2 [facility] [place] [facility] Comment on above: Performed By: #### P DAVINA #### [facility] [address] [place] [address] Dr. Katie Funez LIPID PROFILEon 08-10-2022 CHOL-HDL RATIO NORM SEE BELOW Normal [facility] [place] [facility] Comment on above: Result Comment: 3.3 - 4.4 LOW RISK 4.4 - 7.1 AVERAGE RISK 7.1 - 11.0 MODERATE RISK >11.0 HIGH RISK Performed By: #### V ITAD #### [facility] [address] [place], [place] [address] Dr. Katie Funez Cholesterol [Mass/Vol] 204 mg/dL Critically high <=200 [facility] [place] [facility] Comment on above: Performed By: #### V ITAD #### [facility] [address] [address] [address] Katie Funez Cholesterol in HDL [Mass/Vol] 52 mg/dL Normal 40-60 [facility] [place] [facility] Comment on above: Performed By: #### V ITAD #### [facility] [address] [place] [address] Dr. Katie Funez Cholesterol in LDL [Mass/Vol] 137.2 mg/dL Normal [facility] [place] [facility] Comment on above: Performed By: #### V ITAD #### [facility] [address] [address] [address] Katie Funez Cholesterol.total/Choleste rol in HDL [Mass ratio] 3.9 {ratio} Normal [facility] [place] [facility] Comment on above: Performed By: #### V ITAD #### [facility] [address] [place] [address] Dr. Katie Funez HDL NORMAL > or = 60 mg/dl - LOW CARDIOVASCULAR RISK <40 mg/dl - HIGH CARDIOVASCULAR RISK Normal [facility] [place] [facility] Comment on above: Performed By: #### V ITAD #### [facility] [address] [place] [address] Dr. Katie Funez LDL CALC NORMAL SEE BELOW Normal [facility] [place] [facility] Comment on above: Result Comment: <100 mg/dl OPTIMAL 100 - 129 mg/dl NEAR OR ABOVE OPTIMAL 130 - 159 mg/dl BORDERLINE HIGH 160 - 189 mg/dl HIGH >190 mg/dl VERY HIGH Performed By: #### V ITAD #### [facility] [address] [place] [address] Dr. Katie Funez Triglyceride [Mass/Vol] 74 mg/dL Normal <=150 [facility] Comment on above: Performed By: #### V ITAD #### [facility] [address] [place] [address] Dr. Katie Funez VLDL CALC 14.8 mg/dL Normal [facility] [place] [facility] Comment on above: Performed By: #### V ITAD #### [facility] [address] [place] [address] Dr. Katie Funez PROF 14(COMP METB)on 022 Albumin [Mass/Vol] 3.8 g/dL Normal 3.4-5.0 [facility] [place] [facility] Comment on above: Performed By: #### V ITAD #### [facility] [address] [place] [address] Dr. Katie Funez Albumin/Globulin [Mass ratio] 0.9 {ratio} Normal [facility] [place] [facility] Comment on above: Performed By: #### V ITAD #### [facility] [address] [place] [address] Dr. Katie Funez ALP [Catalytic activity/Vol] 77 U/L Normal 46-116 [facility] [place] [facility] Comment on above: Performed By: #### V ITAD #### [facility] [address] [place] [address] Dr. Katie Funez ALT [Catalytic activity/Vol] 20 U/L Normal 14-59 [facility] [place] [facility] Comment on above: Performed By: #### V ITAD #### [facility] [address] [place] [address] Dr. Katie Funez Anion gap [Moles/Vol] 10.0 mmol/L Normal [facility] Comment on above: Performed By: #### V ITAD #### [facility] [address] [place] [address] Dr. Katie Funez AST [Catalytic activity/Vol] 14 U/L Critically low 15-37 [facility] [place] [facility] Comment on above: Performed By: #### V ITAD #### [facility] [address] [place] [address] Dr. Katie Funez Bilirubin [Mass/Vol] 0.8 mg/dL Normal 0.2-1.0 [facility] [place] [facility] Comment on above: Performed By: #### V ITAD #### [facility] [address] [place] [address] Dr. Katie Funez Calcium [Mass/Vol] 8.9 mg/dL Normal 8.5-10.1 [facility] [place] [facility] Comment on above: Performed By: #### V ITAD #### [facility] [address] [place] [address] Dr. Katie Funez Chloride [Moles/Vol] 101 mmol/L Normal 98-107 [facility] [place] [facility] Comment on above: Performed By: #### V ITAD #### [facility] [address] [place] [address] Dr. Katie Funez CO2 [Moles/Vol] 29.9 mmol/L Normal 21.0-32.0 [facility] [place] [facility] Comment on above: Performed By: #### V ITAD #### [facility] [address] [place] [address] Dr. Katie Funez Creatinine [Mass/Vol] 0.83 mg/dL Normal 0.55-1.02 [facility] [place] [facility] Comment on above: Performed By: #### V ITAD #### [facility] [address] [place] [address] Dr. Katie Funez EGFR-AF DANISH >60 Normal >=60 [facility] [place] [facility] Comment on above: Performed By: #### V ITAD #### [facility] [address] [place] [address] Dr. Katie Funez EGFR-NON AF DANISH >60 Normal >=60 [facility] [place] [facility] Comment on above: Performed By: #### V ITAD #### [facility] [address] [place] [address] Dr. Katie Funez Globulin (S) [Mass/Vol] 4.0 g/dL Normal [facility] Comment on above: Performed By: #### V ITAD #### [facility] [address] [place] [address] Dr. Katie Funez Glucose [Mass/Vol] 91 mg/dL Normal 74-106 [facility] [place] [facility] Comment on above: Performed By: #### V ITAD #### [facility] [address] [address] [address] Katie Funez Potassium [Moles/Vol] 3.9 mmol/L Normal 3.5-5.1 [facility] [place] [facility] Comment on above: Performed By: #### V ITAD #### [facility] [address] [place] [address] Dr. Katie Funez Protein [Mass/Vol] 7.8 g/dL Normal 6.4-8.2 [facility] Comment on above: Performed By: #### V ITAD #### [facility] [address] [place] [address] Dr. Katie Funez Sodium [Moles/Vol] 137 mmol/L Normal 136-145 [facility] [place] [facility] Comment on above: Performed By: #### V ITAD #### [facility] [address] [place] [address] Dr. Katie Funez Urea nitrogen [Mass/Vol] 13.0 mg/dL Normal 7.0-18.0 [facility] [place] [facility] Comment on above: Performed By: #### V ITAD #### [facility] [address] [place] [address] Dr. Katie Funez Urea nitrogen/Creatinine [Mass ratio] 15.7 mg/mg Normal [facility] [place] [facility] Comment on above: Performed By: #### V ITAD #### [facility] [address] [place] [address] Dr. Katie Funez TSHon 08-10-2022 TSH 2.642 uIU/mL Normal 0.358-3.740 [facility] [place] [facility] Comment on above: Performed By: #### V ITAD #### [facility] [address] [place] [address] Dr. Katie Funez VITAMIN D 25 OHon 08-10-2022 VIT D 25-OH 23.6 ng/mL Normal [facility] Comment on above: Performed By: #### V ITAD #### [facility] [address] [place] [address] Dr. Katie Funez VIT D RANGES SEE BELOW Normal [facility] [place] [facility] Comment on above: Result Comment: <20 ng/mL Vit D deficient 20 - <30 ng/mL Vit D insufficient 30 - 100 ng/mL Vit D sufficient >100 ng/mL Potential Toxicity Performed By: #### V ITAD #### [facility] [address] [address] [address] Katie Funez MG MAMM SCREEN 3D JORDI CADon 05-19-2022 MG MAMM SCREEN 3D JORDI CAD Patient: NAHID BARBOSA Exam Date: 05/19/2022 : 1980 Gender:F Ordering : DR. NOÉ FRANK D.O. Admission #: [id number] Family : Order #: [id number] CLICK HERE TO VIEW EXAM RADIOLOGY REPORT [...] uterine cancer at age 48. LOCATION: [facility] BREAST COMPOSITION: Heterogeneously dense,which may [...] M.D. on 05/19/2022 at 12:38 Normal [facility] Vital Signs Date Time Vital Sign Value Performing Clinician Facility 01-14-2024 12:15-0400 Body height 170.18 cm [facility] 01-14-2024 12:15-0400 Body mass index (BMI) [Ratio] 47.6 kg/m2 [facility] 01-14-2024 12:15-0400 Body weight 137.89 kg [facility] 01-14-2024 12:15-0400 Diastolic blood pressure 76 mm[Hg] [facility] 01-14-2024 12:15-0400 Heart rate 67 /min [facility] 01-14-2024 12:15-0400 Respiratory rate 12 /min [facility] 01-14-2024 12:15-0400 Systolic blood pressure 117 mm[Hg] [facility] 08-06-2023 14:00-0400 Body height 170.18 cm Faizan Ball Other [facility] 08-06-2023 14:00-0400 Body mass index (BMI) [Ratio] 47.04 kg/m2 Faizan Ball Other [facility] 08-06-2023 14:00-0400 Body weight 136.26 kg Faizan Ball Other [facility] Other 08-06-2023 14:00-0400 Diastolic blood pressure 81 mm[Hg] Faizan Ball Other [facility] Other 08-06-2023 14:00-0400 Respiratory rate 12 /min Faizan Ball Other [facility] Other 08-06-2023 14:00-0400 Systolic blood pressure 118 mm[Hg] Faizan Ball Other [facility] Other Encounters Encounter Date Encounter Type Care Provider Facility Start: 05-26-2024 End: 05-26-2024 ambulatory Josué Ryan MD [facility]: [facility] Start: 05-05-2024 End: 05-05-2024 ambulatory Josué Ryan MD [facility]: [facility] Start: 04-14-2024 End: 04-14-2024 ambulatory Josué Ryan MD [facility]: [facility] Start: 04-07-2024 End: 04-07-2024 ambulatory Andbill Ryan MD Facility:[facility] Start: 03-24-2024 End: 03-24-2024 ambulatory Josué Ryan MD Facility:[facility] Start: 01-14-2024 End: 01-14-2024 ambulatory [facility] Work Phone: Start: 01-14-2024 End: 01-14-2024 Patient encounter procedure [facility] Work Phone: Start: 08-06-2023 End: 08-06-2023 ambulatory Faizan Gay Other [facility] Other Start: 08-06-2023 Encounter for genera l adult medical examination without abnormal findings Faizan Gay [facility] Start: 08-06-2023 Periodic preventive med est patient 40-64yrs Faizan Gay [facility] Start: 08-06-2023 Telephone encounter Faizan Gay [facility] Start: 02-03-2023 End: 02-04-[address] LAURIE PATEL Facility:[facility] Start: 11-30-2022 End: 02-07-[address] FAIZAN GAY Facility:[facility] Start: 09-25-2022 End: 09-26-[address] FAIZAN GAY Facility:[facility] Start: 09-06-[address] FAIZAN GAY Facili ty:[facility] Start: 08-13-2022 Encounter for genera l adult medical examination without abnormal findings DR FAIZAN GAY [facility] Start: 08-10-2022 End: 08-11-[address] FAIZAN GAY Facility:[facility] Start: 08-10-2022 End: 08-11-2022 Encounter for general adult medical examination without abnormal findings DR FAIZAN GAY Facility:[facility] Start: 05-19-2022 End: 05-20-[address] RAHUL QUINTERO Facility:[facility] Start: 01-20-2019 End: 01-21-2019 Patient encounter procedure DEFAULT PHYSICIAN Facility:[facility] Start: 01-01-2019 End: 01-02-2019 Patient encounter procedure DEFAULT PHYSICIAN Facility:[facility] Plan of Treatment Date Care Activity Detail Author XR Lumbar spine Views [facility] Immunizations Immunization Date Immunization Notes Care Provider Destiny avila 07-25-2017 influenza virus vaccine, split virus (incl. purified surface antigen) Faizan Gay Other [facility] 07-25-2017 influenza virus vaccine, unspecified formulation [facility] Payers Date Payer Category Payer Unknown 2022 Unknown [id number] 2019 Unknown [id number] 1980 Unknown [id number] 1980 Unknown [id number] 1980 Unknown [id number] [id number] 1980 Unknown [id number] 2.16.84 0.1.611602.3.579.2.593 1980 Unknown [id number] 2.16.84 0.1.336567.3.579.2.593 1980 Unknown [id number] 2.16.84 0.1.578154.3.579.2.593 1980 Unknown [id number] 2.16.84 0.1.360051.3.579.2.593 1980 Unknown [id number] 2.16.84 0.1.162483.3.579.2.593 1980 Unknown [id number] 2.16. 840.1.981348.3.579.2.196 1980 Unknown [id number] 2.16. 840.1.812596.3.579.2.196 1980 Unknown [id number] 2.16. 840.1.095842.3.579.2.196 1980 Unknown [id number] 2.16. 840.1.223546.3.579.2.196 1980 Unknown [id number] 2.16. 840.1.902759.3.579.2.196 Social History Date Type Detail Facility Unknown if ever smoked [facility] Other Sex Assigned At Sex Assigned At Bir th [facility] Other Start: 08-06-2023 Tobacco smoking status NHIS Never smoked tobacco (finding) [facility] Start: 1980 Sex Assigned At Female F [facility] Evaluation note 08-06-2023 Note Date [...] hydrate. No treatment necessary, continue to exercise [facility] Other Evaluation note Note Date & Type Note Facility Evaluation note No Information [facility] Other Evaluation note Note Date & Type Note Facility Evaluation note No assessment information availa [facility] Work Phone: History general Narrative - Reported Note Date & Type Note Facility History general Narrative - Reported Type Medical History Foot pain Medical History Menopausal symptom Medical History Hormonal disorder Medical History Palpitations Surgical History C section Surgical History wisdom teeth Surgical History vein ligation Hospitalization History child bit [facility] Other Summary Purpose Family History No Family [...] content) DATE CREATED AUTHOR 01/21/2019 [facility] DATE CREATED AUTHOR AUTHOR'S ORGANIZ ATION 02/14/2023 [facility] DATE CREATED AUTHOR AUTHOR'S ORGANIZ ATION 06/11/2024 [facility] REASON FOR VISIT (unrecogniz [...] BE BASED ON THE PRIMARY CLINICAL RECORDS. [employer] [facility]. provides no warranty or guarantee of the accuracy or completeness of information in this document.
== END 2024-06-27 07:25 | disposition home or self-care (01) ==
LOC: RAD 07:25
PROVIDERS: PCP Internal Medicine; Visit Provider Nurse Practitioner
DX: M25.552 Pain in left hip (principal)
CPT/HCPCS: 72202; 73502

== ENCOUNTER 2024-06-30 12:17 | Outpatient (OUT) | payer BC, SELFPAY ==
--- NOTE | 2024-06-30 13:00 | P.CN_ITS ---
Consult Note: HPI Data of Consult Patient: known to practice within the last 3 years Consult date: 06/30/24 Requesting Physician: Josué Ryan MD Primary Care Provider: Faizan Gay DO Consult Narrative Reason for consult: low back, left leg pain Narrative: 43yof who presents for assessment. continues to have significant pain from back to left leg that is significantly impacting daily activities. did have significant relief for >2 hours after recent lumbar medial branch block. uses tylenol and ibuprofen. engages in provider directed home exercises and stretches. denies adverse med side effects. cc:: CC: Josué Ryan MD Review of Systems ROS Status of ROS 10 or more systems reviewed and unremark able except as noted in history and below [facility] Medical History (Updated 06/04/24 @ 08:18 by Hilary Fernandez NP) Osteoarthritis ?M19.90 - Unspecified osteoarthritis, unspecified site (ICD-10) Hypothyroid ?E03.9 - Hypothyroidism, unspecified (ICD-10) Palpitations ?R00.2 - Palpitations (ICD-10) Surgical History History of oral surgery ?Z98.890 - Other specified postprocedural states (ICD-10) H/O section ?Z98.891 - History of uterine scar from previous surgery (ICD-10) History of foot surgery ?Z98.890 - Other specified postprocedural states (ICD-10) Meds Home Medications and Allergies Home Medications ?Medication ?Instructions ?Recorded ?Confirmed ?Type acetaminophen 500 mg tablet 1,000 mg PO BID PRN pain 03/24/24 06/09/24 History (Acetaminophen Extra Strength) ibuprofen 600 mg tablet (IBU) 600 mg PO Q12H 03/24/24 06/09/24 History multivitamin (Daily Multi-Vitamin 1 tab PO DAILY 03/24/24 06/09/24 History tablet) testosterone 1 mg topical DAILY 03/24/24 05/26/24 History vitamin E 670 mg (1,000 unit) 670 mg PO DAILY 03/24/24 06/09/24 History capsule progest compound QDAY 04/14/24 History triidothyrone 05/05/24 History Allergies Allergy/AdvReac Type Severity Reaction Status Date / Time carisoprodol [From [facility]oma] Allergy tachycardia Verified 06/09/24 07:06 metoprolol Allergy bradycardia Verified 06/09/24 07:06 Exam Narrative Exam Narrative: Psych-alert and oriented x 3. Attentive and appropriate, constitutionally normal, displays normal mood and affect per situation.? There are no obvious deficits in memory, reasoning, or intellect.? Skin-no obvious rashes, bruising, erythema noted to the patient's area of pain. Extremities- extremities are warm with minimal edema and palpable pulses. Lumbar-no significant tenderness to palpation noted in the lumbar spine and paraspinal musculature.? Pain is elicited with extension, and lateral rotation of the lumbar spine. Range of motion is slightly diminished with these motions due to pain. Facet loading maneuvers are positive bilaterally and do appear to be concordant with the patient's normal complaints of pain.? Coordination remains intact.? Gait remains non-antalgic. Assessment and Plan Assessment and Plan (1) Lumbar disc displacement without myelopathy: (2) Lumbar spondylosis: (3) Lumbar stenosis with neurogenic claudication: Plan 43yof who presents for assessment. failed conservative measures. imaging reviewed, which is significant for mild degenerative changes of left sacroiliac joint. mri shows significant left lateral disc displacement. at this point, will have patient referred to neurosurgeon for surgical evaluation. she is in agreement. discussed that depending on her evaluation, could proceed with second lumbar mbb. meds reviewed, no changes. follow up after evaluation.
== END 2024-06-30 12:18 | disposition home or self-care (01) ==
LOC: PM 12:17
PROVIDERS: PCP Internal Medicine; Visit Provider Anesthesiology
DX: M51.26 Other intervertebral disc displacement, lumbar region (principal); M47.816 Spondylosis without myelopathy or radiculopathy, lumbar region; M48.062 Spinal stenosis, lumbar region with neurogenic claudication
CPT/HCPCS: G0463

== ENCOUNTER 2025-06-29 20:10 | Outpatient (REF) | payer BC, SELFPAY ==
--- OUTSIDE RECORDS SUMMARY | 2025-06-29 20:18 | XMS_ITS | CCD ---
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 Name Role Phone PHYSICIAN, DEFAULT Admitting Unavailable PHYSICIAN, DEFAULT Attending Unavailable PHYSICIAN, DEFAULT Admitting Unavailable PHYSICIAN, DEFAULT Attending Unavailable WILD, DR ELIEZER Merrill Consulting Unavailable VERA, DR SANZ Primary Care Unavailable MONIKA, NOÉ Admitting Unavailable RINRUTH, NOÉ Attending Unavailable MONIKA, NOÉ Consulting Unavailable AMANDA, DR SULLIVAN Admitting Unavailable AMANDA, DR SULLIVAN Attending Unavailable BALL, DR SANZ Consulting Unavailable VERA, DR SANZ Primary Care Unavailable VERA, DR SANZ Primary Care Unavailable BALL, DR SANZ Consulting Unavailable VERA, DR SANZ Attending Unavailable BALL, DR SANZ Admitting Unavailable BALL, DR SANZ Primary Care Unavailable RAMON, JEROD Admitting Unavailable RAMON, JEROD Attending Unavailable BALL, DR SANZ Primary Care Unavailable BALL, DR SANZ Consulting Unavailable VERA, DR SANZ Attending Unavailable BALL, DR SANZ Admitting Unavailable BALL, DR SANZ Primary Care Unavailable BALL, DR SANZ Consulting Unavailable VERA, DR SANZ Attending Unavailable BALL, DR SANZ Admitting Unavailable Ball, Faizan Unavailable Giaugustoitis , Josué Mcgrath Attending Unavailable Giedraitis , Andrius Valfonzo Attending Unavailable Giedraitis , Andrius Vyttonie Attending Unavailable Giedraitis , Andrius Vyttonie Attending Unavailable Giedraitis , Andrius Vyttonie Attending Unavailable Giedraitis , Andrius Vyttonie Attending Unavailable Giedraitis , Andrius Vyttonie Attending Unavailable Giedraitis , Andrius Gorgeyttonie Attending Unavailable LINO GIRON Admitting Unavailable LINO GIRON Attending Unavailable GILL TOURE Attending Unavailable GILL TOURE Attending Unavailable LINO GIRON Referring Unavailable LINO GIRON Referring Unavailable LINO GRION Referring Unavailable GILL TOURE Attending Unavailable LINO GIRON Attending Unavailable Faizan Gay MD Primary Care Provider Faizan Gay MD Primary Care Provider MIKAYLA SOTO Attending Unavailable MIKAYLA SOTO Referring Unavailable MIKAYLA SOTO Attending Unavailable Faizan Gay DO Primary Care Provider Allergies Allergy Classification Reported Allergen(s) Allergy Type Date of Onset Reaction(s) Facility (1 source) Carisoprodol Drug Allergy [facility] Repository (2 sources) Metoprolol; Translations: [METOPROLOL] Drug Allergy 08-13-20 24 [facility] Repository (4 sources) Carisoprodol; Translations: [CARISOPRODOL] Drug Allergy 07-23-[address] [facility] (2 sources) First - Metoprolol *BETA BLOCKERS* Propensity to adverse reactions Comment:[facility] Other (1 source) First - Metoprolol *BETA BLOCK Allergy to substance 08-06-20 Comment:[facility] (3 sources) Lisinopril; Translations: [LISINOPRIL] Drug Allergy 05-14-20 [facility] Repository (8 sources) Carisoprodol Drug Allergy 07-23-20 15 Palpitations [facility] (1 source) Metoprolol Drug Allergy 08-13-20 24 [facility] Medications Current Medications Medication Drug Class(es) Dates Sig (Normalized) Sig (Original) acetaminophen 250 mg / aspirin 250 mg / caffeine 65 mg oral tablet (8 sources) Platelet Aggregation Inhibitor, Nonsteroidal Anti-inflammatory Drug, Central Nervous System Stimulant, Methylxanthine aspirin-acetamino phen-caffeine (Excedrin Migraine) 250-250-65 MG tablet every 6 (six) hours. Active amoxicillin 875 mg / clavulanate 125 mg oral tablet (5 sources) Penicillin-class Antibacterial Start: 01-21-2025 End: 01-28-2025 take 1 tablet by mouth in the morning amoxicillin-clavu lanate (Augmentin) 875-125 MG tablet Indications: Cellulitis of right breast Take 1 tablet (875 mg) by mouth in the morning and 1 tablet (875 mg) before bedtime. Do all this for 7 days. 14 tablet 01/21/2025 01/28/2025 Active B Complex-Folic Acid (vitamin-B complex) split tablet (3 sources) End: 01-21-2025 B Complex-Folic Acid (vitamin-B complex) split tablet 01/21/2025 Discontinued B Complex-Folic Acid (vitamin-B complex) split tablet Active docosahexaenoic acid 120 mg / eicosapentaenoic acid 180 mg oral capsule (4 sources) Start: 01-14-2024 take 2 capsules by mouth once daily Docosahexaenoic Acid-Epa (Fish Oil) 120-180 mg capsule Active 2 CAP PO Daily January 14, 2024 12:00am End: 01-21-2025 omega-3 (Fish Oil) 1000 MG c apsule 01/21/2025 Discontinued Fish Oils (3 sources) End: 01-21-2025 omega-3 (FISH OIL) 300 MG ca psule Fish Oil 01/21/2025 Discontinued omega-3 (FISH OI L) 300 MG capsule Fish Oil Active Gelatin Capsules, Empty, (Em pty Capsule Size 1 Orge/Yllw) capsule (3 sources) Start: 05-14-2023 End: 01-21-2025 Gelatin Capsules, Empty, (Em pty Capsule Size 1 Orge/Yllw) capsule 05/14/2023 01/21/2025 Discontinued Start: 05-14-2023 Gelatin Capsul es, Empty, (Empty Capsule Size 1 Orge/Yllw) capsule 05/14/2023 Active ibuprofen 200 mg oral tablet (3 sources) Nonsteroidal Anti-inflammatory Drug End: 01-21-2025 ibuprofen (Advil) 200 MG tablet every 8 (eight) hours. 01/21/2025 Discontinued lactobacillus acidophilus 16 mg oral capsule (3 sources) End: 01-21-2025 Probiotic, Lactobacillus, capsule 01/21/2025 Discontinued mecobalamin 1 mg chewable tablet (1 source) Start: 01-14-2024 take 1000 ug by mouth once daily Mecobalamin (Vitamin B12) Active 1000 MCG PO Daily January 14, 2024 12:00am Misc Natural Products (GLUCOSAMINE CHOND CMP DOUBLE PO) (7 sources) take 1 tablet by mouth once daily Misc Natural Products (GLUCOSAMINE CHOND CMP DOUBLE PO) Take 1 tablet by mouth Daily Active Multiple Vitamins-Minerals (Multivitamin Adults) tablet (3 sources) End: 01-21-2025 Multiple Vitamins-Minerals (Multivitamin Adults) tablet 01/21/2025 Discontinued Multiple Vitamin s-Minerals (Multivitamin Adults) tablet Active Multivitamin preparation (1 source) Start: 01-14-2024 take 1 tablet by mouth once daily Multivitamin Active 1 TAB PO Daily January 14, 2024 12:00am Non Gelatin Capsules, Empty, (Capsule Claire-Snap #1 Veggie) capsule (3 sources) Start: 01-29-2023 End: 01-21-2025 Non Gelatin Capsules, Empty, (Capsule Claire-Snap #1 Veggie) capsule 01/29/2023 01/21/2025 Discontinued Start: 01-29-2023 Non Gelatin Ca psules, Empty, (Capsule Claire-Snap #1 Veggie) capsule 01/29/2023 Active ProAir HFA 108 (90 Base) MCG/ACT (2 sources) take 2 puff(s) by inhalation every four hours as needed ProAir HFA 108 (90 Base) MCG/ACT 2 puffs as needed Inhalation every 4 hrs for 30 days Active progesterone 50 mg/ml injectable solution (1 source) Progesterone Start: 4 Progesterone Active 50 MG IM .COMPLEX January 14, 2024 12:00am 50 mg intramuscularly daily during day 14-28 of cycle; Triiodo L-thyronine (1 source) Start: 4 take 20 ug by mouth once daily Triiodo L-thyronine Active 20 MCG PO Daily January 14, 2024 12:00am Vitamin D-Vitamin K (VITAMIN K2-VITAMIN D3 PO) (7 sources) take 1 tablet by mouth once daily Vitamin D-Vitamin K (VITAMIN K2-VITAMIN D3 PO) Take 1 tablet by mouth Daily Active vitamin e 450 mg oral capsule (7 sources) Start: 4 take 1 capsule by mouth once daily alpha tocopherol (Vitamin E) 1000 units capsule Take 1,000 Units by mouth Daily 04/14/2024 Active zinc gluconate 77 mg oral lozenge (3 sources) End: 5 Zinc 10 MG lozenge 01/21/2025 Discontinued Completed/Discontinued Medications Medication Drug Class(es) Dates Sig (Normalized) Sig (Original) [id number] 200 actuat albuterol 0.09 mg/actuat metered dose inhaler (1 source) beta2-Adrenergic Agonist Start: 4 End: 4 take 1 puff(s) by inhalation every four hours Albuterol Sulfate (Proair Hfa) 90 mcg/actuation HFA aerosol inhaler Discontinued 2 PUFF INHALATION Every 4 hours January 11, 2024 12:00am January 14, 2024 12:14pm cholecalciferol 0.05 mg oral tablet (7 sources) Vitamin D Start: 4 End: 5 take 1 tablet by mouth once daily cholecalciferol (Vitamin D-3) 50 MCG (1999 UT) tablet Take 1 tablet by mouth Daily 04/29/2024 06/29/2025 Discontinued (Other) methylPREDNISolone 4 mg oral tablet (2 sources) Corticosteroid Medrol (Alin) 4 M G as directed Orally for 6 days Not-Taking Problems Active Problems Problem Classification Problem Date Documented Date Episodic/Chronic Cardiac dysrhythmias (4 sources) Palpitations; Translations: [Palpitations] Episodic Joint disorders and dislocations; trauma-related (8 sources) Chondromalacia of right patella; Translations: [Chondromalacia patellae, right knee] Onset: 05-14-2023 05-14-2023 Chronic Lymphadenitis (1 source) Generalized enlarged lymph nodes; Translations: [Generalized enlarged lymph nodes] 06-29-2025 Episodic Menopausal disorders (3 sources) Menopausal and female climacteric states; Translations: [Menopausal symptom] Onset: 09-30-2022 Chronic Menstrual disorders (8 sources) Disorder of menstruation; Translations: [Irregular menstruation, unspecified] Onset: 05-14-2023 05-14-2023 Chronic Nonmalignant breast conditions (1 source) Fibrocystic disease of breast; Translations: [Diffuse cystic mastopathy of unspecified breast] 06-29-2025 Chronic Nonmalignant breast conditions (7 sources) Mastodynia; Translations: [Mastodynia] 01-21-2025 Episodic Other congenital anomalies (2 sources) Congenital anomaly of breast; 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, unspecified] 01-21-2025 Chronic Other connective tissue disease (4 sources) Plantar fascial fibromatosis; Translations: [PLANTAR FASCIAL FIBROMATOSIS] Onset: 11-30-2022 Episodic Other connective tissue disease (3 sources) Foot pain; Translations: [Pain in unspecified foot] 01-11-2024 Episodic Other endocrine disorders (2 sources) Disorder of endocrine system; Translations: [Endocrine disorder, unspecified] Episodic Other nervous system disorders (8 sources) Chronic pain; Translations: [Other chronic pain] Onset: 05-14-2023 05-14-2023 Chronic Other nervous system disorders (2 sources) Other acute postprocedural pain; Translations: [Other acute postprocedural pain] Onset: 09-25-2024 Episodic Other nutritional; endocrine; and metabolic disorders [...] Body mass index (BMI) 45.0-49.9, adult Chronic Other screening for suspected conditions (not mental disorders or infectious disease) (7 sources) Encounter for screening mammogram for malignant neoplasm of breast; Translations: [Encounter for screening for diseases of the blood and blood-forming organs and certain disorders involving the immune mechanism] Onset: 05-19-2022 Episodic Residual codes; unclassified (4 sources) Asymptomatic menopausal state; Translations: [ASYMPTOMATIC MENOPAUSAL STATE] Onset: 02-03-2023 Episodic Residual codes; unclassified (2 sources) Pain, unspecified; Translations: [Pain, unspecified] Onset: 09-25-2024 Episodic Spondylosis; intervertebral disc disorders; other back problems (2 sources) Other intervertebral disc displacement, lumbar region; Translations: [Other intervertebral disc displacement, lumbar region] Onset: 08-13-2024 Chronic Spondylosis; intervertebral disc disorders; other back problems (3 sources) Low back pain; Translations: [Low back pain] Onset: 09-18-2024 01-14-2024 Episodic Unclassified (2 sources) Post-op; Translations: [Post-op] Onset: 11-13-2024 Unclassified (2 sources) Pre-op Exam; Translations: [Pre-op Exam] Onset: 09-18-2024 Past or Other Problems Problem Classification Problem Date Documented Da te Episodic/Chronic Malaise and fatigue (4 sources) Other fatigue; Translations: [OTHER FATIGUE] Onset: 09-25-2022 Episodic Other endocrine disorders (1 source) Endocrine disorder, unspecified; Translations: [ENDOCRINE DISORDER UNSPECIFIED] Onset: 08-13-2022 Episodic Other non-traumatic joint disorders (8 sources) Pain in right knee; Translations: [Pain in joint, lower leg] Onset: 05-14-2023 05-14-2023 Episodic Residual codes; unclassified (1 source) Family history of malignant neoplasm of other genital organs; Translations: [FAM HX MALIG NEOPLSM OTH GENIT ORGN] Onset: 05-22-2022 Episodic Results Test Name Value Interpretation Reference Range Facility BI US BREAST COMPLETE RIGHTo n 01-26-2025 BI US BREAST COMPLETE RIGHT This is a summary report. The complete report is available in the patient's medical record. If you cannot access the medical record, please contact the sending organization for a detailed fax or copy. Examination: BI US BREAST COMPLETE RIGHT Reason for Study: Cellulitis of Right Breast - 11 o'clock near areola Comparison: Screening mammogram study of the breasts dated 05/28/2024., Screening mammogram study of the breasts dated 05/24/2023. Technique: Complete right breast ultrasound study was performed to include all 4 quadrants, subareolar and axillary regions. Additional images of the area of clinically palpable lump at the 11 o'clock position were obtained. Findings: In the subdermal region at the 11 o'clock position in the area of clinically palpable lump there is a somewhat ill-defined area of decreased echogenicity likely representing focal area of cellulitis. Small developing abscess or sebaceous cyst less likely though difficult to exclude entirely. Other possibility be unlikely. The finding measures approximately 1 x 0.9 x 0.4 cm. This finding is approximately 2.1 cm from the nipple. At the 11 o'clock position at least 5.2 cm from the nipple there is an ovoid area of decreased echogenicity with internal echoes measuring approximately 1.2 x 0.7 x 0.6 cm. No obvious internal vascularity or posterior shadowing. The finding may be related to a small benign-appearing area on the prior mammogram study which appears stable when correlated with the 05/24/2023 mammogram study. Consider complex cyst, less likely intramammary lymph node or fibroadenoma. Other possibility would be less likely. Small area of decreased echogenicity at the subareolar level like representing a cyst measuring 0.8 x 0.7 x 0.4 cm. IMPRESSION: Impression: Right breast ultrasound study demonstrates in the area of clinically palpable lump at the 11 o'clock position likely small subdermal area of cellulitis. Developing abscess or sebaceous cyst less likely. Other possibility would be unlikely. At the 11 o'clock position of the breast parenchyma likely benign finding such as complex cyst, intramammary lymph node or fibroadenoma. This may correlate with a benign-appearing asymmetric density on the reviewed prior mammogram studies as noted. Likely small cyst at the subdermal level as noted. Follow-up ultrasound study of the right breast in 6 months is recommended to assess stability. Routine screening mammogram study of the breasts may be obtained at that time as well. BI-RADS 3 ELECTRONICALLY SIGNED BY: Maik Lester M.D. Normal Not Available HCG ( test) Ql (U)o n 01-21-2025 Interpretation and review of laboratory results Normal [facility] Preg Test, Ur Negative Negative [facility] Urinalysis macro (dipstick) panel (U)on 01-21-2025 Bilirubin, UA Negative Negative - 4(70) +++ mg/dL [facility] Blood, UA Negative Negative - 50 Alvarado/mcL [facility] Clarity, UA Clear [facility] Color, UA Yellow [facility] Glucose, UA Negative Negative - 1999(110) ++++ mg/dL [facility] Interpretation and review of laboratory results Normal [facility] Ketones, UA Negative Negative - 160(16) ++++ mg/dL [facility] Leukocytes, UA Negative Negative - 500+++ Lizbeth/mcL [facility] Nitrite, UA Negative Negative - Positive [facility] pH, UA 6 5 - 9 [facility] Protein, UA Negative Negative - 2000(20) ++++ mg/dL [facility] Spec Grav, UA 1.01 1 - 1.03 [facility] Urobilinogen, UA 0.2 0.2 - 12 mg/dL [facility] Office Visiton 11-13-2024 Follow-up visit [id number] Martha Hicks 1980 Date Provider Department Center 11/13/2024 [facility] SURG Second Fl Family History Problem Relation Age of Onset Arthritis Father Hyperlipidemia Maternal Grandfather Hypertension Maternal Grandfather Cancer Maternal Grandmother Hypertension Maternal Grandmother Stroke Maternal Grandmother Asthma Daughter Family Status - Relation Status Age at Father Maternal Grandfather Maternal Grandmother Daughter Level of Service:99008 [place] POSTOP FOLLOW UP VISIT RELATED TO ORIGINAL PX Reason for Visit and Comments: Post-op [483] [facility] Office Visiton 10-14-2024 Follow-up visit [id number] Martha Hicks 1980 Provider Department Center 10/14/2024 [facility] SURG Second Fl Family History Problem Relation Age of Onset Arthritis Father Hyperlipidemia Maternal Grandfather Hypertension Maternal Grandfather Cancer Maternal Grandmother Hypertension Maternal Grandmother Stroke Maternal Grandmother Asthma Daughter Family Status - Relation Status Age at Father Maternal Grandfather Maternal Grandmother Daughter Level of Service:76225 [place] POSTOP FOLLOW UP VISIT RELATED TO ORIGINAL PX [facility] Anesthesiaon 09-25-2024 Anesthesia [id number] Martha Hicks 1980 Provider Department Center 09/25/2024 [facility] OR PR Medical C Family History Problem Relation Age of Onset Arthritis Father Hyperlipidemia Maternal Grandfather Hypertension Maternal Grandfather Cancer Maternal Grandmother Hypertension Maternal Grandmother Stroke Maternal Grandmother Asthma Daughter Family Status - Relation Status Age at Father Maternal Grandfather Maternal Grandmother Daughter [facility] HPon 09-25-2024 HP H&P reviewed. The patient was examined and there are no changes to the H&P. Plan left side L5-S1 microdiscectomy. Consent already signed. Lino Giron MD [facility] NURSNOTEon 09-25-2024 NURSNOTE Camera Operator reviewed discharge instructions with patient. Patient transported via wheelchair to main entrance with all personal belongings. [facility] NURSNOTE Camera Operator removed patients IV access, cath intact. Gauze dressing applied to site, and secured with paper tape. Jennifer REYNOSO assisting patient with getting dressed at this time. [facility] OPNOTEon 09-25-2024 OPNOTE Date: 09/25/2024 Location: [facility] OR Name: Martha Francois , : 1980, Diagnosis Pre-op Diagnosis * Lumbar herniated disc [M51.26] * Lumbar radiculopathy [M54.16] Post-op Diagnosis * Lumbar herniated disc [M51.26] * Lumbar radiculopathy [M54.16] Procedures L5-S1 MICRODISCECTOMY 57953 - [place] LAMNOTMY INCL W/DCMPRSN NRV ROOT 1 INTRSPC LUMBR Left side L5 hemilaminotomy and L5-S1 microdiscectomy - for decompression of Left S1 nerve root Surgeons Primary: Lino Giron MD Procedure Summary Anesthesia: General ASA: III Estimated Blood Loss: Minimal Total IV Fluids: 1000 mL Drains: * None in log * Staff: Stock Unloader: Salvador Cleaning RN Scrub Person: Lorrie Miranda NEUROSURGICAL PHYSICIAN ASSISTANT Returns Processor: Silvia Hernandez RN Indications: Priscila Hicks is an 44 y.o. female who is having surgery for lumbar hernaited disc with radiculopathy. Findings: large left sided herniated disc Complications: None; patient tolerated the procedure well. Disposition: PACU - hemodynamically stable. Condition: stable Specimens Collected: Order Name Source Comment Collection Info Order Time URINE QUALITATIVE Urine, Clean Catch 09/25/2024 6:40 AM Release to Patient Immediately Attending Attestation: I was present and scrubbed for the entire procedure. Lino Giron [facility] OPNOTE L5-S1 MICRODISCECTOM Y (L) Operative Note Date: 09/25/2024 Location: [facility] OR Name: Martha Francois , : 1980, Diagnosis Pre-op Diagnosis * Lumbar herniated disc [M51.26] * Lumbar radiculopathy [M54.16] Post-op Diagnosis * Lumbar herniated disc [M51.26] * Lumbar radiculopathy [M54.16] Procedures L5-S1 MICRODISCECTOMY 86753 - [place] LAMNOTMY INCL W/DCMPRSN NRV ROOT 1 INTRSPC LUMBR Left side L5 hemilaminotomy and L5-S1 microdiscectomy - for decompression of Left S1 nerve root Surgeons Primary: Lino Giron MD Procedure Summary Anesthesia: General ASA: III Estimated Blood Loss: Minimal Total IV Fluids: 1000 mL Drains: * None in log * Staff: Stock Unloader: Salvador Cleaning RN Scrub Person: Lorrie Miranda, NEUROSURGICAL PHYSICIAN ASSISTANT Returns Processor: Silvia Hernandez RN Indications: Priscila Hicks is an 44 y.o. female who is having surgery for lumbar hernaited disc with radiculopathy. Procedure Details: The patient was seen in the preoperative area. The risks, benefits, complications, treatment options, non-operative alternatives, expected recovery and outcomes were discussed with the patient. The possibilities of reaction to medication, pulmonary aspiration, injury to surrounding structures, bleeding, recurrent infection, the need for additional procedures, failure to diagnose a condition, and creating a complication requiring transfusion or operation were discussed with the patient. The patient concurred with the proposed plan, giving informed consent. The site of surgery was properly noted/marked if necessary per policy. The patient has been actively warmed in preoperative area. Preoperative antibiotics have been ordered and given within 1 hours of incision. Venous thrombosis prophylaxis are not indicated. Findings: large left side L5-S1 herniated disc Complications: None; patient tolerated the procedure well. Disposition: PACU - hemodynamically stable. Condition: stable Lino Giron Service: Neurosurgery Attending: Lino Giron MD Date: 09/25/24 Preop diagnosis: Left side L5-S1 disc herniation with S1 radiculopathy Postop diagnosis: Same Procedure: Lumbar microdiskectomy, left side at L5-S1 Anesthesia: General tracheal Estimated blood loss: minimal Complications: none Condition: good Postop disposition: Recovery room Indication procedure: Patient has lumbar herniated disc with radiculopathy. Failed conservative therapy. I counseled the patient about the risks and benefits of diskectomy and they voiced understanding wished to proceed. Operative report in detail: After obtaining written informed consent for the procedure the patient was brought to the operating room kept on the stretcher for induction of anesthesia. After induction general anesthesia intubation the patient was gently rolled in the prone position on the open Jb table. All bony prominences were padded. There was no pressure on the eyes nose or chin. Arms were on arm boards with padding. Feet were on pillows on top of the half table take tension off the back and legs. The patient's back was marked and then prepped and draped in usual sterile fashion. The preoperative time-out completed. Perioperative IV direct prophylactic therapy was instilled. Local anesthetic was instilled at the expected incision site. The midline skin incision was created with a 10 blade scalpel. The subcutaneous tissues divided with Bovie electrocautery. Subperiosteal dissection was then used to expose the left side at L4 and L5. X-rays were taken to help localize the level and confirm the site for surgery - the x-ray with the curette was under L4 - so the L5 lamina below was exposed for the correct operative level. The hemilaminotomy (at L5 on the left) was created with the curette to free up the ligamentum flavum and then Kerrison punches. The pars was kept intact. The ligamentum flavum was mobilized and removed. The thecal sac was identified and dissection along the lateral portion of the thecal sac was completed. The traversing nerve root was identified. This was gently mobilized medially and the herniated disc was identified. The disc was incised and then removed with pituitary instrument. There were multiple large fragments of disc herniation removed - all free disc herniation from below the PLL. The nerve appeared to be exiting freely after the diskectomy was completed. The retractor was removed and the surgical site was checked for hemostasis. A few bleeding points were coagulated as needed. The wound was irrigated and checked once more for hemostasis. The muscle fascia was closed with 0 Vicryl suture in interrupted fashion. The skin was closed with 2 Vicryl suture in inverted fashion in the subcu layer the skin. Final skin closure was with Dermabond and Steri-Strips. Sterile dressing was applied. Lino Giron MD was present for completed the entire proce (more content not included)... Normal [facility] POCT GLUCOSE METER UNSOLICIT ED RESULTSon 09-25-2024 Glucose [Mass/Vol] 95 mg/dL Normal 70-105 [facility] Comment on above: Order Comment: Waive d Testing in the ED is performed under the ED CLIA certificate #[id number]. Result Comment: ltol les Performed By: #### L [id number] ####[facility] ([facility])[address] [place] [address] Prep for Procedureon 024 Prep for Procedure [id number] Martha Hicks 1980 F Date Provider Department Center 09/25/2024 GILL BOLAÑOS [facility] SURG Second Fl Family History Problem Relation Age of Onset Arthritis Father Hyperlipidemia Maternal Grandfather Hypertension Maternal Grandfather Cancer Maternal Grandmother Hypertension Maternal Grandmother Stroke Maternal Grandmother Asthma Daughter Family Status - Relation Status Age at Father Maternal Grandfather Maternal Grandmother Daughter Normal [facility] APTTon 09-18-2024 ACTIVATED PARTIAL THROMBOPLASTIN TIME IN PPP BY COAGULATION ASSAY 28.6 Seconds Normal 25.0-35.0 [facility] Comment on above: Result Comment: Clin ical significance of the APTT is questionable in the presence of heparin. Performed By: #### L [id number] ####[facility] ([facility])[address] [place] [address] BASIC METABOLIC PANEL Anion gap [Moles/Vol] 11 mmol/L Normal 7-20 [facility] Comment on above: Performed By: #### L [id number] #### [facility] ([facility]) [address] [place] [address] Calcium [Mass/Vol] 8.7 mg/dL Normal 8.6-10.3 [facility] Comment on above: Performed By: #### L [id number] #### [facility] [address] [place] [address] Chloride [Moles/Vol] 105 mmol/L Normal 98-107 [facility] Comment on above: Performed By: #### L [id number] #### [facility] [address] [place] [address] CO2 [Moles/Vol] 27 mmol/L Normal 21-31 [facility] Comment on above: Performed By: #### L [id number] #### [facility] ([facility]) [address] [place] [address] Creatinine [Mass/Vol] 0.70 mg/dL Normal 0.60-1.20 [facility] Comment on above: Performed By: #### L [id number] #### [facility] ([facility]) [address] [facility] [place] [address] GLOMERULAR FILTRATION RATE ML/MIN/1.73 SQ M.PREDICTED 109.3 mL/min/1.73m*2 Normal >60.0 [facility] Comment on above: Result Comment: The [facility]???s estimated glomerular filtration rate (eGFR) will no longer include consideration of race in its calculation. The National Kidney Foundation???s eGFR Task Force developed new recommendations for the estimation of the glomerular filtration rate in the [place] They recommend immediate implementation of the new equation refit without the race variable in all laboratories because the calculation does not include race. In addition to not including race in the calculation and reporting, it included diversity in its development, and has acceptable performance characteristics and potential consequences that do not disproportionately affect any one group of individuals. Performed By: #### L [id number] #### [facility] ([facility]) [address] [place] [address] Glucose [Mass/Vol] 85 mg/dL Normal 70-100 [facility] Comment on above: Performed By: #### L [id number] #### [facility] ([facility]) [address] [place] [address] Potassium [Moles/Vol] 4.1 mmol/L Normal 3.5-5.[address] [facility] Comment on above: Performed By: #### L [id number] #### [facility] ([facility]) [address] [place] [address] Sodium [Moles/Vol] 139 mmol/L Normal 136-145 [facility] Comment on above: Performed By: #### L [id number] #### [facility] (BE[facility]) [address] [place] [address] Urea nitrogen [Mass/Vol] 21 mg/dL Normal 7-25 [facility] Comment on above: Performed By: #### L [id number] #### [facility] ([facility]) [address] [place] [address] UREA NITROGEN/CREATININE (MASS RATIO) IN SER/PLAS 30.0 Normal [facility] Comment on above: Performed By: #### L [id number] #### [facility] ([facility]) [address] [place] [address] CBC WITH AUTO DIFFERENTIALon 09-18-2024 Basophils (Bld) [#/Vol] 0.06 10*3/uL Normal 0.00-0.20 [facility] Comment on above: Performed By: #### L [id number] #### [facility] ([facility]) [address] [place] [address] Basophils/100 WBC (Bld) 0.6 % Normal 0.0-1.0 [facility] Comment on above: Performed By: #### L [id number] #### [facility] ([facility]) [address] [place] [address] Eosinophils (Bld) [#/Vol] 0.16 10*3/uL Normal 0.00-0.5 0 [facility] Comment on above: Performed By: #### L [id number] #### [facility] ([facility]) [address] [place] [address] Eosinophils/100 WBC (Bld) 1.5 % Normal 0.0-6.0 [facility] Comment on above: Performed By: #### L [id number] #### [facility] ([facility]) [address] [place] [address] Erythrocyte distribution width (RBC) [Ratio] 12.1 % Normal 11.5-15.0 [facility] Comment on above: Performed By: #### L [id number] #### [facility] ([facility] [address] [place] [address] ERYTHROCYTE MEAN CORPUSCULAR HEMOGLOBIN CONCENTRATION (G/DL) BY AUTOMATED 33.0 g/dL Normal 32.0-35.0 [facility] Comment on above: Performed By: #### L [id number] #### [facility] ([facility]) [address] [place] [address] Hematocrit (Bld) [Volume fraction] 37.0 % Normal 36.0-48.0 [facility] Comment on above: Performed By: #### L [id number] #### [facility] ([facility]) [address] [place] [address] Hemoglobin (Bld) [Mass/Vol] 12.2 g/dL Normal 12.0-15.0 [facility] Comment on above: Performed By: #### L [id number] #### [facility] ([facility]) [address] [place] [address] Immature granulocytes (Bld) [#/Vol] 0.03 10*3/uL Normal 0.00-0.20 [facility] Comment on above: Performed By: #### L [id number] #### [facility] ([facility]) [address] [place] [address] Immature granulocytes/100 WBC (Bld) 0.3 % Normal 0.0-1.0 [facility] Comment on above: Performed By: #### L [id number] #### [facility] ([facility]) [address] [place] [address] Lymphocytes (Bld) [#/Vol] 2.57 10*3/uL Normal 1.20-4.0 0 [facility] Comment on above: Performed By: #### L [id number] #### [facility] ([facility]) [address] [place] [address] Lymphocytes/100 WBC (Bld) 24.3 % Normal 20.0-45.0 [facility] Comment on above: Performed By: #### L [id number] #### [facility] ([facility]) [address] [place] [address] MCH (RBC) [Entitic mass] 28.3 pg Normal 27.0-33.0 [facility] Comment on above: Performed By: #### L [id number] #### [facility] [address] [place] [address] MCV (RBC) [Entitic vol] 85.8 fL Normal 82.0-98.0 [facility] Comment on above: Performed By: #### L [id number] #### [facility] ([facility]) [address] [place] [address] Monocytes (Bld) [#/Vol] 0.53 10*3/uL Normal 0.10-1.00 [facility] Comment on above: Performed By: #### L [id number] #### [facility] ([facility]) [address] [place] [address] Monocytes/100 WBC (Bld) 5.0 % Normal 5.0-12.0 [facility] Comment on above: Performed By: #### L [id number] #### [facility] ([facility]) [address] [place] [address] Neutrophils (Bld) [#/Vol] 7.22 10*3/uL Normal 1.60-7.6 0 [facility] Comment on above: Performed By: #### L [id number] #### [facility] ([facility]) [address] [place] [address] Neutrophils/100 WBC (Bld) 68.3 % Normal 40.0-72.0 [facility] Comment on above: Performed By: #### L [id number] #### [facility] ([facility] [address] [place] [address] NRBC (PER 100 WBCS) BY AUTOMATED COUNT 0.0 % Normal 0 [facility] Comment on above: Performed By: #### L [id number] #### [facility] ([facility] [address] [place] [address] PLATELETS (10*3/UL) IN BLOOD AUTOMATED COUNT 328 10*3/uL Normal 150-400 [facility] Comment on above: Performed By: #### L [id number] #### [facility] ([facility]) [address] [place] [address] RBC (Bld) [#/Vol] 4.31 10*6/uL Normal 3.80-5.00 [facility] Comment on above: Performed By: #### L [id number] #### [facility] ([facility]) [address] [place] [address] WBC (Bld) [#/Vol] 10.57 10*3/uL Normal 4.00-10.60 [facility] Comment on above: Performed By: #### L [id number] #### [facility] ([facility]) [address] [place] [address] Consulton 09-18-2024 Consult [id number] Martha Hicks 1980 F Date Provider Department Center 09/18/2024 GILL BOLAÑOS [facility] SURG Second Fl Family History Problem Relation Age of Onset Arthritis Father Hyperlipidemia Maternal Grandfather Hypertension Maternal Grandfather Cancer Maternal Grandmother Hypertension Maternal Grandmother Stroke Maternal Grandmother Asthma Daughter Family Status - Relation Status Age at Father Maternal Grandfather Maternal Grandmother Daughter Level of Service:25230 [place] OFFICE/OUTPATIENT ESTABLISHED MOD MDM 30 MIN Reason for Visit and Comments: Pre-op Exam [[id number]] - Patient is here today for a pre op visit L5-S1 MICRODISCECTOMY, SPINE, LUMBAR 09/25 surgery Normal [facility] HPon 09-18-2024 HP SUBJECTIVE: Chief complaint: Preoperative visit for left L5-S1 microdiscectomy scheduled for 09/25/[address] Giorn. History of present illness: Has been having pain into her left buttock that radiates posteriorly down her left leg, often down to her knee, though does go down to her heel at times as well. No variation with time of day. Nothing in particular makes it better. She does not have right leg symptoms. She does have some back pain, though describes more as tightness. Denies bowel or bladder incontinence, though does wonder if she has some urinary retention at times. Denies falls, though does report some difficulty with her balance at times as leg sometimes feels as though it wants to give out. She was initially seen by her primary care provider, who referred her for physical therapy, including cupping. There was no substantial relief with this. She has tried NSAIDs as well, in addition to Tylenol Arthritis and a skeletal muscle relaxant-Robaxin. 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 Review of systems: As in HPI. Denies coughing, shortness of breath, chest pain. Denies rashes, wounds, open sores. Past Medical History: Diagnosis Date PONV (postoperative nausea and vomiting) 06/2019 Did better after 2nd surgery in 2019 Past Surgical History: Procedure Laterality Date SECTION, LOW TRANSVERSE 2005 and 2008 Social History Tobacco Use Smoking status: Never Smokeless tobacco: Never Vaping Use Vaping status: Never Used Substance Use Topics Alcohol use: Not Currently Drug use: Never Family History Problem Relation Name Age of Onset Arthritis Father Hong Hyperlipidemia Maternal Grandfather ERI Hypertension Maternal Grandfather ERI Cancer Maternal Grandmother MICHAEL Hypertension Maternal Grandmother MICHAEL Stroke Maternal Grandmother MICHAEL Asthma Daughter Gill OBJECTIVE: Medications: acetaminophen methocarbamol naproxen sodium vitamin E mixed capsule Current Outpatient Medications: acetaminophen (Arthritis Pain Relief, acetam,) 650 mg ER tablet, , Disp: , Rfl: methocarbamol (Robaxin) split tablet, , Disp: , Rfl: naproxen sodium (Aleve) 220 mg tablet, , Disp: , Rfl: vitamin E mixed 1,000 unit capsule, , Disp: , Rfl: Allergies: Allergies Allergen Reactions Lisinopril Other Metoprolol Other Carisoprodol Other, Palpitations and Unknown Other Reaction(s): heart palpitataions Heart palpations Exam: Exam performed and reviewed, changes as below. Vitals reviewed: Temp: [36.3 ???C (97.4 ???F)] 36.3 ???C (97.4 ???F) Heart Rate: [63] 63 BP: (130)/(82) 130/82 No intake/output data recorded. No intake/output data recorded. Constitutional: In no apparent distress. Cardiovascular: Heart sounds regular rate and rhythm without appreciable murmur. Chest: Lung sounds clear to auscultation bilaterally. Respirations regular and nonlabored. Extremities without edema. Skin warm and dry without pallor. Neuro: GCS 15/15. Attention and memory intact. No dysarthria or aphasia. Sensation: Intact to light touch C5-T1 and L2-S1 dermatomes bilaterally with exception of diminished sensation left L5 and S1 dermatomes. Musculoskeletal: Deltoid 5/5 bilaterally. Triceps 5/5 bilaterally. Biceps 5/5 bilaterally. Finger flexors 5/5 bilaterally. Finger extensors 5/5 bilaterally. Hip flexors 5/5 bilaterally. Knee flexors and extensors 5/5 bilaterally. Ankle dorsal flexors 5/5 bilaterally. Ankle plantar flexors 5/5 bilaterally. Muscle tone without hyper or hypotonicity. Muscle bulk appropriate for age. Independently ambulatory. Labs: Lab on 09/18/2024 Component Date Value Ref Range Status ABO Grouping 09/18/2024 B Final Rh Type 09/18/2024 POS Final Ab Scrn 09/18/2024 NEG Final aPTT 09/18/2024 28.6 25.0 - 35.0 Seconds Final Protime 09/18/2024 13.2 12.3 - 14.8 Seconds Final INR 09/18/2024 1.00 0.90 - 1.10 Final Sodium 09/18/2024 139 136 - 145 mmol/L Final Potassium 09/18/2024 4.1 3.5 - 5.1 mmol/L Final Chloride 09/18/2024 105 98 - 107 mmol/L Final CO2 09/18/2024 27 21 - 31 mmol/L Final BUN 09/18/2024 21 7 - 25 mg/dL Final Creatinine 09/18/2024 0.70 0.60 - 1.20 mg/dL Final Glucose 09/18/2024 85 70 - 100 mg/dL Final Calcium 09/18/2024 8.7 8.6 - 10.3 mg/dL Final Anion Gap 09/18/2024 11 7 - 20 mmol/L Final eGFR 09/18/2024 109.3 >60.0 mL/min/1.73m*2 Final BUN/Creatinine Ratio 09/18/2024 30.0 Final Auto WBC 09/18/2024 10.57 4.00 - 10.60 10*3/uL Final RBC 09/18/2024 4.31 3.80 - 5.00 10*6/uL Final Hemoglobin 09/18/2024 12.2 12.0 - 15.0 g/dL Final Hematocrit 09/18/2024 37.0 36.0 - 48.0 % Final MCV 09/18/2024 85.8 82.0 - 98.0 fL Final MCH 09/18/2024 28.3 27.0 - 33.0 pg Final MCHC 09/18/2024 33.0 32.0 - 35.0 g/dL Final RDW 09/18/2024 12.1 11.5 - 15.0 % Final Neutrophils Relative 09/18/2024 68.3 40.0 - 72.0 % Final Lymphocytes Relative 09/18/2024 24.3 20.0 - 45.0 % Final Monocytes Rel (more content not included)... Normal [facility] Labon 09-18-2024 Lab [id number] Martha Hicks 1980 F Date Provider Department [place] 09/18/2024 2245-[facility] OPD LAB RESOURCE [facility] O[facility] PR Medical C Family History Problem Relation Age of Onset Arthritis Father Hyperlipidemia Maternal Grandfather Hypertension Maternal Grandfather Cancer Maternal Grandmother Hypertension Maternal Grandmother Stroke Maternal Grandmother Asthma Daughter Family Status - Relation Status Age at Father Maternal Grandfather Maternal Grandmother Daughter Normal [facility] MRSA/MSSA DNA NASALon 2023 MRSA DNA Negative Normal Negative [facility] Comment on above: Order Comment: Testi ng methodology is an automated qualitative in vitro diagnostic test for the directdetection and differentiation of Staphylococcus aureus (SA) DNA and methicillin-resistant Staphylococcus aureus (MRSA) DNA from nasal swabs in patients at risk for nasal colonization. The test utilizes real-time polymerase chain reaction (PCR) for the amplification of MRSA/SA DNA and fluorogenic target-specific hybridization probes for the detection of the amplified DNA. A negative result does not preclude nasal colonization. Performed By: #### L [id number] ####[facility] ([facility]ER)[address] [place] [address] MSSA DNA Negative Normal Negative [facility] Comment on above: Order Comment: Testi ng methodology is an automated qualitative in vitro diagnostic test for the directdetection and differentiation of Staphylococcus aureus (SA) DNA and methicillin-resistant Staphylococcus aureus (MRSA) DNA from nasal swabs in patients at risk for nasal colonization. The test utilizes real-time polymerase chain reaction (PCR) for the amplification of MRSA/SA DNA and fluorogenic target-specific hybridization probes for the detection of the amplified DNA. A negative result does not preclude nasal colonization. Performed By: #### L [id number] ####[facility] ([employer])[address] [place] [address] PROTIME-INRon 09-18-2024 INR IN PPP BY COAGULATION ASSAY 1.00 Normal 0.90-1.10 [facility] Comment on above: Result Comment: ACCC P RECOMMENDED INR FOR WARFARIN THERAPY CONDITION INR PROPHYLAXIS OF VENOUS THROMBOSIS 2-3 (HIGH-RISK SURGERY) TREATMENT OF VENOUS THROMBOSIS 2-3 TREATMENT OF PULMONARY EMBOLISM 2-3 PREVENTION OF SYSTEMIC EMBOLISM: 2-3 ACUTE MYOCARDIAL INFARCTION TISSUE HEART VALVES VALVULAR HEART DISEASE ATRIAL FIBRILLATION RECURRENT SYSTEMIC EMBOLISM MECHANICAL HEART VALVE 2.5-3.5 FROM: ORAL ANTICOAGULANTS. MECHANISM OF ACTION, CLINICAL EFFECTIVENESS, AND OPTIMAL THERAPEUTIC RANGE. CHEST 1995;108:231S-246S. Performed By: #### L [id number] #### [facility] ([employer]) [address] [place] [address] PROTHROMBIN TIME (PT) IN PPP BY COAGULATION ASSAY 13.2 Seconds Normal 12.3-14.8 [facility] Comment on above: Performed By: #### L [id number] #### [facility] ([employer]) [address] [place] [address] TYPE AND SCREENon 09-18-2024 AB SCREEN Negative Normal [facility] Comment on above: Performed By: #### L [id number] #### [facility] , ABO group Nom (Bld) B Normal [facility] Comment on above: Performed By: #### L [id number] #### [facility] , RH TYPE IN BLOOD Positive Normal [facility] Comment on above: Performed By: #### L [id number] #### [facility] , Letter (Out)on 09-02-2024 Letter (Out) [id number] Martha Hicks 1980 F Date Provider Department [place] 09/02/2024 None-None [facility] AUTH [facility] No family history on file Normal [facility] Orders Onlyon 08-22-2024 Orders Only [id number] Martha Hicks 1980 F Date Provider Department [place] 08/22/2024 [place] [facility] ONC D[facility] No family history on file [facility] Office Visiton 08-13-2024 Follow-up visit [id number] Martha Hicks 1980 Date Provider Department [place] 08/13/2024 LINO URIBE ONC DCC No family history on file Level of Service:31948 OK OFFICE/OUTPATIENT NEW MODERATE MDM 45 MINUTES Normal [facility] Prep for Procedureon 024 Prep for Procedure [id number] Martha Hicks 1980 Date Provider Department [place] 08/13/2024 LINO URIBE NEUROLOGY None No family history on file Normal [facility] DHEA SERUMon 02-08-2023 Dehydroepiandrosterone (DHEA) 415 ng/dL Normal 31-701 [facility] Comment on above: Performed By: #### D JAMEL. #### [facility] [address] [address] [address] Katie Funez ESTRONEon 02-06-2023 Estrone, Serum 55 pg/mL Normal [facility] Comment on above: Result Comment: Rang e Adult (Premenopausal) 27 - 231 Menstrual Cycle (1-10 days) 19 - 149 Menstrual Cycle (11-20 days) 32 - 176 Menstrual Cycle (21-30 days) 37 - 200 Adult (Postmenopausal) 0 - 125 Performed By: #### P DAVINA #### [facility] [address] [place] [address] Dr. Katie Funez CORTISOLon 02-04-2023 Cortisol 22.7 ug/dL Critically high 6.2-19.4 [facility] Comment on above: Result Comment: Vibha frost Note: The reference interval and flagging for this test is for an AM collection. If this is a PM collection please use: Cortisol PM: 2.3-11.9 [facility] also offers: [id number]: Cortisol- AM [id number]: Cortisol- PM Performed By: #### C YADIRA #### [facility] [address] [place] [address] Dr. Katie Funez ESTRADIOLon 02-04-2023 Estradiol 142.0 pg/mL Normal [facility] Comment on above: Result Comment: Adul t Female: Follicular phase 12.5 - 166.0 Ovulation phase 85.8 - 498.0 Luteal phase 43.8 - 211.0 Postmenopausal <6.0 - 54.7 1st trimester 215.0 - >4300.0 Jeferson ECLIA methodology Performed By: #### Renato BLACK #### [facility] [address] [place] [address] Dr. Katie Funez PROGESTERONEon 02-04-2023 Progesterone 7.6 ng/mL Normal [facility] Comment on above: Result Comment: Foll icular phase 0.1 - 0.9 Luteal phase 1.8 - 23.9 Ovulation phase 0.1 - 12.0 First trimester 11.0 - 44.3 Second trimester 25.4 - 83.3 Third trimester 58.7 - 214.0 Postmenopausal 0.0 - 0.1 Performed By: #### P DAVINA #### [facility] [address] [place] [address] Dr. Katie Funez TESTOSTERONE, TOTALon 2022 Testosterone [Mass/Vol] 33 ng/dL Normal 4-50 T [facility] Comment on above: Performed By: #### T ESTTOT #### [facility] [address] [place] [address] Dr. Katie Funez FREE T3on 02-03-2023 FREE T3 2.12 pg/mlL Critically low 2.18-3.98 [facility] Comment on above: Performed By: #### P ROGES #### [facility] [address] [place] [address] Dr. Katie Funez FREE T4on 02-03-2023 Free T4 [Mass/Vol] 0.90 ng/dL Normal 0.76-1.46 [facility] Comment on above: Performed By: #### P ROGES #### [facility] [address] [place] [address] Dr. Katie Funez TSHon 02-03-2023 TSH 2.763 uIU/mL Normal 0.358-3.740 [facility] Comment on above: Performed By: #### P DAVINA #### [facility] [address] [place] [address] Dr. Katie Funez FREE T3on 09-25-2022 FREE T3 1.80 pg/mlL Critically low 2.18-3.98 [facility] Comment on above: Performed By: #### F T3 #### [facility] [address] [place] [address] Dr. Katie Funez FREE T4on 09-25-2022 Free T4 [Mass/Vol] 1.05 ng/dL Normal 0.76-1.46 [facility] Comment on above: Performed By: #### P ROGES #### [facility] [address] [place] [address] Dr. Katie Funez TSHon 09-25-2022 TSH 3.688 uIU/mL Normal 0.358-3.740 [facility] Comment on above: Performed By: #### T SH #### [facility] [address] [place] [address] Dr. Katie Funez ESTRONEon 08-17-2022 Estrone, Serum 49 pg/mL Normal [facility] Comment on above: Result Comment: Rang e Adult (Premenopausal) 27 - 231 Menstrual Cycle (1-10 days) 19 - 149 Menstrual Cycle (11-20 days) 32 - 176 Menstrual Cycle (21-30 days) 37 - 200 Adult (Postmenopausal) 0 - 125 Performed By: #### E KOMAL #### [facility] [address] [place] [address] Dr. Katie Funez TESTOSTERONE, FREE,DIRECT, T OTALon 08-14-2022 Free Testosterone(Direct) 0.8 pg/mL Normal 0.0-4.2 [facility] Comment on above: Result Comment: Perf ormed at: BN Performed By: #### V ITAD #### [facility] [address] [place] [address] Dr. Katie Funez Testosterone [Mass/Vol] 27 ng/dL Normal 4-50 T [facility] Comment on above: Result Comment: Perf ormed at: CB Performed By: #### V ITAD #### [facility] [address] [place] [address] Dr. Katie Funez CORTISOLon 08-11-2022 Cortisol 11.5 ug/dL Normal [facility] Comment on above: Result Comment: Diomedes isol AM 6.2 - 19.4 Cortisol PM 2.3 - 11.9 Performed By: #### V ITAD #### [facility] [address] [place] [address] Dr. Katie Funez DHEA-SULFATEon 08-11-2022 DHEA-Sulfate 120.0 ug/dL Normal 57.3-279.2 [facility] Comment on above: Performed By: #### V ITAD #### [facility] [address] [place] [address] Dr. Katie Funez ESTRADIOLon 08-11-2022 Estradiol 104.0 pg/mL Normal [facility] Comment on above: Result Comment: Adul t Female: Follicular phase 12.5 - 166.0 Ovulation phase 85.8 - 498.0 Luteal phase 43.8 - 211.0 Postmenopausal <6.0 - 54.7 1st trimester 215.0 - >4300.0 [employer] ECLIA methodology Performed By: #### E WAYNE #### [facility] [address] [place] [address] Dr. Katie Funez PROGESTERONEon 08-11-2022 Progesterone 9.7 ng/mL Normal [facility] Comment on above: Result Comment: Foll icular phase 0.1 - 0.9 Luteal phase 1.8 - 23.9 Ovulation phase 0.1 - 12.0 First trimester 11.0 - 44.3 Second trimester 25.4 - 83.3 Third trimester 58.7 - 214.0 Postmenopausal 0.0 - 0.1 Performed By: #### V ITAD #### [facility] [address] [place] [address] Dr. Katie Funez SEX HORMONE-BINDING GLOBULIN on 08-11-2022 Sex Horm Binding Glob, Serum 73.1 nmol/L Normal 24.6-122.0 [facility] Comment on above: Performed By: #### V ITAD #### [facility] [address] [place] [address] Dr. Katie Funez CBC AUTO DIFFon 08-10-2022 BASO # 0.0 103/ul Normal 0.0-0.1 [facility] Comment on above: Performed By: #### V ITAD #### [facility] [address] [place] [address] Dr. Katie Funez Basophils/100 WBC (Bld) 0.6 % Normal 0.2-2.0 [facility] Comment on above: Performed By: #### V ITAD #### [facility] [address] [place] [address] Dr. Katie Funez EO # 0.1 103/ul Normal 0.0-0.7 [facility] Comment on above: Performed By: #### V ITAD #### [facility] [address] [place] [address] Dr. Katie Funez Eosinophils/100 WBC (Bld) 1.4 % Normal 0.9-7.0 [facility] Comment on above: Performed By: #### V ITAD #### [facility] [address] [place] [address] Dr. Katie Funez Erythrocyte distribution width (RBC) [Ratio] 13.2 % Normal 11.0-15.0 [facility] Comment on above: Performed By: #### V ITAD #### [facility] [address] [place] [address] Dr. Katie Funez Hematocrit (Bld) [Volume fraction] 41.9 % Normal 36.0-48.0 [facility] Comment on above: Performed By: #### V ITAD #### [facility] [address] [place] [address] Dr. Katie Funez Hemoglobin (Bld) [Mass/Vol] 13.5 g/dL Normal 12.0-16.0 [facility] Comment on above: Performed By: #### V ITAD #### [facility] [address] [place] [address] Dr. Katie Funez IG # 0.01 10e3/ul Normal 0.00-0.03 [facility] Comment on above: Performed By: #### V ITAD #### [facility] [address] [place] [address] Dr. Katie Funez IG % 0.1 % Normal 0.0-0.5 [facility] Comment on above: Performed By: #### V ITAD #### [facility] [address] [place] [address] Dr. Katie Funez LYMPH # 1.8 103/ul Normal 1.2-3.8 [facility] Comment on above: Performed By: #### V ITAD #### [facility] [address] [place] [address] Dr. Katie Funez Lymphocytes/100 WBC (Bld) 24.6 % Normal 20.5-60.0 [facility] Comment on above: Performed By: #### V ITAD #### [facility] [address] [place] [address] Dr. Katie Funez MANUAL DIFF REQ NO Normal [facility] Comment on above: Performed By: #### V ITAD #### [facility] [address] [place] [address] Dr. Katie Funez MCH (RBC) [Entitic mass] 28.2 pg Normal 26.7-34.0 [facility] Comment on above: Performed By: #### V ITAD #### [facility] [address] [place] [address] Dr. Katie Funez MCHC (RBC) [Mass/Vol] 32.2 g/dL Normal 29.9-35.2 [facility] Comment on above: Performed By: #### V ITAD #### [facility] [address] [place] [address] Dr. Katie Funez MCV (RBC) [Entitic vol] 87.5 fL Normal 81.0-99.0 [facility] Comment on above: Performed By: #### V ITAD #### [facility] [address] [place] [address] Dr. Katie Funez MONO # 0.4 103/ul Normal 0.3-0.8 [facility] Comment on above: Performed By: #### V ITAD #### [facility] [address] [place] [address] Dr. Katie Funez Monocytes/100 WBC (Bld) 6.0 % Normal 1.7-12.0 [facility] Comment on above: Performed By: #### V ITAD #### [facility] [address] [place] [address] Dr. Katie Funez NEUT # 4.8 103/ul Normal 1.4-6.5 [facility] Comment on above: Performed By: #### V ITAD #### [facility] [address] [place] [address] Dr. Katie Funez Neutrophils/100 WBC (Bld) 67.3 % Normal 43.0-75.0 [facility] Comment on above: Performed By: #### V ITAD #### [facility] [address] [place] [address] Dr. Katie Funez Platelet mean volume (Bld) [Entitic vol] 11.7 fL Normal 9.5-13.5 [facility] Comment on above: Performed By: #### V ITAD #### [facility] [address] [place] [address] Dr. Katie Funez PLT 294 103/ul Normal 150-450 [facility] Comment on above: Performed By: #### V ITAD #### [facility] [address] [place] [address] Dr. Katie Funez RBC 4.79 106/ul Normal 4.20-5.40 [facility] Comment on above: Performed By: #### V ITAD #### [facility] [address] [address] [address] Katie Funez WBC 7.2 103/ul Normal 4.0-11.0 [facility] Comment on above: Performed By: #### V ITAD #### [facility] [address] [place] [address] Dr. Katie Funez GLYCOHEMOGLOBIN A1Con 2021 ADA RECOMMENDATION SEE BELOW Normal [facility] Comment on above: Result Comment: ADA RECOMMENDED LIMIT 4.0 - 6.0 ADA THERAPEUTIC TARGET < 7.0 ACTION SUGGESTED > 7.0 Performed By: #### P ROGES #### [facility] [address] [place] [address] Dr. Katie Funez Glucose [Mass/Vol] 103 mg/dL Normal [facility] Comment on above: Performed By: #### P ROGES #### [facility] [address] [place] [address] Dr. Katie Funez HbA1c (Bld) [Mass fraction] 5.2 % Normal 4.5-6.2 [facility] Comment on above: Performed By: #### P ROGES #### [facility] [address] [place] [address] Dr. Katie Funez LIPID PROFILEon 08-10-2022 CHOL-HDL RATIO NORM SEE BELOW Normal [facility] Comment on above: Result Comment: 3.3 - 4.4 LOW RISK 4.4 - 7.1 AVERAGE RISK 7.1 - 11.0 MODERATE RISK >11.0 HIGH RISK Performed By: #### V ITAD #### [facility] [address] [place] [address] Dr. Katie Funez Cholesterol [Mass/Vol] 204 mg/dL Critically high <=200 [facility] Comment on above: Performed By: #### V ITAD #### [facility] [address] [address] [address] Katie Funez Cholesterol in HDL [Mass/Vol] 52 mg/dL Normal 40-60 [facility] Comment on above: Performed By: #### V ITAD #### [facility] [address] [address] [address] Katie Funez Cholesterol in LDL [Mass/Vol] 137.2 mg/dL Normal [facility] Comment on above: Performed By: #### V ITAD #### [facility] [address] [address] [address] Katie Funez Cholesterol.total/Cholest aguilar in HDL [Mass ratio] 3.9 {ratio} Normal [facility] Comment on above: Performed By: #### V ITAD #### [facility] [address] [place] [address] Dr. Katie Funez HDL NORMAL > or = 60 mg/dl - LO W CARDIOVASCULAR RISK <40 mg/dl - HIGH CARDIOVASCULAR RISK Normal [facility] Comment on above: Performed By: #### V ITAD #### [facility] [address] [place] [address] Dr. Katie Funez LDL CALC NORMAL SEE BELOW Normal [facility] Comment on above: Result Comment: <100 mg/dl OPTIMAL 100 - 129 mg/dl NEAR OR ABOVE OPTIMAL 130 - 159 mg/dl BORDERLINE HIGH 160 - 189 mg/dl HIGH >190 mg/dl VERY HIGH Performed By: #### V ITAD #### [facility] [address] [place] [address] Dr. Katie Funez Triglyceride [Mass/Vol] 74 mg/dL Normal <=150 T [facility] Comment on above: Performed By: #### V ITAD #### [facility] [address] [address] [address] Katie Funez VLDL CALC 14.8 mg/dL Normal [facility] Comment on above: Performed By: #### V ITAD #### [facility] [address] [place] [address] Dr. Katie Funze PROF 14(COMP METB)on 022 Albumin [Mass/Vol] 3.8 g/dL Normal 3.4-5.0 [facility] Comment on above: Performed By: #### V ITAD #### [facility] [address] [address] [address] Katie Funez Albumin/Globulin [Mass ratio] 0.9 {ratio} Normal [facility] Comment on above: Performed By: #### V ITAD #### [facility] [address] [address] [address] Katie Funez ALP [Catalytic activity/Vol] 77 U/L Normal 46-116 [facility] Comment on above: Performed By: #### V ITAD #### [facility] [address] [address] [address] aKtie Funez ALT [Catalytic activity/Vol] 20 U/L Normal 14-59 [facility] Comment on above: Performed By: #### V ITAD #### [facility] [address] [place] [address] Dr. Katie Funez Anion gap [Moles/Vol] 10.0 mmol/L Normal [facility] Comment on above: Performed By: #### V ITAD #### [facility] [address] [place] [address] Dr. Katie Funez AST [Catalytic activity/Vol] 14 U/L Critically low 15-37 [facility] Comment on above: Performed By: #### V ITAD #### [facility] [address] [place] [address] Dr. Katie Funez Bilirubin [Mass/Vol] 0.8 mg/dL Normal 0.2-1.0 [facility] Comment on above: Performed By: #### V ITAD #### [facility] [address] [address] [address] Katie Funez Calcium [Mass/Vol] 8.9 mg/dL Normal 8.5-10.1 [facility] Comment on above: Performed By: #### V ITAD #### [facility] [address] [address] [address] Katie Funez Chloride [Moles/Vol] 101 mmol/L Normal 98-107 [facility] Comment on above: Performed By: #### V ITAD #### [facility] [address] [place] [address] Dr. Katie Funez CO2 [Moles/Vol] 29.9 mmol/L Normal 21.0-32.0 [facility] Comment on above: Performed By: #### V ITAD #### [facility] [address] [place] [address] Dr. Katie Funez Creatinine [Mass/Vol] 0.83 mg/dL Normal 0.55-1.02 [facility] Comment on above: Performed By: #### V ITAD #### [facility] [address] [place] [address] Dr. Katie Funez EGFR-AF SYRIAN >60 Normal >=60 [facility] Comment on above: Performed By: #### V ITAD #### [facility] [address] [place] [address] Dr. Katie Funez EGFR-NON AF SYRIAN >60 Normal >=60 [facility] Comment on above: Performed By: #### V ITAD #### [facility] [address] [place] [address] Dr. Katie Funez Globulin (S) [Mass/Vol] 4.0 g/dL Normal T [facility] Comment on above: Performed By: #### V ITAD #### [facility] [address] [place] [address] Dr. Katie Funez Glucose [Mass/Vol] 91 mg/dL Normal 74-106 [facility] Comment on above: Performed By: #### V ITAD #### [facility] [address] [place] [address] Dr. Katie Funez Potassium [Moles/Vol] 3.9 mmol/L Normal 3.5-5.1 [facility] Comment on above: Performed By: #### V ITAD #### [facility] [address] [place] [address] Dr. Katie Funez Protein [Mass/Vol] 7.8 g/dL Normal 6.4-8.2 [facility] Comment on above: Performed By: #### V ITAD #### [facility] [address] [address] [address] Katie Funez Sodium [Moles/Vol] 137 mmol/L Normal 136-145 [facility] Comment on above: Performed By: #### V ITAD #### [facility] [address] [place] [address] Dr. Katie Funez Urea nitrogen [Mass/Vol] 13.0 mg/dL Normal 7.0-18.0 [facility] Comment on above: Performed By: #### V ITAD #### [facility] [address] [place] [address] Dr. Katie Funez Urea nitrogen/Creatinine [Mass ratio] 15.7 mg/mg Normal [facility] Comment on above: Performed By: #### V ITAD #### [facility] [address] [place] [address] Dr. Katie Funez TSHon 08-10-2022 TSH 2.642 uIU/mL Normal 0.358-3.740 [facility] Comment on above: Performed By: #### V ITAD #### [facility] [address] [place] [address] Dr. Katie Funez VITAMIN D 25 OHon 08-10-2022 VIT D 25-OH 23.6 ng/mL Normal [facility] Comment on above: Performed By: #### V ITAD #### [facility] [address] [place] [address] Dr. Katie Funez VIT D RANGES SEE BELOW Normal [facility] Comment on above: Result Comment: <20 ng/mL Vit D deficient 20 - <30 ng/mL Vit D insufficient 30 - 100 ng/mL Vit D sufficient >100 ng/mL Potential Toxicity Performed By: #### V ITAD #### [facility] [address] [place] [address] Dr. Katie Funez MG MAMM SCREEN 3D JORDI CADon 05-19-2022 MG MAMM SCREEN 3D JORDI CAD Patient: MARTHA BARBOSA Exam Date: 05/19/2022 : 1980 Gender:F Ordering : DR. NOÉ FRANK D.O. Admission #: [id number] Family : Order #: [id number] CLICK HERE TO VIEW EXAM RADIOLOGY REPORT PROCEDURE: MAMMOGRAM SCREENING 3D BILATERAL CAD COMPARISON: MG MAMM SCREEN 3D JORDI CAD, 04/27/2021. MG MAMM SCREEN JORDI W CAD, 08/07/2017. INDICATIONS: Screening mammography Calculator Name NCI Breast Cancer Risk Assessment Tool 5 Year Breast Cancer Risk 0.70% Lifetime Breast Cancer Risk 12.00% Personal Breast Cancer No Personal Ovarian Cancer No Treatments None Family Cancers Grandmother-maternal with uterine cancer at age 48. LOCATION: [facility] BREAST COMPOSITION: Heterogeneously dense,which may obscure small [...] PALPABLE LUMP SHOULD BE BIOPSIED. Dictated by: Eliezer Quintero M.D. on 05/19/2022 at 12:37 Approved by: Eliezer Quintero M.D. on 05/19/2022 at 12:38 Normal [facility] Vital Signs Date Time Vital Sign Value Performing Clinician Facility 06-29-2025 14:40-0400 Body mass index (BMI) [Ratio] 44.57 kg/m2 Mikayla RADER Work Phone: [facility] 06-29-2025 14:40-0400 Body weight 129.09 kg Mikayla RADER Work Phone: [facility] 06-29-2025 14:40-0400 Diastolic blood pressure 74 mm[Hg] Mikayla RADER Work Phone: [facility] 06-29-2025 14:40-0400 Systolic blood pressure 112 mm[Hg] Mikayla RADER Work Phone: [facility] 01-21-2025 08:44-0400 Body mass index (BMI) [Ratio] 47.27 kg/m2 Mikayla RADER Work Phone: [facility] 01-21-2025 08:44-0400 Body weight 136.9 kg Mikayla Casey PA Work Phone: [facility] 01-21-2025 08:44-0400 Diastolic blood pressure 86 mm[Hg] Mikayla Soto PA Work Phone: [facility] 01-21-2025 08:44-0400 Systolic blood pressure 120 mm[Hg] Mikayla Casey PA Work Phone: [facility] 01-14-2024 12:15-0400 Body height 170.18 cm [facility] 01-14-2024 12:15-0400 Body mass index (BMI) [Ratio] 47.6 kg/m2 [facility] 01-14-2024 12:15-0400 Body weight 137.89 kg [facility] 01-14-2024 12:15-0400 Diastolic blood pressure 76 mm[Hg] [facility] 01-14-2024 12:15-0400 Heart rate 67 /min [facility] 01-14-2024 12:15-0400 Respiratory rate 12 /min [facility] 01-14-2024 12:15-0400 Systolic blood pressure 117 mm[Hg] [facility] 08-06-2023 14:00-0400 Body height 170.18 cm Faizan Ball Other [facility] [employer] Other 08-06-2023 14:00-0400 Body mass index (BMI) [Ratio] 47.04 kg/m2 Faizan Ball Other [facility] [employer] Other 08-06-2023 14:00-0400 Body weight 136.26 kg Faizan Ball Other [facility] [employer] Other 08-06-2023 14:00-0400 Diastolic blood pressure 81 mm[Hg] Faizan Ball Other [facility] [employer] Other 08-06-2023 14:00-0400 Respiratory rate 12 /min Faizan Ball Other [facility] [employer] Other 08-06-2023 14:00-0400 Systolic blood pressure 118 mm[Hg] Faizan Gay Other [employer] Other Encounters Encounter Date Encounter Type Care Provider Facility Start: 06-29-2025 End: 06-29-2025 Patient encounter procedure Mikayla RADER Work Phone: [facility] Work Phone: Start: 06-29-2025 End: 06-29-2025 Periodic preventive med est patient 40-64yrs Mikayla RADER Work Phone: [facility] Comment on above: Well woman exam with routine gynecological exam; Breast cancer screening by mammogram; Cellulitis of right breast; Fibrocystic breast disease (FCBD), unspecified laterality; Generalized enlarged lymph nodes Start: 06-29-2025 End: 06-29-2025 Bamboo flowsheet Mikayla RADER Work Phone: [facility] Start: 06-29-2025 End: 06-29-2025 Bamboo flowsheet Mikayla RADER Work Phone: [facility] Start: 01-27-2025 End: 01-27-2025 Bamboo flowsheet Mikayla RADER Work Phone: [facility] Start: 01-27-2025 End: 01-27-2025 Bamboo flowsheet Mikayla RADER Work Phone: [facility] Start: 01-27-2025 End: 01-27-2025 Online digital e/m svc est pt <7 d 5-10 minutes Mikayla RADER Work Phone: [facility] Comment on above: Breast pain, right ( Primary Dx) Start: 01-27-2025 End: 01-27-2025 ambulatory MIKAYLA SOTO Not Available Start: 01-26-2025 End: 01-26-2025 ambulatory MIKAYLA SOTO Not Available Start: 01-21-2025 End: 01-21-2025 Bamboo flowsheet Mikayla RADER Work Phone: [facility] Start: 01-21-2025 End: 01-21-2025 Bamboo flowsheet Mikayla RADER Work Phone: [facility] Start: 01-21-2025 End: 01-21-2025 Office outpatient visit 15 minutes Mikayla RADER Work Phone: [facility] Comment on above: Breast anomaly; Breast pain, right; Cellulitis of right breast Start: 01-21-2025 End: 01-21-2025 ambulatory MIKAYLA SOTO Not Available Start: 11-13-2024 End: 11-13-2024 ambulatory [facility] Start: 10-14-2024 End: 10-14-2024 ambulatory [facility] Start: 09-25-2024 End: 09-25-2024 ambulatory [facility] Start: 09-18-2024 End: 09-18-2024 ambulatory [facility] Start: 08-15-2024 End: 08-15-2024 ambulatory [facility] Start: 08-15-2024 End: 08-15-2024 ambulatory [facility] Start: 08-13-2024 ambulatory [facility] Start: 06-30-2024 End: 06-30-2024 ambulatory Josué Ryan MD Facility:[facility] Start: 06-26-2024 ambulatory Josué Ryan MD Facility:[facility] Start: 06-09-2024 End: 06-09-2024 ambulatory Sukhjinderus Alcieds Gruberitis Facility:[facility] Start: 05-26-2024 End: 05-26-2024 ambulatory Josué Ryan MD Facility:[facility] Start: 05-05-2024 End: 05-05-2024 ambulatory Josué Penningtonyttonie Gruberitis Facility:[facility] Start: 04-14-2024 End: 04-14-2024 ambulatory Andbill Ryan MD Facility:[facility] Start: 04-07-2024 End: 04-07-2024 ambulatory Josué Ryan MD Facility:[facility] [place] Start: 03-24-2024 End: 03-24-2024 ambulatory Josué Ryan MD Facility:[facility] Start: 01-14-2024 End: 01-14-2024 ambulatory [facility] Work Phone: Start: 01-14-2024 End: 01-14-2024 Patient encounter procedure [facility] Work Phone: Start: 08-06-2023 End: 08-06-2023 ambulatory Faizan Gay Other [employer] Other Start: 08-06-2023 Encounter for genera l adult medical examination without abnormal findings Faizan Gay [facility] Start: 08-06-2023 Periodic preventive med est patient 40-64yrs Faizan Gay [facility] Start: 08-06-2023 Telephone encounter Faizan Gay [facility] Start: 02-03-2023 End: 02-04-[address] LAURIE PATEL Facility:[facility] Start: 11-30-2022 End: 02-07-[address] FAIZAN GAY Facility:[facility] Start: 09-25-2022 End: 09-26-[address] FAIZAN GAY Facility:[facility] Start: 09-06-[address] FAIZAN GAY Facili ty:[facility] Start: 08-13-2022 Encounter for genera l adult medical examination without abnormal findings DR FAIZAN GAY [facility] Start: 08-10-2022 End: 08-11-[address] FAIZAN GAY Facility:[facility] Start: 08-10-2022 End: 08-11-2022 Encounter for general adult medical examination without abnormal findings DR FAIZAN GAY Facility:[facility] Start: 05-19-2022 End: 05-20-[address] ELIEZER QUINTERO Facility:[facility] Start: 01-20-2019 End: 01-21-2019 Patient encounter procedure DEFAULT PHYSICIAN Facility:[facility] Start: 01-01-2019 End: 01-02-2019 Patient encounter procedure DEFAULT PHYSICIAN Facility:[facility] Procedures Date Procedure Procedure Detail Performing Clinician Start: 01-21-2025 Urnls dip stick/tabl et rgnt non-auto w/o micrscp Mikayla RADER Work Phone: Plan of Treatment Date Care Activity Detail Author Start: 06-29-2025 End: 06-29-2025 Patient encounter procedure 06/29/2025 2:30 PM EDT Procedure Visit GREGORY MCCRARY [address] [place] [address] Mikayla Soto PA [address] [place], [place] [address] Arrived GREGORY MCCRARY Comment on above: Arrived Start: 06-29-2025 End: 08-29-2026 MG Breast - bilateral Screening Bilateral screening mammogram Imaging Routine Breast cancer screening by mammogram Expected: 06/29/2025 (Approximate), Expires: 08/29/2026 [facility] Comment on above: Expected: 06/29/2025 (Approximate), Expires: 08/29/2026 Start: 06-29-2025 End: 08-29-2026 MG Breast - left Diagnostic Left diagnostic mammogram Imaging Routine Fibrocystic breast disease (FCBD), unspecified laterality Generalized enlarged lymph nodes Expected: 06/29/2025 (Approximate), Expires: 08/29/2026 [facility] Comment on above: Expected: 06/29/2025 (Approximate), Expires: 08/29/2026 Start: 06-29-2025 End: 08-29-2026 US Breast - right Right breast US complete Imaging Routine Cellulitis of right breast Expected: 06/29/2025, Expires: 08/29/2026 [facility] Work Phone: Comment on above: Expected: 06/29/2025 , Expires: 08/29/2026 Start: 01-27-2025 End: 01-27-2025 Patient encounter procedure 01/27/2025 11:30 AM EDT Office Visit [facility] [address] [place] [address] Mikayla Soto PA [address] [place] [address] [facility] Start: 01-21-2025 End: 03-23-2026 US Breast - right Right breast US complete Imaging Routine Cellulitis of right breast Expected: 01/21/2025, Expires: 03/23/2026 [facility] Work Phone: Comment on above: Expected: 01/21/2025 , Expires: 03/23/2026 Start: 01-21-2025 End: 01-21-2025 Patient encounter procedure 01/21/2025 8:40 AM EDT Office Visit [facility] [address] [place] [address] Mikayla Soto PA [address] [place] [address] Arrived [facility] Comment on above: Arrived THIN PREP TIS PAP AN D HR HPV DNA THIN PREP TIS PAP AND HR HPV DNA Pathology and Cytology Routine Well woman exam with routine gynecological exam Ordered: 06/29/2025 [facility] Work Phone: Comment on above: Ordered: 06/29/[address]25 XR Lum[address] spine Views [facility] Immunizations Immunization Date Immunization Notes Care Provider Destiny avila 07-25-2017 influenza virus vaccine, split virus (incl. purified surface antigen) Faizan Gay Other Wangdaizhijia Other 07-25-2017 influenza virus vaccine, unspecified formulation [facility] Payers Date Payer Category Payer Unknown 2022 [employer] Blue [employer] BCBS [id number] 2022 Unknown [id number] 2019 Unknown [id number] 1980 Unknown [id number] 2.16.840.1.111747.3.579.2. 647 1980 Unknown [id number] 2.16.840.1.201040.3.579.2. 647 1980 Unknown [id number] 2.16.840.1.199495.3.579.2. 593 1980 Unknown [id number] 2.16.840.1.316522.3.579.2. 593 1980 Unknown [id number] 2.16.840.1.612261.3.579.2. 593 1980 Unknown [id number] 2.16.840.1.830897.3.579.2. 593 1980 Unknown [id number] 2.16.840.1.391874.3.579.2. 593 1980 Unknown [id number] 2.16.840.1.660847.3.579.2. 593 1980 Unknown [id number] 2.16.840.1.941116.3.579.2. 196 1980 Unknown [id number] 2.16.840.1.619732.3.579.2. 196 1980 Unknown [id number] 2.16.840.1.542100.3.579.2. 196 1980 Unknown [id number] 2.16.840.1.530393.3.579.2. 196 1980 Unknown [id number] 2.16.840.1.121679.3.579.2. 196 1980 Unknown [id number] 2.16.840.1.827943.3.579.2. 196 1980 Unknown [id number] 2.16.840.1.226520.3.579.2. 196 1980 Unknown [id number] 2.16.840.1.839592.3.579.2. 196 1980 Unknown [id number] 2.16.840.1.048050.3.579.2. 9 1980 Unknown [id number] 2.16.840.1.388066.3.579.2. 1259 1980 Unknown [id number] 2.16.840.1.821561.3.579.2. 1259 Social History Date Type Detail Facility Unknown if ever smoked [facility] Other Start: 05-16-2023 End: 01-21-2025 Sex Assigned At [facility] Other Start: 05-16-2023 End: 08-06-2023 Tobacco smoking status NHIS Never smoked tobacco (finding) [facility] Start: 1980 Sex Assigned At Female [facility] Start: 05-16-2023 End: 06-29-2025 Alcoholic beverage intake Lifetime non-drinker (finding) [facility] Start: 05-16-2023 End: 01-21-2025 History of Social function [facility] Start: 03-21-2023 Gender identity Identifies as female gender (finding) [facility] Start: 03-21-2023 Sexual orientation Heterosexual (finding) [facility] Clinical Notes 08-06-2023 to 06-29-2025 DIOR Rose - 06/29/2025 2:30 PM DIOR Phillips - 01/27/2025 11:30 AM DIOR Phillips - 01/21/2025 8:40 AM EDT Note Date & Type Note Facility 06-29-2025 History of Present illness Narrative Reason for Appointment: Patient ID: Martha Hicks is a 44 y.o. female who presents for Well Women Visit Patient presents today for Annual Exam. MEDICATIONS Current Outpatient Medications Medication Instructions alpha tocopherol (VITAMIN E) 1,000 Units, Daily vpobpuz-hhgxlqzltlhcr-rvhxjmja (Excedrin Migraine) 250-250-65 MG tablet Every 6 hours Misc Natural Products (GLUCOSAMINE CHOND CMP DOUBLE PO) 1 tablet, Daily Vitamin D-Vitamin K (VITAMIN K2-VITAMIN D3 PO) 1 tablet, Daily ALLERGIES Allergies Allergen Reactions Lisinopril Other Reaction(s): bradycardia Metoprolol Other Reaction(s): Other Carisoprodol Palpitations Other Reaction(s): heart palpitataions Other Reaction(s): Not available, Other, Unknown, Unknown Other Reaction(s): heart palpitataions Heart palpations Heart palpations PROBLEMS Active Ambulatory Problems Diagnosis Date Noted Menstrual disorder 05/14/2023 Other chronic pain 05/14/2023 Pain in right knee 05/14/2023 Chondromalacia of patella, 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 No pertinent past medical history. Social History Tobacco Use Smoking status: Never Smokeless tobacco: Not on file Substance Use Topics Alcohol use: Never Drug use: Not on file FAMILY HISTORY Family History Problem Relation Name Age of Onset Hypertension Maternal Grandmother Cancer Maternal Grandmother Parkinsonism Maternal Grandfather Alzheimer's disease Paternal Grandmother SURGICAL HISTORY Past Surgical History: Procedure Laterality Date BACK SURGERY 09/2024 SECTION, LOW TRANSVERSE x2 FOOT SURGERY Right 2019 FOOT SURGERY Left 2019 VEIN SURGERY 2009 ablation WISDOM TOOTH EXTRACTION 1999 tooth extraction REVIEW OF SYSTEMS Review of Systems: Review of Systems Constitutional: Negative. HENT: Negative. Eyes: Negative. Respiratory: Negative. Cardiovascular: Negative. Gastrointestinal: Negative. Genitourinary: Negative. Musculoskeletal: Negative. Skin: Negative. Neurological: Negative. All other systems reviewed and are negative. Hematological: Negative. Endocrine: Negative. Allergic/Immunologic: Negative. OBJECTIVE Objective: Physical Exam Constitutional: Appearance: Normal appearance. Genitourinary: Right Adnexa: not tender and no mass present. Left Adnexa: not tender and no mass present. No cervical discharge. Breasts: Breasts are soft. Right: Normal. Left: Normal. HENT: Head: Normocephalic. Nose: Nose normal. Mouth/Throat: Mouth: Mucous membranes are moist. Cardiovascular: Rate and Rhythm: Normal rate. Pulmonary: Effort: Pulmonary effort is normal. Abdominal: General: Bowel sounds are normal. Palpations: Abdomen is soft. Musculoskeletal: General: Normal range of motion. Cervical back: Normal range of motion. Neurological: General: No focal deficit present. Mental Status: She is alert. Skin: General: Skin is warm and dry. Psychiatric: Mood and Affect: Mood normal. Vitals and nursing note reviewed. Exam conducted with a meat carver present. Vitals: Estimated body mass index is 44.57 kg/m as calculated from the following: Height as of 06/06/22: 5' 7 . Weight as of this encounter: 284 lb 9.6 oz. BP: 112/74 No LMP recorded. ASSESSMENT & PLAN ICD-10-CM 1. Well woman exam with routine gynecological exam Z01.419 THIN PREP TIS PAP AND HR HPV DNA 2. Breast cancer screening by mammogram Z12.31 Bilateral screening mammogram Bilateral screening mammogram 3. Cellulitis of right breast N61.0 Right breast US complete 4. Fibrocystic breast disease (FCBD), unspecified laterality N60.19 Left diagnostic mammogram 5. Generalized enlarged lymph nodes R59.1 Left diagnostic mammogram Annual Exam: Patient presents today for an annual exam. Patient states she is doing well and has no complaints. Pap was obtained without difficulty. Orders Placed This Encounter Procedures Right breast US complete Bilateral screening mammogram Left diagnostic mammogram Follow Up: Patient is to return in one year for annual unless needed otherwise. Documented by DIOR Rose on behalf of: DIOR Rose documented in this encounter [facility] 01-27-2025 History of Present illness Narrative 5Reason for Appointment: Patient ID: Priscila Hicks is a 44 y.o. female who presents for No chief complaint on file. Patient presents today via telephone call for a telehealth appointment. Patients Phone #: [phone] (mobile) Date: 01/27/2025 Time: 9:52 AM of the visit Platform Used: Audio call performed via in house telephone system. Location of Patient and Provider: Patient at home, provider at clinic Consent for Telehealth: Patient provided verbal consent to conduct the visit virtually via audio only phone call Current Medications: has a current medication list which includes the following prescription(s): alpha tocopherol, amoxicillin-clavulanate, excedrin migraine, cholecalciferol, misc natural products, and vitamin d-vitamin k. Medical History: Active Ambulatory Problems Diagnosis Date Noted Menstrual disorder 05/14/2023 Other chronic pain 05/14/2023 Pain in right knee 05/14/2023 Chondromalacia of patella, right 05/14/2023 Resolved Ambulatory Problems Diagnosis Date Noted No Resolved Ambulatory Problems No Additional Past Medical History Family History Problem Relation Name Age of Onset Hypertension Maternal Grandmother Cancer Maternal Grandmother Parkinsonism Maternal Grandfather Alzheimer's disease Paternal Grandmother Social History Tobacco Use Smoking status: Never Smokeless tobacco: Not on file Substance Use Topics Alcohol use: Never Drug use: Not on file Past Surgical History: Procedure Laterality Date BACK SURGERY 09/2024 SECTION, LOW TRANSVERSE x2 FOOT SURGERY Right 2019 FOOT SURGERY Left 2019 VEIN SURGERY 2009 ablation WISDOM TOOTH EXTRACTION 1998 tooth extraction Allergies Allergen Reactions Carisoprodol Other Reaction(s): heart palpitataions Vitals: Estimated body mass index is 47.27 kg/m as calculated from the following: Height as of 06/06/22: 5' 7 . Weight as of 01/21/25: 301 lb 12.8 oz. BP: Patient's last menstrual period was 01/05/2025. Assessment/Plan No diagnosis found. Today's telehealth visit consisted of spending 5 minutes talking to patient on the phone. Results reviewed and patient doing well. Patient will follow up as scheduled Documented by DIOR Rose on behalf of: DIOR Rose documented in this encounter [facility] 01-21-2025 History of Present illness Narrative Reason for Appointment: Patient ID: Priscila Hicks is a 44 y.o. female who presents for Breast Problem (Right breast around nipple to armpit) Patient presents today for Breast Check MEDICATIONS Current Outpatient Medications Medication Instructions alpha tocopherol (VITAMIN E) 1,000 Units, Daily amoxicillin-clavulanate (Augmentin) 875-125 MG tablet 875 mg, Oral, 2 times daily ekbnmjs-sscgqbneqljgp-trrtxoef (Excedrin Migraine) 250-250-65 MG tablet Every 6 hours cholecalciferol (Vitamin D-3) 50 MCG (1999) tablet 1 tablet, Daily Misc Natural Products (GLUCOSAMINE CHOND CMP DOUBLE PO) 1 tablet, Daily Vitamin D-Vitamin K (VITAMIN K2-VITAMIN D3 PO) 1 tablet, Daily ALLERGIES Allergies Allergen Reactions Carisoprodol Other Reaction(s): heart palpitataions PROBLEMS Active Ambulatory Problems Diagnosis Date Noted Menstrual disorder 05/14/2023 Other chronic pain 05/14/2023 Pain in right knee 05/14/2023 Chondromalacia of patella, 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 No pertinent past medical history. Social History Tobacco Use Smoking status: Never Smokeless tobacco: Not on file Substance Use Topics Alcohol use: Never Drug use: Not on file FAMILY HISTORY Family History Problem Relation Name Age of Onset Hypertension Maternal Grandmother Cancer Maternal Grandmother Parkinsonism Maternal Grandfather Alzheimer's disease Paternal Grandmother SURGICAL HISTORY Past Surgical History: Procedure Laterality Date BACK SURGERY 09/2024 SECTION, LOW TRANSVERSE x2 FOOT SURGERY Right 2019 FOOT SURGERY Left 2020 VEIN SURGERY 2009 ablation WISDOM TOOTH EXTRACTION 1998 tooth extraction REVIEW OF SYSTEMS Review of Systems: Review of Systems OBJECTIVE Objective: OBGyn Exam Vitals: Estimated body mass index is 47.27 kg/m as calculated from the following: Height as of 06/06/22: 5' 7 . Weight as of this encounter: 301 lb 12.8 oz. BP: 120/86 Patient's last menstrual period was 01/05/2025. ASSESSMENT & PLAN ICD-10-CM 1. 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 Breast pain, right N64.4 POCT , urine manually resulted POCT urinalysis dipstick manually resulted 3. Cellulitis of right breast N61.0 amoxicillin-clavulanate (Augmentin) 875-125 MG tablet Right breast US complete Patient presents for right breast redness and irritation. Patient states she has had some irritation with radiation to right axilla for past several days. Small pimple, follicular redness noted at the right areola at 11 oclock. Patient will have US of breast and start taking augmentin. Patient will follow up with telehealth in next week. Documented by Mary Gao MA on behalf of: DIOR Rose documented in this encounter [facility] 11-13-2024 Note SUBJECTIVE: Chief complaint: Postoperative visit status post left L5-S1 microdiscectomy on 09/25/[address] Giron. History of present illness: Reports she has been doing very well since surgery. The left leg symptoms she was having prior to surgery have resolved. Denies new weakness, numbness, tingling, falls, imbalance, issues with the incision. She does report some mild achiness of her back at times, which she attributes to disuse. Would like to return to work 11/21/2024. Review of systems: As in HPI. Past Medical History: Diagnosis Date DDD (degenerative disc disease), cervical PONV (postoperative nausea and vomiting) 06/2019 Did better after 2nd surgery in 2019 SOB (shortness of breath) SVT (supraventricular tachycardia) ([facility]) Past Surgical History: Procedure Laterality Date SECTION, LOW TRANSVERSE 2005 and 2009 FOOT SURGERY MICRODISCECTOMY LUMBAR Left 09/25/2024 Dr. Giron, L5-S1 Social History Tobacco Use Smoking status: Never Smokeless tobacco: Never Vaping Use Vaping status: Never Used Substance Use Topics Alcohol use: Not Currently Drug use: Never Family History Problem Relation Name Age of Onset Arthritis Father Hong Hyperlipidemia Maternal Grandfather ERI Hypertension Maternal Grandfather ERI Cancer Maternal Grandmother MICHAEL Hypertension Maternal Grandmother MICHAEL Stroke Maternal Grandmother MICHAEL Asthma Daughter Gill OBJECTIVE: Medications: ibuprofen vitamin E mixed capsule Women's Daily Formula tablet Current Outpatient Medications: ibuprofen 200 mg tablet, Take 400 mg by mouth if needed for mild pain (1-3 pain score)., Disp: , Rfl: cltafpha-ivre-OG-calcium-mins (Women's Daily Formula) 18 mg iron-400 mcg-500 mg Ca tablet, , Disp: , Rfl: vitamin E mixed 1,000 unit capsule, , Disp: , Rfl: Allergies: Allergies Allergen Reactions Metoprolol Other Carisoprodol Other, Palpitations and Unknown Other Reaction(s): heart palpitataions Heart palpations Exam: Exam performed and reviewed, changes as below. Vitals reviewed: Temp: [36.7 ???C (98.1 ???F)] 36.7 ???C (98.1 ???F) Heart Rate: [67] 67 BP: (119)/(78) 119/78 No intake/output data recorded. No intake/output data recorded. Exam reviewed and updated. Constitutional: In no apparent distress. Chest: Chest expansion symmetrical. Respirations regular and nonlabored. Skin warm and dry without pallor. Lumbar incision well-approximated without edema, erythema, drainage. Neuro: GCS 15/15. Attention and memory intact. No dysarthria or aphasia. Sensation: Intact to light touch L2-S1 dermatomes bilaterally. Musculoskeletal: Hip flexors 5/5 bilaterally. Knee flexors and extensors 5/5 bilaterally. Ankle dorsal flexors 5/5 bilaterally. Ankle plantar flexors 5/5 bilaterally. Muscle tone without hyper or hypotonicity. Muscle bulk appropriate for age. Independently ambulatory with steady gait. Labs: No visits with results within 30 Day(s) from this visit. Latest known visit with results is: Admission on 09/25/2024, Discharged on 09/25/2024 Component Date Value Ref Range Status Preg Test, Ur 09/25/2024 Negative In process QC Pass/Fail 09/25/2024 Passed In process QC LOT # 09/25/2024 [id number] In process QC Expiration Date 09/25/2024 10/21/2025 In process Glucose POC 09/25/2024 95 70 - 105 mg/dL Final Imaging: No results found for this or any previous visit from the past 360 days. Impression: Lumbar disc prolapse with compression radiculopathy status post left L5 hemilaminectomy, L5-S1 microdiscectomy on 09/25/[address] Giron. Plan: Increase activity as tolerated. Planning for return to work on 11/21/2024. 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 Follow-up as needed if new or worsening problems. [facility] 10-14-2024 Note SUBJECTIVE: Chief complaint: Postoperative visit status post left L5-S1 microdiscectomy on 09/25/[address] Giron. History of present illness: Reports she has been doing very well since surgery. The left leg symptoms she was having prior to surgery have resolved. Denies new weakness, numbness, tingling, falls, imbalance, issues with the incision. Review of systems: As in HPI. Past Medical History: Diagnosis Date DDD (degenerative disc disease), cervical PONV (postoperative nausea and vomiting) 06/2019 Did better after 2nd surgery in 2019 SOB (shortness of breath) SVT (supraventricular tachycardia) (CMS/HCC) Past Surgical History: Procedure Laterality Date SECTION, LOW TRANSVERSE 2005 and 2008 FOOT SURGERY MICRODISCECTOMY LUMBAR Left 09/25/2024 Dr. Giron, L5-S1 Social History Tobacco Use Smoking status: Never Smokeless tobacco: Never Vaping Use Vaping status: Never Used Substance Use Topics Alcohol use: Not Currently Drug use: Never Family History Problem Relation Name Age of Onset Arthritis Father Hong Hyperlipidemia Maternal Grandfather ERI Hypertension Maternal Grandfather ERI Cancer Maternal Grandmother MICHAEL Hypertension Maternal Grandmother MICHAEL Stroke Maternal Grandmother MICHAEL Asthma Daughter Gill OBJECTIVE: Medications: acetaminophen methocarbamol naproxen sodium vitamin E mixed capsule Current Outpatient Medications: acetaminophen (Arthritis Pain Relief, acetam,) 650 mg ER tablet, , Disp: , Rfl: methocarbamol (Robaxin) split tablet, , Disp: , Rfl: naproxen sodium (Aleve) 220 mg tablet, , Disp: , Rfl: vitamin E mixed 1,000 unit capsule, , Disp: , Rfl: Allergies: Allergies Allergen Reactions Metoprolol Other Carisoprodol Other, Palpitations and Unknown Other Reaction(s): heart palpitataions Heart palpations Exam: Exam performed and reviewed, changes as below. Vitals reviewed: No intake/output data recorded. No intake/output data recorded. Exam reviewed and updated. Constitutional: In no apparent distress. Chest: Chest expansion symmetrical. Respirations regular and nonlabored. Skin warm and dry without pallor. Lumbar incision well-approximated without edema, erythema, drainage. Moderate amount of glue residue present. Neuro: GCS 15/15. Attention and memory intact. No dysarthria or aphasia. Sensation: Intact to light touch L2-S1 dermatomes bilaterally. Musculoskeletal: Hip flexors 5/5 bilaterally. Knee flexors and extensors 5/5 bilaterally. Ankle dorsal flexors 5/5 bilaterally. Ankle plantar flexors 5/5 bilaterally. Muscle tone without hyper or hypotonicity. Muscle bulk appropriate for age. Independently ambulatory. Labs: Admission on 09/25/2024, Discharged on 09/25/2024 Component Date Value Ref Range Status Preg Test, Ur 09/25/2024 Negative In process QC Pass/Fail 09/25/2024 Passed In process QC LOT # 09/25/2024 [id number] In process QC Expiration Date 09/25/2024 10/21/2025 In process Glucose POC 09/25/2024 95 70 - 105 mg/dL Final Lab on 09/18/2024 Component Date Value Ref Range Status MSSA DNA 09/18/2024 Negative Negative Final MRSA DNA 09/18/2024 Negative Negative Final ABO Grouping 09/18/2024 B Final Rh Type 09/18/2024 POS Final Ab Scrn 09/18/2024 NEG Final aPTT 09/18/2024 28.6 25.0 - 35.0 Seconds Final Protime 09/18/2024 13.2 12.3 - 14.8 Seconds Final INR 09/18/2024 1.00 0.90 - 1.10 Final Sodium 09/18/2024 139 136 - 145 mmol/L Final Potassium 09/18/2024 4.1 3.5 - 5.1 mmol/L Final Chloride 09/18/2024 105 98 - 107 mmol/L Final CO2 09/18/2024 27 21 - 31 mmol/L Final BUN 09/18/2024 21 7 - 25 mg/dL Final Creatinine 09/18/2024 0.70 0.60 - 1.20 mg/dL Final Glucose 09/18/2024 85 70 - 100 mg/dL Final Calcium 09/18/2024 8.7 8.6 - 10.3 mg/dL Final Anion Gap 09/18/2024 11 7 - 20 mmol/L Final eGFR 09/18/2024 109.3 >60.0 mL/min/1.73m*2 Final BUN/Creatinine Ratio 09/18/2024 30.0 Final Auto WBC 09/18/2024 10.57 4.00 - 10.60 10*3/uL Final RBC 09/18/2024 4.31 3.80 - 5.00 10*6/uL Final Hemoglobin 09/18/2024 12.2 12.0 - 15.0 g/dL Final Hematocrit 09/18/2024 37.0 36.0 - 48.0 % Final MCV 09/18/2024 85.8 82.0 - 98.0 fL Final MCH 09/18/2024 28.3 27.0 - 33.0 pg Final MCHC 09/18/2024 33.0 32.0 - 35.0 g/dL Final RDW 09/18/2024 12.1 11.5 - 15.0 % Final Neutrophils Relative 09/18/2024 68.3 40.0 - 72.0 % Final Lymphocytes Relative 09/18/2024 24.3 20.0 - 45.0 % Final Monocytes Relative 09/18/2024 5.0 5.0 - 12.0 % Final Eosinophils Relative 09/18/2024 1.5 0.0 - 6.0 % Final Basophils Relative 09/18/2024 0.6 0.0 - 1.0 % Final Neutrophils Absolute 09/18/2024 7.22 1.60 - 7.60 10*3/uL Final Lymphocytes Absolute 09/18/2024 2.57 1.20 - 4.00 10*3/uL Final Monocytes Absolute 09/18/2024 0.53 0.10 - 1.00 10*3/uL Final Eosinophils Absolute 09/18/2024 0.16 0.00 - 0.50 10*3/uL Final Basophils Absolute 09/18/2024 0.06 0.00 - 0.20 10*3/uL Final Platelets 09/18/2024 328 (more content not included)... [facility] 09-25-2024 Note Addendum created 10/07 1353 by Julian Moran MD Clinical Note Signed, Intraprocedure Blocks edited, SmartForm saved [facility] 09-25-2024 Note Patient: Priscila encinas Procedure Summary Date: 09/25/24 Room / Location: [facility] OPERATING ROOM 03 / [facility] Operating Room Anesthesia Start: 732 Anesthesia Stop: 857 Procedure: L5-S1 MICRODISCECTOMY (Left) Diagnosis: Lumbar herniated disc Lumbar radiculopathy (lumbar hernaited disc with radiculopathy) Surgeons: Lino Giron MD Responsible Provider: Julian Moran MD Anesthesia Type: general ASA Status: 3 Anesthesia Type: general Vitals Value Taken Time BP 98/59 09/25/24 1009 Temp 36 ???C (96.8 ???F) 09/25/24 0853 Pulse 66 09/25/24 1011 Resp 18 09/25/24 1011 SpO2 96 % 09/25/24 1018 Vitals shown include unfiled device data. Anesthesia Post Evaluation Patient location during evaluation: PACU Patient participation: complete - patient participated Level of consciousness: awake and alert Pain score: 1 Pain management: adequate Multimodal analgesia pain management approach Airway patency: patent Two or more strategies used to mitigate risk of obstructive sleep apnea Cardiovascular status: hemodynamically stable Respiratory status: room air and nonlabored ventilation Hydration status: euvolemic Patient is hemodynamically stable and is able to be discharged from PACU per anesthesia protocol. There were no known notable events for this encounter. [facility] 09-25-2024 Note Airway Date/Time: 09/25/2024 7:43 AM Urgency: elective Airway not difficult General Information and Staff Patient location during procedure: OR Anesthesiologist: Julian Moran MD Resident/STATIONS SUPERINTENDENT/CAA: Isaias Valladares MD Performed: resident/STATIONS SUPERINTENDENT/CAA and other anesthesia staff Learner assisted: MS 3 Cricketles FeldmanMargareth assisted in airway under my direction - TAR Indications and Patient Condition Indications for airway management: anesthesia Spontaneous Ventilation: absent Sedation level: deep Preoxygenated: yes Mask difficulty assessment: 1 - vent by mask Planned trial extubation Final Airway Details Final airway type: endotracheal airway Successful airway: ETT Cuffed: yes Successful intubation technique: video laryngoscopy Facilitating devices/methods: intubating stylet Endotracheal tube insertion site: oral Blade: Vance Blade size: #3 ETT size (mm): 7.5 Cormack-Lehane Classification: grade I - full view of glottis Placement verified by: chest auscultation and capnometry Measured from: lips ETT to lips (cm): 23 Number of attempts at approach: 1 Ventilation between attempts: none Number of other approaches attempted: 0 [facility] 09-25-2024 Note Patient: Priscila encinas Procedure Information Date/Time: 09/25/24 0730 Procedure: L5-S1 MICRODISCECTOMY (Left) - - this will take 60-75 minutes, C-arm, Prone, Jb Location: [facility] OPERATING ROOM 03 / [facility] Operating Room Surgeons: Lino Giron MD Relevant Problems Anesthesia (+) PONV (postoperative nausea and vomiting) Cardio H/o symptomatic SVT, has not had and episode in several years (+) Other supraventricular tachycardia (CMS/HCC) Endo (+) Hypothyroidism GI (within normal limits) /Renal (within normal limits) Neuro/Psych Chronic back pain in right lower back that radiates down right leg, since gym injury in November Pulmonary (within normal limits) Clinical information reviewed: Tobacco Allergies Meds Problems Med Hx Surg Hx Fam Hx Soc Hx Physical Exam Airway Mallampati: II TM distance: >3 FB Neck ROM: full Cardiovascular Rhythm: regular Rate: normal Dental - normal exam Pulmonary - normal exam Comments: Non labored respirations Abdominal (+) obese Anesthesia Plan ASA 3 general (GETA with standard ASA monitors, prone positioning discussed) The patient is not a current smoker. Education provided regarding risk of obstructive sleep apnea. intravenous induction Postoperative administration of opioids is intended. Trial extubation is planned. Anesthetic plan and risks discussed with patient. Use of blood products discussed with patient who consented to blood products. Plan discussed with attending. Additional Equipment Requests [facility] 09-18-2024 Note SUBJECTIVE: Chief complaint: Preoperative visit for left L5-S1 microdiscectomy scheduled for 09/25/[address] Giron. History of present illness: Has been having pain into her left buttock that radiates posteriorly down her left leg, often down to her knee, though does go down to her heel at times as well. No variation with time of day. Nothing in particular makes it better. She does not have right leg symptoms. She does have some back pain, though describes more as tightness. Denies bowel or bladder incontinence, though does wonder if she has some urinary retention at times. Denies falls, though does report some difficulty with her balance at times as leg sometimes feels as though it wants to give out. She was initially seen by her primary care provider, who referred her for physical therapy, including cupping. There was no substantial relief with this. She has tried NSAIDs as well, in addition to Tylenol Arthritis and a skeletal muscle relaxant-Robaxin. 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 Review of systems: As in HPI. Denies coughing, shortness of breath, chest pain. Denies rashes, wounds, open sores. Past Medical History: Diagnosis Date PONV (postoperative nausea and vomiting) 06/2019 Did better after 2nd surgery in 2019 Past Surgical History: Procedure Laterality Date SECTION, LOW TRANSVERSE 2005 and 2008 Social History Tobacco Use Smoking status: Never Smokeless tobacco: Never Vaping Use Vaping status: Never Used Substance Use Topics Alcohol use: Not Currently Drug use: Never Family History Problem Relation Name Age of Onset Arthritis Father Hong Hyperlipidemia Maternal Grandfather ERI Hypertension Maternal Grandfather ERI Cancer Maternal Grandmother MICHAEL Hypertension Maternal Grandmother MICHAEL Stroke Maternal Grandmother MICHAEL Asthma Daughter Gill OBJECTIVE: Medications: acetaminophen methocarbamol naproxen sodium vitamin E mixed capsule Current Outpatient Medications: acetaminophen (Arthritis Pain Relief, acetam,) 650 mg ER tablet, , Disp: , Rfl: methocarbamol (Robaxin) split tablet, , Disp: , Rfl: naproxen sodium (Aleve) 220 mg tablet, , Disp: , Rfl: vitamin E mixed 1,000 unit capsule, , Disp: , Rfl: Allergies: Allergies Allergen Reactions Lisinopril Other Metoprolol Other Carisoprodol Other, Palpitations and Unknown Other Reaction(s): heart palpitataions Heart palpations Exam: Exam performed and reviewed, changes as below. Vitals reviewed: Temp: [36.3 ???C (97.4 ???F)] 36.3 ???C (97.4 ???F) Heart Rate: [63] 63 BP: (130)/(82) 130/82 No intake/output data recorded. No intake/output data recorded. Constitutional: In no apparent distress. Cardiovascular: Heart sounds regular rate and rhythm without appreciable murmur. Chest: Lung sounds clear to auscultation bilaterally. Respirations regular and nonlabored. Extremities without edema. Skin warm and dry without pallor. Neuro: GCS 15/15. Attention and memory intact. No dysarthria or aphasia. Sensation: Intact to light touch C5-T1 and L2-S1 dermatomes bilaterally with exception of diminished sensation left L5 and S1 dermatomes. Musculoskeletal: Deltoid 5/5 bilaterally. Triceps 5/5 bilaterally. Biceps 5/5 bilaterally. Finger flexors 5/5 bilaterally. Finger extensors 5/5 bilaterally. Hip flexors 5/5 bilaterally. Knee flexors and extensors 5/5 bilaterally. Ankle dorsal flexors 5/5 bilaterally. Ankle plantar flexors 5/5 bilaterally. Muscle tone without hyper or hypotonicity. Muscle bulk appropriate for age. Independently ambulatory. Labs: Lab on 09/18/2024 Component Date Value Ref Range Status ABO Grouping 09/18/2024 B Final Rh Type 09/18/2024 POS Final Ab Scrn 09/18/2024 NEG Final aPTT 09/18/2024 28.6 25.0 - 35.0 Seconds Final Protime 09/18/2024 13.2 12.3 - 14.8 Seconds Final INR 09/18/2024 1.00 0.90 - 1.10 Final Sodium 09/18/2024 139 136 - 145 mmol/L Final Potassium 09/18/2024 4.1 3.5 - 5.1 mmol/L Final Chloride 09/18/2024 105 98 - 107 mmol/L Final CO2 09/18/2024 27 21 - 31 mmol/L Final BUN 09/18/2024 21 7 - 25 mg/dL Final Creatinine 09/18/2024 0.70 0.60 - 1.20 mg/dL Final Glucose 09/18/2024 85 70 - 100 mg/dL Final Calcium 09/18/2024 8.7 8.6 - 10.3 mg/dL Final Anion Gap 09/18/2024 11 7 - 20 mmol/L Final eGFR 09/18/2024 109.3 >60.0 mL/min/1.73m*2 Final BUN/Creatinine Ratio 09/18/2024 30.0 Final Auto WBC 09/18/2024 10.57 4.00 - 10.60 10*3/uL Final RBC 09/18/2024 4.31 3.80 - 5.00 10*6/uL Final Hemoglobin 09/18/2024 12.2 12.0 - 15.0 g/dL Final Hematocrit 09/18/2024 37.0 36.0 - 48.0 % Final MCV 09/18/2024 85.8 82.0 - 98.0 fL Final MCH 09/18/2024 28.3 27.0 - 33.0 pg Final MCHC 09/18/2024 33.0 32.0 - 35.0 g/dL Final RDW 09/18/2024 12.1 11.5 - 15.0 % Final Neutrophils Relative 09/18/2024 68.3 40.0 - 72.0 % Final Lymphocytes Relative 09/18/2024 24.3 20.0 - 45.0 % Final Monocytes Rel (more content not included)... [facility] 08-13-2024 Note In person visit Chief complaint: left leg pain - radiculopathy PILOT STATION: 44 y/o woman - has pain in the lower back and especially the left leg. This started in about Nov 2023 - she was at the gym and lifting about 40 pounds. She felt like she might have pulled something. She developed back and left leg pain - down the back of the leg and all the way down to her foot - including the heel, undersurface of the foot and small toe. She does not have right leg pain. Her PCP saw her and sent her for therapy - including standard therapy and cupping. She has tried to modify her lifestyle. She has taken over the counter medications and more recently robaxin as a muscle relaxer. She says the muscle relaxer makes the part of the pain that feels like muscle tightness better - but not the remainder of her pain. She says it feels like the muscles are being pulled off of the bones of her leg. No b/b change. No prior back surgery. ROS: As above No past medical history on file. No past surgical history on file. Current Outpatient Medications on File Prior to Visit Medication Sig Dispense Refill acetaminophen (Arthritis Pain Relief, acetam,) 650 mg ER tablet ascorbic acid, vitamin C, 500 mg capsule as directed Orally Lactobac 40-Bifido 3-S.thermop 100 billion cell capsule methocarbamol (Robaxin) split tablet naproxen sodium (Aleve) 220 mg tablet vitamin E mixed 1,000 unit capsule No current facility-administered medications on file prior to visit. Allergies Allergen Reactions Lisinopril Other Metoprolol Other Carisoprodol Other, Palpitations and Unknown Other Reaction(s): heart palpitataions Heart palpations Exam; BP 134/81 (BP Location: Left arm, Patient Position: Sitting, BP Cuff Size: Large adult) Pulse 69 Temp 37 ???C (98.6 ???F) (Oral) Wt (!) 139 kg (307 lb) SpO2 98% BMI 48.08 kg/m??? Age appropriate no family present NC/AT Well developed, well nourished Mood/affect normal Awake, alert, oriented CN intact Speech intact Cognition intact + SLR on the left side Motor: mild weakness in PF on the left 4/5 - otherwise intact Sensory: - decreased to LT in the left S1 distribution Ambulatory Station intact Coordination intact Reflexes: - decreased in left leg Review of films; I personally reviewed and interpreted her imaging for her during the clinic visit. I showed her the DDD at L5-S1 which has a sizeable posterior protrusion on the sagittal view and the large disc herniation with compression of the left S1 nerve on the axial images. There are no other areas of concerning neural compression on the MRI. A/P: 44 y/o woman with large left L5-S1 herniated dsic and also concordant lumbar radiculopathy in the left side S1 distribution. She has done the non-operative options to try to help her pain (NSAIDs, muscle relaxer, life style modification and physical therapy). I offered her surgery for removal of the large herniated disc fragment - this would be left side L5-S1 microdiscectomy. I would expect that to take about 60-75 minutes of operative time. She would be prone on the open jb table. We would use fluoro to help localize the level for surgery. She voiced understanding of the potential risks and benefits of the proposed surgery. She would like to proceed. I will work to find a date for her to have the surgery. Consent signed in clinic today. She will get standard pre-op labs, EKG and likely chest x-ray. She was given the chlorhexadine wipes for the day prior to surgery and morning of surgery. Lino Giron MD Answers submitted by the patient for this visit: Back Pain Questionnaire (Submitted on 08/11/2024) Chief Complaint: Back pain Chronicity: chronic Onset: more than 1 month ago Frequency: constantly Progression since onset: rapidly worsening Pain location: gluteal, lumbar spine, sacro-iliac Pain quality: burning, cramping, shooting, stabbing Radiates to: left foot, left knee, left thigh Pain - numeric: 8/10 Pain is: the same all the time Aggravated by: bending, coughing, position, lying down, sitting, standing, twisting Stiffness is present: all day abdominal pain: No bladder incontinence: No bowel incontinence: No chest pain: No dysuria: No fever: No headaches: No leg pain: Yes numbness: Yes paresis: No paresthesias: Yes pelvic pain: Yes perianal numbness: No tingling: Yes weakness: Yes weight loss: No Risk factors: obesity [facility] 08-06-2023 Evaluation note Encounter Date Diagnosis Assessment [...] hydrate. No treatment necessary, continue to exercise Wangdaizhijia Other Evaluation noteNo InformationNortTristar Other Evaluation noteNo assessment information available [facility] Work Phone: Evaluation note* Diagnosis Breast anomaly Breast pain, right Cellulitis of right breast [facility] Diagnosis Breast pain, right- Primary [facility] Diagnosis Well woman exam with routine gynecological exam Routine gynecological examination Breast cancer screening by mammogram Cellulitis of right breast Fibrocystic breast disease (FCBD), unspecified laterality Generalized enlarged lymph nodes Enlargement of lymph nodes [facility] this [facility] N[facility]ative - Reported* Type Description Date Medical History Foot pain Medical History Menopausal symptom Medical History Hormonal disorder Medical History Palpitations Surgical History C section Surgical History wisdom teeth Surgical History vein ligation Hospitalization History child bith Wangdaizhijia Other Summary Purpose Family History No Family [...] section and content) DATE CREATED AUTHOR 01/21/2019 [facility] DATE CREATED AUTHOR AUTHOR'S ORGANIZ ATION 02/14/2023 [facility] DATE CREATED AUTHOR AUTHOR'S ORGANIZ ATION 07/06/2024 [facility] DATE CREATED AUTHOR AUTHOR'S ORGANIZ ATION 11/15/2024 [facility] DATE CREATED AUTHOR AUTHOR'S ORGANIZ ATION 02/01/2025 [facility] EPIC REASON FOR VISIT (unrecogniz ed section and content) Reason Comments Breast Problem Right breast around nipple to armpit Reason Comments Well Women Visit Care Teams (unrecognized sec tion and content) Team Status: Active Member Role Status Dates Faizan Gay DO Primary Care Provider Active Team Status: Inactive Member Role Status Dates Faizan Gay DO Primary Care Provide r, Attending Provider Active Start: January 14, 2024 End: January 14, 2024 [employer] Relationship Specialty Start Date End Date Faizan Gay MD [address] [place] [address] PCP - General 05/09/23 [employer] Relationship Specialty Start Date End Date Faizan Gay MD [address] [place] [address] PCP - General 05/09/23 [employer] Relationship Specialty Start Date End Date Faizan Gay MD PCP - General 05/09/23 [employer] Relationship Specialty Start Date End Date Faizan Gay MD PCP - General 05/09/23 [employer] Relationship Specialty Start Date End Date Faizan Gay DO PCP - General 05/09/23 [employer] Relationship Specialty Start Date End Date Faizan Gay DO PCP - General 05/09/23 Goals (unrecognized section and content) Goals may [...] BE BASED ON THE PRIMARY CLINICAL RECORDS. [facility]. provides no warranty or guarantee of the accuracy or completeness of information in this document.
[2025-07-03 18:08] LABS: Age Gdln ACOG Testing Note (.); IGP, Aptima HPV, rfx 16/18,45 Note (.)
== END 2025-06-29 20:11 | disposition home or self-care (01) ==
LOC: LAB 20:10
PROVIDERS: PCP Internal Medicine; Visit Provider Physician Assistant
DX: Z01.419 Encounter for gynecological examination (general) (routine) without abnormal findings (principal)
CPT/HCPCS: 87624; 88175